=== PATIENT | male | born 1970 | race Caucasian/White ===

== ENCOUNTER 2016-09-14 22:02 | Observation (INO) | payer OTHER ==
[~2016-09-14] VITALS: Ht 188 cm; Wt 127.0 kg
[~2016-09-14 22:02] MED LIST: BACLOFEN10 M1; BACLOFEN10 M1 PO; CARVEDILOL PO; COLACE PO; FLEXERIL10 MG PO; LASIX PO; LIORESAL10 MG PO; LISINOPRIL PO; NORCO 10/325 MG1 TAB PO; NORCO 325 MG-101 TAB PO; NORCO 325 MG-7.1 TAB PO; NORCO 5/325 MG1 TAB; VICODIN; WARFARIN PO
--- NOTE | 2016-09-14 22:02 | NUR ---
PT [facility]A [facility]. TAKEN TO BED 3
[2016-09-14 22:10] VITALS: BP 185/127
--- NOTE | 2016-09-14 22:30 | NUR ---
45Y M BIB AMBULANCE C/O CP, 10/10 SCALE, NO DISTRESS NOTED. ST IN THE MONITOR. ELEVATED BP 185/127. PT ADMITS HE IS METH USER AND DIDNT USE METH FOR 3-4 DAYS NOW. PREVIOUSLY ADMITTED FOR SAME COMPLAINTS.
--- NOTE | 2016-09-14 23:07 | NUR ---
X-Ray at bedside.
--- NOTE | 2016-09-14 23:24 | NUR ---
Dr. Cardona evaluating patient at bedside.
--- NOTE | 2016-09-14 23:55 | NUR ---
RT AT PT BEDSIDE
--- NOTE | 2016-09-15 00:03 | NUR ---
PATIENT REFUSED BIPAP. WOULD NOT KEEP MASK ON. INFORMED PATIENT BENEFITS AND EDUCATED ON BIPAP. PT SAYS HE CAN NOT TOLERATED ANY MASK ON HIS FACE, PLACED BACK ON 2LNC.
[2016-09-15] MEDS ORDERED: LORazepam 2 MG/ML VIAL IM ONE (00:25)
[2016-09-15] MEDS ORDERED: LORazepam 2 MG/ML VIAL IVP ONE ×3 (00:25→01:15)
[2016-09-15] MEDS ORDERED: HYDROcodone/APAP 7.5/325 MG 1 TAB PO PRN ×2 (00:50→01:30)
[2016-09-15] MEDS ORDERED: NITROGLYCERIN 0.4 MG TAB SL PRN ×2 (00:50→01:30)
[2016-09-15] MEDS ORDERED: ONDANSETRON 4 MG/2 ML VIAL IVP PRN ×2 (00:50→01:30)
[2016-09-15] MEDS ORDERED: ACETAMINOPHEN 325 MG TAB PO PRN ×2 (00:50→01:30)
[2016-09-15] MEDS ORDERED: MORPHINE SULFATE 2 MG/ML SYR IVP PRN (00:50)
[2016-09-15] MEDS ORDERED: FUROSEMIDE 20 MG/2 ML VIAL IVP ONE ×3 (01:00→01:15)
--- NOTE | 2016-09-15 01:14 | NUR ---
Patient will be admitted to care of . Admited to TELEMETRY. Will go to room 115. Belongings list completed. Report to SHAUNA RODRIGUEZ.
--- NOTE | 2016-09-15 01:39 | NUR ---
RECEIVED PT. FROM ER PER RAMO. VERBALIZING WELL. PT. ALERT AND ORIENTED X 4. ROM X 4. DX. OF CHF EXACERBATION. ON 02 AT 3 LPM/NC WITH 02 SAT OF 99 %. BP 145/78 PULSE OF 50. SKIN NOTED WITH OLD SCARS FROM NEEDLE TRACKS NOTED. PT. GIVEN 1 MG OF ATIVAN IVP IN ER RT COMBATIVE. HX. SUBSTANCE ABUSE/METH, ASTHMA,CARDIOMYOPATHY AND SEIZURES. PT. AFEBRILE. CARE PLANS DISCUSSED WITH HIM FOR THE NIGHT AND MADE SURE PT. BED ALARM ON AND CALL LIGHT WITH IN REACH.
--- NOTE | 2016-09-15 01:49 | NUR ---
PT. ACCIDENTALLY PULLED OUT IVF LINE INSERTED IN ER. WILL INSERT NEW LINE. DISCONTINUED IVF LINE WITH TIP INTACT.
[2016-09-15 02:05] VITALS: BP 145/78
--- NOTE | 2016-09-15 02:50 | NUR ---
PT. MEDICATED WITH LASIX 60 MG X 1 ORDERED. EXPLAINED TO PT. REASON OF NEW IVF LINE INSERTED TO LEFT HAND#24. ABLE TO URINATE IN URINAL 200 ML. GAVE 2 URINALS TO RT PT. GIVEN LASIX .
[2016-09-15 04:11] VITALS: BP 136/78
--- NOTE | 2016-09-15 05:20 | NUR ---
PAGED MD SHORT WITH DENTAL TECHNICIAN INSTRUCTOR MD. SEGAL .
--- NOTE | 2016-09-15 05:22 | NUR ---
SLEEPING WELL AT THIS TIME. VERBALIZES WELL. NO SOB. ON 02 AT 3LPM/NC. TELEMETRY MONITORING.
--- NOTE | 2016-09-15 05:30 | NUR ---
MD SEGAL CALLED BACK AND INFORMED HER OF LACTIC ACID ORDERED RESULT OF 2.6- WITH NEW ORDER TO REPEAT AFTER FOUR HOURS.
--- NOTE | 2016-09-15 06:15 | NUR ---
URINE SAMPLE FOR UDS SENT TO LABORATORY. PT. SLEEPING. WAKES UP EASILY WHEN TOUCHED. ABLE TO VERBALIZE NEEDS WELL. IVF SITE TO LEFT HAND #[address] AND PATENT. HEPLOCKED. DX. CHF EXACERBATION.
--- NOTE | 2016-09-15 07:10 | NUR ---
RECEIVED REPORT FROM MICHAEL VILLATORO. PT IS AAOX4. PT ON 3L NC, O2 SAT AT 97%. IV TO LEFT HAND #22, PATENT AND INTACT. NO N/V OR PAIN INDICATED. MULTIPLE SCARS/SCABS NOTED ON BILATERAL UPPER EXTREMITIES. ALL SAFETY PRECAUTIONS IN PLACE, SIDE RAILSX2, BED IN LOW POSITION, AND CALL LIGHT WITHIN REACH. WILL CONTINUE TO MONITOR.
[2016-09-15 08:00] VITALS: BP 152/89
--- NOTE | 2016-09-15 08:58 | NUR ---
PATIENT HAS BEEN SCREENED AND CATEGORIZED MODERATE NUTRITION RISK. PATIENT WILL BE SEEN WITHIN 3-5 DAYS OF ADMISSION. 09/17/16-09/19/[address]
[2016-09-15] MEDS ORDERED: DOCUSATE SODIUM 100 MG GELCAP PO SCH (09:00)
[2016-09-15] MEDS ORDERED: FUROSEMIDE 20 MG/2 ML VIAL IVP SCH ×2 (09:00)
[2016-09-15] MEDS ORDERED: ASPIRIN 81 MG TAB.CHEW PO SCH (09:00)
[2016-09-15] MEDS ORDERED: LISINOPRIL 10 MG TAB PO SCH ×3 (09:00→15:52)
[2016-09-15] MEDS ORDERED: ATORVASTATIN 20 MG TAB PO SCH (09:00)
[2016-09-15] MEDS ORDERED: CARVEDILOL 3.125 MG TAB PO SCH ×2 (09:00)
[2016-09-15] MEDS ORDERED: FAMOTIDINE 20 MG TAB PO SCH ×2 (09:00)
--- NOTE | 2016-09-15 09:00 | NUR ---
PT RESTING WITH NO DISTRESS NOTED.
[2016-09-15] MEDS: ASPIRIN 81 MG TAB.CHEW PO SCH (09:55)
[2016-09-15] MEDS: DOCUSATE SODIUM 100 MG GELCAP PO SCH (09:55)
[2016-09-15] MEDS: ATORVASTATIN 20 MG TAB PO SCH (09:56)
--- NOTE | 2016-09-15 10:00 | NUR ---
VSS. PT TOLERATED MEDS WELL. WILL CONTINUE TO MONITOR.
[2016-09-15] MEDS ORDERED: SPIRONOLACTONE 25 MG TAB PO SCH (10:30)
[2016-09-15] MEDS: MORPHINE SULFATE 2 MG/ML SYR IVP PRN ×2 (10:47→18:02)
--- NOTE | 2016-09-15 10:54 | NUR ---
PT TOLERATED MEDS WELL. BP 151/113, HR 110. PT C/O 9/10 PAIN. ADMINISTERED MORPHINE ORDERED. WILL CONTINUE TO MONITOR.
[2016-09-15 12:00] VITALS: BP 157/113
--- NOTE | 2016-09-15 12:00 | NUR ---
VSS. WILL CONTINUE TO MONITOR.
--- NOTE | 2016-09-15 13:29 | NUR ---
CM NOTE INITIAL REVIEW FAXED TO [facility] / FAX# [phone], C: [phone]
--- NOTE | 2016-09-15 14:00 | NUR ---
PT SLEEPING WITH NO DISTRESS NOTED.
--- NOTE | 2016-09-15 15:08 | NUR ---
RECEIVED CRITICAL LAB FOR TROPONIN 0.082, DR JOHNSON MADE AWARE. NO ORDERS RECEIVED AT THIS TIME. PT MAY BE POSSIBLE DISCHARGE.
[2016-09-15 16:00] VITALS: BP 115/68
--- NOTE | 2016-09-15 17:00 | NUR ---
PT RESTING WITH NO DISTRESS NOTED.
--- NOTE | 2016-09-15 19:33 | NUR ---
ENDORSED CARE TO MICHAEL DE LA O. PT IN STABLE CONDITION.
--- NOTE | 2016-09-15 19:35 | NUR ---
RECEIVED PT IN STABLE CONDITION FROM LINDA Light RN. NO SOB, NO SIGNS OF DISTRESS. PT REFUSING 2L O2 NC. PT IS AOX4, AMBULATORY. VS STABLE. PT DENIES PAIN AT THIS TIME. IV TO LT HAND 24 G PATENT ASYMPTOMATIC, INTACT, SALINE LOCKED. PT REFUSING SCDS. SCABS NOTED ALL OVER BODY. PLAN OF CARE DISCUSSED WITH PT. SAFETY MEASURES IN PLACE. CALL LIGHT WITHIN REACH. WILL CONTINUE TO MONITOR.
[2016-09-15 20:00] VITALS: BP 124/78
[2016-09-15] MEDS ORDERED: SODIUM CHLORIDE FLUSH 10 ML SYR IVF SCH (21:00)
[2016-09-15] MEDS: SODIUM CHLORIDE FLUSH 10 ML SYR IVF SCH (21:24)
--- NOTE | 2016-09-15 21:24 | NUR ---
FLUSHED IV SITE PER MD ORDER, PT TOLERATED WELL. PT ON 2L O2 NC. NO SOB, NO SIGNS OF DISTRESS. IV SITE ASYMPTOMATIC, INTACT, PATENT, SALINE LOCKED. PT DENIES PAIN AT THIS TIME. PLAN OF CARE DISCUSSED WITH PT. SAFETY MEASURES IN PLACE. CALL LIGHT WITHIN REACH. WILL CONTINUE TO MONITOR.
--- NOTE | 2016-09-15 23:00 | NUR ---
PT REFUSED CONFIGURATION MANAGEMENT ADMINISTRATOR, EDUCATED PT ON THE REASONS WHY HE NEEDS TO HAVE THE HEART MONITOR ON, PT STILL REFUSED.
[2016-09-16] VITALS: BP 104/70
[2016-09-16] MEDS: MORPHINE SULFATE 2 MG/ML SYR IVP PRN ×2 (00:10→11:09)
--- NOTE | 2016-09-16 00:10 | NUR ---
VS STABLE. PT ON 2L O2 NC. NO SOB, NO SIGNS OF DISTRESS. IV SITE ASYMPTOMATIC, INTACT, SALINE LOCKED. PT C/O PAIN, WILL MEDICATE PER MD ORDER. PLAN OF CARE DISCUSSED WITH PT. SAFETY MEASURES IN PLACE. CALL LIGHT WITHIN REACH. WILL CONTINUE TO MONITOR.
--- NOTE | 2016-09-16 02:05 | NUR ---
PT ASLEEP IN BED. PT ON 2L O2 NC. NO SOB, NO SIGNS OF DISTRESS. IV SITE ASYMPTOMATIC, INTACT, SALINE LOCKED. SAFETY MEASURES IN PLACE. CALL LIGHT WITHIN REACH. WILL CONTINUE TO MONITOR.
[2016-09-16 04:00] VITALS: BP 99/47
--- NOTE | 2016-09-16 04:15 | NUR ---
VS STABLE ON ROOM AIR. NO SOB, NO SIGNS OF DISTRESS. PT REFUSING OXYGEN AND EVENT PLANNER. EDUCATED PT ON THE MEDICAL NEED FOR OXYGEN AND HEART MONITORING, PT BECAME AGITATED AND REFUSED. IV SITE ASYMPTOMATIC, INTACT, SALINE LOCKED. PT DENIES PAIN AT THIS TIME. PLAN OF CARE DISCUSSED WITH PT. SAFETY MEASURES IN PLACE. CALL LIGHT WITHIN REACH. WILL CONTINUE TO MONITOR.
[2016-09-16] MEDS: SODIUM CHLORIDE FLUSH 10 ML SYR IVF SCH ×2 (05:52→12:16)
--- NOTE | 2016-09-16 07:10 | NUR ---
ENDORSED PT IN STABLE CONDITION TO LINDA Light RN. ALL NEEDS HAVE BEEN MET AT THIS TIME.
--- NOTE | 2016-09-16 07:11 | NUR ---
RECEIVED REPORT FROM MICHAEL DE LA O. PT IS AAOX4. PT ON ROOM AIR WITH NO S/S OF DISTRESS NOTED, O2 SAT AT 96%%. IV TO LEFT HAND #24, PATENT AND INTACT. BLE/MAGALIE EXTREMITY SCARS/SCABS NOTED. NO N/V OR PAIN INDICATED. ALL SAFETY PRECAUTIONS IN PLACE, SIDE RAILSX2, BED IN LOW POSITION, AND CALL LIGHT WITHIN REACH. WILL CONTINUE TO MONITOR.
[2016-09-16 07:55] VITALS: BP 103/61
[2016-09-16] MEDS ORDERED: COUMADIN2.5 MG PO (08:09)
[2016-09-16] MEDS ORDERED: PEPCID20 M1 PO (08:09)
[2016-09-16] MEDS ORDERED: ASPIRIN ADULT L81 M1 PO (08:09)
[2016-09-16] MEDS ORDERED: ALDACTONE25 M1 PO (08:09)
[2016-09-16] MEDS ORDERED: APAP/HYDROCODON1 T30 PO (08:09)
[2016-09-16] MEDS ORDERED: LISINOPRIL10 M1 PO (08:09)
[2016-09-16] MEDS ORDERED: COLACE100 M1 PO (08:09)
[2016-09-16] MEDS ORDERED: CARVEDILOL12.5 MG PO (08:09)
[2016-09-16] MEDS ORDERED: LASIX10 MG/M2 IVP (08:09)
[2016-09-16] MEDS ORDERED: SPIRONOLACTONE 25 MG TAB PO SCH (09:00)
[2016-09-16] MEDS ORDERED: CARVEDILOL 12.5 MG TAB PO SCH (09:00)
[2016-09-16] MEDS ORDERED: LISINOPRIL 10 MG TAB PO SCH (09:00)
[2016-09-16] MEDS ORDERED: FAMOTIDINE 20 MG TAB PO SCH (09:00)
[2016-09-16] MEDS ORDERED: CARVEDILOL 3.125 MG TAB PO SCH (09:00)
[2016-09-16] MEDS ORDERED: FUROSEMIDE 20 MG/2 ML VIAL IVP SCH (09:00)
[2016-09-16] MEDS: ATORVASTATIN 20 MG TAB PO SCH (09:11)
[2016-09-16] MEDS: DOCUSATE SODIUM 100 MG GELCAP PO SCH (09:13)
[2016-09-16] MEDS: ASPIRIN 81 MG TAB.CHEW PO SCH (09:14)
--- NOTE | 2016-09-16 09:19 | NUR ---
BP 112/58, HR 94. PT TOLERATED MEDS WELL. PT REFUSED LASIX, PROVIDED WITH EDUCATION REGARDING LASIX REFUSAL. PT VERBALIZED UNDERSTANDING. WILL CONTINUE TO MONITOR.
--- NOTE | 2016-09-16 11:13 | NUR ---
VSS. PT C/0 04/23 PAIN. ADMINISTERED MORPHINE ORDERED. PT TOLERATED MEDS WELL.
--- NOTE | 2016-09-16 11:15 | NUR ---
P.T. NOTES Pt WAS SEEN SLEEPY IN BED, WOKE UP W/ P.T., DECLINED TO PARTICIPATE W/ P.T., EXPLAINED BENEFITS OF THERAPY, Pt STILL REFUSED, P.T. STAFF OFFERED TO RETURN LATER, Pt STATES HE WILL "NOT GET UP TODAY, HE WILL ONLY GET UP WHEN HE IS DISCHARGED TO WALK TO THE W/C", STATES HE IS LEAVING TODAY; APPRECIATIVE, WANTED LIGHTS OFF, CURTAIN CLOSED, CALL TRAMMELL, PHONE, TABLE IN REACH; APPRECIATIVE; 4 SIDERAILS UP, BED ALARM ON; ON ROOM AIR; FOLLOW UP TOMORROW OF NOT D/C'd; NURSE AWARE; REVIEWED HEP. PVE
[2016-09-16 12:00] VITALS: BP 136/60
--- NOTE | 2016-09-16 12:37 | NUR ---
VSS. PT RESTING WITH NO DISTRESS NOTED
--- NOTE | 2016-09-16 13:00 | NUR ---
PT SHOWERED. PT AMBULATED TO SHOWER WITH STEADY GAT. PT PROVIDED WITH DISCHARGE TEACHING. PROVIDED PT WITH HOMELESS DETENTION RESOURCES. PT VERBALIZED UNDERSTANDING.
--- NOTE | 2016-09-16 14:05 | NUR ---
PT HAS BEEN DISCHARGED. ALL PAPERWORK SIGNED. ALL QUESTIONS ANSWERED. ALL BELONGINGS AND PRESCRIPTIONS IN PT POSSESSION. IV DC'ED WITH CANNULA INTACT. WRISTBANDS AND TELE MONITOR REMOVED. NOTIFIED CORK COMPOUNDER. PT WHEELED OUT OF UNIT, PT AMBULATED WITH STEADY GAIT. PT PROVIDED WITH THREE BUS PASSES. PT IN STABLE CONDITION.
[2016-12-29] MEDS ORDERED: CARVEDILOL6.25 MG PO (15:03)
[2016-12-29] MEDS ORDERED: NATURE'S BLEND F1 M1 PO (15:03)
[2016-12-29] MEDS ORDERED: NATURE'S BLEND100 M2 PO (15:03)
[2016-12-29] MEDS ORDERED: ASPIRIN ADULT L81 M1 PO (15:03)
[2016-12-29] MEDS ORDERED: ZESTRIL20 MG PO (15:03)
[2016-12-29] MEDS ORDERED: ATORVASTATIN CA20 MG PO (15:03)
[2016-12-29] MEDS ORDERED: ALDACTONE25 M1 PO (15:03)
[2017-03-02] MEDS ORDERED: ATORVASTATIN CA20 MG PO (10:34)
[2017-03-02] MEDS ORDERED: ASPIRIN ADULT L81 M1 PO (10:34)
[2017-03-02] MEDS ORDERED: NATURE'S BLEND100 M2 PO (10:34)
[2017-03-02] MEDS ORDERED: BLOOD GLUCOSE1 EACH FS (10:34)
[2017-03-02] MEDS ORDERED: ALDACTONE25 M1 PO (10:34)
[2017-03-02] MEDS ORDERED: LASIX20 MG PO (10:34)
[2017-03-02] MEDS ORDERED: NATURE'S BLEND F1 M1 PO (10:34)
[2017-03-02] MEDS ORDERED: LISINOPRIL20 M1 PO (10:34)
[2017-03-02] MEDS ORDERED: GLUCOPHAGE XR500 MG PO (10:34)
[2017-03-02] MEDS ORDERED: CARVEDILOL6.25 MG PO (10:34)
== END 2016-09-16 14:05 | disposition home or self-care (01) ==
LOC: MED 22:02 → UNDOADMIN 09-15 00:34 → MTU 09-15 00:34
PROVIDERS: ADMIT Family Medicine; ATTEND Family Medicine
DX: I50.9 Heart failure, unspecified (principal); I11.0 Hypertensive heart disease with heart failure
CPT/HCPCS: 36415; 71010; 80048; 80053; 80061; 80076; 80305; 81003; 82150; 83036; 83605; 83690; 83735; 83880; 84100; 84439; 84443; 84484; 85025; 85610; 85730; 87040; 87081; 93005; 96374; 96375; 96376; 97162; 99285; G0378; J1940; J2060; J2270

== ENCOUNTER 2016-10-04 01:12 | Inpatient (IN) | payer OTHER ==
[~2016-10-04] VITALS: Ht 190.5 cm; Wt 127.0 kg
[2016-10-04] VITALS (7 sets, daily range): BP systolic 108–149; BP diastolic 67–109
[~2016-10-04 01:12] MED LIST changes: +ACET-9529 PO; +ASPI81CT27 PO; -BACLOFEN10 M1; -BACLOFEN10 M1 PO; +CARV12.52 PO; -CARVEDILOL PO; -COLACE PO; +DOCU-67 PO; +FAMO-90 PO; -FLEXERIL10 MG PO; +LAS20I IVP; -LASIX PO; -LIORESAL10 MG PO; +LISI10TA11 PO; -LISINOPRIL PO; -NORCO 10/325 MG1 TAB PO; -NORCO 325 MG-101 TAB PO; -NORCO 325 MG-7.1 TAB PO; -NORCO 5/325 MG1 TAB; +SPIR25TA PO; -VICODIN; +WARF2.5T77 PO; -WARFARIN PO
--- NOTE | 2016-10-04 01:38 | NUR ---
MICHAEL CALIX. TAKEN TO BED 1
--- NOTE | 2016-10-04 01:46 | NUR ---
BIB [facility], PT FOUND AT 7-11, COMPLAIN OF CHEST PAIN. PT ADMITS TO METH USE X2 AGO AND MARIJUANA USE . DENIES N/V/D; SKIN IS PINK/WARM/DRY; AAOX4 WITH EVEN AND STEADY GAIT; LUNGS CLEAR BL; HR EVEN AND REGULAR; PT DENIES ANY FEVER, SOB, OR COUGH AT THIS TIME; PATIENT STATES PAIN OF 10/10 AT THIS TIME; VSS; PATIENT POSITIONED FOR COMFORT; HOB ELEVATED; BEDRAILS UP X2; BED DOWN. ER MD MADE AWARE OF PT STATUS. PT APPEARS VERY AGITATED WITH CARES AND UNABLE TO SIT STILL.
--- NOTE | 2016-10-04 01:46 | NUR ---
X-Ray at bedside.
[2016-10-04 02:00] LABS: BASOPHILS # (AUTO) 0.1 K/uL (0.00-0.22); BASOPHILS % (AUTO) 1.5 % (0.0-2.0); EOSINOPHILS # (AUTO) 0.3 K/uL (0-0.4); EOSINOPHILS % (AUTO) 3.8 % (0.0-4.0); HEMOGLOBIN 12.6 g/dL (12.0-18.0); LYMPHOCYTES # (AUTO) 1.6 K/uL (2.0-11.5); LYMPHOCYTES % (AUTO) 17.4 % (20.5-51.1); MEAN CORPUSCULAR HEMOGLOBIN 25 pg (27-31); MEAN CORPUSCULAR HGB CONC 31 g/dL (33-37); MEAN CORPUSCULAR VOLUME 79 fL (80-94); MONOCYTES # (AUTO) 0.8 K/uL (0.8-1.0); MONOCYTES % (AUTO) 9.1 % (1.7-9.3); NEUTROPHILS # (AUTO) 6.2 K/uL (1.8-7.7); NEUTROPHILS % (AUTO) 68.2 % (42.2-75.2); PLATELET COUNT (AUTO) 190 K/uL (140-450); RED CELL DISTRIBUTION WIDTH 16.5 % (11.6-13.7)
--- NOTE | 2016-10-04 02:00 | NUR ---
LABS, CXR AND URINE DONE.
[2016-10-04 02:01] LABS: APPEARANCE,URINE SL CLOUDY (CLEAR); BILIRUBIN,URINE NEGATIVE (NEGATIVE); BLOOD, URINE TRACE-L (NEGATIVE); COLOR,URINE YELLOW (YELLOW); LEUKOCYTE ESTERASE ,URINE NEGATIVE (NEGATIVE); NITRITE, URINE NEGATIVE (NEGATIVE); PH,URINE 5.5 (5.0-9.0); PROTEIN,URINE 2+ (NEGATIVE); UGLUCOSE NEGATIVE (NEGATIVE)
[2016-10-04 02:08] LABS: AMPHETAMINE, URINE POS. ng/ml (NEG <=1000); BARBITURATE, URINE NEG. ng/ml (NEG <=200); BENZODIAZEPINE, URINE NEG. ng/mL (NEG <=200); CANNABINOID, URINE POS. ng/mL (NEG <=50); COCAINE, URINE NEG. ng/mL (NEG <=300); OPIATE, URINE NEG. ng/mL (NEG <=2000); PHENCYCLIDINE SCREEN,URINE NEG. ng/mL (NEG <=25)
[2016-10-04 02:14] LABS: BACTERIA,URINE FEW /HPF (None Seen); SQUAMOUS EPITHELIAL CELL,UR None Seen /LPF (0-3 (FEW))
[2016-10-04 02:14] LABS: ALBUMIN 3.4 g/dL (3.4-5.0); ANION GAP 14.9 (8-16); CALCIUM 8.6 mg/dL (8.5-10.1); CARBON DIOXIDE 23.4 mmol/L (21-32); CREATININE 1.3 mg/dL (0.6-1.3); POTASSIUM 4.3 mmol/L (3.5-5.1); TOTAL BILIRUBIN 0.5 mg/dL (0.0-1.0); TOTAL PROTEIN, SERUM 6.8 g/dL (6.4-8.2)
[2016-10-04 02:15] LABS: HYALINE CASTS, URINE 0-3 /LPF (None Seen)
[2016-10-04 02:18] LABS: INR 1.2 (0.8-1.2); PARTIAL THROMBOPLASTIN TIME 25.9 secs (22-35.6)
[2016-10-04] MEDS ORDERED: ASPIRIN 81 MG TAB.CHEW PO ONE (02:30)
[2016-10-04] MEDS ORDERED: MORPHINE SULFATE 4 MG/ML SYR IVP ONE (02:35)
[2016-10-04] MEDS ORDERED: FUROSEMIDE 40 MG/4 ML VIAL IVP ONE (02:35)
[2016-10-04] MEDS ORDERED: ONDANSETRON 4 MG/2 ML VIAL IVP PRN (03:15)
[2016-10-04] MEDS ORDERED: ACETAMINOPHEN 325 MG TAB PO PRN (03:15)
[2016-10-04] MEDS ORDERED: MORPHINE SULFATE 2 MG/ML SYR IVP PRN (03:15)
[2016-10-04] MEDS ORDERED: DOCUSATE SODIUM 100 MG GELCAP PO PRN (03:15)
[2016-10-04] MEDS ORDERED: HYDROcodone/APAP 5/325 MG 1 TAB TAB PO PRN (03:15)
--- NOTE | 2016-10-04 03:17 | NUR ---
PIV STARTED, MEDS GIVEN. PT REFUSED INDWELLING CATH, STATES HE WILL USE URINALS.
--- NOTE | 2016-10-04 03:23 | NUR ---
Patient will be admitted to care of [facility]. Admited to TELE. Will go to room 113. Belongings list completed. Report to MICHAEL CINTRON.
--- NOTE | 2016-10-04 03:45 | NUR ---
PATIENT TRANSFERRED FROM ER VIA GURNEY. NO RESPIRATORY DISTRESS, SOB, OR DISCOMFORT. PATIENT IS A 45-YEAR-OLD, MALE, DIAGNOSIS: CHF. INITIAL ASSESSMENT AND BODY CHECK DONE. PATIENT IS AOX4, MULTIPLE SCABS AND REDNESS THROUGHOUT BODY NOTED. PATIENT STATES FROM SCRATCHING BODY. PATIENT HAS IV ACCESS TO LEFT AC 20G, PATENT. DISCUSSED PLAN OF CARE, MEDICATION REGIMENT, AND PAIN MANAGEMENT WITH PATIENT. PATIENT VERBALIZED UNDERSTANDING. PLACED PATIENT ON SAFETY/FALL/PRESSURE ULCER PRECAUTIONS. CALL LIGHT LEFT WITHIN REACH, WILL CONTINUE OT MONITOR.
[2016-10-04 04:06] LABS: MAGNESIUM 1.7 mg/dL (1.8-2.4); PHOSPHORUS 3.6 mg/dL (2.5-4.9)
[2016-10-04 04:39] LABS: FREE T4 (FREE THYROXINE) 0.96 ng/dL (0.76-1.46); THYROID STIMULATING HORMONE 1.73 uIU/mL (0.34-3.76)
--- NOTE | 2016-10-04 06:09 | NUR ---
PATIENT IN BED, SLEEPING. NO RESPIRATORY DISTRESS, SOB, OR DISCOMFORT. CALL LIGHT LEFT WITHIN REACH, WILL CONTINUE TO MONITOR.
--- NOTE | 2016-10-04 07:00 | NUR ---
REPORT GIVEN TO DAY NURSEURI. PATIENT RESTING IN BED, STABLE. NO RESPIRATORY DISTRESS, SOB, OR DISCOMFORT. ALL NEEDS ATTENDED TO DURING SHIFT, CALL LIGHT LEFT WITHIN REACH.
--- NOTE | 2016-10-04 07:01 | NUR ---
RECEIVED REPORT FROM NIGHT NURSE DEREK RODRIGUEZ, PATIENT APPEARED TO BE ASLEEP, EASILY AWAKE TO NAME CALLED. AAOX4 NO SIGN OF DISTRESS NOTED. NO SOB OR SIGN OF DISTRESS NOTED AT THIS TIME. INITIAL ASSESSMENT DONE. PATIENT DENIED ANY PAIN OR DISCOMFORT. VSS WITH NO FEVER. PATIENT HAS IV 20G SL TO LEFT AC INTACT AND FLUSHED WELL. PATIENT MULTIPLES SCABS AND OLD SCARS TO BUE AND BLE. PLAN OF CARE, PAIN MANAGEMENT AND MEDICATION REGIMENTS DISCUSSED, PATIENT VERBALIZED UNDERSTANDING. CALL LIGHT WITHIN REACH. WILL CONTINUE TO MONITOR.
[2016-10-04] MEDS: PANTOPRAZOLE 40 MG TABEC PO SCH (08:13)
--- NOTE | 2016-10-04 08:17 | NUR ---
DUE MEDICATION AND MORPHINE 1MG GIVE FOR CHEST PRESSURE PAIN 03/23. PATIENT TOLERATED WELL. NO SIGN OF DISTRESS NOTED. PATIENT VERBALIZED " I FEEL MUCH BETTER" AFTER ADMINISTERED MORPHINE IVP. HEAD OF BED ELEVATED. CALL LIGHT WITHIN REACH. WILL CONTINUE TO MONITOR.
--- NOTE | 2016-10-04 08:29 | NUR ---
PATIENT HAS BEEN SCREENED AND CATEGORIZED MODERATE NUTRITION RISK. PATIENT WILL BE SEEN WITHIN 3-5 DAYS OF ADMISSION. 10/06/16-10/08/[address]
--- NOTE | 2016-10-04 09:12 | NUR ---
CM NOTE INITIAL REVIEW SENT TO [facility] FAX# [phone] PH# [phone]
[2016-10-04] MEDS ORDERED: MAG SULF 2000 MG/WATER PREMIX 50 ML IV SCH (10:01)
--- NOTE | 2016-10-04 12:01 | NUR ---
PATIENT ASLEEP IN EASILY AROUSAL TO NAME CALLED. NO [place] IN CONDITION NOTED. ALL SAFETY MEASURES IN PLACE. CALL LIGHT WITHIN REACH. WILL CONTINUE TO MONITOR.
--- NOTE | 2016-10-04 13:53 | NUR ---
PATIENT REQUESTED MORPHINE IVP FOR HIS CHEST PAIN 02/20. INSTRUCTED PATIENT MORPHINE WILL BE GIVEN WHEN DUE IT WAS ORDERED Q6H. DR GALICIA NOTIFIED AND MADE AWARE.
--- NOTE | 2016-10-04 15:24 | NUR ---
DR GALICIA MADE AWARE PATIENT BLOOD SUGAR 213. NO NEW ORDER RECEIVED. PATIENT NO SIGN OF DISTRESS NOTED. WILL CONTINUE TO MONITOR.
[2016-10-04] MEDS: MORPHINE SULFATE 2 MG/ML SYR IVP PRN ×2 (16:32→21:03)
--- NOTE | 2016-10-04 16:38 | NUR ---
MORPHINE IVP 1MG GIVEN IVP FOR PRESSURE CHEST PAIN 04/23. PATIENT TOLERATED WELL. NO SIGN OF DISTRESS NOTED. PATIENT REMAINED CALM. AWAKE AND RESTING WELL IN BED. NO CHANGE IN CONDITION NOTED. ALL NEEDS ARE MET. CALL LIGHT WITHIN REACH. WILL CONTINUE TO MONITOR.
[2016-10-04] MEDS ORDERED: MAG SULF 2000 MG/WATER PREMIX 50 ML IV ONE (16:45)
--- NOTE | 2016-10-04 19:10 | NUR ---
ENDORSED PATIENT CURRENT PLAN OF CARE TO NIGHT NURSE DEREK RODRIGUEZ, PATIENT RESTING WELL IN BED WITH NO SIGN OF DISTRESS NOTED.
--- NOTE | 2016-10-04 19:15 | NUR ---
RECEIVED REPORT FROM DAY NURSEURI. PATIENT RESTING IN BED, WATCHING TELEVISION. NO RESPIRATORY DISTRESS, SOB, OR DISCOMFORT. INITIAL ASSESSMENT AND BODY CHECK DONE. PATIENT IS AOX4, MULTIPLE SCABS NOTED THROUGHOUT BODY, IV ACCESS TO LEFT AC 20G, PATENT. DISCUSSED PLAN OF CARE, MEDICATION REGIMENT, AND PAIN MANAGEMENT WITH PATIENT. PATIENT VERBALIZED UNDERSTANDING. PLACED PATIENT ON SAFETY/FALL PRECAUTIONS. CALL LIGHT LEFT WITHIN REACH, WILL CONTINUE TO MONITOR.
--- NOTE | 2016-10-04 20:18 | NUR ---
PAGED DR. GARCIA AT THIS TIME, ON-CALL FOR DR. SHORT.
--- NOTE | 2016-10-04 20:24 | NUR ---
SPOKE WITH DR. GARCIA AT THIS TIME, UPDATED MD OF CRITICAL TROPONIN 0.118; MD VERBALIZED UNDERSTANDING. NO CHANGE IN ORDERS. PATIENT RESTING IN BED, WATCHING TELEVISION. NO RESPIRATORY DISTRESS, SOB, OR DISCOMFORT. CALL LIGHT LEFT WITHIN REACH, WILL CONTINUE TO MONITOR.
--- NOTE | 2016-10-04 22:12 | NUR ---
PATIENT IN BED, SLEEPING. NO RESPIRATORY DISTRESS, SOB, OR DISCOMFORT. CALL LIGHT LEFT WITHIN REACH, WILL CONTINUE TO MONITOR.
--- NOTE | 2016-10-05 00:45 | NUR ---
PATIENT ASLEEP. NO RESPIRATORY DISTRESS, SOB, OR DISCOMFORT. CALL LIGHT LEFT WITHIN REACH, WILL CONTINUE TO MONITOR.
--- NOTE | 2016-10-05 03:11 | NUR ---
PATIENT SLEEPING. NO RESPIRATORY DISTRESS, SOB, OR DISCOMFORT. CALL LIGHT LEFT WITHIN REACH, WILL CONTINUE TO MONITOR.
[2016-10-05 04:00] VITALS: BP 142/71
--- NOTE | 2016-10-05 06:03 | NUR ---
PATIENT IN BED, ASLEEP. NO RESPIRATORY DISTRESS, SOB, OR DISCOMFORT. CALL LIGHT LEFT WITHIN REACH, WILL CONTINUE TO MONITOR.
[2016-10-05 06:48] LABS: ANION GAP 14.1 (8-16); CALCIUM 8.9 mg/dL (8.5-10.1); CREATININE 1.4 mg/dL (0.6-1.3); POTASSIUM 4.1 mmol/L (3.5-5.1)
--- NOTE | 2016-10-05 07:05 | NUR ---
RECEIVED REPORT FROM NIGHT NURSE DEREK RODRIGUEZ, PATIENT APPEARED TO BE ASLEEP, EASILY AWAKE TO NAME CALLED. AAOX4 NO SIGN OF DISTRESS NOTED. NO SOB OR SIGN OF DISTRESS NOTED AT THIS TIME. INITIAL ASSESSMENT DONE. PATIENT STATED CHEST PRESSURE PAIN IS STILL THERE 03/23. TOLD PATIENT WILL MEDICATE WITH PAIN MEDICATION. VSS WITH NO FEVER. PATIENT HAS IV 22G SL TO LEFT FOREARM INTACT AND FLUSHED WELL. PATIENT HAS MULTIPLES SCABS AND OLD SCARS TO BUE AND BLE. PLAN OF CARE, PAIN MANAGEMENT AND MEDICATION REGIMENTS DISCUSSED, PATIENT VERBALIZED UNDERSTANDING. CALL LIGHT WITHIN REACH. WILL CONTINUE TO MONITOR.
[2016-10-05 07:45] LABS: WHITE BLOOD COUNT (AUTO) 10.1 K/uL (4.8-10.8)
[2016-10-05 07:47] LABS: HEMATOCRIT 44.3 % (36-52); RED BLOOD CELL COUNT(AUTO) 5.65 MIL/uL (4.20-6.10)
[2016-10-05 07:48] LABS: MEAN CORPUSCULAR HEMOGLOBIN 25 pg (27-31); MEAN CORPUSCULAR HGB CONC 32 g/dL (33-37); MEAN CORPUSCULAR VOLUME 79 fL (80-94); PLATELET COUNT (AUTO) 219 K/uL (140-450); RED CELL DISTRIBUTION WIDTH 16.8 % (11.6-13.7)
[2016-10-05 08:00] VITALS: BP 156/91
[2016-10-05] MEDS: MORPHINE SULFATE 2 MG/ML SYR IVP PRN (08:15)
[2016-10-05] MEDS: PANTOPRAZOLE 40 MG TABEC PO SCH (08:15)
--- NOTE | 2016-10-05 08:19 | NUR ---
MORNING DUE MEDICATION AND MORPHINE IVP FOR CHEST PRESSURE PAIN 03/23 WITH TEACHING GIVEN. PATIENT TOLERATED WELL AND VERBALIZED UNDERSTANDING. NO SIGN OF DISTRESS NOTED AT THIS TIME. ALL NEEDS ARE MET. CALL LIGHT WITHIN REACH. WILL CONTINUE TO MONITOR.
[2016-10-05] MEDS ORDERED: REGADENOSON 0.4 MG/5 ML SYR IV SCH (09:00)
--- NOTE | 2016-10-05 09:22 | NUR ---
CM NOTE CONCURRENT REVIEW FAXED TO [facility] / FAX# [phone], C: [phone]
[2016-10-05 11:24] LABS: NEUTROPHILS % (AUTO) 74.6 % (42.2-75.2)
--- NOTE | 2016-10-05 11:24 | NUR ---
SS NOTE: I SPOKE WITH PT BEDSIDE. I PROVIDED HIM WITH HOMELESS RESOURCES AND SUBSTANCE ABUSE RESOURCES. I ADVISED PT TO FOLLOW UP ON THE SUBSTANCE ABUSE RESOURCES. PT STATED THAT HE PLANS TO RETURN TO [place] UPON DISCHARGE.
[2016-10-05 11:25] LABS: BASOPHILS # (AUTO) 0.1 K/uL (0.00-0.22); BASOPHILS % (AUTO) 0.9 % (0.0-2.0); EOSINOPHILS # (AUTO) 0.3 K/uL (0-0.4); EOSINOPHILS % (AUTO) 3.3 % (0.0-4.0); LYMPHOCYTES # (AUTO) 1.6 K/uL (2.0-11.5); LYMPHOCYTES % (AUTO) 15.6 % (20.5-51.1); MONOCYTES # (AUTO) 0.6 K/uL (0.8-1.0); MONOCYTES % (AUTO) 5.6 % (1.7-9.3); NEUTROPHILS # (AUTO) 7.5 K/uL (1.8-7.7)
--- NOTE | 2016-10-05 12:11 | NUR ---
PATIENT REQUESTED TO OUT HIS IV'S PER MD, PATIENT WILL BE DISCHARGE HOME TODAY. PATIENT ALSO REQUESTED TO HAVE TELE MONITOR REMOVED. RISKS AND BENEFITS PROVIDED. PATIENT STILL INSISTED TO HAVE TELE MONITOR AND IV'S REMOVED. IV 22G TO LEFT FOREARM REMOVED. PATIENT TOLERATED WELL. WILL CONTINUE TO MONITOR.
--- NOTE | 2016-10-05 12:45 | NUR ---
CHECKED IN ON PATIENT. PATIENT APPEARED TO BE UPSET AND WANTED TO LEAVE HOSPITAL NOW. TOLD PATIENT THAT DR JOHNSON IS WORKING ON DISCHARGE PAPERS AND PLANING. PATIENT STATED" I CAN'T WAIT, I WANT TO GO NOW, I DONT CARE." DR JOHNSON NOTIFIED AND CAME TO EXPLAIN TO PATIENT THAT HE WILL WORKING ON HIS CASE. PATIENT STILL INSISTED TO LEAVE HOSPITAL AGAINST MEDICAL ADVICES. AMA FORM SIGNED BY PATIENT AND WITNESS BY DR JOHNSON. PATIENT LEFT THE HOSPITAL IN NO SIGN OF DISTRESS NOTED. ALL BELONGINGS WITH PATIENT. ALL ID BANDS REMOVED. PATIENT AMBULATORY.
== END 2016-10-05 12:45 | disposition left against medical advice (07) | DRG 190 ==
LOC: MED 01:12 → MTU 03:16
PROVIDERS: ADMIT Family Medicine; ATTEND Family Medicine
DX: I21.4 Non-ST elevation (NSTEMI) myocardial infarction (principal); N17.0 Acute kidney failure with tubular necrosis; I50.43 Acute on chronic combined systolic (congestive) and diastolic (congestive) heart failure; I27.2 Other secondary pulmonary hypertension; E83.42 Hypomagnesemia; I42.9 Cardiomyopathy, unspecified; M94.0 Chondrocostal junction syndrome [Tietze]; I11.0 Hypertensive heart disease with heart failure; I48.91 Unspecified atrial fibrillation; E78.5 Hyperlipidemia, unspecified; I25.10 Atherosclerotic heart disease of native coronary artery without angina pectoris; F15.10 Other stimulant abuse, uncomplicated; Z91.19 Patient's noncompliance with other medical treatment and regimen; Z88.8 Allergy status to other drugs, medicaments and biological substances; Z79.01 Long term (current) use of anticoagulants; Z79.82 Long term (current) use of aspirin; Z79.899 Other long term (current) drug therapy
CPT/HCPCS: 36415; 71010; 74000; 80048; 80053; 80305; 81001; 82150; 82553; 82948; 83036; 83605; 83690; 83735; 83880; 84100; 84439; 84443; 84484; 85025; 85379; 85610; 85730; 87081; 87086; 93005; 96374; 96375; 99285; J1644; J1940; J2270; J2785; J3475; Q0092

== ENCOUNTER 2016-12-16 08:49 | Emergency (ER) | payer OTHER ==
[~2016-12-16] VITALS: Ht 188 cm; Wt 127.0 kg
--- NOTE | 2016-12-16 08:54 | NUR ---
PT TO BED 6 FROM EMS MINDY
[2016-12-16 09:02] VITALS: BP 129/95
--- NOTE | 2016-12-16 09:12 | NUR ---
X-ray at bedside.
--- NOTE | 2016-12-16 09:26 | NUR ---
46/M biba for evaluation of left ankle pain s/p slip and fall last night. Pt arrived to ED with splint by EMS. Pt c/o 10/10 severe aching pain to left ankle. Pt is restless and anxious. Hx of meth abuse. reports last meth use was 4 days ago. Pt on potline monitor, a. fib noted with HR of 90. Pt is AOX4, VSS.
--- NOTE | 2016-12-16 09:32 | NUR ---
Report given to Eran RODRIGUEZ. Transfer of care.
--- NOTE | 2016-12-16 10:11 | NUR ---
DR LEAL ASSESSING THE PT AT BEDSIDE
[2016-12-16] MEDS ORDERED: MORPHINE SULFATE 4 MG/ML SYR IM ONE (10:15)
--- NOTE | 2016-12-16 10:47 | NUR ---
PT TAKEN OFF THE UNIT VIA MINDY FOR XRAY BY TECH
--- NOTE | 2016-12-16 11:03 | NUR ---
PT BACK FROM CT PLACED BACK ON MONITOR, ASKING FOR MORE MEDS, MD AWARE, HOLD ON MED PER MD, WILL CONTINUE TO MONITOR
[2016-12-16 12:37] VITALS: BP 133/61
--- NOTE | 2016-12-16 12:37 | NUR ---
Patient discharged with v/s stable. Written and verbal after care instructions given and explained. Patient alert, oriented and verbalized understanding of instructions. Wheel Chair Assisted with to car. All questions addressed prior to discharge. ID band removed. Patient advised to follow up with PMD. Rx of NORCO, MOTRIN given. Patient educated on indication of medication including possible reaction and side effects. Opportunity to ask questions provided and answered.
== END 2016-12-16 12:37 | disposition home or self-care (01) ==
LOC: MED 08:49
DX: S93.402A Sprain of unspecified ligament of left ankle, initial encounter (principal); J45.909 Unspecified asthma, uncomplicated; I11.0 Hypertensive heart disease with heart failure; I50.9 Heart failure, unspecified; Z88.6 Allergy status to analgesic agent; Z98.890 Other specified postprocedural states; X50.1XXA Overexertion from prolonged static or awkward postures, initial encounter; S20.211A Contusion of right front wall of thorax, initial encounter; Y93.89 Activity, other specified; Y92.89 Other specified places as the place of occurrence of the external cause; Y99.8 Other external cause status
CPT/HCPCS: 71101; 73610; 96372; 99284; J2270

== ENCOUNTER 2016-12-27 18:41 | Inpatient (IN) | payer OTHER ==
[~2016-12-27] VITALS: Ht 188 cm; Wt 117.5 kg
[~2016-12-27 18:41] MED LIST changes: -ACET-9529 PO; -ASPI81CT27 PO; -CARV12.52 PO; -DOCU-67 PO; -FAMO-90 PO; -LAS20I IVP; -SPIR25TA PO; -WARF2.5T77 PO
--- NOTE | 2016-12-27 18:56 | NUR ---
BIBA TO ER BED 3
[2016-12-27] MEDS ORDERED: MORPHINE SULFATE 4 MG/ML SYR IVP ONE (19:05)
[2016-12-27] MEDS ORDERED: NITROGLYCERIN 2% 1 GM PKT TP ONE (19:05)
[2016-12-27 19:16] VITALS: BP 158/97
--- NOTE | 2016-12-27 19:20 | NUR ---
PT PRESENTS TO ER W/C/O CHEST PAIN THAT RADIATES DOWN LEFT ARM X1 HOUR. HX CHF, HTN, CVA. PT STATES HE USES METH AND MARIJUANA AND USED THIS EVENING. O2 SAT 98% RA. PT ON MONITOR, SINUS TACCHY ADDIE ALBRIGHT MADE AWARE.
[2016-12-27 19:56] LABS: BASOPHILS # (AUTO) 0.1 K/uL (0.00-0.22); BASOPHILS % (AUTO) 1.4 % (0.0-2.0); EOSINOPHILS # (AUTO) 0.2 K/uL (0-0.4); EOSINOPHILS % (AUTO) 1.7 % (0.0-4.0); HEMATOCRIT 43.8 % (36-52); HEMOGLOBIN 13.8 g/dL (12.0-18.0); LYMPHOCYTES # (AUTO) 1.7 K/uL (2.0-11.5); LYMPHOCYTES % (AUTO) 18.2 % (20.5-51.1); MEAN CORPUSCULAR HEMOGLOBIN 26 pg (27-31); MEAN CORPUSCULAR HGB CONC 31 g/dL (33-37); MEAN CORPUSCULAR VOLUME 82 fL (80-94); MONOCYTES # (AUTO) 0.9 K/uL (0.8-1.0); MONOCYTES % (AUTO) 9.3 % (1.7-9.3); NEUTROPHILS # (AUTO) 6.4 K/uL (1.8-7.7); NEUTROPHILS % (AUTO) 69.4 % (42.2-75.2); PLATELET COUNT (AUTO) 292 K/uL (140-450); RED BLOOD CELL COUNT(AUTO) 5.37 MIL/uL (4.20-6.10); RED CELL DISTRIBUTION WIDTH 18.4 % (11.6-13.7); WHITE BLOOD COUNT (AUTO) 9.3 K/uL (4.8-10.8)
[2016-12-27 20:16] LABS: ANION GAP 17.2 (8-16); CALCIUM 9.2 mg/dL (8.5-10.1); CREATININE 1.5 mg/dL (0.6-1.3); POTASSIUM 4.2 mmol/L (3.5-5.1)
[2016-12-27 20:20] LABS: ALBUMIN 3.4 g/dL (3.4-5.0); TOTAL BILIRUBIN 0.9 mg/dL (0.0-1.0); TOTAL PROTEIN, SERUM 7.4 g/dL (6.4-8.2)
[2016-12-27 20:28] LABS: CREATINE KINASE MB 7.2 ng/mL (0-3.6)
[2016-12-27 20:30] LABS: TROPONIN I 0.512 ng/mL (0.00-0.06)
--- NOTE | 2016-12-27 20:50 | NUR ---
PT SLEEPING, ON MONITOR, O2 2LT VIA NC. NO S/S OF DISTRESS NOTED AT THE MOMENT, WILL COT TO MONITOR.
[2016-12-27] MEDS ORDERED: MORPHINE SULFATE 10 MG/ML SYR IVP ONE (21:45)
[2016-12-27 22:54] LABS: AMPHETAMINE, URINE POS. ng/ml (NEG <=1000); BARBITURATE, URINE NEG. ng/ml (NEG <=200); BENZODIAZEPINE, URINE NEG. ng/mL (NEG <=200); CANNABINOID, URINE POS. ng/mL (NEG <=50); COCAINE, URINE NEG. ng/mL (NEG <=300); OPIATE, URINE NEG. ng/mL (NEG <=2000); PHENCYCLIDINE SCREEN,URINE NEG. ng/mL (NEG <=25)
--- NOTE | 2016-12-27 23:12 | NUR ---
pt sleeping awating for a room. no s/s of pain or distress noted at the moment.
--- NOTE | 2016-12-27 23:25 | NUR ---
Patient will be admitted to care of DR Barraza. Admited to telemetry. Will go to [id number].. Belongings list completed. Report to MICHAEL ANTONIO.
--- NOTE | 2016-12-27 23:30 | NUR ---
PT TRASFERRED TO TELEMETRY VIA [employer]. ACCOMPANIED BY RN AND EMT. NO S/S OF DISTRESS NOTED ON TRASFER.
[2016-12-27 23:32] VITALS: BP 121/95
[2016-12-27] MEDS ORDERED: NACL 0.9% 1,000 ML IV SCH (23:32)
--- NOTE | 2016-12-27 23:32 | NUR ---
Admitted from ER, with chief complaint of CHEST PAIN. 46 Y/O MALE, PT AOX3, ANXIOUS AND RESTLESS. ABLE TO VERBALIZE NEEDS. PT C/O CHEST PAIN, 9/10, CONTINUOUS, RADIATES TO LEFT ARM FOR 2 DAYS. PT ALREADY MEDICATED WITH MS PER ER. PT TACHYPNIC 32 RR, SPO2 97% AT 2L NC. PT REFUSES TO PUT ON GOWN. UNCOOPERATIVE HISTORIAN AT TIMES, PT RESPONSES TO QUESTIONS ARE HURRIED AND STATING "NO" REPEATEDLY. WILL CONTINUE TO REINFORCE AND REASSESS. SUGAR LABORATORY ASSISTANT IN PLACE. MULTIPLE SMALL DRY SCABS NOTED THROUGHOUT BODY, ECCHYMOSIS NOTED ON LOWER ABDOMEN. DISCUSSED AND REVIEWED PLAN OF CARE WITH PT. PT STATED "OKAY." WILL CONTINUE TO REINFORCE. IV ACCESS ASYMPTOMATIC, PATENT AND INTACT. IVF INFUSING WELL. oriented to call light, bed, phone,television, bathroom, smoking policy,visiting hours, procedures, ID bracelet on. Belongings list checked. SAFETY MEASURES ENSURED. CALL LIGHT WITHIN REACH. WILL CONTINUE TO MONITOR.
[2016-12-27] MEDS ORDERED: ONDANSETRON 4 MG/2 ML VIAL IVP PRN ×2 (23:35)
[2016-12-27] MEDS ORDERED: HYDROcodone/APAP 5/325 MG 1 TAB TAB PO PRN (23:35)
[2016-12-27] MEDS ORDERED: ACETAMINOPHEN 325 MG TAB PO PRN (23:35)
[2016-12-27] MEDS ORDERED: ZOLPIDEM 5 MG TAB PO PRN (23:35)
[2016-12-27] MEDS: ATORVASTATIN 20 MG TAB PO SCH (23:50)
[2016-12-27] MEDS ORDERED: METOPROLOL 25 MG TAB PO SCH (23:50)
--- NOTE | 2016-12-28 | NUR ---
PT SEEN SITTING ON THE FLOOR OF THE RESTROOM. PT DENIES FALLING. PT STATED HE VOMITED. EMESIS NOTED AT THE TOILET. PT ABLE TO AMBULATE INDEPENDENTLY WITH STANDBY ASSISTANCE. SAFETY MEASURES ENSURED. CALL LIGHT WITHIN REACH. WILL CONTINUE TO MONITOR.
[2016-12-28 00:24] LABS: APPEARANCE,URINE CLEAR (CLEAR); BILIRUBIN,URINE NEGATIVE (NEGATIVE); BLOOD, URINE NEGATIVE (NEGATIVE); COLOR,URINE YELLOW (YELLOW); LEUKOCYTE ESTERASE ,URINE NEGATIVE (NEGATIVE); NITRITE, URINE NEGATIVE (NEGATIVE); PH,URINE 5.5 (5.0-9.0); PROTEIN,URINE 2+ (NEGATIVE); UGLUCOSE NEGATIVE (NEGATIVE); UROBILINOGEN,URINE 0.2 EU/dL (0.2 - 1)
[2016-12-28 00:27] LABS: FREE T4 (FREE THYROXINE) 0.97 ng/dL (0.76-1.46); THYROID STIMULATING HORMONE 1.72 uIU/mL (0.34-3.76)
[2016-12-28 00:33] LABS: BACTERIA,URINE RARE /HPF (None Seen); MUCUS,URINE 1+ /LPF (None Seen); RBC,URINE 0-3 /HPF (0-5); SQUAMOUS EPITHELIAL CELL,UR 0-3 /LPF (0-3 (FEW)); WBC,URINE 0-3 /HPF (0-5)
[2016-12-28] MEDS ORDERED: METOPROLOL 25 MG TAB ONE (01:32)
[2016-12-28] MEDS: ASPIRIN 81 MG TAB.CHEW PO SCH ×2 (01:59→08:52)
[2016-12-28] MEDS ORDERED: ASPIRIN 81 MG TAB.CHEW ONE (02:01)
[2016-12-28] MEDS: LORazepam 2 MG/ML VIAL IVP PRN (02:14)
--- NOTE | 2016-12-28 02:15 | NUR ---
UNABLE TO PULL DUE MEDICATIONS FROM PYXIS. MEDICATIONS PULLED BY SOLE LEVELER MACHINE AT THIS TIME, DUE MEDICATIONS METOPROLOL AND ASPIRIN ADMINISTERED WITH EDUCATION. LIPITOR HELD DUE TO MED NOT AVAILABLE. PT TOLERATED MEDS WELL. IV ATIVAN ADMINISTERED DUE TO PT'S ANXIETY AND RESTLESSNESS. PT VERBALIZES UNDERSTANDING AND TOLERATED MEDS WELL.
[2016-12-28 03:36] LABS: BASOPHILS # (AUTO) 0.1 K/uL (0.00-0.22); BASOPHILS % (AUTO) 1.2 % (0.0-2.0); EOSINOPHILS # (AUTO) 0.2 K/uL (0-0.4); EOSINOPHILS % (AUTO) 2.2 % (0.0-4.0); HEMATOCRIT 40.1 % (36-52); HEMOGLOBIN 12.9 g/dL (12.0-18.0); LYMPHOCYTES # (AUTO) 1.3 K/uL (2.0-11.5); LYMPHOCYTES % (AUTO) 15.4 % (20.5-51.1); MEAN CORPUSCULAR HEMOGLOBIN 26 pg (27-31); MEAN CORPUSCULAR HGB CONC 32 g/dL (33-37); MEAN CORPUSCULAR VOLUME 81 fL (80-94); MONOCYTES # (AUTO) 0.4 K/uL (0.8-1.0); MONOCYTES % (AUTO) 4.9 % (1.7-9.3); NEUTROPHILS # (AUTO) 6.3 K/uL (1.8-7.7); NEUTROPHILS % (AUTO) 76.3 % (42.2-75.2); PLATELET COUNT (AUTO) 264 K/uL (140-450); RED BLOOD CELL COUNT(AUTO) 4.96 MIL/uL (4.20-6.10); RED CELL DISTRIBUTION WIDTH 18.4 % (11.6-13.7); WHITE BLOOD COUNT (AUTO) 8.3 K/uL (4.8-10.8)
[2016-12-28 03:46] LABS: ANION GAP 14.4 (8-16); CALCIUM 8.8 mg/dL (8.5-10.1); CREATININE 1.3 mg/dL (0.6-1.3); POTASSIUM 4.4 mmol/L (3.5-5.1)
[2016-12-28 03:49] LABS: MAGNESIUM 1.9 mg/dL (1.8-2.4)
[2016-12-28 04:00] VITALS: BP 124/82
--- NOTE | 2016-12-28 04:10 | NUR ---
ASSISTED PT TO CT SCAN WITH POULTRY HANGER AND 2 CNAS. PT STATED VERBALIZES UNDERSTANDING. CONDITION STABLE. PT TOLERATED TRANSPORT AND PROCEDURE WELL.
[2016-12-28] MEDS ORDERED: ALBUTEROL SULFATE/IPRATROPIU 3 ML SOL IH PRN (07:30)
--- NOTE | 2016-12-28 07:33 | NUR ---
ENDORSED TO PLAN OF CARE TO DAYSHIFT. CONDITION STABLE.
--- NOTE | 2016-12-28 07:33 | NUR ---
RECEIVED REPORT FROM NIGHT NURSE, PT IS AAOX3, ON O2 2L VIA NC, IV TO RIGHT HAND 20G INFUSING WELL, SKIN INTACT WITH DRY SCABS ALL OVER BODY. BRUISE TO LEFT LOWER ABD, PT STATES NO CHEST PAIN AT THIS TIME, NO S/S OF DISTRESS NOTED.INITIAL ASSESSMENT COMPLETED, REVIEWED PLAN OF CARE WITH PT, PT VERBALIZED UNDERSTANDING, ALL SAFETY PRECAUTIONS MET, ALL NEEDS MET. CALL LIGHT WITHIN REACH. WILL CONTINUE TO MONITOR.
[2016-12-28 08:00] VITALS: BP 128/59
--- NOTE | 2016-12-28 08:35 | NUR ---
PATIENT HAS BEEN SCREENED AND CATEGORIZED MODERATE NUTRITION RISK. PATIENT WILL BE SEEN WITHIN 3-5 DAYS OF ADMISSION. 12/29/16-12/31/[address]
--- NOTE | 2016-12-28 08:44 | NUR ---
FAXED INITIAL REVIEW TO [facility] [phone] SHAHANA RAY [phone] [id number]
[2016-12-28] MEDS: FUROSEMIDE 40 MG/4 ML VIAL IVP SCH (08:52)
[2016-12-28] MEDS: CARVEDILOL 6.25 MG TAB PO SCH ×2 (08:52→17:00)
[2016-12-28] MEDS: ATORVASTATIN 20 MG TAB PO SCH (08:52)
[2016-12-28] MEDS: DOCUSATE SODIUM 100 MG GELCAP PO SCH (08:52)
[2016-12-28] MEDS: MORPHINE SULFATE 2 MG/ML SYR IVP PRN ×3 (08:53→20:37)
[2016-12-28] MEDS ORDERED: LISINOPRIL 10 MG TAB PO SCH (09:00)
--- NOTE | 2016-12-28 09:00 | NUR ---
DUE MEDICATIONS GIVEN, PT TOLERATED WELL. PT C/O OF PAIN 10/10 MEDICATION GIVEN. ALL NEEDS MET. CALL LIGHT WITHIN REACH. WILL CONTINUE TO MONITOR.
[2016-12-28] MEDS ORDERED: DEXTROSE 50% 50 ML SYR IVP PRN (10:50)
[2016-12-28] MEDS ORDERED: INSULIN LISPRO SLIDING SCALE 100 UNITS/ML VIAL SUBQ PRN (10:55)
--- NOTE | 2016-12-28 11:18 | NUR ---
SS NOTE: I ATTEMPTED TO SPEAK WITH PT BEDSIDE BUT PT WAS ASLEEP AND COULD NOT BE AWAKENED BY VOICE OR TOUCH.
[2016-12-28] MEDS ORDERED: SPIRONOLACTONE 25 MG TAB PO SCH (11:30)
[2016-12-28] MEDS: BLOOD GLUCOSE MONITORING 1 DEV DEV FS SCH ×3 (11:56→20:53)
[2016-12-28 12:00] VITALS: BP 108/48
--- NOTE | 2016-12-28 12:43 | NUR ---
INSULIN FOR BLOOD SUGAR OF 159 NOT GIVEN PT IS CURRENTLY NPO.
[2016-12-28] MEDS ORDERED: FOLIC ACID 1 MG TAB PO SCH ×2 (13:00→13:30)
[2016-12-28] MEDS ORDERED: THIAMINE 100 MG TAB PO SCH ×2 (13:00→13:30)
[2016-12-28] MEDS: ALBUTEROL SULFATE/IPRATROPIU 3 ML SOL IH SCH ×2 (13:24→19:23)
[2016-12-28] MEDS: LORazepam 1 MG TAB PO SCH ×2 (13:30→20:37)
--- NOTE | 2016-12-28 13:33 | NUR ---
DUE MEDICATIONS GIVEN, PT CURRENTLY GETTING BREATHING TREATMENT. ALL NEEDS MET. CALL LIGHT WITHIN REACH. WILL CONTINUE TO MONITOR.
--- NOTE | 2016-12-28 15:25 | NUR ---
NEW IV INSERTED LEFT AC 20G SALINE LOCK FOR PROCEDURE.
[2016-12-28 16:00] VITALS: BP 120/70
--- NOTE | 2016-12-28 17:00 | NUR ---
COREG NOT GIVEN, BP WNL. PT CURRENTLY SLEEPING . CALL LIGHT WITHIN REACH. WILL CONTINUE TO MONITOR
--- NOTE | 2016-12-28 18:26 | NUR ---
PER BADGER DISTILLER OPERATOR, CT ANGIO WITH CONTRAST WAS NOT DONE, DUE TO PT BEING RESTLESS. AWARE. Addendum: 12/28/16 at 1847 by Shannon Burks RN PER , PT IS TO GET CT ANGIO WITH CONTRAST AT A LATER TIME ONCE PT IS CALM. INFORMED PT THAT TEST WILL BE DONE AT A LATER TIME. PT IS AGITATED AND ANGRY BUT VERBALIZED UNDERSTANDING.
--- NOTE | 2016-12-28 19:10 | NUR ---
ENDORSED PLAN OF CARE TO NIGHT NURSE,PT IN STABLE CONDITION.
--- NOTE | 2016-12-28 19:30 | NUR ---
RECEIVED REPORT FROM DAYSHIFT NURSE. PT RESTING IN BED, AOX3, ANXIOUS AND RESTLESS. ABLE TO VERBALIZE NEEDS. PT C/O CHEST PAIN. ASKED PT WHERE, PT STATED "SAME PAIN." ASKED PT IF IT IS THE SAME CHEST PAIN THAT IS CONTINUOUS THAT RADIATES TO LEFT ARM FROM YESTERDAY, PT STATED "YES." SEE PAIN ASSESSMENT, WILL MEDICATE ORDERED. PT TACHYPNIC 28 RR, SPO2 95%, PT REFUSES O2 2L NC, WILL CONTINUE TO MONITOR. PT TACHYPNIC 322 RR, SPO2 97% AT 2L NC. PRESSURE TANK OPERATOR IN PLACE. MULTIPLE SMALL DRY SCABS NOTED THROUGHOUT BODY, ECCHYMOSIS NOTED ON LOWER ABDOMEN. BOTH IV ACCESS ASYMPTOMATIC, PATENT AND INTACT. SALINE LOCKED. DISCUSSED AND REVIEWED PLAN OF CARE WITH PT. PT STATED "OKAY." WILL CONTINUE TO REINFORCE. SAFETY MEASURES ENSURED. CALL LIGHT WITHIN REACH. WILL CONTINUE TO MONITOR.
--- NOTE | 2016-12-28 19:50 | NUR ---
PATIENT REQUESTED NOT TO BE WAKEN UP FOR HIS 0100 HHN TREATMENT
[2016-12-28 20:00] VITALS: BP 115/64
--- NOTE | 2016-12-28 20:40 | NUR ---
MEDICATIONS ADMINISTERED WITH EDUCATION. PT VERBALIZES UNDERSTANDING. PT C/O PAIN, SEE PAIN ASSESSMENT. MEDICATED ORDERED. PT TOLERATED MEDS WELL.
--- NOTE | 2016-12-28 22:31 | NUR ---
DR MERRITT MADE AWARE OF LAB TECHS UNABLE TO DRAW TROPONIN AFTER 3 TRIES, APPROVES TO HAVE MACHINE ROPE MAKER TRY TO DRAW FROM PT'S FEET.
[2016-12-29] VITALS: BP 138/59
--- NOTE | 2016-12-29 | NUR ---
CONDITION STABLE. NO S/S OF ACUTE DISTRESS. PT SLEEPING. SAFETY MEASURES ENSURED. CALL LIGHT WITHIN REACH. WILL CONTINUE TO MONITOR.
--- NOTE | 2016-12-29 00:37 | NUR ---
FOLLOWED UP WITH SURGICAL GARMENT ASSEMBLER RAE TO DRAW TROPONIN, INFORMED BY SURGICAL GARMENT ASSEMBLER THAT SHE WILL NOT BE ABLE TO DRAW BLOOD FROM FEET, STATED THAT SHE WILL PUT A NOTE TO HAVE SURGICAL GARMENT ASSEMBLER TO DRAW IN THE MORNING.
[2016-12-29] MEDS: ALBUTEROL SULFATE/IPRATROPIU 3 ML SOL IH SCH ×3 (01:00→13:00)
--- NOTE | 2016-12-29 01:01 | NUR ---
PATIENT DID NOT WANT TO BE WAKEN FOR HHN, REFUSED
[2016-12-29 04:00] VITALS: BP 132/78
--- NOTE | 2016-12-29 04:00 | NUR ---
ASKED PT IF HE CAN BE STILL FOR CT CHEST ANGIO, PT STATED "OKAY." CONDITION STABLE. ALL NEEDS MET. SAFETY MEASURES ENSURED. CALL LIGHT WITHIN REACH. WILL CONTINUE TO MONITOR.
[2016-12-29] MEDS: LORazepam 2 MG/ML VIAL IVP PRN (04:29)
[2016-12-29] MEDS: MORPHINE SULFATE 2 MG/ML SYR IVP PRN (04:29)
[2016-12-29] MEDS: LORazepam 1 MG TAB PO SCH ×2 (04:30→13:56)
--- NOTE | 2016-12-29 04:30 | NUR ---
ADMINISTERED ATIVAN IV FOR RESTLESSNESS. HELD SCHEDULED ATIVAN PO. PT C/O PAIN, SEE PAIN ASSESSMENT. ADMINISTERED MORPHINE ORDERED. PT VERBALIZES UNDERSTANDING. PT TOLERATED MEDS WELL. MICHAEL GALLO ATTEMPTED TO INSERT 20G IV AT IN PREPARATION FOR CT CHEST ANGIO. UNABLE TO SUCCESSFULLY INSERT IV. [facility]. Addendum: 12/29/16 at 0610 by Clement Bronson RN TO ADD: LEFT IV AC INFILTRATED, IV SITE REMOVED, CANNULA INTACT. WILL CONTINUE TO MONITOR.
--- NOTE | 2016-12-29 06:08 | NUR ---
MADE DR MERRITT AWARE OF NOT BEING ABLE TO DO CT CHEST ANGIO AND UNSUCCESSFUL ATTEMPTS TO PUT IN IV SITE ON AC. NO FURTHER ORDERS, INSTRUCTED TO ENDORSE TO DR WEBER WHO PUT IN THE ORDER FOR CT CHEST ANGIO WHEN THEY GET TO THE UNIT THIS MORNING.
[2016-12-29] MEDS: BLOOD GLUCOSE MONITORING 1 DEV DEV FS SCH ×2 (06:31→11:43)
[2016-12-29 07:13] LABS: BASOPHILS # (AUTO) 0.1 K/uL (0.00-0.22); EOSINOPHILS # (AUTO) 0.3 K/uL (0-0.4); HEMOGLOBIN 13.6 g/dL (12.0-18.0)
[2016-12-29] MEDS ORDERED: hePARIN / DEXT 5% PREMIX 250 ML IV SCH (07:20)
[2016-12-29] MEDS ORDERED: HEPARIN PER PHARMACY MC PRN (07:20)
--- NOTE | 2016-12-29 07:23 | NUR ---
CONDITION STABLE. ENDORSED PLAN OF CARE TO DAYSHIFT NURSE.
[2016-12-29 07:30] LABS: BASOPHILS % (AUTO) 1.3 % (0.0-2.0); EOSINOPHILS % (AUTO) 3.6 % (0.0-4.0); HEMATOCRIT 41.6 % (36-52); LYMPHOCYTES # (AUTO) 1.4 K/uL (2.0-11.5); LYMPHOCYTES % (AUTO) 15.1 % (20.5-51.1); MEAN CORPUSCULAR HEMOGLOBIN 26 pg (27-31); MEAN CORPUSCULAR HGB CONC 33 g/dL (33-37); MEAN CORPUSCULAR VOLUME 81 fL (80-94); MONOCYTES # (AUTO) 0.7 K/uL (0.8-1.0); MONOCYTES % (AUTO) 7.1 % (1.7-9.3); NEUTROPHILS # (AUTO) 6.9 K/uL (1.8-7.7); NEUTROPHILS % (AUTO) 72.9 % (42.2-75.2); PLATELET COUNT (AUTO) 226 K/uL (140-450); RED BLOOD CELL COUNT(AUTO) 5.16 MIL/uL (4.20-6.10); RED CELL DISTRIBUTION WIDTH 18.2 % (11.6-13.7); WHITE BLOOD COUNT (AUTO) 9.4 K/uL (4.8-10.8)
--- NOTE | 2016-12-29 07:30 | NUR ---
RECEIVED PT FROM COPY CENTER SPECIALIST RN. PT SLEEPING BUT EASILY AWAKING WITH INITIAL ASSESSMENT. ON ROOM AIR, NO S/S OF RESPIRATORY DISTRESS NOTED. LUNG SOUNDS CLEAR, BOWEL SOUNDS ACTIVE. MULTIPLE SCABS NOTED THROUGH OUT BODY. ONE IV TO RIGHT HAND, INTACT AND PATENT. PT ABLE TO MOVE ALL HIS EXTREMITIES. CALL LIGHT IN REACH. VITALS TAKEN, IN NORMAL RANGE. WILL CONTINUE TO MONITOR.
[2016-12-29 08:00] VITALS: BP 123/95
[2016-12-29] MEDS ORDERED: THIAMINE 200 MG/2 ML VIAL IM SCH (09:00)
[2016-12-29] MEDS ORDERED: FOLIC ACID 1 MG TAB PO SCH (09:00)
[2016-12-29] MEDS ORDERED: THIAMINE 100 MG TAB PO SCH ×2 (09:00)
[2016-12-29] MEDS ORDERED: SPIRONOLACTONE 25 MG TAB PO SCH (09:00)
[2016-12-29] MEDS ORDERED: LISINOPRIL 10 MG TAB PO SCH (09:00)
[2016-12-29 09:17] LABS: T4 (THYROXINE) 4.5 ug/dL (4.5-12.0)
[2016-12-29] MEDS: ASPIRIN 81 MG TAB.CHEW PO SCH (09:39)
[2016-12-29] MEDS: DOCUSATE SODIUM 100 MG GELCAP PO SCH (09:40)
[2016-12-29] MEDS: ATORVASTATIN 20 MG TAB PO SCH (09:41)
[2016-12-29] MEDS: CARVEDILOL 6.25 MG TAB PO SCH (09:42)
[2016-12-29] MEDS: FUROSEMIDE 40 MG/4 ML VIAL IVP SCH (09:43)
[2016-12-29 09:46] LABS: MAGNESIUM 1.8 mg/dL (1.8-2.4); PHOSPHORUS 4.4 mg/dL (2.5-4.9)
[2016-12-29 09:47] LABS: ANION GAP 14.4 (8-16); CARBON DIOXIDE 22.6 mmol/L (21-32); CREATININE 1.6 mg/dL (0.6-1.3)
[2016-12-29 10:55] LABS: INR 1.2 (0.8-1.2); PARTIAL THROMBOPLASTIN TIME 25.4 secs (22-35.6); PROTHROMBIN TIME 11.7 secs (10.8-13.4)
[2016-12-29 12:00] VITALS: BP 130/78
[2016-12-29 12:21] LABS: CALCIUM 8.9 mg/dL (8.5-10.1)
--- NOTE | 2016-12-29 12:49 | NUR ---
PT LEFT FOR CT VIA YVONNERANGELA PER TECH.
--- NOTE | 2016-12-29 13:09 | NUR ---
PT BACK TO UNIT VIA MINDY.
[2016-12-29] MEDS ORDERED: THIA-8 PO (15:03)
[2016-12-29] MEDS ORDERED: SPIR25TA PO (15:03)
[2016-12-29] MEDS ORDERED: ATOR20TA40 PO (15:03)
[2016-12-29] MEDS ORDERED: ASPI81CT27 PO (15:03)
[2016-12-29] MEDS ORDERED: FOLI1TAB90 PO (15:03)
[2016-12-29] MEDS ORDERED: LISI-420 PO (15:03)
[2016-12-29] MEDS ORDERED: CARV6.252 PO (15:03)
[2016-12-29 15:38] LABS: HEMOGLOBIN A1C 6.7 % (4.8-5.6)
--- NOTE | 2016-12-29 15:50 | NUR ---
RECEIVED CALL FROM REGLA BRAUN [phone] WHO IS FROM [facility] REGARDING WHERE PT WILL BE DISCHARGED TO. PER PT HE WANTS TO RETURN TO THE [place] AREA WHERE HE NORMALLY HANGS OUT.
[2016-12-29 16:00] VITALS: BP 135/80
--- NOTE | 2016-12-29 16:00 | NUR ---
PT AWAKE, ALERT, AND ORIENTED. NO S/S OF RESPIRATORY DISTRESS NOTED. NO PAIN OR DISCOMFORT COMPLAINED.DISCHARGE INSTRUCTION GIVEN TO PT, PT VERBALIZED UNDERSTANDING. PT SIGNED DISCHARGE INSTRUCTION. D/C ED IV, ALL PERSONAL BELONGINGS WITH PT.
--- NOTE | 2016-12-29 16:30 | NUR ---
SS NOTE: I SPOKE WITH PT BEDSIDE AND PROVIDED HIM WITH HOMELESS AND SUBSTANCE ABUSE RESOURCES. PT STATED THAT HE WANTS TO RETURN TO THE [place] AREA WHERE HE NORMALLY HANGS OUT.
--- NOTE | 2016-12-29 18:20 | NUR ---
PT WALKED OUT OF UNIT WITH STEADY GAIT. AAOX4, NO SOB. ALL PERSONAL BELONGINGS WITH PT. FREE BUS PASS GIVEN TO PT.
== END 2016-12-29 18:30 | disposition home or self-care (01) | DRG 203 ==
LOC: MED 18:41 → MTU 23:27
PROVIDERS: ADMIT Family Medicine; ATTEND Family Medicine
DX: M94.0 Chondrocostal junction syndrome [Tietze] (principal); N17.0 Acute kidney failure with tubular necrosis; G92 Toxic encephalopathy; I50.43 Acute on chronic combined systolic (congestive) and diastolic (congestive) heart failure; I42.9 Cardiomyopathy, unspecified; I48.91 Unspecified atrial fibrillation; G43.909 Migraine, unspecified, not intractable, without status migrainosus; E11.9 Type 2 diabetes mellitus without complications; I11.0 Hypertensive heart disease with heart failure; I50.20 Unspecified systolic (congestive) heart failure; F12.929 Cannabis use, unspecified with intoxication, unspecified; F15.129 Other stimulant abuse with intoxication, unspecified; E78.5 Hyperlipidemia, unspecified; I25.110 Atherosclerotic heart disease of native coronary artery with unstable angina pectoris; J45.909 Unspecified asthma, uncomplicated; Z88.6 Allergy status to analgesic agent; Z88.8 Allergy status to other drugs, medicaments and biological substances; Z79.899 Other long term (current) drug therapy; Z91.14 Patient's other noncompliance with medication regimen; Z28.21 Immunization not carried out because of patient refusal
CPT/HCPCS: 36415; 70450; 71010; 71275; 80048; 80053; 80305; 81001; 82550; 82553; 82948; 83036; 83735; 83880; 84100; 84436; 84439; 84443; 84479; 84484; 85025; 85379; 85610; 85730; 87040; 87081; 93005; 93880; 93925; 93970; 94640; 96374; 96375; 99291; J1815; J1940; J2060; J2270; J7030; J7620; Q0092; Q9967

== ENCOUNTER 2017-03-01 00:35 | Inpatient (IN) | payer OTHER ==
[~2017-03-01] VITALS: Ht 188 cm; Wt 126.1 kg
[~2017-03-01 00:35] MED LIST changes: +ASPI81CT27 PO; +ATOR20TA40 PO; +CARV6.252 PO; +FOLI1TAB90 PO; +LISI-420 PO; +SPIR25TA PO; +THIA-8 PO
[2017-03-01 00:46] VITALS: BP 138/97
--- NOTE | 2017-03-01 00:54 | NUR ---
TO ER BED 5
--- NOTE | 2017-03-01 01:14 | NUR ---
46 Y/O M W/C/O CHEST PAIN AND SOB X 2 DAYS ON AND OFF WHICH STATES RADIATES TO BOTH EXTREMITIES. EKG DONE ON TRIAGE. PT ON REPRINT SORTER, SINUS RHYTHM, ER MD MADE AWARE OF VSS.
[2017-03-01] MEDS ORDERED: HYDROmorphone 1 MG/ML AMP IM ONE (01:20)
--- NOTE | 2017-03-01 02:11 | NUR ---
PT RESTING IN BED, ASLEEP, SYNUS RHYTHM, NO S/S OF RESP DISTRESS NOTED AT THE MOMENT. MD MADE AWARE OF BP READINGS.
[2017-03-01] MEDS ORDERED: ASPIRIN 325 MG TAB PO ONE (02:25)
[2017-03-01] MEDS ORDERED: NITROGLYCERIN 0.4 MG TAB SL ONE (02:25)
--- NOTE | 2017-03-01 02:26 | NUR ---
PT REFUSED NITROSTAT 0.4MG ORDERED BY ER MD DR. ACOSTA AT THIS TIME; ER MD DR. ACOSTA NOTIFIED; PT APPEARS TO BE RESTING COMFORTABLY IN BED AT THIS TIME; RR EVEN/UNLABORED; WILL CONTINUE TO MONITOR.
[2017-03-01 02:40] LABS: BASOPHILS # (AUTO) 0.2 K/uL (0.00-0.22); BASOPHILS % (AUTO) 2.3 % (0.0-2.0); EOSINOPHILS # (AUTO) 0.2 K/uL (0-0.4); EOSINOPHILS % (AUTO) 2.6 % (0.0-4.0); HEMATOCRIT 38.8 % (36-52); HEMOGLOBIN 12.4 g/dL (12.0-18.0); MEAN CORPUSCULAR HEMOGLOBIN 27 pg (27-31); MEAN CORPUSCULAR HGB CONC 32 g/dL (33-37); MEAN CORPUSCULAR VOLUME 84 fL (80-94); MONOCYTES # (AUTO) 0.6 K/uL (0.8-1.0); MONOCYTES % (AUTO) 6.9 % (1.7-9.3); NEUTROPHILS # (AUTO) 7.4 K/uL (1.8-7.7); NEUTROPHILS % (AUTO) 77.2 % (42.2-75.2); PLATELET COUNT (AUTO) 216 K/uL (140-450); RED BLOOD CELL COUNT(AUTO) 4.63 MIL/uL (4.20-6.10); WHITE BLOOD COUNT (AUTO) 9.4 K/uL (4.8-10.8)
[2017-03-01 02:56] LABS: ALBUMIN 3.4 g/dL (3.4-5.0); ANION GAP 13.5 (8-16); CALCIUM 8.3 mg/dL (8.5-10.1); CARBON DIOXIDE 23.1 mmol/L (21-32); CREATININE 1.4 mg/dL (0.7-1.3); POTASSIUM 3.6 mmol/L (3.5-5.1); TOTAL BILIRUBIN 1.2 mg/dL (0.0-1.0); TOTAL PROTEIN, SERUM 6.8 g/dL (6.4-8.2)
[2017-03-01 03:04] LABS: CREATINE KINASE MB 8.3 ng/mL (0-3.6)
[2017-03-01] MEDS ORDERED: FUROSEMIDE 40 MG/4 ML VIAL IVP ONE (03:10)
[2017-03-01] MEDS ORDERED: diphenhydrAMINE 50 MG/ML VIAL IVP ONE (03:25)
--- NOTE | 2017-03-01 03:25 | NUR ---
PT. EATING SANWICHES AT THIS TIME. NO S/SX OF DISTRESS.
[2017-03-01] MEDS ORDERED: hePARIN / DEXT 5% PREMIX 250 ML IV SCH ×2 (03:45→04:45)
[2017-03-01] MEDS ORDERED: HEPARIN PER PHARMACY MC PRN (03:45)
[2017-03-01] MEDS ORDERED: ONDANSETRON 4 MG/2 ML VIAL IM/IVP PRN (03:50)
[2017-03-01] MEDS ORDERED: ACETAMINOPHEN 325 MG TAB PO PRN (03:50)
[2017-03-01] MEDS ORDERED: DOCUSATE SODIUM 100 MG GELCAP PO PRN (03:50)
[2017-03-01] MEDS ORDERED: HYDROcodone/APAP 7.5/325 MG 1 TAB PO PRN (03:50)
--- NOTE | 2017-03-01 04:00 | NUR ---
PT ASLEEP, ON EDITORIAL SPECIALIST, VSS. IN O2 2 LT VIA NASAL CANULA.
[2017-03-01 04:07] LABS: INR 1.4 (0.8-1.2); PARTIAL THROMBOPLASTIN TIME 26.3 secs (22-35.6); PROTHROMBIN TIME 13.9 secs (10.8-13.4)
[2017-03-01 04:19] LABS: CHOL/HDL RATIO 4.6 (1-4.5); FREE T4 (FREE THYROXINE) 1.07 ng/dL (0.76-1.46); MAGNESIUM 1.7 mg/dL (1.8-2.4); PHOSPHORUS 3.1 mg/dL (2.5-4.9); THYROID STIMULATING HORMONE 4.2 uIU/mL (0.34-3.74)
--- NOTE | 2017-03-01 04:42 | NUR ---
PT RESTING, ON HELMET COVERER. VSS. RESIDENT MD EVALUATING PT AT BEDSIDE.
--- NOTE | 2017-03-01 05:44 | NUR ---
Patient will be admitted to care of DR WATTS. Admited to TELEMETRY. Will go to room 106A. Belongings list completed. Report to MICHAEL ALEGRE.
[2017-03-01 06:00] LABS: APPEARANCE,URINE CLEAR (CLEAR); BILIRUBIN,URINE NEGATIVE (NEGATIVE); BLOOD, URINE NEGATIVE (NEGATIVE); COLOR,URINE YELLOW (YELLOW); LEUKOCYTE ESTERASE ,URINE NEGATIVE (NEGATIVE); NITRITE, URINE NEGATIVE (NEGATIVE); PH,URINE 5.5 (5.0-9.0); PROTEIN,URINE TRACE (NEGATIVE); UGLUCOSE NEGATIVE (NEGATIVE); UROBILINOGEN,URINE 0.2 EU/dL (0.2 - 1)
--- NOTE | 2017-03-01 06:18 | NUR ---
PT TRASFERRED TO TELEMETRY FLOOR VIA GURNEY. ACCOMPANIED BY RN AND EMT, WEBSPHERE PROCESS SERVER DEVELOPER IN BED. VSS, NO S/S OF DISTRESS NOTED DURING TRASFER.
[2017-03-01 06:29] LABS: BACTERIA,URINE None Seen /HPF (None Seen); RBC,URINE 0-5 (RARE) /HPF (0-5); SQUAMOUS EPITHELIAL CELL,UR None Seen /LPF (0-3 (FEW)); WBC,URINE 0-5 (RARE) /HPF (0-5)
[2017-03-01] MEDS: NACL 0.9% 1,000 ML IV SCH ×2 (06:56→20:28)
[2017-03-01 07:00] VITALS: BP 135/74
--- NOTE | 2017-03-01 07:05 | NUR ---
REPORT RECEIVED FROM NURSE AT START OF SHIFT. PT SLEEPING IN BED, A&OX4, NO S/S OF DISTRESS, NO C/O PAIN, IV SITE PATENT AND INTACT, NO EDEMA NOTED, PT ORIENTED TO ROOM, CALL LIGHT WITHIN REACH, PT VERBALIZED UNDERSTANDING OF INSTRUCTIONS WILL CONTINUE TO MONITOR.
--- NOTE | 2017-03-01 08:40 | NUR ---
CM NOTE INITIAL REVIEW SENT TO [facility] [phone] PH [phone] [place] [facility] [phone]
[2017-03-01] MEDS: THIAMINE 100 MG TAB PO SCH (08:53)
[2017-03-01] MEDS: ASPIRIN 81 MG TAB.CHEW PO SCH (08:53)
[2017-03-01] MEDS: SPIRONOLACTONE 25 MG TAB PO SCH (08:53)
[2017-03-01] MEDS: FOLIC ACID 1 MG TAB PO SCH (08:54)
[2017-03-01] MEDS: CARVEDILOL 6.25 MG TAB PO SCH ×2 (08:54→16:40)
[2017-03-01] MEDS: FUROSEMIDE 20 MG/2 ML VIAL IVP SCH ×2 (08:55→16:41)
[2017-03-01] MEDS: ATORVASTATIN 20 MG TAB PO SCH (08:55)
[2017-03-01] MEDS: MORPHINE SULFATE 2 MG/ML SYR IVP PRN ×3 (08:58→20:37)
[2017-03-01] MEDS: LISINOPRIL 20 MG TAB PO SCH (09:00)
--- NOTE | 2017-03-01 09:05 | NUR ---
PATIENT HAS BEEN SCREENED AND CATEGORIZED MODERATE NUTRITION RISK. PATIENT WILL BE SEEN WITHIN 3-5 DAYS OF ADMISSION. 03/03/17-03/05/[address]
--- NOTE | 2017-03-01 09:16 | NUR ---
PATIENT GIVEN MEDICATIONS WITH EDUCATION, PT VERBALIZED UNDERSTANDING, WILL CONTINUE TO MONITOR
[2017-03-01] MEDS: MAGNESIUM OXIDE 400 MG TAB PO SCH ×2 (09:24→20:37)
[2017-03-01 09:28] LABS: AMPHETAMINE, URINE POS. ng/ml (NEG <=1000); BARBITURATE, URINE NEG. ng/ml (NEG <=200); BENZODIAZEPINE, URINE NEG. ng/mL (NEG <=200); CANNABINOID, URINE POS. ng/mL (NEG <=50); COCAINE, URINE NEG. ng/mL (NEG <=300); OPIATE, URINE NEG. ng/mL (NEG <=2000); PHENCYCLIDINE SCREEN,URINE NEG. ng/mL (NEG <=25)
--- NOTE | 2017-03-01 11:30 | NUR ---
PER DR. SOHAM DAVE TO HOLD HEPARIN DRIP FOR TROPONIN TRENDING DOWN.
[2017-03-01 12:00] VITALS: BP 135/74
--- NOTE | 2017-03-01 12:52 | NUR ---
DESK CLERK AT BEDSIDE AND PT SLEEPING.
--- NOTE | 2017-03-01 13:30 | NUR ---
SS NOTE: I ATTEMPTED TO SPEAK WITH PT BEDSIDE BUT PT WAS ASLEEP AND COULD NOT BE AWAKENED BY VOICE OR TOUCH.
--- NOTE | 2017-03-01 15:40 | NUR ---
PT SLEEPING IN BED. NO S/S OF ACUTE DISTRESS. WILL CONTINUE TO MONITOR.
[2017-03-01 16:00] VITALS: BP 111/74
[2017-03-01] MEDS ORDERED: INSULIN LISPRO SLIDING SCALE 100 UNITS/ML VIAL SUBQ PRN (16:45)
[2017-03-01] MEDS ORDERED: BLOOD GLUCOSE MONITORING 1 DEV DEV FS SCH (18:00)
--- NOTE | 2017-03-01 19:10 | NUR ---
RECEIVED REPORT FROM DAY SHIFT NURSE. INITIAL ASSESSMENT COMPLETED. PT AAOX4. PT SLEEPING AT THIS TIME. PT AMBULATES. PT HAS IV ON RIGHT FOREARM G 22, INFUSING FLUIDS WELL. ORIENTED PT TO ROOM AND SURROUNDINGS AND USE OF CALL LIGHT. EXPLAINED PLAN OF CARE TO PT AND HE VERBALIZED UNDERSTANDING. CALL LIGHT WITHIN REACH.
--- NOTE | 2017-03-01 19:20 | NUR ---
ENDORSED PLAN OF CARE TO NIGHT RN. PT REMAINS STABLE.
[2017-03-01 20:00] VITALS: BP 119/77
--- NOTE | 2017-03-01 20:35 | NUR ---
PT COMPLAINING OF PAIN 02/20. VS STABLE, WILL MEDICATE ORDERED.
[2017-03-01] MEDS: BLOOD GLUCOSE MONITORING 1 DEV DEV FS SCH (20:42)
--- NOTE | 2017-03-01 20:42 | NUR ---
PT TOLERATED 2100 MEDS WELL. PT MEDICATED FOR PAIN. WILL CONTINUE TO MONITOR PT.
--- NOTE | 2017-03-01 21:44 | NUR ---
PT WEARING SCDS. CALL LIGHT WITHIN REACH.
--- NOTE | 2017-03-01 22:15 | NUR ---
PT STATING THAT HE IS HUNGRY. PT REQUESTING A TUNA SANDWICH. WILL PROVIDE WITH NEEDS.
[2017-03-02] VITALS: BP 128/78
--- NOTE | 2017-03-02 00:25 | NUR ---
PT GOT UPSET BECAUSE I ENTERED THE ROOM TO CHECK HIS VITAL SIGNS. HE STATED "DON'T YOU SEE I'M SLEEPING". EXPLAINED TO HIM THAT WE NEED TO KEEP ON CHECKING ON HIM TO MAKE SURE HE IS STABLE. CALL LIGHT WITHIN REACH.
--- NOTE | 2017-03-02 01:51 | NUR ---
PT SLEEPING AT THIS TIME; NO SIGNS OF DISTRESS OR DISCOMFORT NOTED. WILL CONTINUE TO MONITOR PT.
--- NOTE | 2017-03-02 03:05 | NUR ---
PT REQUESTING SNACKS. RACKERS AND JUICE GIVEN. CALL LIGHT WITHIN REACH.
[2017-03-02 04:00] VITALS: BP 140/95
--- NOTE | 2017-03-02 04:03 | NUR ---
PT COMPLAINING OF CHEST PAIN 04/23. VS STABLE, WILL MEDICATE ORDERED.
[2017-03-02] MEDS: MORPHINE SULFATE 2 MG/ML SYR IVP PRN ×2 (04:04→08:27)
[2017-03-02] MEDS: NACL 0.9% 1,000 ML IV SCH (04:11)
--- NOTE | 2017-03-02 06:07 | NUR ---
PT REQUESTING CRACKERS AND JUICE; HE STATES THAT HE IS HOMELESS AND NEEDS A LOT OF FOOD. CALL LIGHT WITHIN REACH.
[2017-03-02 06:30] LABS: ANION GAP 13.4 (8-16); CARBON DIOXIDE 24.8 mmol/L (21-32); CREATININE 1.5 mg/dL (0.7-1.3); POTASSIUM 3.2 mmol/L (3.5-5.1)
[2017-03-02] MEDS: BLOOD GLUCOSE MONITORING 1 DEV DEV FS SCH ×2 (06:33→11:05)
--- NOTE | 2017-03-02 07:15 | NUR ---
ENDORSED PLAN OF CARE TO DAY SHIFT NURSE. PT IN STABLE CONDITION.
--- NOTE | 2017-03-02 07:16 | NUR ---
03/02/17 0716 RECEIVED REPORT FROM THE WIRE COINER NURSE AT BEDSIDE FOR CONTINUITY OF CARE. PT IS SLEEPING. NO SIGNS OF DISTRESS. IV ON THE R FA 22G SL NS AT 60ML INFUSING. WILL BE BACK TO ASSESS PT. BLAKE
--- NOTE | 2017-03-02 07:45 | NUR ---
WOKE UP PT FOR V/S. PT IS AWAKE AND ORIENTED. I INTRODUCED MYSELF HIS NURSE FOR THE DAY. UPDATED THE BOARD. WENT OVER OUR PLAN OF CARE FOR TODAY: KEEP HIM SAFE, NO PAIN. DENIES ANY CHEST PAIN AT THIS TIME. LABS WERE FINE, EXCEPT HIS K LEVEL AT 3.2 AND MAG AT 1.5 . WILL NOTIFIED MD. PT REQUESTED SOME CRACKERS. PER PT, HE LIVES ON CRACKERS. HE IS HUNGRY. ADVISED HIM BREAKFAST WILL BE HERE SOON. WILL REQUEST KITCHEN TO BRING SOME MORE CRACKERS. WILL CONTINUE TO MONITOR PT. BLAKE
[2017-03-02 08:00] VITALS: BP 127/97
--- NOTE | 2017-03-02 08:12 | NUR ---
PATIENT HAS BEEN SCREENED AND CATEGORIZED MODERATE NUTRITION RISK. PATIENT WILL BE SEEN WITHIN 3-5 DAYS OF ADMISSION. 03/03/17-03/05/[address]
[2017-03-02 08:20] LABS: T4 (THYROXINE) 5.1 ug/dL (4.5-12.0)
[2017-03-02] MEDS: ATORVASTATIN 20 MG TAB PO SCH (08:27)
[2017-03-02] MEDS: FUROSEMIDE 20 MG/2 ML VIAL IVP SCH (08:28)
[2017-03-02] MEDS: MAGNESIUM OXIDE 400 MG TAB PO SCH (08:28)
[2017-03-02] MEDS: CARVEDILOL 6.25 MG TAB PO SCH (08:28)
[2017-03-02] MEDS: THIAMINE 100 MG TAB PO SCH (08:28)
[2017-03-02] MEDS: SPIRONOLACTONE 25 MG TAB PO SCH (08:28)
[2017-03-02] MEDS: LISINOPRIL 20 MG TAB PO SCH (08:28)
[2017-03-02] MEDS: FOLIC ACID 1 MG TAB PO SCH (08:29)
[2017-03-02] MEDS: ASPIRIN 81 MG TAB.CHEW PO SCH (08:29)
--- NOTE | 2017-03-02 08:34 | NUR ---
CM NOTE CONCURRENT REVIEW SENT TO [facility] [phone] PH [phone] [place] EXT [phone]
--- NOTE | 2017-03-02 08:34 | NUR ---
PT WAS SLEEPING, L SIDE LINE. WOKE UP PT. ADMINISTERED ALL MORNING MEDS. PT TOLERATED WELL. PT C/O OF PAIN IN THE CHEST RADIATING TO BUE. PAIN A 04/23. ADMINISTERED MORPHINE 2MG. PT TOLERATED WELL. EATING CRACKERS. PT ASKED FOR THE DOOR TO BE CLOSED. CLOSED DOOR. WILL CONTINUE TO MONITOR PT.
[2017-03-02 08:38] LABS: HEMOGLOBIN A1C 6.7 % (4.8-5.6)
--- NOTE | 2017-03-02 10:15 | NUR ---
PT IS RESTING. NO SIGNS OF DISTRESS. "PAIN IS A LITTLE BIT BETTER". WANTED MORE WATER. BROUGHT HIM A NEW PITCHER. EMPTIED 550ML OF CLEAR, PALE YELLOW URINE FROM THE URINAL . PT ATE MORE CRACKERS. TRIED CALLING FRIEND FOR A RIDE.
[2017-03-02] MEDS ORDERED: LISI-420 PO (10:34)
[2017-03-02] MEDS ORDERED: ASPI81CT27 PO (10:34)
[2017-03-02] MEDS ORDERED: FOLI1TAB90 PO (10:34)
[2017-03-02] MEDS ORDERED: FURO-572 PO (10:34)
[2017-03-02] MEDS ORDERED: METF500T2 PO (10:34)
[2017-03-02] MEDS ORDERED: THIA-8 PO (10:34)
[2017-03-02] MEDS ORDERED: SPIR25TA PO (10:34)
[2017-03-02] MEDS ORDERED: CARV6.252 PO (10:34)
[2017-03-02] MEDS ORDERED: BLOO1STR10 FS (10:34)
[2017-03-02] MEDS ORDERED: ATOR20TA40 PO (10:34)
[2017-03-02] MEDS ORDERED: MAGNESIUM OXIDE 400 MG TAB PO SCH (11:00)
[2017-03-02] MEDS ORDERED: POTASSIUM CHLORIDE 10 MEQ TABER PO SCH (11:00)
--- NOTE | 2017-03-02 11:03 | NUR ---
SS NOTE: I SPOKE WITH PT BEDSIDE. I OFFERED TO PROVIDE PT WITH HOMELESS RESOURCES AND SUBSTANCE ABUSE RESOURCES BUT PT REFUSED. PT STATED THAT HE WANTS TO GO BACK TO SLEEP AND HAS A RIDE HOME. HE ALSO STATED THAT HE PLANS TO GO BACK TO THE AREA OF [place] WHERE HE NORMALLY HANGS OUT.
--- NOTE | 2017-03-02 11:30 | NUR ---
REFUSED BLOOD SUGAR CHECK. PT STATES, " I AM FINE. I JUST WANT TO SLEEP. LEAVE ME ALONE." GOES BACK TO SLEEP.
--- NOTE | 2017-03-02 11:40 | NUR ---
[facility] CALLED WANTING TO SPEAK TO PT. WENT TO CHECK ON PT. PT DID NOT WANT TO SPEAK TO THEM AT THIS TIME. "JUST WANT TO SLEEP. WHY CAN'T YOU LEAVE ME ALONE? "
--- NOTE | 2017-03-02 12:45 | NUR ---
PT FINISHED WITH LUNCH. WOULD LIKE TO LEAVE. WENT OVER THE DISCHARGE INSTRUCTIONS WITH PT. EXPLAINED F/U APPT WITH DR. WEBER AT [facility] ON MARCH 08 AT 2PM. EXPLAINED RE RX'S SENT OVER TO [facility]. PT VERBALIZED UNDERSTANDING. REMOVED BOTH IVS, CANNULA INTACT. NO BLEEDING NOTED. REMOVED ALL ID BANDS. PT WILL GET DRESSED AND GATHER HIS STUFF. PT IN STABLE CONDITION. ASKED ABOUT MORE CRACKERS TO GO. NONE IN THE KITCHEN. WILL LET ME KNOW WHEN HE IS READY TO LEAVE. WILL GET WHEEL CHAIR READY.
--- NOTE | 2017-03-02 12:52 | NUR ---
READY TO GO. PUSHED HIM OUT TO THE FRONT OF THE HOSPITAL IN A WHEELCHAIR. PT IS IN STABLE CONDITION.
== END 2017-03-02 12:52 | disposition home or self-care (01) | DRG 812 ==
LOC: MED 00:35 → MTU 03:52
PROVIDERS: ADMIT Student in an Organized Health Care Education/Training Program; ATTEND Student in an Organized Health Care Education/Training Program
DX: T43.621A Poisoning by amphetamines, accidental (unintentional), initial encounter (principal); N17.0 Acute kidney failure with tubular necrosis; I50.43 Acute on chronic combined systolic (congestive) and diastolic (congestive) heart failure; G92 Toxic encephalopathy; I42.0 Dilated cardiomyopathy; E11.22 Type 2 diabetes mellitus with diabetic chronic kidney disease; I48.91 Unspecified atrial fibrillation; G43.909 Migraine, unspecified, not intractable, without status migrainosus; F15.10 Other stimulant abuse, uncomplicated; E66.9 Obesity, unspecified; F12.10 Cannabis abuse, uncomplicated; I25.10 Atherosclerotic heart disease of native coronary artery without angina pectoris; J45.909 Unspecified asthma, uncomplicated; F19.10 Other psychoactive substance abuse, uncomplicated; Z53.29 Procedure and treatment not carried out because of patient's decision for other reasons; E03.9 Hypothyroidism, unspecified; I13.0 Hypertensive heart and chronic kidney disease with heart failure and stage 1 through stage 4 chronic kidney disease, or unspecified chronic kidney disease; N18.9 Chronic kidney disease, unspecified; R07.89 Other chest pain; Z68.35 Body mass index [BMI] 35.0-35.9, adult; Z88.6 Allergy status to analgesic agent; Z88.8 Allergy status to other drugs, medicaments and biological substances; Z79.82 Long term (current) use of aspirin; Z79.899 Other long term (current) drug therapy; Z86.73 Personal history of transient ischemic attack (TIA), and cerebral infarction without residual deficits; Z95.0 Presence of cardiac pacemaker; Z91.14 Patient's other noncompliance with medication regimen; Y92.89 Other specified places as the place of occurrence of the external cause
CPT/HCPCS: 36415; 71010; 80048; 80053; 80305; 81001; 82150; 82550; 82553; 82948; 83036; 83690; 83735; 83880; 84100; 84436; 84439; 84443; 84479; 84484; 85025; 85610; 85730; 87081; 93005; 93970; 96372; 96374; 96375; 99285; J1170; J1200; J1940; J2270; J7030; Q0092

== ENCOUNTER 2017-03-18 21:20 | Inpatient (IN) | payer OTHER ==
[~2017-03-18] VITALS: Ht 188 cm; Wt 117.2 kg
[~2017-03-18 21:20] MED LIST changes: +BLOO1STR10 FS; +FURO-572 PO; -LISI10TA11 PO; +METF500T2 PO
[2017-03-18 21:22] VITALS: BP 155/90
[2017-03-18] MEDS ORDERED: LORazepam 1 MG TAB PO ONE (22:45)
[2017-03-18 23:19] LABS: ANION GAP 14.2 (8-16); CALCIUM 8.3 mg/dL (8.5-10.1); CARBON DIOXIDE 23.3 mmol/L (21-32); CREATININE 1.7 mg/dL (0.7-1.3); POTASSIUM 3.5 mmol/L (3.5-5.1)
[2017-03-18 23:25] LABS: ALBUMIN 3.2 g/dL (3.4-5.0); TOTAL BILIRUBIN 1.5 mg/dL (0.0-1.0); TOTAL PROTEIN, SERUM 6.7 g/dL (6.4-8.2)
[2017-03-18 23:26] LABS: INR 1.9 (0.8-1.2); PARTIAL THROMBOPLASTIN TIME 28.8 secs (22-35.6); PROTHROMBIN TIME 19.2 secs (10.8-13.4)
[2017-03-18 23:31] LABS: BASOPHILS # (AUTO) 0.2 K/uL (0.00-0.22); BASOPHILS % (AUTO) 1.5 % (0.0-2.0); EOSINOPHILS # (AUTO) 0.2 K/uL (0-0.4); HEMATOCRIT 36.1 % (36-52); HEMOGLOBIN 11.7 g/dL (12.0-18.0); LYMPHOCYTES # (AUTO) 1.1 K/uL (2.0-11.5); LYMPHOCYTES % (AUTO) 10.2 % (20.5-51.1); MEAN CORPUSCULAR HEMOGLOBIN 26 pg (27-31); MEAN CORPUSCULAR HGB CONC 32 g/dL (33-37); MEAN CORPUSCULAR VOLUME 81 fL (80-94); MONOCYTES # (AUTO) 0.8 K/uL (0.8-1.0); MONOCYTES % (AUTO) 7.4 % (1.7-9.3); NEUTROPHILS # (AUTO) 8.1 K/uL (1.8-7.7); NEUTROPHILS % (AUTO) 78.9 % (42.2-75.2); PLATELET COUNT (AUTO) 286 K/uL (140-450); RED BLOOD CELL COUNT(AUTO) 4.45 MIL/uL (4.20-6.10); RED CELL DISTRIBUTION WIDTH 16.4 % (11.6-13.7); WHITE BLOOD COUNT (AUTO) 10.4 K/uL (4.8-10.8)
[2017-03-19] MEDS ORDERED: HYDROcodone/APAP 7.5/325 MG 1 TAB PO PRN ×2 (00:15→09:05)
[2017-03-19] MEDS ORDERED: DOCUSATE SODIUM 100 MG GELCAP PO PRN (00:15)
[2017-03-19] MEDS ORDERED: ONDANSETRON 4 MG/2 ML VIAL IM/IVP PRN (00:15)
[2017-03-19] MEDS ORDERED: ACETAMINOPHEN 325 MG TAB PO PRN (00:15)
[2017-03-19 01:05] VITALS: BP 132/46
[2017-03-19] MEDS ORDERED: diphenhydrAMINE 50 MG/ML VIAL IVP PRN (01:40)
[2017-03-19] MEDS ORDERED: DEXTROSE 50% 50 ML SYR IVP PRN (01:40)
[2017-03-19] MEDS: NACL 0.9% 1,000 ML IV SCH (03:32)
[2017-03-19 05:20] VITALS: BP 147/89
[2017-03-19] MEDS: BLOOD GLUCOSE MONITORING 1 DEV DEV FS SCH ×4 (06:47→21:08)
[2017-03-19] MEDS: INSULIN LISPRO SLIDING SCALE 100 UNITS/ML VIAL SUBQ PRN ×2 (06:49→11:59)
[2017-03-19] MEDS ORDERED: FUROSEMIDE 40 MG/4 ML VIAL IVP SCH (07:00)
[2017-03-19 08:00] VITALS: BP 120/51
[2017-03-19 08:49] LABS: HEMOGLOBIN 13.1 g/dL (12.0-18.0)
[2017-03-19] MEDS: THIAMINE 100 MG TAB PO SCH (08:51)
[2017-03-19] MEDS: ATORVASTATIN 20 MG TAB PO SCH (08:51)
[2017-03-19] MEDS: ASPIRIN 81 MG TAB.CHEW PO SCH (08:51)
[2017-03-19] MEDS: SPIRONOLACTONE 25 MG TAB PO SCH (08:51)
[2017-03-19] MEDS: FOLIC ACID 1 MG TAB PO SCH (08:51)
[2017-03-19] MEDS: LISINOPRIL 20 MG TAB PO SCH (08:51)
[2017-03-19] MEDS: CARVEDILOL 6.25 MG TAB PO SCH ×2 (08:51→17:33)
[2017-03-19] MEDS: PANTOPRAZOLE 40 MG TABEC PO SCH (08:51)
[2017-03-19] MEDS ORDERED: metFORMIN 500 MG TAB PO SCH (09:00)
[2017-03-19] MEDS ORDERED: FUROSEMIDE 20 MG TAB PO SCH (09:00)
[2017-03-19 09:30] LABS: HEMATOCRIT 41.7 % (36-52); MEAN CORPUSCULAR HEMOGLOBIN 26 pg (27-31); MEAN CORPUSCULAR HGB CONC 32 g/dL (33-37); MEAN CORPUSCULAR VOLUME 82 fL (80-94); PLATELET COUNT (AUTO) 305 K/uL (140-450); RED BLOOD CELL COUNT(AUTO) 5.11 MIL/uL (4.20-6.10); RED CELL DISTRIBUTION WIDTH 16.7 % (11.6-13.7); WHITE BLOOD COUNT (AUTO) 13.1 K/uL (4.8-10.8)
[2017-03-19] MEDS ORDERED: diphenhydrAMINE 50 MG CAP PO SCH ×2 (09:30→19:10)
[2017-03-19 09:48] LABS: BAND % (MANUAL) 0 % (0-8); BASOPHILS % (MANUAL) 0 % (0-2); EOSINOPHILS % (MANUAL) 4 % (0-4); LYMPHOCYTES % (MANUAL) 12 % (20-46); MONOCYTES % (MANUAL) 7 % (5-12); NEUTROPHILS % (MANUAL) 77 (43-65); PLATELET ESTIMATE ADEQUATE
[2017-03-19 09:52] LABS: ANION GAP 11.6 (8-16); CALCIUM 8.4 mg/dL (8.5-10.1); CARBON DIOXIDE 26.7 mmol/L (21-32); CREATININE 1.7 mg/dL (0.7-1.3); POTASSIUM 3.3 mmol/L (3.5-5.1)
[2017-03-19 09:57] LABS: ALCOHOL, BLOOD < 3 mg/dL (<3); AMYLASE 46 U/L (25-115); LIPASE 265 U/L (73-393); MAGNESIUM 2.1 mg/dL (1.8-2.4); PHOSPHORUS 2.9 mg/dL (2.5-4.9)
[2017-03-19] MEDS ORDERED: MAG SULF 2000 MG/WATER PREMIX 100 ML IV SCH (11:30)
[2017-03-19 12:00] VITALS: BP 119/73
[2017-03-19] MEDS ORDERED: POTASSIUM CHLORIDE 10 MEQ TABER PO SCH (12:00)
[2017-03-19 16:00] VITALS: BP 137/77
[2017-03-19] MEDS: MORPHINE SULFATE 2 MG/ML SYR IVP PRN ×2 (16:15→21:34)
[2017-03-20] VITALS: BP 137/88
[2017-03-20] MEDS: NACL 0.9% 1,000 ML IV SCH (00:13)
[2017-03-20] MEDS: MORPHINE SULFATE 2 MG/ML SYR IVP PRN ×3 (01:37→09:04)
[2017-03-20 06:29] LABS: BASOPHILS # (AUTO) 0.1 K/uL (0.00-0.22); BASOPHILS % (AUTO) 1.3 % (0.0-2.0); EOSINOPHILS # (AUTO) 0.5 K/uL (0-0.4); EOSINOPHILS % (AUTO) 4.3 % (0.0-4.0); HEMATOCRIT 38.3 % (36-52); HEMOGLOBIN 12.2 g/dL (12.0-18.0); LYMPHOCYTES # (AUTO) 1.4 K/uL (2.0-11.5); LYMPHOCYTES % (AUTO) 12.9 % (20.5-51.1); MEAN CORPUSCULAR HEMOGLOBIN 26 pg (27-31); MEAN CORPUSCULAR HGB CONC 32 g/dL (33-37); MEAN CORPUSCULAR VOLUME 82 fL (80-94); MONOCYTES # (AUTO) 0.7 K/uL (0.8-1.0); MONOCYTES % (AUTO) 6.7 % (1.7-9.3); NEUTROPHILS # (AUTO) 7.9 K/uL (1.8-7.7); NEUTROPHILS % (AUTO) 74.8 % (42.2-75.2); PLATELET COUNT (AUTO) 289 K/uL (140-450); RED CELL DISTRIBUTION WIDTH 16.9 % (11.6-13.7); WHITE BLOOD COUNT (AUTO) 10.6 K/uL (4.8-10.8)
[2017-03-20] MEDS: BLOOD GLUCOSE MONITORING 1 DEV DEV FS SCH ×2 (06:30→11:22)
[2017-03-20 06:43] LABS: CALCIUM 8.2 mg/dL (8.5-10.1); CREATININE 1.4 mg/dL (0.7-1.3)
[2017-03-20 07:02] LABS: MAGNESIUM 1.9 mg/dL (1.8-2.4); PHOSPHORUS 3.4 mg/dL (2.5-4.9)
[2017-03-20 08:00] VITALS: BP 151/61
[2017-03-20] MEDS: PANTOPRAZOLE 40 MG TABEC PO SCH (09:02)
[2017-03-20] MEDS: ASPIRIN 81 MG TAB.CHEW PO SCH (09:03)
[2017-03-20] MEDS: CARVEDILOL 6.25 MG TAB PO SCH (09:03)
[2017-03-20] MEDS: THIAMINE 100 MG TAB PO SCH (09:03)
[2017-03-20] MEDS: LISINOPRIL 20 MG TAB PO SCH (09:03)
[2017-03-20] MEDS: ATORVASTATIN 20 MG TAB PO SCH (09:03)
[2017-03-20] MEDS: SPIRONOLACTONE 25 MG TAB PO SCH (09:04)
[2017-03-20] MEDS: FOLIC ACID 1 MG TAB PO SCH (09:04)
[2017-03-20] MEDS ORDERED: HYDROcodone/APAP 10/325 MG 1 TAB TAB PO PRN (09:05)
[2017-03-20] MEDS ORDERED: HYDR-4452 PO (10:07)
[2017-03-20] MEDS ORDERED: OMEP20TC24 PO (10:08)
[2017-03-20 14:34] VITALS: BP 126/91
== END 2017-03-20 14:50 | disposition home or self-care (01) | DRG 243 ==
LOC: MED 21:20 → MTU 03-19 00:36 → OBSVTOIN 03-19 15:23
PROVIDERS: ADMIT Student in an Organized Health Care Education/Training Program; ATTEND Student in an Organized Health Care Education/Training Program
DX: K21.9 Gastro-esophageal reflux disease without esophagitis (principal); N17.0 Acute kidney failure with tubular necrosis; I50.43 Acute on chronic combined systolic (congestive) and diastolic (congestive) heart failure; E44.0 Moderate protein-calorie malnutrition; D68.59 Other primary thrombophilia; I42.9 Cardiomyopathy, unspecified; E11.51 Type 2 diabetes mellitus with diabetic peripheral angiopathy without gangrene; E11.22 Type 2 diabetes mellitus with diabetic chronic kidney disease; I48.91 Unspecified atrial fibrillation; I13.0 Hypertensive heart and chronic kidney disease with heart failure and stage 1 through stage 4 chronic kidney disease, or unspecified chronic kidney disease; E11.65 Type 2 diabetes mellitus with hyperglycemia; I08.1 Rheumatic disorders of both mitral and tricuspid valves; F12.10 Cannabis abuse, uncomplicated; E80.6 Other disorders of bilirubin metabolism; D64.9 Anemia, unspecified; R74.0 Nonspecific elevation of levels of transaminase and lactic acid dehydrogenase [LDH]; D72.829 Elevated white blood cell count, unspecified; E87.6 Hypokalemia; E66.9 Obesity, unspecified; J45.909 Unspecified asthma, uncomplicated; I50.9 Heart failure, unspecified; N18.9 Chronic kidney disease, unspecified; G43.909 Migraine, unspecified, not intractable, without status migrainosus; E83.51 Hypocalcemia; Z59.0 Homelessness; Z88.6 Allergy status to analgesic agent; Z68.33 Body mass index [BMI] 33.0-33.9, adult; Z95.0 Presence of cardiac pacemaker; Z91.14 Patient's other noncompliance with medication regimen; Z71.51 Drug abuse counseling and surveillance of drug abuser; Z71.3 Dietary counseling and surveillance; Z79.82 Long term (current) use of aspirin; Z79.899 Other long term (current) drug therapy; Z86.73 Personal history of transient ischemic attack (TIA), and cerebral infarction without residual deficits
CPT/HCPCS: 99285; G0378; 36415; 71010; 76705; 80048; 80053; 82150; 82948; 83690; 83735; 83880; 84100; 84484; 85025; 85610; 85730; 87081; 93005; G0482; J1815; J2270; J7030; Q0092; Q0163

== ENCOUNTER 2017-05-12 00:35 | Observation (INO) | payer OTHER ==
[~2017-05-12] VITALS: Ht 180.3 cm; Wt 90.7 kg
[2017-05-12 00:35] VITALS: BP 141/86
[~2017-05-12 00:35] MED LIST changes: +ACET-787 PO; -ASPI81CT27 PO; +ASPI81CT95 PO; +OMEP20TC12 PO
[2017-05-12] MEDS ORDERED: diphenhydrAMINE 50 MG CAP PO ONE (01:10)
[2017-05-12 01:30] LABS: BASOPHILS # (AUTO) 0.2 K/uL (0.00-0.22); BASOPHILS % (AUTO) 2.2 % (0.0-2.0); EOSINOPHILS # (AUTO) 0.2 K/uL (0-0.4); EOSINOPHILS % (AUTO) 1.9 % (0.0-4.0); HEMATOCRIT 36.2 % (36-52); HEMOGLOBIN 11.2 g/dL (12.0-18.0); LYMPHOCYTES # (AUTO) 1.5 K/uL (2.0-11.5); LYMPHOCYTES % (AUTO) 15.3 % (20.5-51.1); MEAN CORPUSCULAR HEMOGLOBIN 24 pg (27-31); MEAN CORPUSCULAR HGB CONC 31 g/dL (33-37); MEAN CORPUSCULAR VOLUME 78 fL (80-94); MONOCYTES # (AUTO) 0.6 K/uL (0.8-1.0); MONOCYTES % (AUTO) 6.3 % (1.7-9.3); NEUTROPHILS # (AUTO) 7.5 K/uL (1.8-7.7); NEUTROPHILS % (AUTO) 74.3 % (42.2-75.2); PLATELET COUNT (AUTO) 237 K/uL (140-450); RED BLOOD CELL COUNT(AUTO) 4.62 MIL/uL (4.20-6.10); RED CELL DISTRIBUTION WIDTH 17.5 % (11.6-13.7)
[2017-05-12 01:41] LABS: ANION GAP 15.3 (8-16); CARBON DIOXIDE 19.6 mmol/L (21-32); CREATININE 1.5 mg/dL (0.7-1.3); POTASSIUM 3.9 mmol/L (3.5-5.1)
[2017-05-12 01:42] LABS: APPEARANCE,URINE CLEAR (CLEAR); BILIRUBIN,URINE 1+ (NEGATIVE); BLOOD, URINE NEGATIVE (NEGATIVE); COLOR,URINE YELLOW (YELLOW); LEUKOCYTE ESTERASE ,URINE NEGATIVE (NEGATIVE); NITRITE, URINE NEGATIVE (NEGATIVE); PH,URINE 5.5 (5.0-9.0); UGLUCOSE NEGATIVE (NEGATIVE)
[2017-05-12 01:47] LABS: ALBUMIN 3.7 g/dL (3.4-5.0)
[2017-05-12 01:48] LABS: BARBITURATE, URINE NEG. ng/ml (NEG <=200); BENZODIAZEPINE, URINE NEG. ng/mL (NEG <=200); CANNABINOID, URINE POS. ng/mL (NEG <=50); COCAINE, URINE NEG. ng/mL (NEG <=300); OPIATE, URINE NEG. ng/mL (NEG <=2000); PHENCYCLIDINE SCREEN,URINE NEG. ng/mL (NEG <=25)
[2017-05-12 01:53] LABS: RBC,URINE 0-5 (RARE) /HPF (0-5); WBC,URINE 0-5 (RARE) /HPF (0-5)
[2017-05-12] MEDS ORDERED: ACETAMINOPHEN 325 MG TAB PO PRN (02:10)
[2017-05-12] MEDS ORDERED: HYDROcodone/APAP 7.5/325 MG 1 TAB PO PRN (02:10)
[2017-05-12] MEDS ORDERED: ONDANSETRON 4 MG/2 ML VIAL IM/IVP PRN (02:10)
[2017-05-12] MEDS ORDERED: MORPHINE SULFATE 2 MG/ML SYR IVP PRN (02:10)
[2017-05-12] MEDS ORDERED: DOCUSATE SODIUM 100 MG GELCAP PO PRN (02:10)
[2017-05-12] MEDS ORDERED: NACL 0.9% 1,000 ML IV SCH (02:10)
[2017-05-12 02:38] LABS: PROTHROMBIN TIME 14.2 secs (10.8-13.4)
[2017-05-12 02:49] LABS: FREE T4 (FREE THYROXINE) 1.13 ng/dL (0.76-1.46); PHOSPHORUS 3.9 mg/dL (2.5-4.9); THYROID STIMULATING HORMONE 2.09 uIU/mL (0.34-3.74)
[2017-05-12] MEDS ORDERED: diphenhydrAMINE 50 MG/ML VIAL IVP SCH ×2 (03:05→11:30)
[2017-05-12 03:46] VITALS: BP 140/86
[2017-05-12] MEDS ORDERED: DEXTROSE 50% 50 ML SYR IVP PRN (04:05)
[2017-05-12] MEDS ORDERED: INSULIN LISPRO SLIDING SCALE 100 UNITS/ML VIAL SUBQ PRN (04:05)
[2017-05-12] MEDS ORDERED: HYDROcodone/APAP 10/325 MG 1 TAB TAB PO PRN (04:15)
[2017-05-12] MEDS ORDERED: NON-FORMULARY ITEM (Omeprazole (Omeprazole) 1 TAB) PO PRN (04:15)
[2017-05-12] MEDS ORDERED: BLOOD GLUCOSE MONITORING 1 DEV DEV FS SCH (06:00)
[2017-05-12] MEDS ORDERED: PANTOPRAZOLE 40 MG TABEC PO SCH (07:30)
[2017-05-12] MEDS: BLOOD GLUCOSE MONITORING 1 DEV DEV FS SCH ×3 (07:30→16:39)
[2017-05-12] MEDS ORDERED: metFORMIN 500 MG TAB PO SCH (08:00)
[2017-05-12 08:30] VITALS: BP 159/91
[2017-05-12] MEDS ORDERED: LISINOPRIL 20 MG TAB PO SCH (09:00)
[2017-05-12] MEDS ORDERED: FOLIC ACID 1 MG TAB PO SCH (09:00)
[2017-05-12] MEDS ORDERED: ASPIRIN 81 MG TAB.CHEW PO SCH (09:00)
[2017-05-12] MEDS ORDERED: SPIRONOLACTONE 25 MG TAB PO SCH (09:00)
[2017-05-12] MEDS ORDERED: FUROSEMIDE 20 MG TAB PO SCH (09:00)
[2017-05-12] MEDS ORDERED: NON-FORMULARY ITEM (Metformin HCl* (Glucophage Xr*) 1 TAB) PO SCH (09:00)
[2017-05-12] MEDS ORDERED: THIAMINE 100 MG TAB PO SCH (09:00)
[2017-05-12] MEDS: CARVEDILOL 6.25 MG TAB PO SCH ×2 (10:11→16:49)
[2017-05-12] MEDS: ATORVASTATIN 20 MG TAB PO SCH ×2 (10:13→10:20)
[2017-05-12] MEDS ORDERED: ALBUTEROL SULFATE/IPRATROPIU 3 ML SOL IH SCH (11:30)
[2017-05-12 12:00] VITALS: BP 132/84
[2017-05-12] MEDS ORDERED: diphenhydrAMINE 50 MG CAP PO SCH (13:30)
[2017-05-12 16:10] VITALS: BP 128/90
[2017-05-12] MEDS ORDERED: ATOR20TA40 PO (17:33)
[2017-05-12] MEDS ORDERED: METF500T2 PO (17:33)
[2017-05-12] MEDS ORDERED: LISI-420 PO (17:33)
[2017-05-12] MEDS ORDERED: ASPI81CT95 PO (17:33)
[2017-05-12] MEDS ORDERED: NITR0.4T2 SL (17:33)
[2017-05-13 08:18] LABS: T4 (THYROXINE) 7.1 ug/dL (4.5-12.0)
== END 2017-05-12 19:15 | disposition home or self-care (01) ==
LOC: MED 00:35 → MTU 02:10
PROVIDERS: ADMIT Family Medicine Sports Medicine; ATTEND Family Medicine Sports Medicine
DX: I11.9 Hypertensive heart disease without heart failure (principal); R07.2 Precordial pain; I48.91 Unspecified atrial fibrillation; I63.9 Cerebral infarction, unspecified; E11.9 Type 2 diabetes mellitus without complications; K21.9 Gastro-esophageal reflux disease without esophagitis; F15.10 Other stimulant abuse, uncomplicated; D50.9 Iron deficiency anemia, unspecified; E78.1 Pure hyperglyceridemia; F12.10 Cannabis abuse, uncomplicated; F10.10 Alcohol abuse, uncomplicated; Z95.0 Presence of cardiac pacemaker
CPT/HCPCS: 36415; 71010; 80053; 80305; 81001; 82948; 83735; 83880; 84100; 84436; 84439; 84443; 84479; 84484; 85025; 85610; 85730; 87081; 93005; 94640; 96361; 96374; 99285; G0378; J1200; J1815; J7030; J7620; Q0092; Q0163

== ENCOUNTER 2017-05-20 02:46 | Emergency (ER) | payer OTHER ==
[~2017-05-20] VITALS: Ht 172.7 cm; Wt 86.2 kg
[~2017-05-20 02:46] MED LIST changes: +NITR0.4T2 SL
[2017-05-20 02:51] VITALS: BP 138/90
--- NOTE | 2017-05-20 02:52 | NUR ---
BIBA TO ER BED 8
--- NOTE | 2017-05-20 02:57 | NUR ---
46/M BIBLiz C/O 05/23 SHARP LEFT ANKLE PAIN X15 HRS, NONTRAUMATIC, DENIES ANY FALLS/TRAUMA. LT ANKLE WITHOUT REDNESS OR SWELLING NOTED AT THIS TIME. PT TRANSIENT. HX CARDIOMYOPATHY, DM. BLOOD SUGAR ON SITE 114. ED MADE AWARE OF PT STATUS Addendum: 05/20/17 at 0308 by JOSÉ LEFT ANKLE TENDER TO SLIGHT TOUCH.
[2017-05-20] MEDS ORDERED: MORPHINE SULFATE 2 MG/ML SYR IM ONE (03:00)
[2017-05-20] MEDS ORDERED: diphenhydrAMINE 50 MG/ML VIAL IM ONE (03:00)
--- NOTE | 2017-05-20 03:00 | NUR ---
PT. REFUSES TO GIVE URINE SPECIMEN. DR. SHIRLEY MADE AWARE.
[2017-05-20 03:24] LABS: HEMATOCRIT 38.8 % (36-52); MEAN CORPUSCULAR HEMOGLOBIN 25 pg (27-31); MEAN CORPUSCULAR HGB CONC 31 g/dL (33-37); MEAN CORPUSCULAR VOLUME 80 fL (80-94); PLATELET COUNT (AUTO) 161 K/uL (140-450); RED BLOOD CELL COUNT(AUTO) 4.87 MIL/uL (4.20-6.10); RED CELL DISTRIBUTION WIDTH 18.3 % (11.6-13.7); WHITE BLOOD COUNT (AUTO) 12.1 K/uL (4.8-10.8)
[2017-05-20 03:35] LABS: ANION GAP 12.8 (8-16); CARBON DIOXIDE 26.2 mmol/L (21-32); CREATININE 1.5 mg/dL (0.7-1.3)
[2017-05-20 03:38] LABS: EOSINOPHILS % (MANUAL) 5 % (0-4); LYMPHOCYTES % (MANUAL) 18 % (20-46); MONOCYTES % (MANUAL) 1 % (5-12)
[2017-05-20 03:39] LABS: BASOPHILS % (MANUAL) 1 % (0-2)
[2017-05-20 03:40] LABS: URIC ACID 8.4 mg/dL (2.6-7.2)
[2017-05-20 03:41] LABS: ALBUMIN 3.7 g/dL (3.4-5.0); TOTAL BILIRUBIN 0.9 mg/dL (0.0-1.0)
--- NOTE | 2017-05-20 05:00 | NUR ---
0300 UNABLE TO COLLECT URINE, PT UNABLE TO VOID AT THIS TIME. ED MD MADE AWARE, NO NEW ORDERS RECEIVED
--- NOTE | 2017-05-20 05:50 | NUR ---
PATIENT REFUSED GREG WRAP AND CRUTCHES, ER MD DR. SHIRLEY MADE AWARE
--- NOTE | 2017-05-20 05:50 | NUR ---
Patient discharged with v/s stable. PT REFUSED WRITTEN AND VERBAL INSTRUCTIONS, PT AGITATED AND CLEO PEGUERO RN AND SECURITY ASSISTED PT OUT TO LOBBY VIA WHEELCHAIR. CRUTCHES GIVEN TO PT, BUT REFUSED TO HAVE LEFT ANKLE WRAPPED. ED MADE AWARE. Addendum: 05/20/17 at 0602 by JOSÉ PT REFUSED TO TAKE AND SIGN WRITTEN DC PAPERS
== END 2017-05-20 05:54 | disposition home or self-care (01) ==
LOC: MED 02:46
DX: M10.072 Idiopathic gout, left ankle and foot (principal); I11.0 Hypertensive heart disease with heart failure; I50.9 Heart failure, unspecified; Z86.73 Personal history of transient ischemic attack (TIA), and cerebral infarction without residual deficits; Z88.1 Allergy status to other antibiotic agents
CPT/HCPCS: 36415; 73610; 80053; 84550; 85025; 96372; 99285; G0482; J1200; J2270; Q0092

== ENCOUNTER 2017-06-30 09:48 | Inpatient (IN) | payer OTHER ==
[~2017-06-30] VITALS: Ht 188 cm; Wt 116.6 kg
[~2017-06-30 09:48] MED LIST changes: -ACET-787 PO; +ACET-9529 PO; +ATI.5 PO; -BLOO1STR10 FS; +BLOO1STR56 FS; +DOCU-299 PO; -METF500T2 PO; +TAMS0.4C96 PO
--- NOTE | 2017-06-30 09:48 | NUR ---
Patient BIBA to bed 1 at this time.
[2017-06-30 09:55] VITALS: BP 148/108
--- NOTE | 2017-06-30 10:10 | NUR ---
PT TAKEN OFF THE UNIT CT SCAN VIA GURNEY BY VINEYARD TENDER ISAMAR
[2017-06-30] MEDS ORDERED: GLUCAGON 1 MG VIAL ONE (10:14)
--- NOTE | 2017-06-30 10:15 | NUR ---
PT BIB EMS WITH C/O SOB, WEAKNESS x4days. hx: chf,at. fib.,cardiomyopathy. no meds. x 2wks. as per patient. lt. head bruising.s/p fall as per patient. no loc,no vomiting . DENIES N/V/D; SKIN IS PINK/WARM/DRY; AAOX4 WITH EVEN AND STEADY GAIT; LUNGS CLEAR BL; HR EVEN AND REGULAR; PT DENIES ANY FEVER OR COUGH AT THIS TIME; PATIENT STATES PAIN OF 10/10 AT THIS TIME; VSS; PATIENT POSITIONED FOR COMFORT; HOB ELEVATED; BEDRAILS UP X2; BED DOWN. ER MD MADE AWARE OF PT STATUS.
[2017-06-30] MEDS ORDERED: ASPIRIN 81 MG TAB.CHEW PO ONE (10:40)
[2017-06-30] MEDS ORDERED: ONDANSETRON 4 MG/2 ML VIAL IVP ONE (10:40)
[2017-06-30] MEDS ORDERED: GLUCAGON 1 MG VIAL IM ONE (10:40)
[2017-06-30] MEDS ORDERED: DEXTROSE 50% 50 ML SYR IVP ONE ×2 (10:40→10:55)
[2017-06-30] MEDS ORDERED: ONDANSETRON 4 MG/2 ML VIAL ONE (10:45)
[2017-06-30 11:24] LABS: BASOPHILS # (AUTO) 0.1 K/uL (0.00-0.22); BASOPHILS % (AUTO) 0.5 % (0.0-2.0); EOSINOPHILS % (AUTO) 0.2 % (0.0-4.0); HEMOGLOBIN 13.8 g/dL (12.0-18.0); LYMPHOCYTES # (AUTO) 0.5 K/uL (2.0-11.5); LYMPHOCYTES % (AUTO) 2.8 % (20.5-51.1); MEAN CORPUSCULAR HEMOGLOBIN 24 pg (27-31); MEAN CORPUSCULAR HGB CONC 31 g/dL (33-37); MEAN CORPUSCULAR VOLUME 76 fL (80-94); MONOCYTES % (AUTO) 5.5 % (1.7-9.3); PLATELET COUNT (AUTO) 274 K/uL (140-450); RED BLOOD CELL COUNT(AUTO) 5.78 MIL/uL (4.20-6.10); RED CELL DISTRIBUTION WIDTH 19.9 % (11.6-13.7)
[2017-06-30 11:28] LABS: ANION GAP 22.8 (8-16); CARBON DIOXIDE 18.8 mmol/L (21-32); CREATININE 1.9 mg/dL (0.7-1.3); POTASSIUM 4.6 mmol/L (3.5-5.1)
--- NOTE | 2017-06-30 11:29 | NUR ---
PT BACK FROM CT, QUITE NO C/O PAIN AT THIS TIME, PLACED BACK ON MONITOR, WILL CONTINUE TO MONITOR
[2017-06-30 11:32] LABS: WHITE BLOOD COUNT (AUTO) 17.6 K/uL (4.8-10.8)
[2017-06-30 11:34] LABS: ALBUMIN 4.4 g/dL (3.4-5.0); TOTAL BILIRUBIN 3.8 mg/dL (0.0-1.0)
--- NOTE | 2017-06-30 12:03 | NUR ---
PT SLEEPING COMFORTABLE AT THIS TIME, NO C/O DISTRESS NOTED, VSS, WILL CONTINUE TO MONITOR
[2017-06-30 12:05] LABS: LIPASE 131 U/L (73-393)
[2017-06-30] MEDS ORDERED: HYDROcodone/APAP 7.5/325 MG 1 TAB PO PRN (12:40)
[2017-06-30] MEDS ORDERED: ACETAMINOPHEN 325 MG TAB PO PRN (12:40)
[2017-06-30] MEDS ORDERED: ONDANSETRON 4 MG/2 ML VIAL IVP PRN (12:40)
[2017-06-30] MEDS ORDERED: CLINDAMYCIN 600 MG in DEXTROSE 5% 50 ML IV ONE (12:50)
[2017-06-30] MEDS ORDERED: CLINICAL MONITORING MC PRN (13:05)
--- NOTE | 2017-06-30 13:20 | NUR ---
Patient will be admitted to care of DR TRONCOSO. Admited to TELE. Will go to room 106B. Belongings list completed. Report to MICHAEL MONTAGUE.
[2017-06-30 13:34] LABS: APPEARANCE,URINE CLEAR (CLEAR); BILIRUBIN,URINE NEGATIVE (NEGATIVE); BLOOD, URINE 2+ (NEGATIVE); COLOR,URINE YELLOW (YELLOW); LEUKOCYTE ESTERASE ,URINE NEGATIVE (NEGATIVE); NITRITE, URINE NEGATIVE (NEGATIVE); PH,URINE 5.5 (5.0-9.0); UGLUCOSE NEGATIVE (NEGATIVE)
[2017-06-30 13:41] LABS: BARBITURATE, URINE NEG. ng/ml (NEG <=200); BENZODIAZEPINE, URINE NEG. ng/mL (NEG <=200); CANNABINOID, URINE POS. ng/mL (NEG <=50); COCAINE, URINE NEG. ng/mL (NEG <=300); OPIATE, URINE NEG. ng/mL (NEG <=2000); PHENCYCLIDINE SCREEN,URINE NEG. ng/mL (NEG <=25)
[2017-06-30 13:45] VITALS: BP 143/88
[2017-06-30] MEDS ORDERED: FUROSEMIDE 40 MG/4 ML VIAL IVP SCH (13:45)
--- NOTE | 2017-06-30 13:45 | NUR ---
PATIENT ARRIVED ON UNIT VIA GURNEY/BED. IN STABLE CONDITION. ABLE TO AMBULATE TO BED WITH STEADY GAIT. RESPIRATIONS EVEN, UNLABORED, ON ROOM AIR. CHEST PAIN WITHIN TOLERABLE AT THIS TIME. AAOX3, CALM, COOPERATIVE, SKIN COLOR APPROPRIATE TO ETHNICITY, WARM TO TOUCH. HAS LEFT HEAD ABRASIONS FROM FALLING ON CONCRETE HEAD FIRST. PHOTOS TAKEN AT ER. MRSA OF NARES AND V/S TAKEN PER PROTOCOL. IVF STARTED PER ORDERS. IV SITE INTACT, PATENT. LUNGS CTA ON ALL LOBES. PATIENT HAS THRASHING MOVEMENT INTERMITTENTLY. ORIENTED PATIENT TO ROOM. SAFETY MEASURES IN PLACE, CALL LIGHT WITHIN REACH. WILL CONTINUE TO MONITOR.
[2017-06-30 13:46] LABS: RBC,URINE NONE SEEN /HPF (0-5); WBC,URINE 0-5 (RARE) /HPF (0-5)
--- NOTE | 2017-06-30 13:46 | NUR ---
TELE MONITOR PLACED ON PATIENT WHICH IS SR WITH BIPHASIC T ON ARRIVAL. WILL CONTINUE TO MONITOR.
[2017-06-30 13:48] LABS: CHOL/HDL RATIO 3.2 (1-4.5); FREE T4 (FREE THYROXINE) 1.32 ng/dL (0.76-1.46); PHOSPHORUS 4.5 mg/dL (2.5-4.9); THYROID STIMULATING HORMONE 2.9 uIU/mL (0.34-3.74)
--- NOTE | 2017-06-30 13:52 | NUR ---
RECEIVED A CRITICAL VALUE FROM LAB, LACTIC ACID: 3.3. WILL REPORT RESULT TO DR. CISNEROS VERBALLY.
--- NOTE | 2017-06-30 14:00 | NUR ---
REPORTED CRITICAL LACTIC ACID VALUE TO DR. CISNEROS VERBALLY. MD TO SEE PATIENT. WILL CONTINUE TO MONITOR.
[2017-06-30] MEDS: BLOOD GLUCOSE MONITORING 1 DEV DEV FS SCH ×3 (15:00→20:57)
--- NOTE | 2017-06-30 15:00 | NUR ---
PATIENT SITTING IN BED. COMPLAINTS OF BEING HUNGRY AND REQUESTING FOR FOOD. CRACKERS AND JUICE GIVEN. WILL CONTINUE TO MONITOR.
[2017-06-30] MEDS ORDERED: LORazepam 0.5 MG TAB PO PRN (15:45)
[2017-06-30] MEDS ORDERED: NITROGLYCERIN 0.4 MG TAB SL PRN (15:45)
[2017-06-30 16:00] VITALS: BP 143/101
[2017-06-30] MEDS: NACL 0.9% 1,000 ML IV SCH (16:02)
[2017-06-30] MEDS: CLINDAMYCIN 600 MG in DEXTROSE 5% 50 ML IV SCH ×2 (16:28→21:07)
[2017-06-30] MEDS ORDERED: LORazepam 2 MG/ML VIAL IVP PRN ×2 (16:30→18:45)
--- NOTE | 2017-06-30 16:30 | NUR ---
PATIENT LYING IN BED WATCHING TV. IVF STARTED AT 1602 AND TO BE DISCONTINUED WHEN TOTAL IVF REACHES 3200 ML PER MD ORDERS. CLINDAMYCIN STARTED ON 1628. BLOOD GLUCOSE CHECKED. SAFETY MEASURES IN PLACE, CALL LIGHT WITHIN REACH, SEIZURE PRECAUTIONS IN PLACE PER MD ORDERS. WILL CONTINUE TO MONITOR.
--- NOTE | 2017-06-30 16:58 | NUR ---
CLINDAMYCIN ENDED IVPB COMPLETED. PATIENT IS SLEEPING. NO DISTRESS NOTED. AROUSABLE TO VOICE. SAFETY MEASURES IN PLACE. WILL CONTINUE TO MONITOR.
[2017-06-30] MEDS: CARVEDILOL 6.25 MG TAB PO SCH (17:11)
[2017-06-30] MEDS: LEVOFLOXACIN 750 MG/D5W PREMIX 150 ML IV SCH (17:55)
--- NOTE | 2017-06-30 17:55 | NUR ---
LEVAQUIN STARTED AT 17:55. PATIENT SLEEPING. NO DISTRESS NOTED. AROUSABLE BY VOICE. SAFETY MEASURES IN PLACE. WILL CONTINUE TO MONITOR.
[2017-06-30] MEDS ORDERED: DEXTROSE 50% 50 ML SYR IVP PRN ×2 (18:15→18:40)
[2017-06-30] MEDS ORDERED: INSULIN LISPRO SLIDING SCALE 100 UNITS/ML VIAL SUBQ PRN (18:40)
--- NOTE | 2017-06-30 19:25 | NUR ---
LEVAQUIN INFUSION COMPLETED. NO ADVERSE REACTIONS NOTED. PATIENT IS SLEEPING. AROUSABLE TO VOICE. NO DISTRESS NOTED. CONDITION UNCHANGED. WILL CONTINUE TO MONITOR.
--- NOTE | 2017-06-30 19:26 | NUR ---
GAVE REPORT TO INTERNAL CORROSION SPECIALIST NURSE FOR CONTINUITY OF CARE. PATIENT IN STABLE CONDITION.
--- NOTE | 2017-06-30 19:27 | NUR ---
RECEIVED HANDOFF REPORT FROM AM RN. PATIENT A&OX4. PATIENT RESTING IN BED. PATIENT DENIES PAIN. IV SITE PATENT AND INTACT. NO SIGNS OR SYMPTOMS OF ACUTE DISTRESS NOTED. CALL LIGHT WITHIN REACH. WILL CONTINUE TO MONITOR.
[2017-06-30 20:00] VITALS: BP 128/54
[2017-06-30] MEDS ORDERED: DIAZEPAM PFS 10 MG/2 ML SYR IVP PRN (20:55)
[2017-06-30] MEDS: LORazepam 1 MG TAB PO SCH (21:00)
[2017-06-30] MEDS: DOCUSATE SODIUM 100 MG GELCAP PO SCH (21:06)
--- NOTE | 2017-06-30 21:18 | NUR ---
PATIENT REFUSED IV CELOCIN AND IV FLUIDS. MD AWARE. MD IN TO SEE PATIENT. PM MEDS GIVEN WITH EDUCATION. PATIENT VERBALZIED UNDERSTANDING. NO SIGNS OR SYMPTOMS OF ACUTE DISTRESS NOTED. CALL LIGHT WITHIN REACH. WILL CONTINUE TO MONITOR.
[2017-06-30] MEDS: HYDROmorphone 1 MG/ML AMP IVP PRN (22:39)
[2017-07-01] VITALS: BP 99/70
--- NOTE | 2017-07-01 01:38 | NUR ---
PATIENT RESTING IN BED. PATIENT DENIES PAIN. NO SIGNS OR SYMPTOMS OF ACUTE DISTRESS NOTED. CALL LIGHT WITHIN REACH. WILL CONTINUE TO MONITOR.
[2017-07-01 04:00] VITALS: BP 110/67
--- NOTE | 2017-07-01 04:09 | NUR ---
PATIENT RESTING IN BED. PATIENT STATES PAIN. WILL MEDICATE ORDERED. NO SIGNS OR SYMPTOMS. CALL LIGHT WITHIN REACH. WILL CONTINUE TO MONITOR.
[2017-07-01] MEDS: HYDROmorphone 1 MG/ML AMP IVP PRN ×3 (04:33→18:07)
[2017-07-01] MEDS: LORazepam 1 MG TAB PO SCH ×3 (04:34→20:23)
[2017-07-01] MEDS: INSULIN LISPRO SLIDING SCALE 100 UNITS/ML VIAL SUBQ PRN (04:52)
[2017-07-01] MEDS: BLOOD GLUCOSE MONITORING 1 DEV DEV FS SCH ×6 (04:54→20:16)
[2017-07-01] MEDS: CLINDAMYCIN 600 MG in DEXTROSE 5% 50 ML IV SCH ×3 (05:00→20:17)
--- NOTE | 2017-07-01 07:10 | NUR ---
ENDORSED PLAN OF CARE TO AM RN. PATIENT IN STABLE CONDITION. NO SIGNS OR SYMPTOMS OF ACUTE DISTRESS NOTED. CALL LIGHT WITHIN REACH.
--- NOTE | 2017-07-01 07:11 | NUR ---
RECEIVED REPORT FROM COPY OPERATOR NURSE. PATIENT IN STABLE CONDITION. PATIENT SLEEPING IN BED. AROUSABLE BY VOICE. NO DISTRESS NOTED. PAIN WITHIN TOLERABLE AT THIS TIME. DENIES DYSPNEA AT THIS TIME. RESPIRATIONS EVEN, UNLABORED, ON ROOM AIR. AAOX3, CALM, COOPERATIVE, SKIN COLOR APPROPRIATE TO ETHNICITY, WARM TO TOUCH. HAS LEFT HEAD ABRASION JAYMIE, NO S/S OF INFECTION NOTED. MULTIPLE CLOSED SCABS NOTED THROUGHOUT B/L UE AND LE. LUNGS CTA ON ALL LOBES. PLAN OF CARE REVIEWED WITH PATIENT. PATIENT VERBALIZED UNDERSTANDING. SAFETY MEASURES IN PLACE, FALL PRECAUTIONS IN PLACE, SEIZURE PRECAUTIONS ON PLACE, BED RAILS PADDED, BED ALARM ON, CALL LIGHT WITHIN REACH. WILL CONTINUE TO MONITOR.
[2017-07-01 08:00] VITALS: BP 138/81
[2017-07-01] MEDS: INSULIN DETEMIR 100 UNITS/ML 10 ML VIAL SUBQ SCH (09:00)
[2017-07-01] MEDS ORDERED: FOLIC ACID 1 MG TAB PO SCH (09:00)
[2017-07-01] MEDS ORDERED: INSULIN DETEMIR 100 UNITS/ML 10 ML VIAL SUBQ SCH (09:00)
[2017-07-01] MEDS ORDERED: THIAMINE 100 MG TAB PO SCH (09:00)
--- NOTE | 2017-07-01 09:20 | NUR ---
PATIENT IS SITTING IN BED. AAOX3. NO DISTRESS NOTED. RESPIRATIONS EVEN, UNLABORED, ON ROOM AIR. BLOOD GLUCOSE CHECKED, IT WAS 52, ASYMPTOMATIC. ADMINISTERED D50% 50 ML SYRINGE VIA IVP PER MD PRN ORDERS FOR GLUCOSE BELOW 60. PATIENT TOLERATED PROCEDURE WELL. WILL CHECK GLUCOSE IN 30 MINUTES. SCHEDULED MEDICATIONS DUE. COMPLAINTS OF CHEST PAIN, WILL MEDICATE WITH DILAUDID PER ORDERS. PATIENT REFUSES IVF. PATIENT REFUSES AM LAB DRAW. SAFETY MEASURES IN PLACE, CALL LIGHT WITHIN REACH. WILL CONTINUE TO MONITOR.
--- NOTE | 2017-07-01 09:34 | NUR ---
PATIENT HAS BEEN SCREENED AND CATEGORIZED MODERATE NUTRITION RISK. PATIENT WILL BE SEEN WITHIN 3-5 DAYS OF ADMISSION. 07/03/17-07/05/[address]
[2017-07-01] MEDS: THIAMINE 100 MG TAB PO SCH (09:36)
[2017-07-01] MEDS: MULTIVITAMIN 1 TAB PO SCH (09:36)
[2017-07-01] MEDS: ATORVASTATIN 20 MG TAB PO SCH (09:37)
[2017-07-01] MEDS: LISINOPRIL 20 MG TAB PO SCH (09:37)
[2017-07-01] MEDS: SPIRONOLACTONE 25 MG TAB PO SCH (09:37)
[2017-07-01] MEDS: PANTOPRAZOLE 40 MG TABEC PO SCH (09:38)
[2017-07-01] MEDS: TAMSULOSIN 0.4 MG CAP PO SCH (09:38)
[2017-07-01] MEDS: levETIRAcetam 500 MG TAB PO SCH (09:38)
[2017-07-01] MEDS: CARVEDILOL 6.25 MG TAB PO SCH ×2 (09:38→16:40)
[2017-07-01] MEDS: FUROSEMIDE 40 MG/4 ML VIAL IVP SCH (09:39)
[2017-07-01] MEDS: FOLIC ACID 1 MG TAB PO SCH (09:39)
[2017-07-01] MEDS: ASPIRIN 81 MG TAB.CHEW PO SCH (09:48)
[2017-07-01] MEDS: DOCUSATE SODIUM 100 MG GELCAP PO SCH ×2 (09:48→20:23)
--- NOTE | 2017-07-01 09:50 | NUR ---
RECHECKED PATIENT'S BLOOD GLUCOSE. IT INCREASED FROM 52 TO 142 MG/DL. NO S/S OF HYPOGLYCEMIA NOTED. PATIENT IS LYING IN BED WATCHING TV. CONDITION UNCHANGED. WILL CONTINUE TO MONITOR.
[2017-07-01 12:00] VITALS: BP 143/71
--- NOTE | 2017-07-01 12:00 | NUR ---
PATIENT IS SLEEPING IN BED. AROUSABLE BY VOICE. BLOOD GLUCOSE AND V/S CHECKED. NO INSULIN COVERAGE NEEDED. CONDITION UNCHANGED. SAFETY MEASURES IN PLACE. WILL CONTINUE TO MONITOR.
--- NOTE | 2017-07-01 12:30 | NUR ---
RADIOLOGY AT BEDSIDE FOR ABDOMEN US FOR GALLBLADDER. COULD NOT COMPLETE BECAUSE PATIENT ATE LUNCH ALREADY. PATIENT REFUSES TO BE NPO FOR 6 HOURS FOR THE ABD US. PATIENT REFUSES US OF ABD. NOTIFIED DR. ROUSSEAU. WILL CONTINUE TO MONITOR.
[2017-07-01] MEDS: NACL 0.9% 1,000 ML IV SCH (12:39)
--- NOTE | 2017-07-01 14:00 | NUR ---
PATIENT LYING IN BED SLEEPING. NO DISTRESS NOTED. RESPIRATIONS EVEN, UNLABORED, ON ROOM AIR. AROUSABLE BY VOICE. MEDICATIONS DUE GIVEN. CONDITION UNCHANGED. BLOOD SUGAR WITHIN NORMAL LIMITS. SAFETY MEASURES IN PLACE, CALL LIGHT WITHIN REACH. WILL CONTINUE TO MONITOR.
[2017-07-01] MEDS: LEVOFLOXACIN 750 MG/D5W PREMIX 150 ML IV SCH (15:25)
[2017-07-01 16:00] VITALS: BP 91/64
--- NOTE | 2017-07-01 18:10 | NUR ---
PATIENT SITTING IN BED WITH DINNER TRAY IN FRONT. NO DISTRESS NOTED. CONDITION UNCHANGED. IVF TKO AT 10 ML/HR DISCONNECTED FOR NOW PATIENT IS AGITATED WITH IV ALARM AND REFUSES TO BE HOOKED BACK UP ON IVF. COMPLAINTS OF 8/10 PAIN ON CHEST. WILL MEDICATE WITH DILAUDID PER ORDERS. SAFETY MEASURES IN PLACE, CALL LIGHT WITHIN REACH. WILL CONTINUE TO MONITOR.
[2017-07-01 18:43] LABS: HEMATOCRIT 39.6 % (36-52); HEMOGLOBIN 12.2 g/dL (12.0-18.0); MEAN CORPUSCULAR HEMOGLOBIN 24 pg (27-31); MEAN CORPUSCULAR HGB CONC 31 g/dL (33-37); MEAN CORPUSCULAR VOLUME 78 fL (80-94); PLATELET COUNT (AUTO) 164 K/uL (140-450); RED BLOOD CELL COUNT(AUTO) 5.07 MIL/uL (4.20-6.10); RED CELL DISTRIBUTION WIDTH 21.3 % (11.6-13.7); WHITE BLOOD COUNT (AUTO) 7.2 K/uL (4.8-10.8)
[2017-07-01 18:53] LABS: ANION GAP 12.3 (8-16); CARBON DIOXIDE 24.8 mmol/L (21-32); CREATININE 1.6 mg/dL (0.7-1.3); MAGNESIUM 1.6 mg/dL (1.8-2.4); PHOSPHORUS 3.7 mg/dL (2.5-4.9); POTASSIUM 4.1 mmol/L (3.5-5.1)
[2017-07-01 18:59] LABS: BASOPHILS % (MANUAL) 0 % (0-2); EOSINOPHILS % (MANUAL) 0 % (0-4); LYMPHOCYTES % (MANUAL) 11 % (20-46); MONOCYTES % (MANUAL) 2 % (5-12)
--- NOTE | 2017-07-01 19:15 | NUR ---
REPORT GIVEN TO MOTION PICTURE CAMERAMAN NURSE FOR CONTINUITY OF CARE. PATIENT IN STABLE CONDITION.
--- NOTE | 2017-07-01 19:20 | NUR ---
RECEIVED REPORT FROM DAY RN. PATIENT WAS SLEEPING, BUT EASY TO AROUSE. A/O X2, DROWSY. IV LT AC, PATENT AND INTACT, FLUSHED 10ML NS. IV RT AC, CATHETER WAS OUT, NO BLEEDING NOTED, IV CATHETER TIP INTACT. CALL LIGHT WITHIN REACH, SAFETY MEASURE ENSURED, WILL CONTINUE TO MONITOR.
[2017-07-01 20:00] VITALS: BP 105/68
--- NOTE | 2017-07-01 20:26 | NUR ---
DUE MEDICATION GIVEN, PATIENT TOLERATED WELL. NO S/S OF DISTRESS NOTED, RESPIRATION EVEN AND UNLABORED, CALL LIGHT WITHIN REACH, SAFETY MEASURE ENSURED, WILL CONTINUE TO MONITOR.
--- NOTE | 2017-07-01 20:45 | NUR ---
IV PUMP BEEPING, PATIENT BECAME AGITATED, YELLED," I DON'T WANT THIS MEDICATION, TAKE THE IV OUT." EDUCATED ON THE IMPORTANCE OF ANTIBIOTIC, PATIENT STILL WANT ME TO STOP THE IV, AND DISCONNECTED THE IV. INFORMED PATIENT I NEEDED TO TALK TO THE DOCTOR. PATIENT AGREED.
--- NOTE | 2017-07-01 20:50 | NUR ---
PATIENT IS SLEEPING, CLEOCIN IVP STILL RUNNING, NO S/S OF DISTRESS NOTED, CHARGE NURSE IS AWARE THE CLEOCIN STILL RUNNING. CALL LIGHT WITHIN REACH, SAFETY MEASURE ENSURED, WILL CONTINUE TO MONITOR.
[2017-07-02] VITALS: BP 105/62
--- NOTE | 2017-07-02 00:33 | NUR ---
NO CHANGE IN CONDITION. PATIENT IS SLEEPING, NO S/S OF DISTRESS NOTED, RESPIRATION EVEN AND UNLABORED, CALL LIGHT WITHIN REACH, SAFETY MEASURE ENSURED ,WILL CONTINUE TO MONITOR.
--- NOTE | 2017-07-02 01:22 | NUR ---
NOTED LT AC IV CATHETER WAS OUT, NO ACTIVE BLEEDING NOTED, IV CATHETER TIP INTACT. NEW IV 22G LT FOREARM STARTED, PATIENT TOLERATED WELL. CALL LIGHT WITHIN REACH, SAFETY MEASURE ENSURED ,WILL CONTINUE TO MONITOR.
--- NOTE | 2017-07-02 03:36 | NUR ---
GAVE PATIENT JUICE AND CRACKERS HE REQUESTED, NO CHANGE IN CONDITION, RESPIRATION EVEN AND UNLABORED, CALL LIGHT WITHIN REACH, SAFETY MEASURE ENSURED ,WILL CONTINUE TO MONITOR.
[2017-07-02 04:00] VITALS: BP 103/64
[2017-07-02] MEDS: CLINDAMYCIN 600 MG in DEXTROSE 5% 50 ML IV SCH ×3 (04:31→21:21)
[2017-07-02] MEDS: BLOOD GLUCOSE MONITORING 1 DEV DEV FS SCH ×6 (04:35→20:00)
[2017-07-02] MEDS: LORazepam 1 MG TAB PO SCH ×3 (04:38→21:22)
--- NOTE | 2017-07-02 05:43 | NUR ---
PATIENT IS SLEEPING, NO S/S OF DISTRESS NOTED, RESPIRATION EVEN AND UNLABORED, CALL LIGHT WITHIN REACH, SAFETY MEASURE ENSURED, WILL CONTINUE TO MONITOR.
--- NOTE | 2017-07-02 05:46 | NUR ---
PATIENT REFUSED MORNING LAB BLOOD DRAW. EDUCATED PATIENT ON THE IMPORTANCE OF LAB MONITORING DUE TO HIS CONDITION, PATIENT STILL REFUSED.
--- NOTE | 2017-07-02 07:18 | NUR ---
ASSUMED CONTINUITY OF CARE. NO SIGNS AND SYMPTOMS OF ACUTE DISTRESS NOTED. INITIAL ASSESSMENT DONE. NON-COMPLIANT. VERBALLY ABUSIVE AT TIMES. SEIZURE AND FALL PRECAUTION APPLIED. CALL LIGHT WITHIN REACH.
--- NOTE | 2017-07-02 07:27 | NUR ---
ENDORSED PLAN OF CARE TO DAY RN. PATIENT RESTING IN BED, NO S/S OF DISTRESS NOTED, PATIENT IS IN STABLE CONDITION.
[2017-07-02 08:00] VITALS: BP 99/67
[2017-07-02] MEDS: CARVEDILOL 6.25 MG TAB PO SCH ×2 (08:00→17:03)
--- NOTE | 2017-07-02 08:00 | NUR ---
Patient's Plan of Care was discussed and reviewed with ACCOUNTS SUPERVISOR: VALENCIA
[2017-07-02] MEDS: SPIRONOLACTONE 25 MG TAB PO SCH (09:00)
[2017-07-02] MEDS: FUROSEMIDE 40 MG/4 ML VIAL IVP SCH (09:00)
[2017-07-02] MEDS: LISINOPRIL 20 MG TAB PO SCH (09:00)
[2017-07-02] MEDS: PANTOPRAZOLE 40 MG TABEC PO SCH (09:12)
[2017-07-02] MEDS: ATORVASTATIN 20 MG TAB PO SCH (09:12)
[2017-07-02] MEDS: ASPIRIN 81 MG TAB.CHEW PO SCH (09:12)
[2017-07-02] MEDS: MULTIVITAMIN 1 TAB PO SCH (09:12)
[2017-07-02] MEDS: levETIRAcetam 500 MG TAB PO SCH (09:13)
[2017-07-02] MEDS: DOCUSATE SODIUM 100 MG GELCAP PO SCH ×2 (09:13→21:22)
[2017-07-02] MEDS: TAMSULOSIN 0.4 MG CAP PO SCH (09:13)
[2017-07-02] MEDS: FOLIC ACID 1 MG TAB PO SCH (09:13)
[2017-07-02] MEDS: THIAMINE 100 MG TAB PO SCH (09:13)
[2017-07-02] MEDS: INSULIN DETEMIR 100 UNITS/ML 10 ML VIAL SUBQ SCH (09:29)
--- NOTE | 2017-07-02 11:53 | NUR ---
BRASS [employer]DER HELPER CHRIS CAME FOR PT. LAB BLOOD DRAW. PT. NON-COMPLIANT AND REFUSED LAB BLOOD DRAW. INFORMED CHARGE NURSE LINDA THOMPSON. ALSO INFORMED DR. KEYES THAT PT. REFUSED LAB BLOOD DRAW.
[2017-07-02 12:00] VITALS: BP 98/62
[2017-07-02] MEDS: NACL 0.9% 1,000 ML IV SCH (12:39)
[2017-07-02] MEDS: INSULIN LISPRO SLIDING SCALE 100 UNITS/ML VIAL SUBQ PRN (12:44)
[2017-07-02] MEDS: LEVOFLOXACIN 750 MG/D5W PREMIX 150 ML IV SCH (15:50)
[2017-07-02 16:00] VITALS: BP 120/81
--- NOTE | 2017-07-02 17:10 | NUR ---
REFUSED PM CARE, AND TO CHANGED BED LINENS PER HERSON LUCERO. EXPLAINED PT. THAT BED LINENS WERE DIRTY ALREADY AND NEED TO BE CHANGE. STILL REFUSED.
--- NOTE | 2017-07-02 19:16 | NUR ---
BEDSIDE REPORT GIVEN TO PATTIE THOMPSON. IN STABLE CONDITION.
--- NOTE | 2017-07-02 19:17 | NUR ---
RECEIVED REPORT FROM AM NURSE. PATIENT IS AAOX4, ON ROOM AIR. NO SIGNS OF ACUTE DISTRESS NOTED. RESPIRATIONS EVEN AND UNLABORED. SKIN COLOR IS APPROPRIATE TO ETHNICITY, WITH SCABS TO BUE/BLE. SKIN TEMP WARM TO TOUCH. IV ACCESS IS INTACT, PATENT, AND ASYMPTOMATIC, SL. SEIZURE PRECAUTIONS IN PLACE. PLAN OF CARE DISCUSSED, PT VERBALIZED UNDERSTANDING. BED IN LOW POSITION, BILATERAL HALF SIDE RAILS UP, CALL LIGHT WITHIN REACH, WILL CONTINUE TO MONITOR.
[2017-07-02 20:00] VITALS: BP 114/73
[2017-07-02] MEDS: HYDROmorphone 1 MG/ML AMP IVP PRN (21:39)
[2017-07-03] VITALS: BP 127/72
[2017-07-03] MEDS: BLOOD GLUCOSE MONITORING 1 DEV DEV FS SCH ×4 (00:47→12:15)
[2017-07-03] MEDS: INSULIN LISPRO SLIDING SCALE 100 UNITS/ML VIAL SUBQ PRN (00:49)
--- NOTE | 2017-07-03 02:17 | NUR ---
PT IS SLEEPING, EASY TO AROUSE. NO SIGNS OF ACUTE DISTRESS NOTED. RESPIRATIONS EVEN AND UNLABORED. BED IN LOW POSITION , BILATERAL HALF SIDE RAILS UP, CALL LIGHT WITHIN REACH, WILL CONTINUE TO MONITOR.
[2017-07-03 04:00] VITALS: BP 135/85
[2017-07-03] MEDS: HYDROmorphone 1 MG/ML AMP IVP PRN ×2 (04:03→08:40)
[2017-07-03] MEDS: CLINDAMYCIN 600 MG in DEXTROSE 5% 50 ML IV SCH ×2 (05:51→12:16)
[2017-07-03] MEDS: LORazepam 1 MG TAB PO SCH ×2 (05:51→13:00)
[2017-07-03 06:56] LABS: BASOPHILS # (AUTO) 0.1 K/uL (0.00-0.22); BASOPHILS % (AUTO) 1.5 % (0.0-2.0); EOSINOPHILS # (AUTO) 0.3 K/uL (0-0.4); EOSINOPHILS % (AUTO) 4.1 % (0.0-4.0); HEMATOCRIT 37.7 % (36-52); LYMPHOCYTES # (AUTO) 0.6 K/uL (2.0-11.5); LYMPHOCYTES % (AUTO) 8.9 % (20.5-51.1); MEAN CORPUSCULAR HEMOGLOBIN 25 pg (27-31); MEAN CORPUSCULAR HGB CONC 32 g/dL (33-37); MEAN CORPUSCULAR VOLUME 77 fL (80-94); MONOCYTES # (AUTO) 0.4 K/uL (0.8-1.0); MONOCYTES % (AUTO) 5.6 % (1.7-9.3); NEUTROPHILS # (AUTO) 5.7 K/uL (1.8-7.7); NEUTROPHILS % (AUTO) 79.9 % (42.2-75.2); PLATELET COUNT (AUTO) 172 K/uL (140-450); RED BLOOD CELL COUNT(AUTO) 4.88 MIL/uL (4.20-6.10); RED CELL DISTRIBUTION WIDTH 20.9 % (11.6-13.7); WHITE BLOOD COUNT (AUTO) 7.1 K/uL (4.8-10.8)
--- NOTE | 2017-07-03 07:10 | NUR ---
RECEIVED PATIENT REPORT. PATIENT ASLEEP BUT AROUSABLE. NO S/S OF DISTRESS NOTED. PATIENT ON ROOM AIR. IV LINE NOTED TO THE RIGHT FA WITH IVF INFUSING WELL. PATIENT ON TELE MONITORING. BED LOWERED WITH CALL LIGHT WITHIN REACH. WILL CONTINUE TO MONITOR
--- NOTE | 2017-07-03 07:20 | NUR ---
ENDORSED PT TO AM NURSE FOR CONTINUITY OF CARE. PT IS IN STABLE CONDITION.
[2017-07-03 07:31] LABS: MAGNESIUM 1.5 mg/dL (1.8-2.4); PHOSPHORUS 3.3 mg/dL (2.5-4.9)
[2017-07-03 07:39] LABS: ANION GAP 11.2 (8-16); CARBON DIOXIDE 25.7 mmol/L (21-32); CREATININE 1.3 mg/dL (0.7-1.3); POTASSIUM 3.9 mmol/L (3.5-5.1)
[2017-07-03 08:00] VITALS: BP 128/87
[2017-07-03] MEDS: MULTIVITAMIN 1 TAB PO SCH (08:32)
[2017-07-03] MEDS: ASPIRIN 81 MG TAB.CHEW PO SCH (08:32)
[2017-07-03] MEDS: FOLIC ACID 1 MG TAB PO SCH (08:32)
[2017-07-03] MEDS: levETIRAcetam 500 MG TAB PO SCH (08:32)
[2017-07-03] MEDS: LISINOPRIL 20 MG TAB PO SCH (08:33)
[2017-07-03] MEDS: ATORVASTATIN 20 MG TAB PO SCH (08:33)
[2017-07-03] MEDS: THIAMINE 100 MG TAB PO SCH (08:33)
[2017-07-03] MEDS: CARVEDILOL 6.25 MG TAB PO SCH (08:33)
[2017-07-03] MEDS: DOCUSATE SODIUM 100 MG GELCAP PO SCH (08:33)
[2017-07-03] MEDS: PANTOPRAZOLE 40 MG TABEC PO SCH (08:33)
[2017-07-03] MEDS: SPIRONOLACTONE 25 MG TAB PO SCH (08:33)
[2017-07-03] MEDS: TAMSULOSIN 0.4 MG CAP PO SCH (08:33)
[2017-07-03] MEDS: FUROSEMIDE 40 MG/4 ML VIAL IVP SCH (08:34)
[2017-07-03] MEDS: INSULIN DETEMIR 100 UNITS/ML 10 ML VIAL SUBQ SCH (08:45)
--- NOTE | 2017-07-03 11:40 | NUR ---
PATIENT REFUSED TO TAKE ORDERED MAG OX. RISKS OF NOT TAKING THE MEDICATION EXPLAINED TO THE PATIENT. PATIENT VERBALIZED UNDERSTANDING
[2017-07-03] MEDS ORDERED: MAGNESIUM OXIDE 400 MG TAB PO SCH (11:54)
[2017-07-03 12:00] VITALS: BP 132/88
[2017-07-03] MEDS: NACL 0.9% 1,000 ML IV SCH (12:39)
--- NOTE | 2017-07-03 13:58 | NUR ---
PATIENT DISCHARGED TO HOME. IV LINE DISCONTINUED. TELE LEADS TAKEN OFF. PATIENT PROVIDED WITH BUS PASS AND RESOURCES FOR INTERMEDIATE. PATIENT LEFT WITH ALL HIS BELONGINGS AND DISCHARGE PAPERS. PATIENT LEFT IN STABLE CONDITION
--- NOTE | 2017-07-03 14:53 | NUR ---
CM NOTE INITIAL REVIEW FAXED TO [facility] / FAX# [phone], ATTN: [place] [phone] [id number]
== END 2017-07-03 14:00 | disposition home or self-care (01) | DRG 775 ==
LOC: MED 09:48 → MTU 12:48 → OBSVTOIN 12:48
PROVIDERS: ADMIT Family Medicine; ATTEND Family Medicine
DX: F10.239 Alcohol dependence with withdrawal, unspecified (principal); N17.0 Acute kidney failure with tubular necrosis; G93.41 Metabolic encephalopathy; I50.43 Acute on chronic combined systolic (congestive) and diastolic (congestive) heart failure; D68.59 Other primary thrombophilia; Q61.3 Polycystic kidney, unspecified; E11.65 Type 2 diabetes mellitus with hyperglycemia; I48.91 Unspecified atrial fibrillation; M94.0 Chondrocostal junction syndrome [Tietze]; E78.5 Hyperlipidemia, unspecified; K21.9 Gastro-esophageal reflux disease without esophagitis; F19.10 Other psychoactive substance abuse, uncomplicated; D72.829 Elevated white blood cell count, unspecified; R74.0 Nonspecific elevation of levels of transaminase and lactic acid dehydrogenase [LDH]; E66.9 Obesity, unspecified; Z68.33 Body mass index [BMI] 33.0-33.9, adult; Z88.6 Allergy status to analgesic agent; Z88.8 Allergy status to other drugs, medicaments and biological substances; I25.10 Atherosclerotic heart disease of native coronary artery without angina pectoris; Z79.899 Other long term (current) drug therapy; Z79.82 Long term (current) use of aspirin; Z86.73 Personal history of transient ischemic attack (TIA), and cerebral infarction without residual deficits; Z95.0 Presence of cardiac pacemaker; Z79.01 Long term (current) use of anticoagulants; Z71.3 Dietary counseling and surveillance
CPT/HCPCS: 36415; 36600; 70450; 71010; 72125; 74160; 76705; 80048; 80053; 80305; 81001; 82140; 82150; 82550; 82553; 82803; 82948; 83605; 83690; 83735; 83880; 84100; 84439; 84443; 84484; 85025; 85610; 85730; 87040; 87081; 87086; 93005; 96372; 96374; 96375; 99291; G0378; G0482; J1170; J1610; J1815; J1940; J1956; J2405; J3360; J3490; J7030; J7060; Q0092; Q9967

== ENCOUNTER 2017-07-03 15:59 | Emergency (ER) | payer OTHER ==
[~2017-07-03] VITALS: Ht 188 cm; Wt 77.1 kg
[2017-07-03 17:53] VITALS: BP 131/89
--- NOTE | 2017-07-03 17:55 | NUR ---
Patient to bed 02.
--- NOTE | 2017-07-03 18:00 | NUR ---
PATIENT PRESENTS TO ED WITH C/O HEAD ACHE, CP 9/10 WITH NAUSEA; DENIES V/D ;HX OF PACER, A-FIB, CARDIOMEGALY, HF, DM; SKIN IS PINK/WARM/DRY; W/ OPEN WOUNDS ON BUE;AAOX4 WITH EVEN AND STEADY GAIT; LUNGS CLEAR BL; HR EVEN AND REGULAR;PATIENT STATES PAIN OF 9/10 AT THIS TIME;PATIENT POSITIONED FOR COMFORT; HOB ELEVATED; BEDRAILS UP X2; BED DOWN. ALL MONITORS IN PLACED;ER MD MADE AWARE OF PT STATUS.
[2017-07-03] MEDS ORDERED: ASPIRIN 81 MG TAB.CHEW PO ONE (18:10)
--- NOTE | 2017-07-03 19:18 | NUR ---
Pt report given to MICHAEL SANTACRUZ. Transfer of care at this time.
--- NOTE | 2017-07-03 19:20 | NUR ---
PATIENT RESTING AT THIS TIME. NO SIGNS OF DISTRESS.
[2017-07-03 19:21] LABS: HEMATOCRIT 38.7 % (36-52); HEMOGLOBIN 12.2 g/dL (12.0-18.0); MEAN CORPUSCULAR HEMOGLOBIN 24 pg (27-31); MEAN CORPUSCULAR HGB CONC 32 g/dL (33-37); MEAN CORPUSCULAR VOLUME 77 fL (80-94); PLATELET COUNT (AUTO) 205 K/uL (140-450); RED BLOOD CELL COUNT(AUTO) 5.02 MIL/uL (4.20-6.10); RED CELL DISTRIBUTION WIDTH 20.7 % (11.6-13.7); WHITE BLOOD COUNT (AUTO) 7.8 K/uL (4.8-10.8)
[2017-07-03] MEDS ORDERED: MORPHINE SULFATE 4 MG/ML SYR IM ONE (19:25)
[2017-07-03 19:31] LABS: EOSINOPHILS % (MANUAL) 2 % (0-4); LYMPHOCYTES % (MANUAL) 12 % (20-46); MONOCYTES % (MANUAL) 2 % (5-12)
[2017-07-03 19:40] LABS: ANION GAP 11.8 (8-16); CREATININE 1.5 mg/dL (0.7-1.3); POTASSIUM 3.8 mmol/L (3.5-5.1); PROTHROMBIN TIME 12.9 secs (10.8-13.4); TOTAL BILIRUBIN 1.6 mg/dL (0.0-1.0)
--- NOTE | 2017-07-03 20:15 | NUR ---
PATIENT GIVEN HOMELESS PACKET AND BUS PASS. PT STATES, "I WANT A CAB VOUCHER." PT EDUCATED THAT NO AVAIL CAB VOUCHERS. HOUSE SUP AND WREATH MACHINE OPERATOR NOTIFIED.
--- NOTE | 2017-07-03 20:16 | NUR ---
PATIENT AMBULATES WITH STEADY GAIT.
[2017-07-03 20:25] VITALS: BP 131/85
--- NOTE | 2017-07-03 20:25 | NUR ---
Patient discharged with v/s stable. Written and verbal after care instructions given and explained. Patient alert, oriented and verbalized understanding of instructions. Ambulatory with steady gait. All questions addressed prior to discharge. ID band removed. Patient advised to follow up with PMD. Rx of ASPIRIN, ATORVASTATIN, CARVEDILOL, FUROSEMIDE, LISINOPRIL AND SPIRONOLACTONE given. Patient educated on indication of medication including possible reaction and side effects. Opportunity to ask questions provided and answered.
== END 2017-07-03 20:25 | disposition home or self-care (01) ==
LOC: MED 15:59
DX: R07.89 Other chest pain (principal); R53.1 Weakness; R06.02 Shortness of breath; I48.91 Unspecified atrial fibrillation; I50.9 Heart failure, unspecified; E11.9 Type 2 diabetes mellitus without complications; I10 Essential (primary) hypertension; Z95.0 Presence of cardiac pacemaker; Z86.73 Personal history of transient ischemic attack (TIA), and cerebral infarction without residual deficits; Z79.899 Other long term (current) drug therapy; Z88.8 Allergy status to other drugs, medicaments and biological substances
CPT/HCPCS: 36415; 71010; 80053; 82948; 84484; 85025; 85610; 85730; 93005; 96372; 99285; J2270; Q0163

== ENCOUNTER 2017-07-08 18:08 | Inpatient (IN) | payer OTHER ==
[~2017-07-08] VITALS: Ht 188 cm; Wt 117.9 kg
--- NOTE | 2017-07-08 18:08 | NUR ---
Patient BIBA ACLS, triaged by RN. Waiting for an available bed.
[2017-07-08 18:19] VITALS: BP 135/98
--- NOTE | 2017-07-08 18:35 | NUR ---
Patient transferred to bed 2. RN evaluating patient at bedside.
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
--- NOTE | 2017-07-08 18:53 | NUR ---
DR JAVIER EVALUATING AAO PT AT BEDSIDE
--- NOTE | 2017-07-08 18:53 | NUR ---
Yolanda linton in ED - 07/08/17 at [address] JAVIER EVALUATING AAO PT AT BEDSIDE
[2017-07-08] MEDS ORDERED: ASPIRIN 81 MG TAB.CHEW PO ONE (19:05)
[2017-07-08] MEDS ORDERED: NITROGLYCERIN 2% 1 GM PKT TP ONE (19:05)
[2017-07-08] MEDS ORDERED: FUROSEMIDE 40 MG/4 ML VIAL IVP ONE (19:05)
--- NOTE | 2017-07-08 19:26 | NUR ---
REPORT GIVEN TO MICHAEL BONILLA FOR CONTINUATION OF CARE
[2017-07-08 19:37] LABS: BASOPHILS # (AUTO) 0.3 K/uL (0.00-0.22); EOSINOPHILS # (AUTO) 0.3 K/uL (0-0.4); HEMATOCRIT 36.5 % (36-52); HEMOGLOBIN 11.4 g/dL (12.0-18.0); LYMPHOCYTES # (AUTO) 0.9 K/uL (2.0-11.5); MEAN CORPUSCULAR HEMOGLOBIN 24 pg (27-31); MEAN CORPUSCULAR HGB CONC 31 g/dL (33-37); MEAN CORPUSCULAR VOLUME 76 fL (80-94); MONOCYTES # (AUTO) 0.9 K/uL (0.8-1.0); NEUTROPHILS # (AUTO) 9.2 K/uL (1.8-7.7); PLATELET COUNT (AUTO) 208 K/uL (140-450); RED BLOOD CELL COUNT(AUTO) 4.79 MIL/uL (4.20-6.10); RED CELL DISTRIBUTION WIDTH 20.3 % (11.6-13.7); WHITE BLOOD COUNT (AUTO) 11.6 K/uL (4.8-10.8)
[2017-07-08 19:48] LABS: ANION GAP 10.8 (8-16); CARBON DIOXIDE 24.2 mmol/L (21-32); CREATININE 1.2 mg/dL (0.7-1.3)
[2017-07-08 19:54] LABS: ALBUMIN 3.3 g/dL (3.4-5.0); TOTAL BILIRUBIN 1.7 mg/dL (0.0-1.0)
[2017-07-08 20:23] LABS: APPEARANCE,URINE CLEAR (CLEAR); BILIRUBIN,URINE NEGATIVE (NEGATIVE); BLOOD, URINE NEGATIVE (NEGATIVE); COLOR,URINE YELLOW (YELLOW); LEUKOCYTE ESTERASE ,URINE NEGATIVE (NEGATIVE); NITRITE, URINE NEGATIVE (NEGATIVE); PH,URINE 5.5 (5.0-9.0); UGLUCOSE NEGATIVE (NEGATIVE)
[2017-07-08 20:29] LABS: RBC,URINE 0-5 (RARE) /HPF (0-5); WBC,URINE 0-5 (RARE) /HPF (0-5)
--- NOTE | 2017-07-08 20:30 | NUR ---
UO 1400CC, CLEAR AND YELLOW URINE
[2017-07-08 20:35] LABS: BARBITURATE, URINE NEGATIVE ng/ml (NEG <=200); BENZODIAZEPINE, URINE NEGATIVE ng/mL (NEG <=200); COCAINE, URINE NEGATIVE ng/mL (NEG <=300)
[2017-07-08 20:36] LABS: CANNABINOID, URINE POSITIVE ng/mL (NEG <=50); OPIATE, URINE NEGATIVE ng/mL (NEG <=2000); PHENCYCLIDINE SCREEN,URINE NEGATIVE ng/mL (NEG <=25)
--- NOTE | 2017-07-08 21:00 | NUR ---
PT REMAINS TACHY, ERMD AWARE OF PT STATUS. CONTINUOUS ON 2LPMNC, SATS 98%, PT RESTING COMFORTABLY ON BED, ALL NEEDS MET AT THIS TIME
[2017-07-08] MEDS: NACL 0.9% 1,000 ML IV SCH (21:06)
[2017-07-08] MEDS ORDERED: NITROGLYCERIN 0.4 MG TAB SL PRN (21:10)
[2017-07-08] MEDS ORDERED: ONDANSETRON 4 MG/2 ML VIAL IVP PRN (21:10)
[2017-07-08] MEDS ORDERED: ACETAMINOPHEN 325 MG TAB PO PRN (21:10)
[2017-07-08 21:31] LABS: PROTHROMBIN TIME 12.1 secs (10.8-13.4)
[2017-07-08 21:40] LABS: FREE T4 (FREE THYROXINE) 0.97 ng/dL (0.76-1.46); MAGNESIUM 1.6 mg/dL (1.8-2.4); PHOSPHORUS 3.1 mg/dL (2.5-4.9); THYROID STIMULATING HORMONE 1.46 uIU/mL (0.34-3.74)
--- NOTE | 2017-07-08 22:15 | NUR ---
Patient will be admitted to care of DR TRONCOSO. Admited to TELE. Will go to room 120B. Belongings list completed. Report to SOHA RODRIGUEZ. TRANSPORTED VIA [facility] WITH CARE NAVIGATOR, PT STABLE UPON TRANSFER. VICTORINA PEREIRA AND CAYETANO.
[2017-07-08 22:22] VITALS: BP 138/56
--- NOTE | 2017-07-08 22:22 | NUR ---
PATIENT ADMITTED TO THE UNIT FROM THE ER. PATIENT IS AWAKE, ALERT, AND ORIENTED. NO SIGNS AND SYMPTOMS OF DISTRESS NOTED. AMBULATORY. PATIENT HAS SCABS IN VARIOUS STAGES OF HEALING ON BUE. PATIENT COMPLAINS OF 7/10 HEADACHE. WILL MEDICATE. BED IN LOWEST POSITION, SIDE RAILS UP AND CALL LIGHT WITHIN REACH. WILL CONTINUE TO MONITOR.
--- NOTE | 2017-07-08 22:30 | NUR ---
PATIENT REFUSED ASSESSMENT OF BLE
[2017-07-08] MEDS: HYDROcodone/APAP 7.5/325 MG 1 TAB PO PRN (22:37)
--- NOTE | 2017-07-08 22:45 | NUR ---
PATIENT REFUSES SCDS. EDUCATED HIM ON THE IMPORTANCE OF SCDS, BUT PATIENT STILL REFUSED
--- NOTE | 2017-07-08 23:00 | NUR ---
PATIENT REFUSED IV FLUIDS. EDUCATED PATIENT ON IMPORTANCE OF IVF. SAID THAT HE DOESN'T LIKE WHEN IT BEEPS AND KEEPS HIM UP AT NIGHT AND THAT HE DRINKS ENOUGH WATER. NOTIFIED DR. SILVERIO AND SAID IT WAS OK TO HOLD, SINCE PATIENT'S DIAGNOSIS IS CHF EXACERBATION.
[2017-07-09] VITALS: BP 140/62
[2017-07-09] MEDS ORDERED: DOCUSATE SODIUM 100 MG GELCAP PO PRN (02:15)
[2017-07-09] MEDS ORDERED: LORazepam 2 MG/ML VIAL IVP PRN (02:15)
[2017-07-09] MEDS ORDERED: NITROGLYCERIN 0.4 MG TAB SL PRN (02:15)
[2017-07-09] MEDS ORDERED: LACTULOSE 20 GM/30 ML UDC PO SCH (02:20)
[2017-07-09] MEDS ORDERED: INSULIN LISPRO SLIDING SCALE 100 UNITS/ML VIAL SUBQ PRN (02:25)
[2017-07-09] MEDS ORDERED: DEXTROSE 50% 50 ML SYR IVP PRN (02:25)
[2017-07-09 03:59] LABS: BASOPHILS # (AUTO) 0.2 K/uL (0.00-0.22); BASOPHILS % (AUTO) 2.1 % (0.0-2.0); EOSINOPHILS # (AUTO) 0.3 K/uL (0-0.4); EOSINOPHILS % (AUTO) 2.8 % (0.0-4.0); HEMOGLOBIN 10.9 g/dL (12.0-18.0); LYMPHOCYTES # (AUTO) 1.2 K/uL (2.0-11.5); LYMPHOCYTES % (AUTO) 12.8 % (20.5-51.1); MEAN CORPUSCULAR HEMOGLOBIN 24 pg (27-31); MEAN CORPUSCULAR HGB CONC 31 g/dL (33-37); MEAN CORPUSCULAR VOLUME 76 fL (80-94); MONOCYTES # (AUTO) 0.7 K/uL (0.8-1.0); MONOCYTES % (AUTO) 7.8 % (1.7-9.3); NEUTROPHILS % (AUTO) 74.5 % (42.2-75.2); PLATELET COUNT (AUTO) 196 K/uL (140-450); RED BLOOD CELL COUNT(AUTO) 4.58 MIL/uL (4.20-6.10); RED CELL DISTRIBUTION WIDTH 20.3 % (11.6-13.7); WHITE BLOOD COUNT (AUTO) 9.4 K/uL (4.8-10.8)
[2017-07-09 04:00] VITALS: BP 116/78
[2017-07-09] MEDS: LORazepam 1 MG TAB PO SCH ×3 (04:09→20:26)
--- NOTE | 2017-07-09 04:12 | NUR ---
PATIENT REFUSED LACTULOSE. EDUCATED PATIENT ON MEDICATION. PATIENT STILL REFUSED. SAID HE'LL TAKE IT IN THE MORNING
[2017-07-09 04:41] LABS: ANION GAP 11.3 (8-16); CARBON DIOXIDE 23.4 mmol/L (21-32); POTASSIUM 3.7 mmol/L (3.5-5.1)
[2017-07-09 04:42] LABS: CREATININE 1.3 mg/dL (0.7-1.3); MAGNESIUM 1.6 mg/dL (1.8-2.4); PHOSPHORUS 3.7 mg/dL (2.5-4.9)
[2017-07-09] MEDS ORDERED: BLOOD GLUCOSE MONITORING 1 DEV DEV FS SCH (06:00)
[2017-07-09] MEDS: BLOOD GLUCOSE MONITORING 1 DEV DEV FS SCH ×4 (06:35→20:31)
--- NOTE | 2017-07-09 06:57 | NUR ---
PATIENT HAS BEEN SCREENED AND CATEGORIZED MODERATE NUTRITION RISK. PATIENT WILL BE SEEN WITHIN 3-5 DAYS OF ADMISSION. 07/10/17-07/12/17 ROLY CANDELARIO MS, RDN Addendum: 07/10/17 at [address] DATE CORRECTION: 07/11/17 - 07/13/[address]
--- NOTE | 2017-07-09 07:30 | NUR ---
PATIENT REPORT GIVEN TO MORNING NURSE AT BEDSIDE. PATIENT IS IN STABLE CONDITION.
--- NOTE | 2017-07-09 07:35 | NUR ---
RECEIVED PT REPORT FROM NIGHT NURSE. PT IS AAOX4 AND SHOWS NO S/S OF ACUTE DISTRESS ON RA. PT DENIES PAIN, SKIN INTACT WITH SCABS ON THE BUE, ON TELE MONITOR. IV WAS FOUND ON THE BED WITH CANNULA INTACT. DISCUSSED POC WITH PT AND HE VERBALIZED UNDERSTANDING HOWEVER NEEDS REINFORCEMENT OF CARE. THE BED IS IN LOW POSITION WITH CALL LIGHT WITHIN REACH, FALL PRECAUTIONS IN PLACE. WILL CONTINUE TO MONITOR.
[2017-07-09 08:00] VITALS: BP 128/93
[2017-07-09] MEDS: FOLIC ACID 1 MG TAB PO SCH (08:47)
[2017-07-09] MEDS: HYDROcodone/APAP 7.5/325 MG 1 TAB PO PRN ×3 (08:48→20:26)
[2017-07-09] MEDS: CARVEDILOL 6.25 MG TAB PO SCH ×2 (08:48→17:46)
[2017-07-09] MEDS: PANTOPRAZOLE 40 MG TABEC PO SCH (08:48)
[2017-07-09] MEDS: TAMSULOSIN 0.4 MG CAP PO SCH (08:48)
[2017-07-09] MEDS: MULTIVITAMIN 1 TAB PO SCH (08:49)
[2017-07-09] MEDS: SPIRONOLACTONE 25 MG TAB PO SCH (08:49)
[2017-07-09] MEDS: LISINOPRIL 20 MG TAB PO SCH (08:49)
[2017-07-09] MEDS: THIAMINE 100 MG TAB PO SCH (08:49)
[2017-07-09] MEDS: ASPIRIN 81 MG TAB.CHEW PO SCH (08:50)
[2017-07-09] MEDS: LACTULOSE 20 GM/30 ML UDC PO SCH ×2 (08:52→20:31)
[2017-07-09] MEDS: FUROSEMIDE 20 MG/2 ML VIAL IVP SCH (08:52)
--- NOTE | 2017-07-09 08:55 | NUR ---
PT CONTINUES TO REFUSE IVF'S.
--- NOTE | 2017-07-09 08:55 | NUR ---
ADMINISTERED SCHEDULED MEDICATIONS. PT IV WAS FOUND PULLED OUT. LASIX IV WAS NOT GIVEN WILL GET NEW IV ACCESS AND ADMINISTERED MEDICATION. PT REFUSED LACTULOSE PT WAS EXPLAINED RISKS AND BENEFITS TO NOT TAKING MEDICATIONS. PT STATED, "I DON'T WANT THIS MEDICATION TO BE FORCED ON ME, IT'LL COME OUT WHEN IT COMES OUT." PT'S NEEDS MET AT THIS TIME. WILL CONTINUE TO MONITOR.
[2017-07-09] MEDS ORDERED: THIAMINE 100 MG TAB PO SCH (09:00)
[2017-07-09] MEDS ORDERED: ATORVASTATIN 20 MG TAB PO SCH (09:00)
[2017-07-09] MEDS ORDERED: FOLIC ACID 1 MG TAB PO SCH (09:00)
[2017-07-09] MEDS ORDERED: METOPROLOL 25 MG TAB PO SCH (09:00)
[2017-07-09] MEDS ORDERED: LISINOPRIL 5 MG TAB PO SCH (09:00)
[2017-07-09] MEDS ORDERED: FUROSEMIDE 20 MG TAB PO SCH (09:00)
[2017-07-09] MEDS ORDERED: DOCUSATE SODIUM 100 MG GELCAP PO SCH (09:00)
[2017-07-09] MEDS ORDERED: ASPIRIN 81 MG TAB.CHEW PO SCH (09:00)
--- NOTE | 2017-07-09 09:30 | NUR ---
ADMINISTERED LASIX 20 MG IVP. NEW IV ACCESS ON THE R UPPER ARM 22G. PT REFUSES IVF'S. WILL CONTINUE TO MONITOR.
[2017-07-09 12:00] VITALS: BP 114/75
--- NOTE | 2017-07-09 12:30 | NUR ---
ADMINISTERED SCHEDULED MEDICATIONS. PT SWALLOWED WITH NO DIFFICULTY. PT EATING LUNCH AND TOLERATING WELL. PT C/O PAIN AND IS AWARE IT IS NOT AVAILABLE UNTIL 1300.
--- NOTE | 2017-07-09 13:31 | NUR ---
ADMINISTERED NORCO 7.5/325 MG PO FOR 6/10 GENERALIZED PAIN. WILL REASSESS IN ONE HR
--- NOTE | 2017-07-09 15:00 | NUR ---
PT IS SLEEPING AND EASILY AROUSABLE. PT SHOWS NO S/S OF ACUTE DISTRESS ON ROOM AIR. THE BED IS IN LOW POSITION WITH CALL LIGHT WITHIN REACH.
[2017-07-09 16:00] VITALS: BP 113/53
--- NOTE | 2017-07-09 17:16 | NUR ---
PT IS SLEEPING AND SHOWS NO S/S OF ACUTE DISTRESS ON ROOM AIR. BED IN LOW POSITION WITH CALL LIGHT WITHIN REACH.
[2017-07-09] MEDS: NACL 0.9% 1,000 ML IV SCH (17:45)
--- NOTE | 2017-07-09 18:20 | NUR ---
PT IS EATING CCHO DIET AND TOLERATING WELL. PT'S NEEDS ARE MET AT THIS TIME. WILL CONTINUE TO MONITOR.
--- NOTE | 2017-07-09 19:15 | NUR ---
PT REPORT WAS GIVEN TO NIGHT NURSE AT BEDSIDE. PT ENDORSED IN STABLE CONDITION.
--- NOTE | 2017-07-09 19:16 | NUR ---
RECEIVED HANDOFF REPORT FROM AM RN. PATIENT A&OX4. PATIENT RESTING IN BED. PATIENT STATES PAIN WILL MEDICATE ORDERED. PATIENT IV SITE PATENT AND INTACT BUT DENIES FLUIDS. NO SIGNS OR SYMPTOMS OF ACUTE DISTRESS NOTED. CALL LIGHT WITHIN REACH. SAFETY MEASURES ENSURED. WILL CONTINUE TO MONITOR.
[2017-07-09 20:00] VITALS: BP 102/56
[2017-07-09] MEDS: ATORVASTATIN 20 MG TAB PO SCH (20:26)
--- NOTE | 2017-07-09 20:31 | NUR ---
PM MEDS GIVEN WITH EDUCATION. PATIENT REFUSED LACTULOSE. PATIENT VERBALIZED UNDERSTANDING. NO SIGNS OR SYMPTOMS OF ACUTE DISTRESS NOTED. CALL LIGHT WITHIN REACH. WILL CONTINUE TO MONITOR.
[2017-07-10] VITALS: BP 118/75
--- NOTE | 2017-07-10 00:02 | NUR ---
PATIENT RESTING IN BED. PATIENT STATES PAIN. WILL MEDICATE ORDERED. NO SIGNS OR SYMPTOMS OF ACUTE DISTRESS NOTED. CALL LIGHT WITHIN REACH. SAFETY MEASURES ENSURED. WILL CONTINUE TO MONITOR.
[2017-07-10] MEDS: HYDROcodone/APAP 7.5/325 MG 1 TAB PO PRN ×3 (00:25→21:09)
[2017-07-10 04:00] VITALS: BP 121/77
[2017-07-10] MEDS: LORazepam 1 MG TAB PO SCH ×3 (05:22→21:10)
[2017-07-10] MEDS: BLOOD GLUCOSE MONITORING 1 DEV DEV FS SCH ×4 (06:33→20:24)
--- NOTE | 2017-07-10 07:40 | NUR ---
ENDORSED PLAN OF CARE TO AM RN. PATIENT IN STABLE CONDITION. NO SIGNS OR SYMPTOMS OF ACUTE DISTRESS NOTED. SAFETY MEASURES ENSURED.
[2017-07-10] MEDS: CARVEDILOL 6.25 MG TAB PO SCH ×2 (08:00→17:00)
[2017-07-10] MEDS: FUROSEMIDE 20 MG/2 ML VIAL IVP SCH (09:00)
[2017-07-10] MEDS: LISINOPRIL 20 MG TAB PO SCH (09:00)
[2017-07-10] MEDS: ASPIRIN 81 MG TAB.CHEW PO SCH (09:49)
[2017-07-10] MEDS: SPIRONOLACTONE 25 MG TAB PO SCH (09:49)
[2017-07-10] MEDS: LACTULOSE 20 GM/30 ML UDC PO SCH ×2 (09:50→21:00)
[2017-07-10] MEDS: TAMSULOSIN 0.4 MG CAP PO SCH (09:50)
[2017-07-10] MEDS: MAGNESIUM OXIDE 400 MG TAB PO SCH ×2 (09:51→21:10)
[2017-07-10] MEDS: FOLIC ACID 1 MG TAB PO SCH (09:51)
[2017-07-10] MEDS: PANTOPRAZOLE 40 MG TABEC PO SCH (09:52)
[2017-07-10] MEDS: MULTIVITAMIN 1 TAB PO SCH (09:52)
[2017-07-10] MEDS: THIAMINE 100 MG TAB PO SCH (09:53)
[2017-07-10 11:37] VITALS: BP 92/60
--- NOTE | 2017-07-10 11:43 | NUR ---
CM NOTE INITIAL REVIEW FAXED TO [facility] [phone] OMERO STARK PH# [phone] EXT [phone]
[2017-07-10 17:32] VITALS: BP 135/76
--- NOTE | 2017-07-10 19:10 | NUR ---
RECD REPORT FROM MICHAEL ANAND OF REGISTRY AT BEDSIDE, PATIENT RESTING COMFORTABLY IN BED, A/OX4. RESPIRATION EVEN AND UNLABORED. SALINE LOCK AT THE RIGHT UPPER ARM, G22, PATENT AND INTACT. NOTED SCABS ON BILATERAL UPPER EXTREMITIES. PLAN OF CARE FOR THE SHIFT DISCUSSED. VERBALIZED UNDERSTANDING. DENIES PAIN 0/10.
[2017-07-10 20:00] VITALS: BP 117/73
--- NOTE | 2017-07-10 20:25 | NUR ---
DUE PO MEDS GIVEN, REFUSED LACTULOSE, EXPLAINED ITS IMPORTANCE, STILL REFUSED.
--- NOTE | 2017-07-10 21:00 | NUR ---
SNACK GIVEN FOR THE NIGHT, ATE 100%.
[2017-07-10] MEDS: ATORVASTATIN 20 MG TAB PO SCH (21:10)
--- NOTE | 2017-07-10 22:00 | NUR ---
Patient's Plan of Care was discussed and reviewed with AUTO PARKER: ANETTE CESAR
[2017-07-11] VITALS: BP 122/78
--- NOTE | 2017-07-11 | NUR ---
SLEEPING COMFORTABLY IN BED.
[2017-07-11 00:48] VITALS: BP 124/75
[2017-07-11 04:00] VITALS: BP 103/76
[2017-07-11] MEDS: LORazepam 1 MG TAB PO SCH (05:33)
[2017-07-11] MEDS: HYDROcodone/APAP 7.5/325 MG 1 TAB PO PRN (05:33)
[2017-07-11 06:17] LABS: BASOPHILS # (AUTO) 0.2 K/uL (0.00-0.22); BASOPHILS % (AUTO) 3.2 % (0.0-2.0); EOSINOPHILS # (AUTO) 0.3 K/uL (0-0.4); EOSINOPHILS % (AUTO) 4.5 % (0.0-4.0); HEMATOCRIT 37.7 % (36-52); HEMOGLOBIN 11.9 g/dL (12.0-18.0); LYMPHOCYTES # (AUTO) 1.7 K/uL (2.0-11.5); LYMPHOCYTES % (AUTO) 24.4 % (20.5-51.1); MEAN CORPUSCULAR HEMOGLOBIN 24 pg (27-31); MEAN CORPUSCULAR HGB CONC 32 g/dL (33-37); MEAN CORPUSCULAR VOLUME 76 fL (80-94); MONOCYTES # (AUTO) 0.5 K/uL (0.8-1.0); MONOCYTES % (AUTO) 7.7 % (1.7-9.3); NEUTROPHILS # (AUTO) 4.2 K/uL (1.8-7.7); NEUTROPHILS % (AUTO) 60.2 % (42.2-75.2); PLATELET COUNT (AUTO) 221 K/uL (140-450); RED BLOOD CELL COUNT(AUTO) 4.95 MIL/uL (4.20-6.10); RED CELL DISTRIBUTION WIDTH 20.4 % (11.6-13.7); WHITE BLOOD COUNT (AUTO) 6.9 K/uL (4.8-10.8)
--- NOTE | 2017-07-11 06:38 | NUR ---
ABLE TO SLEPT WELL. CONDITION REMAIN STABLE. WILL ENDORSE TO AM NURSE FOR CONTINUITY OF CARE.
[2017-07-11] MEDS: BLOOD GLUCOSE MONITORING 1 DEV DEV FS SCH ×2 (06:39→12:22)
[2017-07-11 06:45] LABS: ANION GAP 8.2 (8-16); CARBON DIOXIDE 28.1 mmol/L (21-32); CREATININE 1.3 mg/dL (0.7-1.3); POTASSIUM 4.3 mmol/L (3.5-5.1)
[2017-07-11 06:53] LABS: MAGNESIUM 1.8 mg/dL (1.8-2.4); PHOSPHORUS 3.5 mg/dL (2.5-4.9)
--- NOTE | 2017-07-11 07:39 | NUR ---
RECEIVED REPORT FROM HOME VISITOR NURSE. PATIENT IS SLEEPING. AROUSABLE BY VOICE. NO DISTRESS NOTED. IN STABLE CONDITION. RESPIRATIONS EVEN, UNLABORED, ON ROOM AIR. IV SITE INTACT, PATENT, ON SALINE LOCK. AAOX4, CALM, COOPERATIVE, SKIN APPROPRIATE TO ETHNICITY, WARM TO TOUCH. HAS MULTIPLE SCABS ON B/L UE AND LE, HOWEVER, SKIN IS INTACT. DENIES ANY PAIN AT THIS TIME. ABDOMEN SOFT, NON-TENDER, NON-DISTENDED. LUNGS CTA ON ALL LOBES. NO PERIPHERAL EDEMA NOTED. REVIEWED PLAN OF CARE WITH PATIENT. PATIENT VERBALIZED UNDERSTANDING. SAFETY MEASURES IN PLACE, CALL LIGHT WITHIN REACH, FALL PREVENTIONS IN PLACE. WILL CONTINUE TO MONITOR.
[2017-07-11 08:00] VITALS: BP 125/90
[2017-07-11] MEDS: FOLIC ACID 1 MG TAB PO SCH (08:20)
[2017-07-11] MEDS: MULTIVITAMIN 1 TAB PO SCH (08:20)
[2017-07-11] MEDS: LACTULOSE 20 GM/30 ML UDC PO SCH (08:20)
[2017-07-11] MEDS: SPIRONOLACTONE 25 MG TAB PO SCH (08:20)
[2017-07-11] MEDS: MAGNESIUM OXIDE 400 MG TAB PO SCH (08:20)
[2017-07-11] MEDS: ASPIRIN 81 MG TAB.CHEW PO SCH (08:21)
[2017-07-11] MEDS: THIAMINE 100 MG TAB PO SCH (08:21)
[2017-07-11] MEDS: PANTOPRAZOLE 40 MG TABEC PO SCH (08:21)
[2017-07-11] MEDS: FUROSEMIDE 20 MG/2 ML VIAL IVP SCH (08:21)
[2017-07-11] MEDS: CARVEDILOL 6.25 MG TAB PO SCH (08:21)
[2017-07-11] MEDS: TAMSULOSIN 0.4 MG CAP PO SCH (08:21)
[2017-07-11] MEDS: LISINOPRIL 20 MG TAB PO SCH (08:22)
--- NOTE | 2017-07-11 08:30 | NUR ---
PATIENT SITTING IN BED WITH BREAKFAST TRAY IN FRONT. NO DISTRESS NOTED. PAIN WITHIN TOLERABLE AT THIS TIME. RESPIRATIONS EVEN, UNLABORED, ON ROOM AIR. CONDITION UNCHANGED. SCHEDULED MEDICATIONS DUE GIVEN. SAFETY MEASURES IN PLACE, CALL LIGHT WITHIN REACH. WILL CONTINUE TO MONITOR.
--- NOTE | 2017-07-11 09:20 | NUR ---
PATIENT SLEEPING. AROUSABLE BY VOICE. NO DISTRESS NOTED. CONDITION UNCHANGED. MEDICATIONS DUE GIVEN. DENIES ANY PAIN AT THIS TIME. SAFETY MEASURES IN PLACE, CALL LIGHT WITHIN REACH. WILL CONTINUE TO MONITOR.
--- NOTE | 2017-07-11 10:48 | NUR ---
CM NOTE CONCURRENT REVIEW FAXED TO [facility] [phone] OMERO STARK PH# [phone] EXT [phone]
[2017-07-11 12:00] VITALS: BP 97/66
--- NOTE | 2017-07-11 12:00 | NUR ---
PATIENT SITTING IN BED. NO DISTRESS NOTED. DENIES ANY PAIN. RESPIRATIONS EVEN, UNLABORED ON ROOM AIR. CONDITION UNCHANGED. PROVIDED DISCHARGE INSTRUCTIONS TO PATIENT, FOLLOW-UP WITH PCP, NEW/CHANGED MEDICATIONS, AND CHEST PAIN MANAGEMENT AND PREVENTION. RESOURCE PACKET PROVIDED TO PATIENT. ANSWERED ALL QUESTIONS FROM PATIENT. PATIENT VERBALIZED COMPLETE UNDERSTANDING. PROVIDED DISCHARGE TEACHINGS IN PATIENT'S PREFERRED LANGUAGE OF GERMAN. IV SITE REMOVED WITH MINIMAL BLOOD AND LUMEN COMPLETELY INTACT. ID BANDS REMOVED. PATIENT TO BE DISCHARGED TO [facility] AFTER LUNCH VIA PUBLIC TRANSPORT.
--- NOTE | 2017-07-11 12:45 | NUR ---
PATIENT REQUESTED RESOURCE PACKET INFORMATION. GAVE A COPY OF RESOURCE PACKET ON HOMELESS SHELTERS AVAILABLE TO PATIENT AND PROVIDED EDUCATION. PATIENT VERBALIZED UNDERSTANDING. BUS PASS PROVIDED TO PATIENT. PATIENT TO BE DISCHARGED TO [facility] VIA PUBLIC TRANSPORTATION IN STABLE CONDITION. Addendum: 07/11/17 at 1340 by Johnny Cardoza RN PATIENT SIGNED HOMELESS WAIVER FORM AFTER EDUCATION ON RESOURCE PACKET.
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
== END 2017-07-11 13:20 | disposition home or self-care (01) | DRG 279 ==
LOC: MED 18:08 → MTU 21:12
PROVIDERS: ADMIT Family Medicine; ATTEND Family Medicine
DX: K72.90 Hepatic failure, unspecified without coma (principal); N17.0 Acute kidney failure with tubular necrosis; G92 Toxic encephalopathy; I50.43 Acute on chronic combined systolic (congestive) and diastolic (congestive) heart failure; D68.59 Other primary thrombophilia; Q61.3 Polycystic kidney, unspecified; E11.51 Type 2 diabetes mellitus with diabetic peripheral angiopathy without gangrene; E11.65 Type 2 diabetes mellitus with hyperglycemia; I48.91 Unspecified atrial fibrillation; G43.909 Migraine, unspecified, not intractable, without status migrainosus; F19.10 Other psychoactive substance abuse, uncomplicated; E87.1 Hypo-osmolality and hyponatremia; K70.30 Alcoholic cirrhosis of liver without ascites; M94.0 Chondrocostal junction syndrome [Tietze]; K21.9 Gastro-esophageal reflux disease without esophagitis; R74.0 Nonspecific elevation of levels of transaminase and lactic acid dehydrogenase [LDH]; E66.9 Obesity, unspecified; Z68.33 Body mass index [BMI] 33.0-33.9, adult; Z88.6 Allergy status to analgesic agent; Z79.01 Long term (current) use of anticoagulants; Z91.19 Patient's noncompliance with other medical treatment and regimen; Z95.0 Presence of cardiac pacemaker; Z88.8 Allergy status to other drugs, medicaments and biological substances; Z79.899 Other long term (current) drug therapy; Z86.73 Personal history of transient ischemic attack (TIA), and cerebral infarction without residual deficits
CPT/HCPCS: 36415; 71010; 80048; 80053; 80305; 81001; 82140; 82150; 82948; 83036; 83605; 83690; 83735; 83880; 84100; 84439; 84443; 84484; 85025; 85610; 85730; 87081; 93005; 93925; 93970; 96374; 99285; G0482; J1815; J1940; Q0092

== ENCOUNTER 2017-08-17 03:03 | Emergency (ER) | payer OTHER ==
[~2017-08-17] VITALS: Ht 182.9 cm; Wt 90.7 kg
[2017-08-17 03:09] VITALS: BP 144/96
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
== END 2017-08-17 03:30 ==
LOC: MED 03:03
DX: Z02.89 Encounter for other administrative examinations (principal); Z86.73 Personal history of transient ischemic attack (TIA), and cerebral infarction without residual deficits; E11.9 Type 2 diabetes mellitus without complications; I10 Essential (primary) hypertension; Z95.0 Presence of cardiac pacemaker; Z88.6 Allergy status to analgesic agent
CPT/HCPCS: 99283

== ENCOUNTER 2017-08-18 12:28 | Inpatient (IN) | payer OTHER ==
[~2017-08-18] VITALS: Ht 188 cm; Wt 104.3 kg
[2017-08-18 12:30] VITALS: BP 133/95
--- NOTE | 2017-08-18 12:30 | NUR ---
Patient BIBA to bed 2 at this time.
[2017-08-18] MEDS ORDERED: LORazepam 2 MG/ML VIAL IVP ONE ×2 (12:55→16:05)
[2017-08-18] MEDS ORDERED: diphenhydrAMINE 50 MG/ML VIAL IVP ONE (12:55)
--- NOTE | 2017-08-18 13:00 | NUR ---
46/[place] CALL[place] BY ASSUMED BYSTANDER. PER EMS PT c/o sob, chest pain x 1000hrs TODAY. PT MAKING INCOMPREHENSIBLE WORDS/NOISES. UNABLE TO STAY STILL. WILL MAKE COMPLETE SENTENCES AND/OR OPEN EYES WHEN FULLY AROUSED BY PAINFUL STIMULI. RESTLESS LEG FLAILING NOTED. PT HX OF CHF, A-fib, DM, MRSA, HTN, DRUG USE AND POSSIBLE SHINGLES. PT APPEARS TO BE TRANSIENT, POOR HISTORIAN AT THIS TIME.
--- NOTE | 2017-08-18 13:20 | NUR ---
LAB AT BEDSIDE.
--- NOTE | 2017-08-18 13:30 | NUR ---
URINAL GIVEN FOR URINE SAMPLE. PT ENCOURAGED TO VOID.
[2017-08-18 13:43] LABS: BASOPHILS # (AUTO) 0.2 K/uL (0.00-0.22); BASOPHILS % (AUTO) 2.6 % (0.0-2.0); EOSINOPHILS # (AUTO) 0.2 K/uL (0-0.4); EOSINOPHILS % (AUTO) 2.3 % (0.0-4.0); LYMPHOCYTES % (AUTO) 12.8 % (20.5-51.1); MEAN CORPUSCULAR HEMOGLOBIN 25 pg (27-31); MEAN CORPUSCULAR HGB CONC 32 g/dL (33-37); MEAN CORPUSCULAR VOLUME 78 fL (80-94); MONOCYTES # (AUTO) 0.6 K/uL (0.8-1.0); MONOCYTES % (AUTO) 8.2 % (1.7-9.3); NEUTROPHILS # (AUTO) 5.6 K/uL (1.8-7.7); NEUTROPHILS % (AUTO) 74.1 % (42.2-75.2); PLATELET COUNT (AUTO) 198 K/uL (140-450); RED BLOOD CELL COUNT(AUTO) 4.85 MIL/uL (4.20-6.10); RED CELL DISTRIBUTION WIDTH 22.2 % (11.6-13.7); WHITE BLOOD COUNT (AUTO) 7.6 K/uL (4.8-10.8)
[2017-08-18 14:07] LABS: PROTHROMBIN TIME 11.8 secs (10.8-13.4)
[2017-08-18 14:08] LABS: ANION GAP 15.4 (8-16); CARBON DIOXIDE 21.4 mmol/L (21-32); CREATININE 1.4 mg/dL (0.7-1.3); POTASSIUM 3.8 mmol/L (3.5-5.1)
[2017-08-18 14:13] LABS: ALBUMIN 3.4 g/dL (3.4-5.0); TOTAL BILIRUBIN 0.8 mg/dL (0.0-1.0)
--- NOTE | 2017-08-18 14:14 | NUR ---
ekg done and reviewed by amadeo
[2017-08-18 14:42] LABS: PROTHROMBIN TIME 11.6 secs (10.8-13.4)
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
--- NOTE | 2017-08-18 15:45 | NUR ---
DR. ZIEGLER AT BEDSIDE. FLU SWAB DONE.
[2017-08-18 16:03] LABS: SALICYLATE < 2.8 mg/dL (2.8-20.0)
[2017-08-18 16:05] LABS: ACETAMINOPHEN < 0.5 ug/ml (10-30)
[2017-08-18] MEDS ORDERED: ONDANSETRON 4 MG/2 ML VIAL IVP ONE (16:15)
--- NOTE | 2017-08-18 16:34 | NUR ---
MEDS GIVEN PER OCT. PT TAKEN TO CT VIA GURNEY BY [employer].
--- NOTE | 2017-08-18 16:47 | NUR ---
PT BACK FROM CT.
[2017-08-18] MEDS ORDERED: HALOPERIDOL IM 5 MG/ML VIAL IM SCH (17:07)
[2017-08-18] MEDS ORDERED: LORazepam 0.5 MG TAB PO PRN ×2 (19:10→19:55)
[2017-08-18] MEDS ORDERED: ONDANSETRON 4 MG/2 ML VIAL IM/IVP PRN (19:10)
[2017-08-18] MEDS ORDERED: ZOLPIDEM 5 MG TAB PO PRN (19:10)
[2017-08-18] MEDS ORDERED: DOCUSATE SODIUM 100 MG GELCAP PO PRN ×2 (19:10→19:55)
[2017-08-18] MEDS ORDERED: HYDROcodone/APAP 7.5/325 MG 1 TAB PO PRN ×2 (19:10→19:55)
[2017-08-18] MEDS ORDERED: ACETAMINOPHEN 325 MG TAB PO PRN (19:10)
--- NOTE | 2017-08-18 19:20 | NUR ---
Pt found lying supine in bed. VSS. No distress noted at this time.
[2017-08-18] MEDS ORDERED: PANTOPRAZOLE 40 MG TABEC PO SCH (19:55)
[2017-08-18] MEDS ORDERED: WARFARIN 5 MG TAB PO SCH (19:55)
[2017-08-18] MEDS ORDERED: NITROGLYCERIN 0.4 MG TAB SL PRN (19:55)
--- NOTE | 2017-08-18 20:19 | NUR ---
Patient appears to be resting comfortably in bed. Lying on right lateral side. VSS. Respirations even and unlabored.
[2017-08-18 20:50] LABS: FREE T4 (FREE THYROXINE) 0.93 ng/dL (0.76-1.46); MAGNESIUM 1.9 mg/dL (1.8-2.4); PHOSPHORUS 2.6 mg/dL (2.5-4.9); THYROID STIMULATING HORMONE 1.02 uIU/mL (0.34-3.74)
[2017-08-18 21:45] VITALS: BP 142/89
--- NOTE | 2017-08-18 21:45 | NUR ---
RECEIVED PT FROM ER VIA [facility]Y PT IS HOMELESS , AAOX4 AMBULATORY ON 09 15 LTS VIA NC , NOT PAIN ON ADMISSION PAIN MEDIC WAS GIVEN IN ER . ON FLIGHT RADIO OPERATOR SR, PT HAS MULTIPLES SCRATCHES AND SCABS FOR ALL HIS BODY PT IS ;ORIENTED TO THE FLOOR CALL LIGHT WITHIN REACH AND MRSA NARES SCREEN DONE
[2017-08-18] MEDS: NACL 0.9% 1,000 ML IV SCH (23:11)
[2017-08-18] MEDS: MORPHINE SULFATE 2 MG/ML SYR IVP PRN (23:14)
[2017-08-19] VITALS: BP 127/77
--- NOTE | 2017-08-19 | NUR ---
TESSA RIVERA GIVEN LPT SLEEP QUIET NOT DISTRESS NOTED ON TELEMETRY SR/BBB LPACED
[2017-08-19] MEDS: BLOOD GLUCOSE MONITORING 1 DEV DEV FS SCH ×4 (01:45→18:10)
--- NOTE | 2017-08-19 01:45 | NUR ---
BLOOD SUGAR TEST 150 PT SLEEPING WELL NOT DISTRESS NOTED
[2017-08-19 04:00] VITALS: BP 100/65
--- NOTE | 2017-08-19 04:00 | NUR ---
PT SLEEPING DENIES ANY PAIN ON TELE ST/BBB 93 IV ON LEFT WRIST INFUSING WELL
--- NOTE | 2017-08-19 06:32 | NUR ---
PT SLEEPING NOT SIGNS OF PAINNOTED, BLOOD SUGAR TEST 81 PT ON TELE SR
--- NOTE | 2017-08-19 07:10 | NUR ---
RECEIVED REPORT FROM NIGHTSHIFT NURSE AT BEDSIDE. PATIENT IS ASLEEP BUT AROUSABLE. PT IS AAOX3 AND SHOWS NO SIGNS OF PAIN AT THIS TIME. NO SIGNS OF RESPIRATORY DISTRESS NOTED AT THIS TIME. INSTRUCTED PATIENT TO CALL IF HE NEEDS ANY ASSISTANCE. WILL CONTINUE TO MONITOR PATIENT.
[2017-08-19 08:10] VITALS: BP 109/73
[2017-08-19 08:11] LABS: T4 (THYROXINE) 5.1 ug/dL (4.5-12.0)
[2017-08-19] MEDS: ATORVASTATIN 20 MG TAB PO SCH (08:57)
[2017-08-19] MEDS: CARVEDILOL 6.25 MG TAB PO SCH ×2 (08:58→16:24)
[2017-08-19] MEDS: ASPIRIN 81 MG TAB.CHEW PO SCH (08:58)
[2017-08-19] MEDS: TAMSULOSIN 0.4 MG CAP PO SCH (08:58)
[2017-08-19] MEDS: LISINOPRIL 20 MG TAB PO SCH (08:58)
[2017-08-19] MEDS: FOLIC ACID 1 MG TAB PO SCH (08:59)
[2017-08-19] MEDS: MORPHINE SULFATE 2 MG/ML SYR IVP PRN ×2 (08:59→17:59)
[2017-08-19] MEDS: FUROSEMIDE 20 MG TAB PO SCH (08:59)
[2017-08-19] MEDS: THIAMINE 100 MG TAB PO SCH (08:59)
--- NOTE | 2017-08-19 09:39 | NUR ---
PATIENT HAS BEEN SCREENED AND CATEGORIZED MODERATE NUTRITION RISK. PATIENT WILL BE SEEN WITHIN 3-5 DAYS OF ADMISSION. 08/21/17-08/23/[address]
[2017-08-19 12:00] VITALS: BP 115/79
[2017-08-19] MEDS: SPIRONOLACTONE 25 MG TAB PO SCH (12:14)
[2017-08-19 16:00] VITALS: BP 125/89
[2017-08-19] MEDS ORDERED: WARFARIN 5 MG TAB PO SCH (17:00)
[2017-08-19] MEDS: NACL 0.9% 1,000 ML IV SCH (19:06)
--- NOTE | 2017-08-19 19:35 | NUR ---
PATIENT REPORT GIVEN AT BEDSIDE. PATIENT ENDORSED IN STABLE CONDITION
--- NOTE | 2017-08-19 19:36 | NUR ---
RECEIVED PT FROM ABDULAZIZ RODRIGUEZ PT IS AAOX4 AMBULATORY IV ON LEFT WRIST INFUSING WELL TKO ON TELEMETRY SR /BBB PT RESTING ON BED DENIES ANY PAIN OR DISCOMFORT INITIAL ASSESSMENT DONE
[2017-08-19 20:00] VITALS: BP 107/63
--- NOTE | 2017-08-19 22:00 | NUR ---
PT VOIDING WELL DENIES ANY PAIN ON 2 LTS VIA NC
[2017-08-20] VITALS: BP 91/58
[2017-08-20] MEDS: MORPHINE SULFATE 2 MG/ML SYR IVP PRN (00:01)
[2017-08-20] MEDS: BLOOD GLUCOSE MONITORING 1 DEV DEV FS SCH ×3 (00:02→12:00)
--- NOTE | 2017-08-20 00:33 | NUR ---
AFTER PAIN MEDIC GIVEN PT SLEEP QUIET WELL NOT DISTRESS NOTED BLOOD SUGAR TEST 127
[2017-08-20 04:00] VITALS: BP 112/77
--- NOTE | 2017-08-20 04:00 | NUR ---
PT REMAIN STABLE HE DID NOT COMPLAINT OF ANY CHEST PAIN, REPOSITIONED Q 2H ON TELEMETRY SR
[2017-08-20 05:41] LABS: ANION GAP 14.4 (8-16); CREATININE 1.5 mg/dL (0.7-1.3); POTASSIUM 4.4 mmol/L (3.5-5.1)
[2017-08-20 05:42] LABS: MAGNESIUM 1.9 mg/dL (1.8-2.4)
--- NOTE | 2017-08-20 06:09 | NUR ---
BLOOD SUGAR TEST 98, PT ON TELE SR/BBB SLEEPING Q AT THIS TIME DENIES ANY CHEST PAIN AT THIS TIME.
--- NOTE | 2017-08-20 07:05 | NUR ---
REPORT RECEIVED AT BEDSIDE BY NIGHTSHIFT NURSE. PATIENT IS ASLEEP BUT AROUSABLE AT THIS TIME. PATIENT RESPIRATIONS ARE UNLABORED AND SYMMETRICAL. PATIENT SHOWS NO GRIMACING AT THIS TIME. NO COMPLAINTS OF CHEST PAIN. PATIENT IS ALERT AND ORIENTED X3 AT THIS TIME. WILL CONTINUE TO MONITOR PATIENT.
[2017-08-20 07:53] VITALS: BP 122/88
--- NOTE | 2017-08-20 08:30 | NUR ---
ADMINISTERED 2MG/1ML MORPHINE IV PUSH TO PATIENT BEFORE ORDER WAS DISCONTINUED. UNABLE TO SAVE ADMINISTRATION ON EMAR. NOTIFIED DR. STEINBERG AND PHARMACY.
[2017-08-20] MEDS: TAMSULOSIN 0.4 MG CAP PO SCH (08:35)
[2017-08-20] MEDS: FUROSEMIDE 20 MG TAB PO SCH (08:35)
[2017-08-20] MEDS: SPIRONOLACTONE 25 MG TAB PO SCH (08:36)
[2017-08-20] MEDS: ASPIRIN 81 MG TAB.CHEW PO SCH (08:36)
[2017-08-20] MEDS: ATORVASTATIN 20 MG TAB PO SCH (08:36)
[2017-08-20] MEDS: THIAMINE 100 MG TAB PO SCH (08:36)
[2017-08-20] MEDS: FOLIC ACID 1 MG TAB PO SCH (08:36)
[2017-08-20] MEDS: LISINOPRIL 20 MG TAB PO SCH (08:36)
[2017-08-20] MEDS: CARVEDILOL 6.25 MG TAB PO SCH (08:37)
[2017-08-20] MEDS ORDERED: MORPHINE SULFATE 2 MG/ML SYR IVP ONE (10:10)
[2017-08-20] MEDS ORDERED: MORPHINE SULFATE 2 MG/ML SYR IVP PRN ×2 (10:10→10:55)
[2017-08-20 12:00] VITALS: BP 118/87
--- NOTE | 2017-08-20 12:40 | NUR ---
PATIENT DISCHARGED. DISCHARGE INSTRUCTIONS GIVEN. PATIENT VERBALIZED UNDERSTANDING. HOMELESS RESOURCE PACKET PROVIDED. PATIENT SIGNED ALL OF HIS DISCHARGE PAPERS BUT REFUSED TO TAKE HIS DISCHARGE PACKET. PATIENT LEFT WITH HIS BELONGINGS. IV LINE DISCONTINUED. TELE LEADS TAKEN OFF. PATIENT LEFT IN STABLE CONDITION
--- NOTE | 2017-08-21 15:23 | NUR ---
CM NOTE RETRO REVIEW FAXED TO [facility]IE / FAX# [phone], ATTN: [place] #[phone]
== END 2017-08-20 12:36 | disposition home or self-care (01) | DRG 194 ==
LOC: MED 12:28 → MTU 19:09
PROVIDERS: ADMIT Family Medicine; ATTEND Family Medicine
DX: I11.0 Hypertensive heart disease with heart failure (principal); N17.0 Acute kidney failure with tubular necrosis; Q61.3 Polycystic kidney, unspecified; D68.59 Other primary thrombophilia; K21.9 Gastro-esophageal reflux disease without esophagitis; M94.0 Chondrocostal junction syndrome [Tietze]; I50.43 Acute on chronic combined systolic (congestive) and diastolic (congestive) heart failure; E78.5 Hyperlipidemia, unspecified; I48.91 Unspecified atrial fibrillation; I42.9 Cardiomyopathy, unspecified; I25.10 Atherosclerotic heart disease of native coronary artery without angina pectoris; E11.9 Type 2 diabetes mellitus without complications; Z88.8 Allergy status to other drugs, medicaments and biological substances; Z86.73 Personal history of transient ischemic attack (TIA), and cerebral infarction without residual deficits; Z95.0 Presence of cardiac pacemaker; Z22.322 Carrier or suspected carrier of Methicillin resistant Staphylococcus aureus; Z59.0 Homelessness; Z91.19 Patient's noncompliance with other medical treatment and regimen
CPT/HCPCS: 36415; 70450; 71045; 80048; 80053; 82150; 82948; 83036; 83690; 83735; 83880; 84100; 84436; 84439; 84443; 84479; 84484; 85025; 85610; 85730; 87081; 87804; 93005; 96374; 96375; 96376; 99285; G0480; G0482; J1200; J2060; J2270; J2405; J7030

== ENCOUNTER 2017-09-03 11:17 | Inpatient (IN) | payer OTHER ==
[~2017-09-03] VITALS: Ht 188 cm; Wt 99.8 kg
[2017-09-03 11:30] VITALS: BP 158/59
--- NOTE | 2017-09-03 11:38 | NUR ---
PATIENT TO ER BED 3
[2017-09-03] MEDS ORDERED: NITROGLYCERIN 0.4 MG TAB SL ONE (11:40)
[2017-09-03] MEDS ORDERED: ASPIRIN 325 MG TAB PO ONE (11:40)
--- NOTE | 2017-09-03 11:40 | NUR ---
DR. CEVALLOS BEDSIDE EVALUATING PATIENT
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
[2017-09-03] MEDS ORDERED: MORPHINE SULFATE 4 MG/ML SYR IVP ONE (11:50)
[2017-09-03] MEDS ORDERED: NACL 0.9% 1,000 ML IV ONE (11:50)
--- NOTE | 2017-09-03 12:15 | NUR ---
informed wire charger and er md belle with multiple attempts for ivs.
[2017-09-03] MEDS ORDERED: diphenhydrAMINE 50 MG CAP PO ONE (12:30)
[2017-09-03 12:39] LABS: HEMATOCRIT 42.6 % (36-52); HEMOGLOBIN 13.5 g/dL (12.0-18.0); MEAN CORPUSCULAR HEMOGLOBIN 25 pg (27-31); MEAN CORPUSCULAR HGB CONC 32 g/dL (33-37); MEAN CORPUSCULAR VOLUME 80 fL (80-94); PLATELET COUNT (AUTO) 171 K/uL (140-450); RED BLOOD CELL COUNT(AUTO) 5.35 MIL/uL (4.20-6.10); RED CELL DISTRIBUTION WIDTH 21.6 % (11.6-13.7); WHITE BLOOD COUNT (AUTO) 8.7 K/uL (4.8-10.8)
[2017-09-03 12:44] LABS: CARBON DIOXIDE 22.9 mmol/L (21-32)
[2017-09-03 12:55] LABS: BASOPHILS % (MANUAL) 0 % (0-2); EOSINOPHILS % (MANUAL) 0 % (0-4); LYMPHOCYTES % (MANUAL) 20 % (20-46); MONOCYTES % (MANUAL) 8 % (5-12)
[2017-09-03 12:59] LABS: ANION GAP 15.6 (8-16); POTASSIUM 4.5 mmol/L (3.5-5.1)
[2017-09-03 13:00] LABS: ALBUMIN 4.3 g/dL (3.4-5.0); CREATININE 1.4 mg/dL (0.7-1.3)
--- NOTE | 2017-09-03 13:00 | NUR ---
unable to do med rec; pt sts "i don't know what medications i'm taking"
[2017-09-03] MEDS ORDERED: MORPHINE SULFATE 4 MG/ML SYR IM ONE (13:10)
[2017-09-03] MEDS ORDERED: NACL 0.9% 1,000 ML IV SCH (13:21)
[2017-09-03] MEDS ORDERED: DOCUSATE SODIUM 100 MG GELCAP PO PRN (13:25)
[2017-09-03] MEDS ORDERED: NITROGLYCERIN 0.4 MG TAB SL PRN (13:25)
[2017-09-03] MEDS ORDERED: ONDANSETRON 4 MG/2 ML VIAL IVP PRN (13:25)
[2017-09-03] MEDS ORDERED: ACETAMINOPHEN 325 MG TAB PO PRN (13:25)
[2017-09-03] MEDS ORDERED: HYDROcodone/APAP 7.5/325 MG 1 TAB PO PRN (13:25)
--- NOTE | 2017-09-03 13:40 | NUR ---
ER BNA AND RESIDENT CRISTAL MERCHANT AGREED TO START IV ONCE PATIENT ADMITTED TO FLOOR
--- NOTE | 2017-09-03 14:00 | NUR ---
AWAITING FOR ADMISSION PACKET, END MATCHERMICHAEL HAMM
[2017-09-03] MEDS ORDERED: DEXTROSE 50% 50 ML SYR IVP PRN (14:10)
[2017-09-03] MEDS ORDERED: INSULIN LISPRO SLIDING SCALE 100 UNITS/ML VIAL SUBQ PRN (14:10)
[2017-09-03] MEDS ORDERED: NON-FORMULARY ITEM (Omeprazole (Omeprazole) 1 TAB) PO PRN (14:10)
--- NOTE | 2017-09-03 14:30 | NUR ---
Patient will be admitted to [facility]. Admited to Tele. Will go to room 105. Belongings list completed. bedside report to simba miner.
--- NOTE | 2017-09-03 14:35 | NUR ---
PT TO ROOM 105A FROM ER IN [facility], PT AMBULATES FROM HALLWAY TO BATHROOM AND THEN TO BED WITH STEADY GAIT, PT PLACED ON CONTENT PUBLISHER, AWAKE ALERT, OX4, RESP EVEN UNLABORED, SKIN WARM DRY DIRTY COLOR WNL, SPEAKS CLEARLY, STATES HE HAS BEEN FEELING SOB WITH LIGHT EXERTION, APPEARS AGITATED WITH ASSESSMENT, MULTIPLE SMALL SCABS AND ABRASIONS ON BILAT FOREARMS, PT REFUSES TO TAKE OFF HIS JEANS, UNABLE TO ASSESS HIS LEGS OR SACRAL AREA, LOWER LEGS SKIN INTACT, PT ORIENTED TO ROOM AND FLOOR, PLAN OF CARE DISCUSSED, CALL TRAMMELL WITHIN REACH, SIDE RAILS UP, BED LOCKED IN LOW POSITION, WILL CONTINUE TO MONITOR.
[2017-09-03 14:50] VITALS: BP 158/100
[2017-09-03] MEDS ORDERED: FUROSEMIDE 20 MG/2 ML VIAL IVP SCH (15:15)
[2017-09-03 15:31] LABS: PROTHROMBIN TIME 11.4 secs (10.8-13.4)
[2017-09-03 15:33] LABS: FREE T4 (FREE THYROXINE) 1.01 ng/dL (0.76-1.46); MAGNESIUM 1.8 mg/dL (1.8-2.4); PHOSPHORUS 3.5 mg/dL (2.5-4.9); THYROID STIMULATING HORMONE 2.19 uIU/mL (0.34-3.74)
[2017-09-03] MEDS ORDERED: CYCLOBENZAPRINE 10 MG TAB PO SCH (15:57)
[2017-09-03 16:00] VITALS: BP 148/86
--- NOTE | 2017-09-03 16:30 | NUR ---
PT "HARD STICK", MULTIPLE ATTEMPTS TO START IV UNSUCCESSFUL, OK TO START ON FOOT PER DR MERCHANT, 22G IV STARTED LEFT FOOD, PT TERI WELL, NS TO INFUSE AT 10ML/HR, LASIX GIVEN PER ORDER, CALL TRAMMELL WITHIN REACH, SIDE RAILS UP, WILL CONTINUE TO MONITOR.
[2017-09-03] MEDS: BLOOD GLUCOSE MONITORING 1 DEV DEV FS SCH ×2 (16:49→20:28)
[2017-09-03] MEDS: CARVEDILOL 6.25 MG TAB PO SCH (17:38)
--- NOTE | 2017-09-03 18:00 | NUR ---
VOIDED IN URINAL 550ML, URINE SAMPLE SENT TO LAB.
--- NOTE | 2017-09-03 19:19 | NUR ---
REPORT GIVEN TO HAM PUMPER NURSE PRABHJOT, PT IN STABLE CONDITION.
--- NOTE | 2017-09-03 19:20 | NUR ---
RECEIVED PT IN STABLE CONDITION FROM AM NURSE. AWAKE,ALERT AND ORIENTED X4. ON TELE MONITOR. WITH NO C/O OF ANY DISCOMFORT NOR PAIN AT THIS TIME. HAS IVF INFUSING WELL ON THE LT FOOT G#22. CLEAR AND PATENT. PLAN OF CARE DISCUSSED AND NEED REINFORCEMENT. BED ON LOW POSITION, FREQUENT ROUNDS NEEDED. CALL LIGHT AND URINAL WITHIN EASY REACH. WILL CONTINUE TO MONITOR.
[2017-09-03 19:42] LABS: APPEARANCE,URINE CLEAR (CLEAR); BILIRUBIN,URINE NEGATIVE (NEGATIVE); BLOOD, URINE NEGATIVE (NEGATIVE); COLOR,URINE YELLOW (YELLOW); LEUKOCYTE ESTERASE ,URINE NEGATIVE (NEGATIVE); NITRITE, URINE NEGATIVE (NEGATIVE); PH,URINE 5.5 (5.0-9.0); UGLUCOSE NEGATIVE (NEGATIVE)
[2017-09-03 19:49] LABS: BARBITURATE, URINE NEG. ng/ml (NEG <=200); BENZODIAZEPINE, URINE NEG. ng/mL (NEG <=200); CANNABINOID, URINE POS. ng/mL (NEG <=50); COCAINE, URINE NEG. ng/mL (NEG <=300); OPIATE, URINE NEG. ng/mL (NEG <=2000); PHENCYCLIDINE SCREEN,URINE NEG. ng/mL (NEG <=25)
[2017-09-03 20:00] VITALS: BP 130/73
--- NOTE | 2017-09-03 20:25 | NUR ---
BLOOD SUGAR WAS CHECKED RESULT 142. NO INSULIN NEEDED. PROVIDE WITH SOME SNACK. WILL CONTINUE TO MONITOR.
[2017-09-03] MEDS ORDERED: ATORVASTATIN 20 MG TAB PO SCH (21:00)
--- NOTE | 2017-09-03 21:30 | NUR ---
TRANSFERRED TO ROOM 116. PT HAS HX: MRSA NARES. NEED CONTACT ISOLATION. PT MADE AWARE. VERBALIZED UNDERSTANDING.
[2017-09-03 23:30] VITALS: BP 122/80
--- NOTE | 2017-09-03 23:30 | NUR ---
VITAL SIGNS TAKEN. STABLE . NO C/O ANY DISCOMFORT NOR PAIN NOTED. WILL CONTINUE TO MONITOR.
--- NOTE | 2017-09-04 00:45 | NUR ---
MADE ROUNDS. PT IS ASLEEP. NO S/S OF ANY DISCOMFORT NOTED. WILL CONTINUE TO MONITOR.
--- NOTE | 2017-09-04 02:45 | NUR ---
MADE ROUNDS. PT IS ASLEEP. NO S/SF [place] DISCOMFORT NOTED.
--- NOTE | 2017-09-04 03:00 | NUR ---
PT REFUSED TO HAVE THE SCD MACHINE FOR THE LEG.
[2017-09-04 04:00] VITALS: BP 152/93
[2017-09-04] MEDS ORDERED: CYCLOBENZAPRINE 10 MG TAB PO PRN (04:20)
--- NOTE | 2017-09-04 04:41 | NUR ---
C/O MUSCLE SPASM. MEDICATE ORDERED.
--- NOTE | 2017-09-04 04:45 | NUR ---
K PAD NOT AVAILABLE AT HIS TIME. WILL FOLLOW UP FOR LATER IN AM PER MICHAEL OROURKE BRONZE CHASER.
[2017-09-04] MEDS: BLOOD GLUCOSE MONITORING 1 DEV DEV FS SCH (06:24)
--- NOTE | 2017-09-04 06:25 | NUR ---
BLOOD SUGAR THIS AM 112. NO INSULIN NEEDED.
[2017-09-04] MEDS ORDERED: PANTOPRAZOLE 40 MG TABEC PO SCH (06:30)
[2017-09-04 06:31] LABS: BASOPHILS # (AUTO) 0.1 K/uL (0.00-0.22); EOSINOPHILS # (AUTO) 0.2 K/uL (0-0.4); EOSINOPHILS % (AUTO) 2.2 % (0.0-4.0); HEMATOCRIT 35.5 % (36-52); HEMOGLOBIN 11.5 g/dL (12.0-18.0); LYMPHOCYTES # (AUTO) 1.3 K/uL (2.0-11.5); LYMPHOCYTES % (AUTO) 17.5 % (20.5-51.1); MEAN CORPUSCULAR HEMOGLOBIN 25 pg (27-31); MEAN CORPUSCULAR HGB CONC 32 g/dL (33-37); MEAN CORPUSCULAR VOLUME 79 fL (80-94); MONOCYTES # (AUTO) 0.5 K/uL (0.8-1.0); MONOCYTES % (AUTO) 6.9 % (1.7-9.3); NEUTROPHILS # (AUTO) 5.3 K/uL (1.8-7.7); NEUTROPHILS % (AUTO) 71.4 % (42.2-75.2); PLATELET COUNT (AUTO) 156 K/uL (140-450); RED BLOOD CELL COUNT(AUTO) 4.52 MIL/uL (4.20-6.10); RED CELL DISTRIBUTION WIDTH 20.9 % (11.6-13.7); WHITE BLOOD COUNT (AUTO) 7.4 K/uL (4.8-10.8)
--- NOTE | 2017-09-04 07:10 | NUR ---
ENDORSED PT IN STABLE CONDITION TO AM NURSE.
--- NOTE | 2017-09-04 07:15 | NUR ---
RECEIVED REPORT FROM WEATHER STRIP MECHANIC NURSE, PT IS RESTING IN BED/ AAOX4, AMBULATORY, PT HAS IV ON HIS LEFT FOOT, PATENT, INTACT, FLUSHING WELL, PT HAS BILATERAL UPPER EXT. ABRASIONS, NO S/S OF RESPIRATORY DISTRESS OR DISCOMFORT NOTED, DISCUSSED PLAN OF CARE WITH PT, PT VERBALIZED UNDERSTANDING, SAFETY/FALL PRECAUTIONS ARE IN PLACE, CALL LIGHT IS WITHIN REACH, WILL CONTINUE TO MONITOR.
[2017-09-04 07:18] LABS: CARBON DIOXIDE 25.1 mmol/L (21-32); POTASSIUM 4.1 mmol/L (3.5-5.1)
[2017-09-04 07:19] LABS: MAGNESIUM 1.7 mg/dL (1.8-2.4); PHOSPHORUS 3.5 mg/dL (2.5-4.9)
[2017-09-04 07:40] LABS: CREATININE 1.5 mg/dL (0.7-1.3)
[2017-09-04 08:00] VITALS: BP 132/80
[2017-09-04] MEDS: CARVEDILOL 6.25 MG TAB PO SCH (08:00)
[2017-09-04 08:28] LABS: CHOL/HDL RATIO 3.4 (1-4.5)
--- NOTE | 2017-09-04 08:45 | NUR ---
CM NOTE INITIAL REVIEW FAXED TO [facility] [phone] # [phone] [facility] EXT [phone]
[2017-09-04] MEDS ORDERED: MAG SULF 2000 MG/WATER PREMIX 50 ML IV SCH (09:00)
[2017-09-04] MEDS ORDERED: ASPIRIN 81 MG TAB.CHEW PO SCH (09:00)
[2017-09-04] MEDS ORDERED: SPIRONOLACTONE 25 MG TAB PO SCH (09:00)
[2017-09-04] MEDS ORDERED: CYCLOBENZAPRINE 10 MG TAB PO SCH (09:00)
[2017-09-04] MEDS ORDERED: FUROSEMIDE 20 MG/2 ML VIAL IVP SCH (09:00)
[2017-09-04] MEDS ORDERED: LISINOPRIL 5 MG TAB PO SCH (09:00)
--- NOTE | 2017-09-04 09:02 | NUR ---
DUE MEDICATIONS GIVEN, PT TOLERATED WELL, CALL LIGHT IS WITHIN REACH.
--- NOTE | 2017-09-04 09:16 | NUR ---
PATIENT HAS BEEN SCREENED AND CATEGORIZED MODERATE NUTRITION RISK. PATIENT WILL BE SEEN WITHIN 3-5 DAYS OF ADMISSION. 09/05/17-09/07/[address]
[2017-09-04] MEDS ORDERED: ACET-2869 PO (10:06)
[2017-09-04] MEDS ORDERED: RIVA20TA PO (11:08)
--- NOTE | 2017-09-04 12:02 | NUR ---
DISCHARGE INSTRUCTIONS GIVEN, IV REMOVED, CATHETER TIP INTACT, ID WRIST BAND REMOVED, HOMELESS RESOURCE PACKET GIVEN, PATIENT WAS PROVIDED WITH BUS. PT STABLE UPON DISCHARGE.
== END 2017-09-04 12:02 | disposition home or self-care (01) | DRG 194 ==
LOC: MED 11:17 → MTU 14:00
PROVIDERS: ADMIT Family Medicine Sports Medicine; ATTEND Family Medicine Sports Medicine
DX: I13.0 Hypertensive heart and chronic kidney disease with heart failure and stage 1 through stage 4 chronic kidney disease, or unspecified chronic kidney disease (principal); N17.0 Acute kidney failure with tubular necrosis; D68.59 Other primary thrombophilia; Q60.0 Renal agenesis, unilateral; I42.0 Dilated cardiomyopathy; N18.3 Chronic kidney disease, stage 3 (moderate); E11.22 Type 2 diabetes mellitus with diabetic chronic kidney disease; E11.51 Type 2 diabetes mellitus with diabetic peripheral angiopathy without gangrene; M94.0 Chondrocostal junction syndrome [Tietze]; I50.43 Acute on chronic combined systolic (congestive) and diastolic (congestive) heart failure; K21.9 Gastro-esophageal reflux disease without esophagitis; F19.10 Other psychoactive substance abuse, uncomplicated; F17.210 Nicotine dependence, cigarettes, uncomplicated; I25.10 Atherosclerotic heart disease of native coronary artery without angina pectoris; F15.10 Other stimulant abuse, uncomplicated; I48.2 Chronic atrial fibrillation; E83.42 Hypomagnesemia; Z59.0 Homelessness; Z88.6 Allergy status to analgesic agent; Z79.82 Long term (current) use of aspirin; Z79.899 Other long term (current) drug therapy; Z95.0 Presence of cardiac pacemaker; Z91.19 Patient's noncompliance with other medical treatment and regimen; Z79.4 Long term (current) use of insulin
CPT/HCPCS: 36415; 71045; 76705; 80048; 80053; 80305; 81003; 82140; 82150; 82948; 83690; 83735; 83880; 84100; 84439; 84443; 84484; 85025; 85610; 85730; 87081; 93005; 93970; 96372; 99285; J1815; J1940; J2270; J3475; Q0092; Q0163

== ENCOUNTER 2017-09-14 14:53 | Emergency (ER) | payer OTHER ==
[~2017-09-14] VITALS: Ht 188 cm; Wt 106.6 kg
[~2017-09-14 14:53] MED LIST changes: +ACET-2869 PO; -ACET-9529 PO; -ATI.5 PO; -BLOO1STR56 FS; -FOLI1TAB90 PO; -NITR0.4T2 SL; +RIVA20TA PO; -TAMS0.4C96 PO; -THIA-8 PO
[2017-09-14 15:01] VITALS: BP 124/84
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
== END 2017-09-14 17:13 | disposition left against medical advice (07) ==
LOC: MED 14:53
DX: R07.9 Chest pain, unspecified (principal); Z53.21 Procedure and treatment not carried out due to patient leaving prior to being seen by health care provider
CPT/HCPCS: 93005; 99281

== ENCOUNTER 2017-12-30 02:35 | Inpatient (IN) | payer SELFPAY ==
[~2017-12-30] VITALS: Ht 5.1 cm; Wt 115.7 kg
[2017-12-30 02:35] VITALS: BP 133/85
[2017-12-30] MEDS ORDERED: diphenhydrAMINE 50 MG/ML VIAL IVP ONE ×2 (02:45→04:20)
[2017-12-30] MEDS ORDERED: ONDANSETRON 4 MG/2 ML VIAL IVP ONE (02:45)
[2017-12-30] MEDS ORDERED: MORPHINE SULFATE 4 MG/ML SYR IVP ONE ×2 (02:45→04:20)
[2017-12-30 03:26] LABS: BASOPHILS % (AUTO) 0.3 % (0.0-2.0); EOSINOPHILS # (AUTO) 0.2 K/uL (0-0.4); EOSINOPHILS % (AUTO) 2.5 % (0.0-4.0); HEMATOCRIT 36.2 % (36-52); HEMOGLOBIN 11.9 g/dL (12.0-18.0); LYMPHOCYTES # (AUTO) 1.7 K/uL (2.0-11.5); LYMPHOCYTES % (AUTO) 18.9 % (20.5-51.1); MEAN CORPUSCULAR HEMOGLOBIN 28 pg (27-31); MEAN CORPUSCULAR HGB CONC 33 g/dL (33-37); MEAN CORPUSCULAR VOLUME 84.2 fL (80-94); MONOCYTES # (AUTO) 0.7 K/uL (0.8-1.0); MONOCYTES % (AUTO) 7.4 % (1.7-9.3); NEUTROPHILS # (AUTO) 6.3 K/uL (1.8-7.7); NEUTROPHILS % (AUTO) 70.9 % (42.2-75.2); PLATELET COUNT (AUTO) 141 K/uL (140-450); RED CELL DISTRIBUTION WIDTH 19.7 % (11.6-13.7); WHITE BLOOD COUNT (AUTO) 8.8 K/uL (4.8-10.8)
[2017-12-30 03:42] LABS: ANION GAP 11.9 (8-16); CARBON DIOXIDE 24.3 mmol/L (21-32); CREATININE 1.3 mg/dL (0.7-1.3); POTASSIUM 4.2 mmol/L (3.5-5.1)
[2017-12-30 03:49] LABS: ALBUMIN 3.5 g/dL (3.4-5.0); TOTAL BILIRUBIN 0.4 mg/dL (0.0-1.0)
[2017-12-30] MEDS ORDERED: FUROSEMIDE 40 MG/4 ML VIAL IVP ONE (04:10)
[2017-12-30 04:12] LABS: CKMB RELATIVE INDEX 2.3 (0.0-2.5); CREATINE KINASE MB 9.7 ng/mL (0-3.6)
[2017-12-30] MEDS ORDERED: NITROGLYCERIN 2% 1 GM PKT TP ONE (04:20)
[2017-12-30] MEDS ORDERED: ACETAMINOPHEN 325 MG TAB PO PRN (04:25)
[2017-12-30] MEDS ORDERED: HYDROcodone/APAP 7.5/325 MG 1 TAB PO PRN (04:25)
[2017-12-30] MEDS ORDERED: ONDANSETRON 4 MG/2 ML VIAL IM/IVP PRN (04:25)
[2017-12-30] MEDS ORDERED: DEXTROSE 50% 50 ML SYR IVP PRN (04:50)
[2017-12-30] MEDS ORDERED: NON-FORMULARY ITEM (Omeprazole (Omeprazole) 1 TAB) PO PRN (04:50)
[2017-12-30] MEDS ORDERED: INSULIN LISPRO SLIDING SCALE 100 UNITS/ML VIAL SUBQ PRN (04:50)
[2017-12-30 05:04] LABS: APPEARANCE,URINE CLEAR (CLEAR); BILIRUBIN,URINE NEGATIVE (NEGATIVE); BLOOD, URINE NEGATIVE (NEGATIVE); COLOR,URINE YELLOW (YELLOW); LEUKOCYTE ESTERASE ,URINE NEGATIVE (NEGATIVE); NITRITE, URINE NEGATIVE (NEGATIVE); PH,URINE 5.5 (5.0-9.0); UGLUCOSE NEGATIVE (NEGATIVE)
[2017-12-30 05:05] VITALS: BP 140/97
[2017-12-30 05:22] LABS: BARBITURATE, URINE NEG. ng/ml (NEG <=200); BENZODIAZEPINE, URINE NEG. ng/mL (NEG <=200); CANNABINOID, URINE POS. ng/mL (NEG <=50); COCAINE, URINE NEG. ng/mL (NEG <=300); OPIATE, URINE NEG. ng/mL (NEG <=2000); PHENCYCLIDINE SCREEN,URINE NEG. ng/mL (NEG <=25)
[2017-12-30] MEDS ORDERED: DOCUSATE SODIUM 100 MG GELCAP PO PRN (06:00)
[2017-12-30] MEDS: BLOOD GLUCOSE MONITORING 1 DEV DEV FS SCH ×4 (06:43→20:03)
[2017-12-30 07:40] LABS: CHOL/HDL RATIO 3.4 (1-4.5); FREE T4 (FREE THYROXINE) 0.88 ng/dL (0.76-1.46); MAGNESIUM 1.9 mg/dL (1.8-2.4); PHOSPHORUS 2.7 mg/dL (2.5-4.9); THYROID STIMULATING HORMONE 2.22 uIU/mL (0.34-3.74)
[2017-12-30 08:00] VITALS: BP 133/87
[2017-12-30] MEDS: CARVEDILOL 6.25 MG TAB PO SCH ×2 (08:20→16:11)
[2017-12-30] MEDS: MORPHINE SULFATE 4 MG/ML SYR IVP PRN ×3 (08:23→20:48)
[2017-12-30] MEDS ORDERED: ATORVASTATIN 20 MG TAB PO SCH (09:00)
[2017-12-30] MEDS ORDERED: SPIRONOLACTONE 25 MG TAB PO SCH (09:00)
[2017-12-30] MEDS ORDERED: RIVAROXABAN 10 MG TAB PO SCH (09:00)
[2017-12-30] MEDS ORDERED: FUROSEMIDE 20 MG/2 ML VIAL IVP SCH (09:00)
[2017-12-30] MEDS ORDERED: LISINOPRIL 20 MG TAB PO SCH (09:00)
[2017-12-30] MEDS ORDERED: ASPIRIN 81 MG TAB.CHEW PO SCH (09:00)
[2017-12-30] MEDS ORDERED: diphenhydrAMINE 50 MG/ML VIAL IVP SCH (11:50)
[2017-12-30 12:00] VITALS: BP 126/83
[2017-12-30] MEDS ORDERED: PANTOPRAZOLE 40 MG TABEC PO SCH (14:45)
[2017-12-30 16:00] VITALS: BP 128/77
[2017-12-30 19:54] VITALS: BP 112/70
[2017-12-31 00:21] VITALS: BP 120/80
[2017-12-31] MEDS: MORPHINE SULFATE 4 MG/ML SYR IVP PRN (02:56)
[2017-12-31 04:18] VITALS: BP 122/73
[2017-12-31 07:27] LABS: BASOPHILS # (AUTO) 0.1 K/uL (0.00-0.22); BASOPHILS % (AUTO) 0.9 % (0.0-2.0); EOSINOPHILS # (AUTO) 0.3 K/uL (0-0.4); EOSINOPHILS % (AUTO) 3.5 % (0.0-4.0); HEMATOCRIT 40.4 % (36-52); HEMOGLOBIN 13.1 g/dL (12.0-18.0); LYMPHOCYTES # (AUTO) 1.2 K/uL (2.0-11.5); LYMPHOCYTES % (AUTO) 14.6 % (20.5-51.1); MEAN CORPUSCULAR HEMOGLOBIN 27 pg (27-31); MEAN CORPUSCULAR HGB CONC 32 g/dL (33-37); MEAN CORPUSCULAR VOLUME 84.4 fL (80-94); MONOCYTES # (AUTO) 0.8 K/uL (0.8-1.0); MONOCYTES % (AUTO) 9.7 % (1.7-9.3); NEUTROPHILS # (AUTO) 6.1 K/uL (1.8-7.7); NEUTROPHILS % (AUTO) 71.3 % (42.2-75.2); PLATELET COUNT (AUTO) 167 K/uL (140-450); RED BLOOD CELL COUNT(AUTO) 4.78 MIL/uL (4.20-6.10); RED CELL DISTRIBUTION WIDTH 19.5 % (11.6-13.7); WHITE BLOOD COUNT (AUTO) 8.5 K/uL (4.8-10.8)
[2017-12-31 07:46] LABS: ALBUMIN 3.4 g/dL (3.4-5.0); ANION GAP 12.1 (8-16); CARBON DIOXIDE 25.7 mmol/L (21-32); CREATININE 1.4 mg/dL (0.7-1.3); MAGNESIUM 1.9 mg/dL (1.8-2.4); PHOSPHORUS 2.9 mg/dL (2.5-4.9); POTASSIUM 3.8 mmol/L (3.5-5.1); TOTAL BILIRUBIN 0.8 mg/dL (0.0-1.0)
[2017-12-31 12:12] LABS: T4 (THYROXINE) 6.8 ug/dL (4.5-12.0)
== END 2017-12-31 06:55 | disposition left against medical advice (07) | DRG 291 ==
LOC: MED 02:35 → MTU 04:22
PROVIDERS: ADMIT Family Medicine; ATTEND Family Medicine
DX: I11.0 Hypertensive heart disease with heart failure (principal); N17.0 Acute kidney failure with tubular necrosis; Z88.8 Allergy status to other drugs, medicaments and biological substances; I50.43 Acute on chronic combined systolic (congestive) and diastolic (congestive) heart failure; I42.0 Dilated cardiomyopathy; E11.51 Type 2 diabetes mellitus with diabetic peripheral angiopathy without gangrene; E11.65 Type 2 diabetes mellitus with hyperglycemia; E11.9 Type 2 diabetes mellitus without complications; Z86.73 Personal history of transient ischemic attack (TIA), and cerebral infarction without residual deficits; I48.0 Paroxysmal atrial fibrillation; Z86.14 Personal history of Methicillin resistant Staphylococcus aureus infection; F19.10 Other psychoactive substance abuse, uncomplicated; F15.10 Other stimulant abuse, uncomplicated; K21.9 Gastro-esophageal reflux disease without esophagitis; Z91.19 Patient's noncompliance with other medical treatment and regimen; Z59.0 Homelessness; Z95.810 Presence of automatic (implantable) cardiac defibrillator; F12.10 Cannabis abuse, uncomplicated; E78.5 Hyperlipidemia, unspecified; E87.8 Other disorders of electrolyte and fluid balance, not elsewhere classified; Z53.21 Procedure and treatment not carried out due to patient leaving prior to being seen by health care provider; Z79.82 Long term (current) use of aspirin
CPT/HCPCS: 36415; 71045; 80053; 80305; 81003; 82150; 82550; 82553; 82948; 83036; 83605; 83690; 83735; 83880; 84100; 84436; 84439; 84443; 84479; 84484; 85025; 85610; 85730; 87040; 87081; 93005; 93925; 93970; 96374; 96375; 96376; 99285; J1200; J1815; J1940; J2270; J2405; Q0092; Q0163

== ENCOUNTER 2018-02-06 07:47 | Emergency (ER) | payer SELFPAY ==
[~2018-02-06] VITALS: Ht 188 cm; Wt 118.4 kg
--- NOTE | 2018-02-06 07:47 | NUR ---
PATIENT AMBULTED TO BED 9.
[2018-02-06 07:50] VITALS: BP 135/106
--- NOTE | 2018-02-06 08:06 | NUR ---
PATIENT PRESENTSTO ED WITH COMPLAINTS OF CHEST PAIN/PRESSURE. PATIENT DENIES RADIATING PAIN. STATES IT "FEELS LIKE SOMEONE IS SITTING ON HIS CHEST." HX CHF, AFIB, CARDIOMYOPATHY. RX LASIX. DENIES N/V/D; SKIN IS PINK/WARM/DRY; AAOX4 WITH EVEN AND STEADY GAIT; LUNGS CLEAR BL; HR EVEN AND REGULAR; PATIENT STATES PAIN OF 9/10 AT THIS TIME; VSS; PATIENT POSITIONED FOR COMFORT; HOB ELEVATED; BEDRAILS UP X1; BED DOWN. ER MD MADE AWARE OF PT STATUS.
--- NOTE | 2018-02-06 08:31 | NUR ---
Patient discharged with ELEVATED BP AND PAIN AT 04/23, ED MD AWARE. Written and verbal after care instructions given and explained. Patient verbalized understanding. Police with in custody. All questions addressed prior to discharge. Advised to follow up with PMD.
[2018-02-06 08:43] VITALS: BP 135/106
== END 2018-02-06 08:31 ==
LOC: MED 07:47
DX: Z02.89 Encounter for other administrative examinations (principal); I11.0 Hypertensive heart disease with heart failure; I50.9 Heart failure, unspecified; I48.91 Unspecified atrial fibrillation; I42.9 Cardiomyopathy, unspecified; Z95.0 Presence of cardiac pacemaker; Z79.899 Other long term (current) drug therapy; Z88.8 Allergy status to other drugs, medicaments and biological substances
CPT/HCPCS: 93005; 99283

== ENCOUNTER 2018-03-03 04:26 | Inpatient (IN) | payer SELFPAY ==
[~2018-03-03] VITALS: Ht 188 cm; Wt 122.5 kg
[2018-03-03 04:27] VITALS: BP 146/97
[2018-03-03] MEDS ORDERED: MORPHINE SULFATE 2 MG/ML SYR IVP ONE (04:30)
[2018-03-03] MEDS ORDERED: NITROGLYCERIN 2% 1 GM PKT TP ONE (04:30)
[2018-03-03] MEDS ORDERED: METOPROLOL 25 MG TAB PO ONE (04:40)
[2018-03-03 04:49] LABS: BASOPHILS % (AUTO) 0.3 % (0.0-2.0); EOSINOPHILS # (AUTO) 0.2 K/uL (0-0.4); EOSINOPHILS % (AUTO) 1.8 % (0.0-4.0); HEMATOCRIT 40.1 % (36-52); HEMOGLOBIN 12.8 g/dL (12.0-18.0); LYMPHOCYTES # (AUTO) 1.5 K/uL (2.0-11.5); LYMPHOCYTES % (AUTO) 13.9 % (20.5-51.1); MEAN CORPUSCULAR HEMOGLOBIN 28 pg (27-31); MEAN CORPUSCULAR HGB CONC 32 g/dL (33-37); MEAN CORPUSCULAR VOLUME 88.1 fL (80-94); MONOCYTES # (AUTO) 0.7 K/uL (0.8-1.0); MONOCYTES % (AUTO) 6.8 % (1.7-9.3); NEUTROPHILS # (AUTO) 8.5 K/uL (1.8-7.7); PLATELET COUNT (AUTO) 152 K/uL (140-450); RED BLOOD CELL COUNT(AUTO) 4.55 MIL/uL (4.20-6.10); RED CELL DISTRIBUTION WIDTH 14.5 % (11.6-13.7)
[2018-03-03 05:00] LABS: NEUTROPHILS % (AUTO) 77.2 % (42.2-75.2)
[2018-03-03 05:06] LABS: ANION GAP 10.3 (8-16); CARBON DIOXIDE 24.6 mmol/L (21-32); CREATININE 1.5 mg/dL (0.7-1.3); POTASSIUM 3.9 mmol/L (3.5-5.1)
[2018-03-03 05:11] LABS: ALBUMIN 3.8 g/dL (3.4-5.0); TOTAL BILIRUBIN 0.6 mg/dL (0.0-1.0)
[2018-03-03] MEDS ORDERED: HYDROcodone/APAP 5/325 MG 1 TAB TAB PO PRN (05:40)
[2018-03-03] MEDS ORDERED: ACETAMINOPHEN 325 MG TAB PO PRN (05:40)
[2018-03-03] MEDS ORDERED: ONDANSETRON 4 MG/2 ML VIAL IM/IVP PRN (05:40)
[2018-03-03] MEDS ORDERED: DOCUSATE SODIUM 100 MG GELCAP PO PRN ×2 (05:40→06:50)
[2018-03-03 06:05] VITALS: BP 150/110
[2018-03-03] MEDS ORDERED: MORPHINE SULFATE 2 MG/ML SYR IVP PRN (07:00)
[2018-03-03 08:00] VITALS: BP 141/99
[2018-03-03] MEDS: CARVEDILOL 6.25 MG TAB PO SCH ×2 (08:53→16:24)
[2018-03-03] MEDS: LISINOPRIL 20 MG TAB PO SCH (08:53)
[2018-03-03] MEDS: SPIRONOLACTONE 25 MG TAB PO SCH (08:53)
[2018-03-03] MEDS: FAMOTIDINE 20 MG TAB PO SCH (08:54)
[2018-03-03] MEDS: ATORVASTATIN 20 MG TAB PO SCH (08:54)
[2018-03-03] MEDS: FUROSEMIDE 20 MG TAB PO SCH (08:54)
[2018-03-03] MEDS: ASPIRIN 81 MG TAB.CHEW PO SCH (08:55)
[2018-03-03] MEDS: NACL 0.9% 1,000 ML IV SCH (09:00)
[2018-03-03] MEDS ORDERED: HYDROcodone/APAP 5/325 MG 1 TAB TAB PO SCH (09:00)
[2018-03-03] MEDS: RIVAROXABAN 10 MG TAB PO SCH (09:03)
[2018-03-03 11:15] LABS: CHOL/HDL RATIO 3.5 (1-4.5); FREE T4 (FREE THYROXINE) 0.97 ng/dL (0.76-1.46); MAGNESIUM 1.6 mg/dL (1.8-2.4); PHOSPHORUS 2.6 mg/dL (2.5-4.9); THYROID STIMULATING HORMONE 1.92 uIU/mL (0.34-3.74)
[2018-03-03] MEDS ORDERED: HYDROcodone/APAP 10/325 MG 1 TAB TAB PO PRN (12:55)
[2018-03-03] MEDS ORDERED: FUROSEMIDE 40 MG/4 ML VIAL IVP SCH (13:07)
[2018-03-03] MEDS ORDERED: MAGNESIUM OXIDE 400 MG TAB PO SCH (13:22)
[2018-03-03] MEDS: MORPHINE SULFATE 2 MG/ML SYR IVP PRN ×2 (13:36→21:52)
[2018-03-03 14:03] VITALS: BP 120/82
[2018-03-03 16:05] LABS: APPEARANCE,URINE CLEAR (CLEAR); BILIRUBIN,URINE NEGATIVE (NEGATIVE); BLOOD, URINE NEGATIVE (NEGATIVE); COLOR,URINE YELLOW (YELLOW); LEUKOCYTE ESTERASE ,URINE NEGATIVE (NEGATIVE); NITRITE, URINE NEGATIVE (NEGATIVE); PH,URINE 5.5 (5.0-9.0); UGLUCOSE NEGATIVE (NEGATIVE)
[2018-03-03 16:21] LABS: BARBITURATE, URINE NEG. ng/ml (NEG <=200); BENZODIAZEPINE, URINE NEG. ng/mL (NEG <=200); CANNABINOID, URINE POS. ng/mL (NEG <=50); COCAINE, URINE NEG. ng/mL (NEG <=300); OPIATE, URINE NEG. ng/mL (NEG <=2000); PHENCYCLIDINE SCREEN,URINE NEG. ng/mL (NEG <=25)
[2018-03-03 20:00] VITALS: BP 127/82
[2018-03-04] VITALS: BP 126/85
[2018-03-04 04:15] VITALS: BP 139/85
[2018-03-04] MEDS: NACL 0.9% 1,000 ML IV SCH (05:40)
[2018-03-04] MEDS: MORPHINE SULFATE 2 MG/ML SYR IVP PRN (06:01)
[2018-03-04 07:02] LABS: ANION GAP 12.6 (8-16); CARBON DIOXIDE 26.1 mmol/L (21-32); CREATININE 1.6 mg/dL (0.7-1.3); POTASSIUM 3.7 mmol/L (3.5-5.1)
[2018-03-04 07:05] LABS: MAGNESIUM 1.9 mg/dL (1.8-2.4); PHOSPHORUS 3.4 mg/dL (2.5-4.9)
[2018-03-04 07:35] LABS: WHITE BLOOD COUNT (AUTO) 8.5 K/uL (4.8-10.8)
[2018-03-04 07:36] LABS: BASOPHILS # (AUTO) 0.1 K/uL (0.00-0.22); BASOPHILS % (AUTO) 1.1 % (0.0-2.0); EOSINOPHILS # (AUTO) 0.3 K/uL (0-0.4); EOSINOPHILS % (AUTO) 3.2 % (0.0-4.0); HEMATOCRIT 42.1 % (36-52); HEMOGLOBIN 14.1 g/dL (12.0-18.0); LYMPHOCYTES # (AUTO) 1.6 K/uL (2.0-11.5); LYMPHOCYTES % (AUTO) 18.7 % (20.5-51.1); MEAN CORPUSCULAR HEMOGLOBIN 30 pg (27-31); MEAN CORPUSCULAR HGB CONC 34 g/dL (33-37); MEAN CORPUSCULAR VOLUME 88.2 fL (80-94); MONOCYTES # (AUTO) 0.5 K/uL (0.8-1.0); MONOCYTES % (AUTO) 6.1 % (1.7-9.3); NEUTROPHILS % (AUTO) 70.9 % (42.2-75.2); PLATELET COUNT (AUTO) 139 K/uL (140-450); RED BLOOD CELL COUNT(AUTO) 4.78 MIL/uL (4.20-6.10); RED CELL DISTRIBUTION WIDTH 13.4 % (11.6-13.7)
[2018-03-04 07:47] VITALS: BP 132/89
[2018-03-04] MEDS: FUROSEMIDE 20 MG TAB PO SCH (08:42)
[2018-03-04] MEDS: SPIRONOLACTONE 25 MG TAB PO SCH (08:42)
[2018-03-04] MEDS: CARVEDILOL 6.25 MG TAB PO SCH (08:42)
[2018-03-04] MEDS: LISINOPRIL 20 MG TAB PO SCH (08:43)
[2018-03-04] MEDS: FAMOTIDINE 20 MG TAB PO SCH (08:43)
[2018-03-04] MEDS: ASPIRIN 81 MG TAB.CHEW PO SCH (08:43)
[2018-03-04] MEDS: ATORVASTATIN 20 MG TAB PO SCH (08:43)
[2018-03-04] MEDS: RIVAROXABAN 10 MG TAB PO SCH (08:45)
[2018-03-04 12:00] VITALS: BP 127/92
[2018-03-04] MEDS ORDERED: NACL 0.9% 250 ML IV SCH (12:00)
[2018-03-04] MEDS ORDERED: NORC10 PO (12:11)
== END 2018-03-04 13:55 | disposition home or self-care (01) | DRG 205 ==
LOC: MED 04:26 → MTU 05:40
PROVIDERS: ADMIT Family Medicine; ATTEND Family Medicine
DX: M94.0 Chondrocostal junction syndrome [Tietze] (principal); N17.0 Acute kidney failure with tubular necrosis; I50.43 Acute on chronic combined systolic (congestive) and diastolic (congestive) heart failure; I42.0 Dilated cardiomyopathy; K21.9 Gastro-esophageal reflux disease without esophagitis; E11.9 Type 2 diabetes mellitus without complications; I11.0 Hypertensive heart disease with heart failure; E11.51 Type 2 diabetes mellitus with diabetic peripheral angiopathy without gangrene; F19.10 Other psychoactive substance abuse, uncomplicated; I16.0 Hypertensive urgency; F12.10 Cannabis abuse, uncomplicated; E83.42 Hypomagnesemia; I48.0 Paroxysmal atrial fibrillation; Z91.19 Patient's noncompliance with other medical treatment and regimen; Z86.73 Personal history of transient ischemic attack (TIA), and cerebral infarction without residual deficits; Z95.810 Presence of automatic (implantable) cardiac defibrillator; Z86.14 Personal history of Methicillin resistant Staphylococcus aureus infection; Z80.9 Family history of malignant neoplasm, unspecified; Z59.0 Homelessness
CPT/HCPCS: 36415; 36600; 70450; 71045; 78582; 80048; 80053; 80305; 81003; 82150; 82803; 83036; 83605; 83690; 83735; 83880; 84100; 84134; 84439; 84443; 84484; 85025; 85379; 85610; 85730; 87081; 93005; 96374; 99285; J1940; J2270; J7030

== ENCOUNTER 2018-05-28 07:49 | Inpatient (IN) | payer MEDICAID ==
[~2018-05-28] VITALS: Ht 188 cm; Wt 120.4 kg
[~2018-05-28 07:49] MED LIST changes: -ACET-2869 PO; -DOCU-299 PO; -OMEP20TC12 PO
--- NOTE | 2018-05-28 07:49 | NUR ---
PT AMBULATED TO ER BED 02
[2018-05-28 08:00] VITALS: BP 149/110
--- NOTE | 2018-05-28 08:05 | NUR ---
EMT AT BEDSIDE FOR EKG
--- NOTE | 2018-05-28 08:07 | NUR ---
47 YO M BIB SELF W/C/O CP SND SOB, PT ABLE TO AMBULATE WITH STADY GAIT. PT STATES SUB STERNAL CP RADIATING TO L ARM WITH PRESSURE OF 10/10 PAIN, POLYURIA. PT STATES WAKING COVERED IN LOOSE STOOL AND WAKING AGAIN IN URINE, WITH PURITUS .+TACYPENA. -N/V/, - ABD PAIN. PT WITH EXTENSIVE CARSIAC HX. ER MD ALLEN WAHL WILL CONTINUE TO MONITOR
[2018-05-28] MEDS ORDERED: ASPIRIN 81 MG TAB.CHEW PO ONE (08:15)
[2018-05-28] MEDS ORDERED: NITROGLYCERIN 0.4 MG TAB SL PRN ×2 (08:15→10:15)
--- NOTE | 2018-05-28 08:30 | NUR ---
LAB AT BEDSIDE
[2018-05-28 08:50] LABS: BASOPHILS # (AUTO) 0.1 K/uL (0.00-0.22); EOSINOPHILS # (AUTO) 0.3 K/uL (0-0.4); HEMATOCRIT 41.1 % (36-52); HEMOGLOBIN 13.5 g/dL (12.0-18.0); LYMPHOCYTES # (AUTO) 1.1 K/uL (2.0-11.5); LYMPHOCYTES % (AUTO) 18.1 % (20.5-51.1); MEAN CORPUSCULAR HEMOGLOBIN 29 pg (27-31); MEAN CORPUSCULAR HGB CONC 33 g/dL (33-37); MEAN CORPUSCULAR VOLUME 87.1 fL (80-94); MONOCYTES # (AUTO) 0.4 K/uL (0.8-1.0); MONOCYTES % (AUTO) 6.5 % (1.7-9.3); NEUTROPHILS # (AUTO) 4.5 K/uL (1.8-7.7); NEUTROPHILS % (AUTO) 70.4 % (42.2-75.2); PLATELET COUNT (AUTO) 141 K/uL (140-450); RED BLOOD CELL COUNT(AUTO) 4.72 MIL/uL (4.20-6.10); RED CELL DISTRIBUTION WIDTH 14.6 % (11.6-13.7); WHITE BLOOD COUNT (AUTO) 6.4 K/uL (4.8-10.8)
[2018-05-28 09:02] LABS: ANION GAP 12.5 (8-16); CARBON DIOXIDE 21.5 mmol/L (21-32); CREATININE 1.4 mg/dL (0.7-1.3)
[2018-05-28 09:08] LABS: ALBUMIN 3.7 g/dL (3.4-5.0); TOTAL BILIRUBIN 0.5 mg/dL (0.0-1.0)
[2018-05-28 09:14] LABS: PROTHROMBIN TIME 9.7 secs (10.8-13.4)
[2018-05-28] MEDS ORDERED: diphenhydrAMINE 50 MG CAP PO ONE (09:40)
--- NOTE | 2018-05-28 10:00 | NUR ---
PT IN BED IN NO APPEARENT DISTRESS WITH RR EVEN AND UNLABORED
[2018-05-28] MEDS: NACL 0.9% 1,000 ML IV SCH (10:04)
[2018-05-28] MEDS ORDERED: ACETAMINOPHEN 325 MG TAB PO PRN (10:05)
[2018-05-28] MEDS ORDERED: LORazepam 2 MG/ML VIAL IM/IVP PRN (10:05)
[2018-05-28] MEDS ORDERED: DOCUSATE SODIUM 100 MG GELCAP PO PRN (10:05)
[2018-05-28] MEDS ORDERED: ZOLPIDEM 5 MG TAB PO PRN (10:05)
[2018-05-28] MEDS ORDERED: ONDANSETRON 4 MG/2 ML VIAL IM/IVP PRN (10:05)
[2018-05-28] MEDS ORDERED: LORazepam 2 MG/ML VIAL IVP PRN (10:20)
--- NOTE | 2018-05-28 10:45 | NUR ---
Patient will be admitted to care of DR LATHAM. Admited to TELE. Will go to room 112 B . Belongings list completed. Report to ZULEIKA RODRIGUEZ .
[2018-05-28] MEDS ORDERED: CARVEDILOL 6.25 MG TAB PO SCH (10:47)
[2018-05-28] MEDS ORDERED: FOLIC ACID 1 MG TAB PO SCH (10:49)
[2018-05-28] MEDS ORDERED: THIAMINE 100 MG TAB PO SCH (11:00)
[2018-05-28] MEDS ORDERED: FUROSEMIDE 20 MG TAB PO SCH (11:00)
[2018-05-28 11:25] LABS: AMYLASE 51 U/L (25-115); LIPASE 134 U/L (73-393); MAGNESIUM 1.6 mg/dL (1.8-2.4); PHOSPHORUS 2.7 mg/dL (2.5-4.9); THYROID STIMULATING HORMONE 1.59 uIU/mL (0.34-3.74)
[2018-05-28] MEDS ORDERED: RIVAROXABAN 10 MG TAB PO SCH (11:30)
[2018-05-28 12:00] VITALS: BP 150/100
[2018-05-28] MEDS ORDERED: chlordiazePOXIDE 25 MG CAP PO SCH (13:00)
[2018-05-28] MEDS ORDERED: MAG SULF 2000 MG/WATER PREMIX 50 ML IV ONE (13:00)
--- NOTE | 2018-05-28 13:08 | NUR ---
RECEIVED RE[PORT FROM ER NURSE AT BEDSIDE. PT ADMITTED WITH DX OF CHEST PAIN. PT COMPLAINS OF CHEST PAIN AT HIS MID-CHEST REGION , RADIATING TOWARDS HIS LEFT ARM. PT COMPLAINS OF CHEST PAIN 9/10. HAS RT FA IV 22 G. INTACT AND PATENT. STATES TO HAVE PAST THREE SX FOR PACEMAKER INSERTION, HAS PACEMAKER SINCE 2-3 YRS . PT AOX4, AMBULATORY , SKIN IS INTACT, O2 SAT ON RA 98%. VS NORMAL , BP 150/100, HR 65, RR 20. NO SIGN OF DISTRESS NOTED. PT LYING ON HIS BED. PT ADMITS TO HAVE HX OF METH USE FOR LONG PERIOD OT TIME, SMOKES WEEDS DAILY BASIS. PLACED CALL LIGHT WITHIN PT REACH. INFORMED HIM TO USE CALL LIGHT FOR ANY HELP. VERBALIZED UNDERSTANDING. OFFERED JUICE AND SALTINE CRACKERS TO PT. PT ON TELE MONITOR, IS STABLE AT THIS TIME. WILL CONTINUE TO MONITOR PT.
[2018-05-28] MEDS: MAGNESIUM SULFATE 1GM in DEXTROSE 5% 100 ML PREMIX IV SCH ×2 (14:03→15:34)
[2018-05-28] MEDS ORDERED: DEXTROSE 50% 50 ML SYR IVP PRN (14:15)
[2018-05-28] MEDS ORDERED: INSULIN LISPRO SLIDING SCALE 100 UNITS/ML VIAL SUBQ PRN (14:15)
[2018-05-28] MEDS ORDERED: FAMOTIDINE 20 MG TAB PO SCH (14:30)
--- NOTE | 2018-05-28 15:00 | NUR ---
CHECKED ON PT. LYING ON HIS BED. IVPB MAGNESIUM SULFATE INFUSING WELL. NO DISTRESS NOTED IN PT. ASKING FOR SOME CRACKERS AND JUICE. PLACED CALL LIGHT WITHIN PT REACH. INFORMED TO USE CALL LIGHT FOR ANY HELP. VERBALIZED UNDERSTANDING. OFFERED URINAL TO PT AT BEDSIDE. WILL CONTINUE TO MONITOR PT.
[2018-05-28 16:00] VITALS: BP 140/93
--- NOTE | 2018-05-28 17:00 | NUR ---
CHECKED ON PT. PT DIET MODIFIED TO CCHO 60 GM BY . INFORMED AND EDUCATED PT ON CCHO 60 GM DIET. PT BS 97. PT ASKING FOR SANDWICH.OFFERED CHICKEN SANDWICH AND SOME CRACKERS WITH ORANGE JUICE. PT HAS BEEN STABLE. HAS NORMAL VS . URINE SAMPLE HAS BEEN COLLECTED AND SENT TO LAB FOR UA. MRSA SWAB COLLECTED AND SENT TO LAB.CALL LIGHT WITHIN PT REACH. WILL CONTINUE TO MONITOR PT.
[2018-05-28] MEDS: BLOOD GLUCOSE MONITORING 1 DEV DEV FS SCH ×2 (17:20→21:34)
[2018-05-28] MEDS: CARVEDILOL 6.25 MG TAB PO SCH (17:21)
[2018-05-28] MEDS: SPIRONOLACTONE 25 MG TAB PO SCH (17:21)
--- NOTE | 2018-05-28 18:32 | NUR ---
CHECKED ON PT. LYING ON HIS BED. PT MEDS ADMINISTERED ORDERED , TOLERATED WELL. IVF INFUSING WELL, NS 20 ML/HR. CALL LIGHT WITHIN PT REACH. PT IS ON STRICT I&O. INFORMED PT TO CALL EMPTYING HIS URINAL TO TAKE NOTE OF HIS OUTPUT. VERBALIZED UNDERSTANDING. NO SIGN OF [id number] NOTED . WILL CONTINUE TO MONITOR PT.
[2018-05-28 18:53] LABS: APPEARANCE,URINE CLEAR (CLEAR); BLOOD, URINE NEGATIVE (NEGATIVE); COLOR,URINE STRAW (YELLOW); UGLUCOSE NEGATIVE (NEGATIVE)
[2018-05-28 18:54] LABS: BILIRUBIN,URINE NEGATIVE (NEGATIVE); LEUKOCYTE ESTERASE ,URINE NEGATIVE (NEGATIVE); NITRITE, URINE NEGATIVE (NEGATIVE)
--- NOTE | 2018-05-28 19:30 | NUR ---
ENDORSED PT TO PM NURSE FOR CONTINUITY OF CARE. PT IN STABLE CONDITION.
--- NOTE | 2018-05-28 19:35 | NUR ---
RECEIVED PATIENT AWAKE RESTING COMFORTABLY ON BED. PATIENT AAOX4, AMBULATORY. EXPLAINED PLAN OF CARE AND VERBALIZED UNDERSTANDING. BED IN LOW LOCKED POSITION. CALL LIGHT WITHIN REACH. WILL CONTINUE TO MONITOR.
[2018-05-28 20:00] VITALS: BP 122/71
--- NOTE | 2018-05-28 21:00 | NUR ---
CHECKED PATIENT RESTING ON BED. DENIES ANY PAIN AT THIS TIME. ALL NEEDS ATTENDED. NO S/S OF DISTRESS NOTED. CALL LIGHT WITHIN REACH.
[2018-05-28 22:35] LABS: BARBITURATE, URINE NEG. ng/ml (NEG <=200); BENZODIAZEPINE, URINE NEG. ng/mL (NEG <=200); CANNABINOID, URINE POS. ng/mL (NEG <=50); COCAINE, URINE NEG. ng/mL (NEG <=300); OPIATE, URINE NEG. ng/mL (NEG <=2000); PHENCYCLIDINE SCREEN,URINE NEG. ng/mL (NEG <=25)
[2018-05-29] VITALS: BP 127/82
--- NOTE | 2018-05-29 | NUR ---
CHECKED PATIENT ASLEEP. V/S TAKEN AND RECORDED. NO S/S OF DISTRESS NOTED. CALL LIGHT WITHIN REACH. WILL CONTINUE TO MONITOR.
--- NOTE | 2018-05-29 02:00 | NUR ---
CHECKED PATIENT ASLEEP COMFORTABLY. BED IN LOW POSITION. DENIES PAIN. NO S/S OF DISTRESS NOTED. CALL LIGHT WITHIN REACH.
[2018-05-29 05:48] VITALS: BP 142/88
[2018-05-29] MEDS: BLOOD GLUCOSE MONITORING 1 DEV DEV FS SCH ×4 (06:13→21:04)
--- NOTE | 2018-05-29 07:15 | NUR ---
GAVE REPORT TO AM SHIFT RN AT BEDSIDE FOR CONTINUITY OF CARE. PATIENT IN STABLE CONDITION.
--- NOTE | 2018-05-29 07:16 | NUR ---
RECEIVED REPORT FROM NIGHT NURSE. PT SITTING IN BED EATING BREAKFAST. PT DENIES PAIN AT THIS TIME. RESPIRATIONS EVEN AND UNLABORED. SKIN INTACT. REVIEWED CARE PLAN WITH PT, PT VERBALIZED UNDERSTANDING. IV SITE PATENT, INTACT, INFUSING IVF ORDERED. SAFETY MEASURES IN PLACE. CALL LIGHT AT BEDSIDE. WILL CONTINUE TO MONITOR.
[2018-05-29 07:18] LABS: BASOPHILS # (AUTO) 0.1 K/uL (0.00-0.22); BASOPHILS % (AUTO) 1.1 % (0.0-2.0); EOSINOPHILS # (AUTO) 0.3 K/uL (0-0.4); EOSINOPHILS % (AUTO) 3.5 % (0.0-4.0); HEMATOCRIT 43.4 % (36-52); HEMOGLOBIN 14.3 g/dL (12.0-18.0); LYMPHOCYTES # (AUTO) 1.3 K/uL (2.0-11.5); LYMPHOCYTES % (AUTO) 16.6 % (20.5-51.1); MEAN CORPUSCULAR HEMOGLOBIN 29 pg (27-31); MEAN CORPUSCULAR HGB CONC 33 g/dL (33-37); MONOCYTES # (AUTO) 0.6 K/uL (0.8-1.0); MONOCYTES % (AUTO) 7.3 % (1.7-9.3); NEUTROPHILS # (AUTO) 5.7 K/uL (1.8-7.7); NEUTROPHILS % (AUTO) 71.5 % (42.2-75.2); PLATELET COUNT (AUTO) 140 K/uL (140-450); RED BLOOD CELL COUNT(AUTO) 4.99 MIL/uL (4.20-6.10); RED CELL DISTRIBUTION WIDTH 14.7 % (11.6-13.7)
[2018-05-29 07:52] LABS: ANION GAP 11.1 (8-16); CREATININE 1.3 mg/dL (0.7-1.3); POTASSIUM 4.1 mmol/L (3.5-5.1)
[2018-05-29 07:59] LABS: CHOL/HDL RATIO 4.5 (1-4.5); MAGNESIUM 2.3 mg/dL (1.8-2.4)
[2018-05-29 08:00] VITALS: BP 133/69
[2018-05-29] MEDS: ASPIRIN 81 MG TAB.CHEW PO SCH (08:32)
[2018-05-29] MEDS: MULTIVITAMIN 1 TAB PO SCH (08:33)
[2018-05-29] MEDS: LISINOPRIL 20 MG TAB PO SCH (08:33)
[2018-05-29] MEDS: FAMOTIDINE 20 MG TAB PO SCH (08:33)
[2018-05-29] MEDS: CARVEDILOL 6.25 MG TAB PO SCH ×2 (08:34→17:17)
[2018-05-29] MEDS: SPIRONOLACTONE 25 MG TAB PO SCH ×2 (08:34→17:17)
[2018-05-29] MEDS: FUROSEMIDE 20 MG TAB PO SCH (08:34)
--- NOTE | 2018-05-29 08:42 | NUR ---
PATIENT HAS BEEN SCREENED AND CATEGORIZED MODERATE NUTRITION RISK. PATIENT WILL BE SEEN WITHIN 3-5 DAYS OF ADMISSION. 05/30/18 06/01/[address]
[2018-05-29] MEDS: RIVAROXABAN 10 MG TAB PO SCH (08:43)
[2018-05-29] MEDS ORDERED: THIAMINE 100 MG TAB PO SCH (09:00)
[2018-05-29] MEDS ORDERED: ATORVASTATIN 20 MG TAB PO SCH ×2 (09:00→21:00)
[2018-05-29] MEDS ORDERED: FOLIC ACID 1 MG TAB PO SCH (09:00)
[2018-05-29] MEDS: NACL 0.9% 1,000 ML IV SCH (10:04)
[2018-05-29] MEDS ORDERED: ACETAMINOPHEN/CODEINE 300/30MG 1 TAB PO PRN (10:15)
[2018-05-29] MEDS ORDERED: IBUPROFEN 600 MG TAB PO PRN (10:15)
--- NOTE | 2018-05-29 10:51 | NUR ---
PATIENT COMPLAINS OF CHEST PAIN, PRESSURE, AND A HEADACHE. TYLENOL #3 GIVEN PER MD ORDERS. SAFETY MEASURES IN PLACE, CALL LIGHT WITHIN REACH. WILL CONTINUE TO MONITOR .
[2018-05-29 12:00] VITALS: BP 122/78
--- NOTE | 2018-05-29 13:00 | NUR ---
PATIENT SITTING IN BED PLAYING ON HIS PHONE. NO DISTRESS NOTED. DENIES ANY PAIN. CONDITION UNCHANGED. WILL CONTINUE TO MONITOR.
--- NOTE | 2018-05-29 15:30 | NUR ---
PATIENT SITTING IN BED ON HIS PHONE. CONDITION UNCHANGED. WILL CONTINUE TO MONITOR.
[2018-05-29 16:00] VITALS: BP 115/75
--- NOTE | 2018-05-29 17:18 | NUR ---
PATIENT LYING DOWN IN BED ON HIS PHONE. NO DISTRESS NOTED. DENIES ANY PAIN. SCHEDULED MEDICATIONS DUE GIVEN. WILL CONTINUE TO MONITOR.
--- NOTE | 2018-05-29 19:27 | NUR ---
GAVE REPORT TO HOROLOGIST NURSE FOR CONTINUITY OF CARE. PATIENT IN STABLE CONDITION.
--- NOTE | 2018-05-29 19:28 | NUR ---
RECEIVED PT AWAKE ON BED WATCHING A MOVIE ON HIS CELLPHONE, VITAL SIGNS STABLE, DENIES PAIN, IVF INFUSING WELL, PLAN OF CARE DISCUSSED, SAFETY MEASURES IN PLACE, CALL LIGHT WITHIN REACH.
[2018-05-29 20:00] VITALS: BP 121/73
--- NOTE | 2018-05-29 20:30 | NUR ---
BLOOD SUGAR CHECKED WITH 101 RESULT, SNACK PROVIDED, ALL NEEDS ATTENDED.
[2018-05-30] VITALS: BP 105/67
--- NOTE | 2018-05-30 | NUR ---
PT SLEEPING, EASILY AROUSABLE, VITAL SIGNS STABLE, DENIES PAIN, IVF INFUSING WELL, CONTINUE TO MONITOR CLOSELY.
[2018-05-30 04:00] VITALS: BP 101/65
--- NOTE | 2018-05-30 05:16 | NUR ---
PT WANTS TO BE DISCONNECTED TO THE IVF FOR NOW, RISK AND BENEFITS EXPLAINED, WILL RESUME LATER, PT DENIES PAIN, MONITORED CLOSELY.
--- NOTE | 2018-05-30 06:05 | NUR ---
PT AWAKE, DENIES PAIN, BLOOD SUGAR CHECKED WITH 93 RESULT, MONITORED CLOSELY.
--- NOTE | 2018-05-30 06:42 | NUR ---
OFFERED TO PUT BACK ON IVF BUT PT STATED "NO, NOT RIGHT NOW", WILL ENDORSE TO NEXT SHIFT.
[2018-05-30 06:57] LABS: HEMATOCRIT 44.6 % (36-52); HEMOGLOBIN 14.4 g/dL (12.0-18.0); MEAN CORPUSCULAR HEMOGLOBIN 29 pg (27-31); MEAN CORPUSCULAR HGB CONC 32 g/dL (33-37); PLATELET COUNT (AUTO) 179 K/uL (140-450); RED BLOOD CELL COUNT(AUTO) 5.06 MIL/uL (4.20-6.10); RED CELL DISTRIBUTION WIDTH 14.2 % (11.6-13.7); WHITE BLOOD COUNT (AUTO) 8.2 K/uL (4.8-10.8)
[2018-05-30] MEDS: BLOOD GLUCOSE MONITORING 1 DEV DEV FS SCH (06:57)
[2018-05-30 06:58] LABS: BASOPHILS # (AUTO) 0.1 K/uL (0.00-0.22); BASOPHILS % (AUTO) 0.8 % (0.0-2.0); EOSINOPHILS # (AUTO) 0.3 K/uL (0-0.4); EOSINOPHILS % (AUTO) 3.8 % (0.0-4.0); LYMPHOCYTES # (AUTO) 1.6 K/uL (2.0-11.5); LYMPHOCYTES % (AUTO) 19.2 % (20.5-51.1); MONOCYTES # (AUTO) 0.7 K/uL (0.8-1.0); MONOCYTES % (AUTO) 8.7 % (1.7-9.3); NEUTROPHILS # (AUTO) 5.5 K/uL (1.8-7.7); NEUTROPHILS % (AUTO) 67.5 % (42.2-75.2)
[2018-05-30 07:21] LABS: CREATININE 1.4 mg/dL (0.7-1.3)
--- NOTE | 2018-05-30 07:35 | NUR ---
PT AWAKE, NO DISTRESS NOTED, BEDSIDE REPORT GIVEN TO MICHAEL MONTAGUE FOR CONTINUITY OF CARE.
--- NOTE | 2018-05-30 07:36 | NUR ---
RECEIVED REPORT FROM NIGHT NURSE. PT LYING IN BED. NO DISTRESS NOTED. RESPIRATIONS EVEN AND UNLABORED. SKIN INTACT. IV SITE INTACT, PATENT. REVIEWED CARE PLAN, PT VERBALIZED UNDERSTANDING OF CARE PLAN. CALL LIGHT AT BEDSIDE. WILL CONTINUE TO MONITOR.
[2018-05-30 08:00] VITALS: BP 120/72
[2018-05-30] MEDS: CARVEDILOL 6.25 MG TAB PO SCH (09:02)
[2018-05-30] MEDS: LISINOPRIL 20 MG TAB PO SCH (09:02)
[2018-05-30] MEDS: FAMOTIDINE 20 MG TAB PO SCH (09:02)
[2018-05-30] MEDS: RIVAROXABAN 10 MG TAB PO SCH (09:02)
[2018-05-30] MEDS: ASPIRIN 81 MG TAB.CHEW PO SCH (09:02)
[2018-05-30] MEDS: MULTIVITAMIN 1 TAB PO SCH (09:03)
[2018-05-30] MEDS: SPIRONOLACTONE 25 MG TAB PO SCH (09:03)
[2018-05-30] MEDS: FUROSEMIDE 20 MG TAB PO SCH (09:04)
--- NOTE | 2018-05-30 09:40 | NUR ---
PATIENT SITTING IN BED COMFORTABLY. NO DISTRESS NOTED. DENIES ANY PAIN. SCHEDULED MEDICATIONS DUE GIVEN. ESCORTED PATIENT TO TAKE A SHOWER. ABLE TO AMBULATE INDEPENDENTLY. WILL CONTINUE TO MONITOR.
--- NOTE | 2018-05-30 10:30 | NUR ---
PATIENT BACK TO BED FROM SHOWER. NO DISTRESS NOTED. DISCHARGE INSTRUCTIONS PROVIDED TO PATIENT IN PREFERRED LANGUAGE OF ROMANIAN, FOLLOW-UP VISITS WITH PCP AND TUBE TEST TECHNICIAN, MEDICATION REGIMEN AND SIDE EFFECTS, AND DIET REGIMEN. ANSWERED ALL OF PATIENT'S QUESTIONS REGARDING DISCHARGE. PATIENT VERBALIZED COMPLETE UNDERSTANDING. IV SITE REMOVED WITH MINIMAL BLOOD AND LUMEN COMPLETELY INTACT. ID BANDS REMOVED.. AWAITING FOR PATIENT TO GET DRESSED AND THEN READY TO GO HOME VIA PUBLIC TRANSPORT. WILL CONTINUE TO MONITOR.
--- NOTE | 2018-05-30 10:55 | NUR ---
ALL BELONGINGS WITH PATIENT. PATIENT ALL DRESSED UP AND READY TO GO HOME. ESCORTED PATIENT DOWN TO LOBBY VIA STEADY AMBULATION. PATIENT DISCHARGED AT THIS TIME IN STABLE CONDITION.
[2018-05-30] MEDS ORDERED: ATORVASTATIN 20 MG TAB PO SCH (21:00)
== END 2018-05-30 10:55 | disposition home or self-care (01) | DRG 203 ==
LOC: MED 07:49 → MTU 10:11
PROVIDERS: ADMIT General Practice; ATTEND General Practice
DX: M94.0 Chondrocostal junction syndrome [Tietze] (principal); N17.0 Acute kidney failure with tubular necrosis; I50.43 Acute on chronic combined systolic (congestive) and diastolic (congestive) heart failure; I42.0 Dilated cardiomyopathy; E11.65 Type 2 diabetes mellitus with hyperglycemia; E83.42 Hypomagnesemia; I48.91 Unspecified atrial fibrillation; Q60.0 Renal agenesis, unilateral; K21.9 Gastro-esophageal reflux disease without esophagitis; J44.9 Chronic obstructive pulmonary disease, unspecified; F17.210 Nicotine dependence, cigarettes, uncomplicated; I11.0 Hypertensive heart disease with heart failure; F12.90 Cannabis use, unspecified, uncomplicated; E66.9 Obesity, unspecified; Z86.73 Personal history of transient ischemic attack (TIA), and cerebral infarction without residual deficits; Z88.6 Allergy status to analgesic agent; Z79.82 Long term (current) use of aspirin; Z79.899 Other long term (current) drug therapy; Z95.810 Presence of automatic (implantable) cardiac defibrillator; Z59.0 Homelessness; Z22.322 Carrier or suspected carrier of Methicillin resistant Staphylococcus aureus; Z80.9 Family history of malignant neoplasm, unspecified; Z68.35 Body mass index [BMI] 35.0-35.9, adult
CPT/HCPCS: 36415; 71045; 80048; 80053; 80305; 81003; 82140; 82150; 82948; 83690; 83735; 83880; 84100; 84134; 84436; 84443; 84479; 84484; 85025; 85610; 85730; 87081; 93005; 99291; G0482; J1815; J7030; Q0092; Q0163

== ENCOUNTER 2018-08-04 09:31 | Inpatient (IN) | payer MEDICAID ==
[~2018-08-04] VITALS: Ht 188 cm; Wt 127.0 kg
--- NOTE | 2018-08-04 09:45 | NUR ---
PT TO BED 7 VIA WHEELCHAIR
[2018-08-04 09:49] VITALS: BP 123/78
--- NOTE | 2018-08-04 09:49 | NUR ---
Patient being evaluated by physician at bedside.
--- NOTE | 2018-08-04 09:50 | NUR ---
pt ambulates to bed 7 with c/o midsternal chest pain unprovoked, radiating to lue x today unrelieved with cough, congestion and pruritus. 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
[2018-08-04] MEDS ORDERED: diphenhydrAMINE 50 MG/ML VIAL IVP ONE (10:05)
[2018-08-04] MEDS ORDERED: hydrOXYzine HCL 25 MG TAB PO ONE (10:05)
[2018-08-04 10:37] LABS: EOSINOPHILS # (AUTO) 0.2 K/uL (0-0.4); EOSINOPHILS % (AUTO) 3.4 % (0.0-4.0); HEMATOCRIT 39.4 % (36-52); HEMOGLOBIN 12.7 g/dL (12.0-18.0); LYMPHOCYTES % (AUTO) 20.8 % (20.5-51.1); MEAN CORPUSCULAR HEMOGLOBIN 28 pg (27-31); MEAN CORPUSCULAR HGB CONC 32 g/dL (33-37); MEAN CORPUSCULAR VOLUME 87.4 fL (80-94); MONOCYTES # (AUTO) 0.5 K/uL (0.8-1.0); MONOCYTES % (AUTO) 10.3 % (1.7-9.3); NEUTROPHILS # (AUTO) 3.2 K/uL (1.8-7.7); NEUTROPHILS % (AUTO) 64.5 % (42.2-75.2); PLATELET COUNT (AUTO) 144 K/uL (140-450); RED BLOOD CELL COUNT(AUTO) 4.51 MIL/uL (4.20-6.10); RED CELL DISTRIBUTION WIDTH 14.3 % (11.6-13.7); WHITE BLOOD COUNT (AUTO) 4.9 K/uL (4.8-10.8)
--- NOTE | 2018-08-04 10:41 | NUR ---
XRAY AT BEDSIDE
[2018-08-04 10:47] LABS: ACETONE, SERUM NEGATIVE (NEGATIVE)
[2018-08-04 10:51] LABS: CARBON DIOXIDE 24.4 mmol/L (21-32); CREATININE 1.4 mg/dL (0.7-1.3); POTASSIUM 4.4 mmol/L (3.5-5.1)
[2018-08-04 10:52] LABS: BARBITURATE, URINE NEG ng/ml (NEG <=200); BENZODIAZEPINE, URINE NEG ng/mL (NEG <=200); CANNABINOID, URINE POS ng/mL (NEG <=50); COCAINE, URINE NEG ng/mL (NEG <=300); OPIATE, URINE NEG ng/mL (NEG <=2000); PHENCYCLIDINE SCREEN,URINE NEG ng/mL (NEG <=25)
[2018-08-04 10:53] LABS: ALBUMIN 3.6 g/dL (3.4-5.0); TOTAL BILIRUBIN 0.3 mg/dL (0.0-1.0)
[2018-08-04] MEDS ORDERED: INSULIN LISPRO SLIDING SCALE 100 UNITS/ML VIAL SUBQ PRN (11:00)
[2018-08-04] MEDS ORDERED: ACETAMINOPHEN 325 MG TAB PO PRN (11:00)
[2018-08-04] MEDS ORDERED: DEXTROSE 50% 50 ML SYR IVP PRN (11:00)
[2018-08-04] MEDS ORDERED: DOCUSATE SODIUM 100 MG GELCAP PO PRN (11:00)
[2018-08-04] MEDS ORDERED: ZOLPIDEM 5 MG TAB PO PRN (11:00)
[2018-08-04] MEDS ORDERED: LORazepam 2 MG/ML VIAL IM/IVP PRN (11:00)
[2018-08-04] MEDS: NACL 0.9% 1,000 ML IV SCH (11:00)
[2018-08-04] MEDS ORDERED: ONDANSETRON 4 MG/2 ML VIAL IM/IVP PRN (11:00)
[2018-08-04] MEDS ORDERED: HYDROcodone/APAP 5/325 MG 1 TAB TAB PO PRN (11:00)
[2018-08-04 11:02] LABS: MAGNESIUM 1.9 mg/dL (1.8-2.4)
[2018-08-04 11:06] LABS: PROTHROMBIN TIME 9.9 secs (10.8-13.4)
[2018-08-04 11:14] LABS: APPEARANCE,URINE CLEAR (CLEAR); BILIRUBIN,URINE NEGATIVE (NEGATIVE); BLOOD, URINE NEGATIVE (NEGATIVE); COLOR,URINE YELLOW (YELLOW); LEUKOCYTE ESTERASE ,URINE NEGATIVE (NEGATIVE); NITRITE, URINE NEGATIVE (NEGATIVE); PH,URINE 5.5 (5.0-9.0); UGLUCOSE NEGATIVE (NEGATIVE)
--- NOTE | 2018-08-04 11:41 | NUR ---
PT TAKEN TO TELE FLOOR BY MICHAEL SHIPMAN AND KELIN ZHAO
[2018-08-04 11:50] VITALS: BP 139/75
--- NOTE | 2018-08-04 11:50 | NUR ---
RECEIVED PT FROM ER NURSE, VIA MINDY, PT IS AWAKE AND ALERT AND AMBULATED TO THE BED, MADE COMFORTABLE, V/S TAKEN AND IS WITHIN NORMAL LIMIT, PT HAS AN IV LINE ON THE LEFT AC G. 24 ON SALINE LOCK, PT VERBALIZED A PAIN RATE OF 9/10, NO SIGN OF DISTRESS NOTED AND WILL CONTINUE TO MONITOR PT.
--- NOTE | 2018-08-04 11:52 | NUR ---
Patient will be admitted to care of Dr Leonard. Admited to tele room 104b. Belongings list completed. Report to MICHAEL Ramirez.
--- NOTE | 2018-08-04 11:55 | NUR ---
MRSA SWAB DONE TO PT AND SAMPLE SENT TO LAB.
--- NOTE | 2018-08-04 12:00 | NUR ---
PT WAS STARTED ON IVF OF NS AT 60ML/HR.
[2018-08-04 12:06] LABS: FREE T4 (FREE THYROXINE) 0.87 ng/dL (0.76-1.46); PHOSPHORUS 3.1 mg/dL (2.5-4.9); THYROID STIMULATING HORMONE 1.36 uIU/mL (0.34-3.74)
[2018-08-04] MEDS: BLOOD GLUCOSE MONITORING 1 DEV DEV FS SCH ×3 (12:09→20:56)
--- NOTE | 2018-08-04 12:24 | NUR ---
PT VERBALIZED A PAIN RATE OF 8/10 AND NORCO WAS GIVEN AND PT TOLERATED IT, V/S TAKEN PRIOR TO MEDICATION ADMINISTRATION AND IS WITHIN NORMAL LIMIT. WILL RE-ASSESS PAIN IN AN HOUR.
[2018-08-04] MEDS ORDERED: NITROGLYCERIN 0.4 MG TAB SL PRN (12:40)
[2018-08-04] MEDS ORDERED: CLOP75TA26 PO (13:49)
--- NOTE | 2018-08-04 13:57 | NUR ---
PT IS AWAKE AND ORAL MEDICATION WAS GIVEN, PT TOLERATED IT. NO SIGN OF DISTRESS NOTED AND WILL CONTINUE TO MONITOR PT.
[2018-08-04] MEDS ORDERED: CLOPIDOGREL 75 MG TAB PO SCH (14:00)
[2018-08-04] MEDS ORDERED: MECLIZINE 25 MG TAB PO PRN (14:25)
[2018-08-04 15:37] VITALS: BP 139/75
[2018-08-04 16:00] VITALS: BP 120/80
--- NOTE | 2018-08-04 17:40 | NUR ---
DR. HERRING WAS INFORMED OF PT' HAVING MD ADDY ACKNOWLEDGED AND SAID THAT HE WILL PLACE AN ORDER FOR O2.
[2018-08-04] MEDS: CARVEDILOL 6.25 MG TAB PO SCH (17:53)
--- NOTE | 2018-08-04 17:54 | NUR ---
PT IS AWAKE AND O2 AT 2L WAS GIVEN VIA NC, BLOOD PRESSURE WAS CHECKED AND RESULT IS 120/80, PULSE IS 71 AND O2 SATURATION IS 98%, COREG WAS GIVEN TO PT AND PT TOLERATED IT. WILL MONITOR PT.
--- NOTE | 2018-08-04 19:40 | NUR ---
ENDORSED PT TO PRODUCT DEVELOPMENT SPECIALIST NURSE, SAPNA, FOR CONTINUITY OF CARE, PT IS STABLE AT THIS TIME.
--- NOTE | 2018-08-04 19:40 | NUR ---
RECEIVED REPORT FROM DAY SHIFT NURSE CHELY, AT PT BEDSIDE. PT IN IN STABLE CONDITION. PT IS AA0X4. PT IS ON RA WITH RESPIRATIONS EVEN AND UNLABORED. IV ACCESS IN L AC 24G WITH IVF RUNNING PER MD ORDERS. IV IS PATENT AND INTACT. SKIN IS INTACT. PT HAS NO C/O PAIN AT THIS TIME. BED IS LOCKED, LOW POSITION WITH SIDE RAILS UP X2. BOARD UPDATED. CALL LIGHT IS WITHIN REACH. WILL CONTINUE TO MONITOR.
[2018-08-04 20:00] VITALS: BP 127/77
[2018-08-04] MEDS: FAMOTIDINE 20 MG TAB PO SCH (20:57)
--- NOTE | 2018-08-04 20:57 | NUR ---
ADMINISTERED SCHEDULED MEDICATION. BS CHECKED, 95, NO COVERAGE NEEDED PER MD ORDERS. PT IS REFUSING IVF AT THIS TIME PT STATES " IT IS BOTHERING HIM AND HE WANTS TO SLEEP." NO S/SX OF DISTRESS. WILL CONTINUE TO MONITOR.
[2018-08-04] MEDS ORDERED: METOPROLOL 25 MG TAB PO SCH (21:00)
--- NOTE | 2018-08-04 23:00 | NUR ---
PT ASLEEP IN BED. NO SIGNS OR SYMPTOMS OF DISTRESS. WILL CONTINUE TO MONITOR.
[2018-08-05] VITALS: BP 115/67
--- NOTE | 2018-08-05 01:21 | NUR ---
NO CHANGE IN CONDITION. WILL CONTINUE TO MONITOR PT.
--- NOTE | 2018-08-05 03:30 | NUR ---
PT ASLEEP IN BED. NO SIGNS OR SYMPTOMS OF DISTRESS. WILL CONTINUE TO MONITOR.
[2018-08-05 04:00] VITALS: BP 126/68
[2018-08-05] MEDS: BLOOD GLUCOSE MONITORING 1 DEV DEV FS SCH ×4 (06:03→20:26)
--- NOTE | 2018-08-05 06:04 | NUR ---
BS CHECKED, 119. NO COVERAGE NEEDED PER MD ORDERS.
--- NOTE | 2018-08-05 06:46 | NUR ---
SUPPOSE TO DRAW BLOOD AT 03 AM FOR 3RD TROPONIN.DIDN'T DO THAT.NURSE SAPNA CALLED THEM AT 0500 AM BUT STILL UNTILL NOW NO RESULT FOR TROPONIN.
[2018-08-05 06:52] LABS: BASOPHILS # (AUTO) 0.1 K/uL (0.00-0.22); BASOPHILS % (AUTO) 0.8 % (0.0-2.0); EOSINOPHILS # (AUTO) 0.2 K/uL (0-0.4); EOSINOPHILS % (AUTO) 3.7 % (0.0-4.0); HEMATOCRIT 38.4 % (36-52); HEMOGLOBIN 12.3 g/dL (12.0-18.0); LYMPHOCYTES # (AUTO) 1.2 K/uL (2.0-11.5); LYMPHOCYTES % (AUTO) 17.9 % (20.5-51.1); MEAN CORPUSCULAR HEMOGLOBIN 28 pg (27-31); MEAN CORPUSCULAR HGB CONC 32 g/dL (33-37); MONOCYTES # (AUTO) 0.5 K/uL (0.8-1.0); MONOCYTES % (AUTO) 7.7 % (1.7-9.3); NEUTROPHILS # (AUTO) 4.7 K/uL (1.8-7.7); NEUTROPHILS % (AUTO) 69.9 % (42.2-75.2); PLATELET COUNT (AUTO) 136 K/uL (140-450); RED BLOOD CELL COUNT(AUTO) 4.36 MIL/uL (4.20-6.10); RED CELL DISTRIBUTION WIDTH 14.3 % (11.6-13.7); WHITE BLOOD COUNT (AUTO) 6.7 K/uL (4.8-10.8)
--- NOTE | 2018-08-05 07:07 | NUR ---
ENDORSED PT TO DAY SHIFT NURSE FOR CONTINUITY OF CARE. PT IN STABLE CONDITION.
--- NOTE | 2018-08-05 07:10 | NUR ---
RECEIVED PT FROM HOME ADMINISTRATOR NURSE, SAPNA, PT IS AWAKE AND LYING ON THE BED, WITH SIDE RAILS UP AND CALL LIGHT WITHIN REACH, PT HAS A PERIPHERAL LINE ON THE LEFT AC G. 24, WITH NS AT 60 ML/HR, INFUSING, PT DENIES PAIN AND NO SIGN OF DISTRESS NOTED. WILL CONTINUE TO MONITOR PT.
[2018-08-05] MEDS ORDERED: ALBUTEROL SULFATE/IPRATROPIU 3 ML SOL IH PRN (07:35)
[2018-08-05 08:00] VITALS: BP 133/87
[2018-08-05 08:08] LABS: CHOL/HDL RATIO 3.8 (1-4.5)
[2018-08-05 08:13] LABS: ANION GAP 13.1 (8-16); CARBON DIOXIDE 21.9 mmol/L (21-32); CREATININE 1.1 mg/dL (0.7-1.3)
[2018-08-05 08:15] LABS: MAGNESIUM 1.9 mg/dL (1.8-2.4); PHOSPHORUS 2.7 mg/dL (2.5-4.9)
[2018-08-05] MEDS: ASPIRIN 81 MG TAB.CHEW PO SCH (08:44)
[2018-08-05] MEDS: CARVEDILOL 6.25 MG TAB PO SCH ×2 (08:44→17:41)
[2018-08-05] MEDS: SPIRONOLACTONE 25 MG TAB PO SCH (08:45)
[2018-08-05] MEDS: FAMOTIDINE 20 MG TAB PO SCH ×2 (08:45→20:25)
[2018-08-05] MEDS: LISINOPRIL 10 MG TAB PO SCH (08:45)
[2018-08-05] MEDS: FUROSEMIDE 40 MG TAB PO SCH (08:46)
[2018-08-05] MEDS: ATORVASTATIN 80 MG TAB PO SCH (08:46)
[2018-08-05] MEDS: CLOPIDOGREL 75 MG TAB PO SCH (08:46)
--- NOTE | 2018-08-05 08:54 | NUR ---
CALLED DR. WESLEY AND INFORMED ABOUT THE PT'S PLAVIX MEDICATION AND PLATELET OF PT IS 126, SAID ITS OK TO GIVE THE PLAVIX TO PT.
--- NOTE | 2018-08-05 08:55 | NUR ---
OK IS AWAKE AND BP WAS TAKEN, AND RESULT IS 133/71, PULSE IS 68, ORAL MEDICATIONS GIVEN TO PT AND TOLERATED IT. NO SIGN OF DISTRESS NOTED AND WILL CONTINUE TO MONITOR PT.
[2018-08-05] MEDS ORDERED: NON-FORMULARY ITEM (Spironolactone (Aldactone) 25 MG) PO SCH (09:00)
[2018-08-05] MEDS ORDERED: ATORVASTATIN 20 MG TAB PO SCH (09:00)
[2018-08-05] MEDS ORDERED: NON-FORMULARY ITEM (Atorvastatin Calcium 40 MG) PO SCH (09:00)
[2018-08-05] MEDS ORDERED: LISINOPRIL 5 MG TAB PO SCH (09:00)
[2018-08-05] MEDS ORDERED: NON-FORMULARY ITEM (Aspirin 81 MG) PO SCH (09:00)
[2018-08-05] MEDS ORDERED: LISINOPRIL 10 MG PO SCH (09:00)
[2018-08-05] MEDS: NACL 0.9% 1,000 ML IV SCH (11:00)
[2018-08-05] MEDS: MORPHINE SULFATE 4 MG/ML SYR IVP PRN ×2 (11:58→18:50)
--- NOTE | 2018-08-05 11:58 | NUR ---
PT VERBALIZED A PAIN RATE OF 9/10 AND WAS MEDICATED WITH MORPHINE, WILL MONITOR PT.
[2018-08-05 12:00] VITALS: BP 129/87
--- NOTE | 2018-08-05 12:06 | NUR ---
PT IS AWAKE AND LYING ON THE BED V/S TAKEN AND IS WITHIN NORMAL LIMIT, BLOOD GLUCOSE CHECK DONE AND RESULT IS 80, NO INSULIN COVERAGE NEEDED. PAIN MEDIATION WAS GIVEN VIA IV PUSH FOR A PAIN RATE OF 9/10. WILL CONTINUE TO MONITOR PT.
[2018-08-05] MEDS: ALBUTEROL SULFATE/IPRATROPIU 3 ML SOL IH SCH ×2 (13:11→19:42)
--- NOTE | 2018-08-05 13:50 | NUR ---
PT IS AWAKE AND LYING ON THE BED, NO SIGN OF DISTRESS NOTED. WILL MONITOR
[2018-08-05 16:00] VITALS: BP 130/76
--- NOTE | 2018-08-05 17:34 | NUR ---
PT IS AWAKE AND LYING ON THE BED, WATCHING TV, BLOOD GLUCOSE CHECK DONE AND RESULT IS 90, NO INSULIN COVERAGE NEEDED, INSIGHTS MANAGER WAS REMOVED AND PT WAS TRANSFERRED TO [facility] NOW. NO SIGN OF DISTRESS NOTED AND WILL CONTINUE TO MONITOR PT.
--- NOTE | 2018-08-05 17:45 | NUR ---
PT IS HAVING HIS DINNER NOW, V/S TAKEN AND IS WITHIN NORMAL LIMIT, ORAL MEDICATION GIVEN AND PT TOLERATED IT. WILL CONTINUE TO MONITOR PT.
--- NOTE | 2018-08-05 19:40 | NUR ---
ENDORSED PT TO NOISE TESTER NURSERENETTA FOR CONTINUITY OF CARE.
[2018-08-05 20:00] VITALS: BP 113/65
--- NOTE | 2018-08-05 20:00 | NUR ---
PT TOOK MEDS WELL. PT REQUESTED FOOD. GAVE PT SANDWICH, CRACKERS, JELLO AND OJ. WILL CONTINUE TO MONITOR.
--- NOTE | 2018-08-05 20:29 | NUR ---
RECEIVED REPORT FROM [facility] NURSE AT BEDSIDE FOR CONTINUITY OF CARE. PT AAOX4. PT IV NOTED LAC 24G NS AT 20ML/HR. NO SOB NO S/S OF DISTRESS ON RA. PT AMBULATORY. BED LOWERED CALL LIGHT WITHIN REACH WILL CONTINUE TO MONITOR. Addendum: 08/06/18 at 0108 by Elina Norwood RN REPORT RECEIVED AT 194
[2018-08-06] VITALS: BP 115/67
--- NOTE | 2018-08-06 01:02 | NUR ---
PT REQUESTING MORPHINE FOR CP. LET PT KNOW THAT MORPHINE IS NO LONGER AVAILABLE. ADVISE PT THAT I CAN GIVE NORCO PT REFUSED. ALSO LET PT KNOW IF HE WANTED NITRO FOR CP, HE REFUSED. WILL CONTINUE TO MONITOR.
[2018-08-06] MEDS: BLOOD GLUCOSE MONITORING 1 DEV DEV FS SCH (05:10)
--- NOTE | 2018-08-06 07:10 | NUR ---
ENDORSED REPORT TO DAYSHIFT NURSE AT BEDSIDE FOR CONTINUITY OF CARE.
[2018-08-06] MEDS: ALBUTEROL SULFATE/IPRATROPIU 3 ML SOL IH SCH (07:30)
--- NOTE | 2018-08-06 07:30 | NUR ---
PATIENT WAS AWAKE, ALERT. RESPIRATION EVEN, UNLABOR ON ROOM AIR. SKIN DRY AND WARM. IV PATENT AND INTACT. PATIENT COMPLAINED OF CHEST PAIN, "SOME ONE IS SITTING ON MY CHEST" 04/23, RADIATE TO LEFT ARM, CONTINUOUSLY FOR A FEW DAYS. MD WAS AWARE. PATIENT DOES NOT APPEAR TO BE IN DISTRESS. VS IS STABLE. RT WAS AT BEDSIDE. PLAN OF CARE WAS DISCUSSED WITH PATIENT. BED AT LOW POSITION, SIDE RAILS UP. CALL LIGHT WITHIN REACH
[2018-08-06 08:00] VITALS: BP 122/80
[2018-08-06] MEDS: CARVEDILOL 6.25 MG TAB PO SCH (08:00)
[2018-08-06 08:36] LABS: MAGNESIUM 1.9 mg/dL (1.8-2.4); PHOSPHORUS 2.6 mg/dL (2.5-4.9)
--- NOTE | 2018-08-06 08:44 | NUR ---
PATIENT HAS BEEN SCREENED AND CATEGORIZED MODERATE NUTRITION RISK. PATIENT WILL BE SEEN WITHIN 3-5 DAYS OF ADMISSION. 08/06/18 08/08/[address]
[2018-08-06] MEDS: FAMOTIDINE 20 MG TAB PO SCH (08:46)
[2018-08-06] MEDS: ATORVASTATIN 80 MG TAB PO SCH (08:46)
[2018-08-06] MEDS: FUROSEMIDE 40 MG TAB PO SCH (08:47)
[2018-08-06] MEDS: SPIRONOLACTONE 25 MG TAB PO SCH (08:47)
[2018-08-06] MEDS: LISINOPRIL 10 MG TAB PO SCH (08:47)
[2018-08-06] MEDS: ASPIRIN 81 MG TAB.CHEW PO SCH (08:47)
[2018-08-06] MEDS: CLOPIDOGREL 75 MG TAB PO SCH (08:48)
--- NOTE | 2018-08-06 08:50 | NUR ---
PATIENT WAS AWAKE, ALERT, PLAYING WITH PHONE COMFORTABLY. NO DISTRESS NOTED AT THIS TIME. MEDS WERE GIVEN PER ORDER
[2018-08-06 09:03] LABS: ANION GAP 12.9 (8-16); CARBON DIOXIDE 24.2 mmol/L (21-32); CREATININE 1.4 mg/dL (0.7-1.3); POTASSIUM 4.1 mmol/L (3.5-5.1)
[2018-08-06] MEDS ORDERED: FURO40TA9 PO (09:03)
[2018-08-06] MEDS ORDERED: FAMO20TA13 PO (09:03)
[2018-08-06] MEDS ORDERED: LIP80 PO (09:03)
[2018-08-06] MEDS ORDERED: LISI10TA11 PO (09:03)
--- NOTE | 2018-08-06 10:55 | NUR ---
DISCHARGE INSTRUCTION AND PRESCRIPTIONS WERE GIVEN AND EXPLAINED TO PATIENT. PATIENT VERBALIZED UNDERSTANDING. IV WAS REMOVED, CATHETER INTACT, NO ACTIVE BLEEDING SEEN. PENITENTIARY RESOURCE AND ETOH RESOURCE WERE GIVEN TO PATIENT. PATIENT REFUSED FLU AND PNEUMONIA VACCINES. PATIENT ALSO REFUSED AM LAB PER [employer].
--- NOTE | 2018-08-06 11:09 | NUR ---
PATIENT WAS ESCORTED OUT BY STAFF, AMBULATORY WITH STEADY GAIT. ALL BELONGINGS WERE TAKEN WITH THE PATIENT. BUS PASS WAS GIVEN. THE KNIFE WAS GIVEN BACK TO THE PATIENT AT [facility]. PATIENT IS STABLE AT THIS TIME
== END 2018-08-06 11:05 | disposition home or self-care (01) | DRG 194 ==
LOC: MED 09:31 → MTU 11:00
PROVIDERS: ADMIT General Practice; ATTEND General Practice
DX: I11.0 Hypertensive heart disease with heart failure (principal); N17.0 Acute kidney failure with tubular necrosis; I50.43 Acute on chronic combined systolic (congestive) and diastolic (congestive) heart failure; I42.0 Dilated cardiomyopathy; E66.01 Morbid (severe) obesity due to excess calories; I48.91 Unspecified atrial fibrillation; M94.0 Chondrocostal junction syndrome [Tietze]; K21.9 Gastro-esophageal reflux disease without esophagitis; I25.10 Atherosclerotic heart disease of native coronary artery without angina pectoris; J44.9 Chronic obstructive pulmonary disease, unspecified; E11.9 Type 2 diabetes mellitus without complications; F12.90 Cannabis use, unspecified, uncomplicated; I44.7 Left bundle-branch block, unspecified; Z95.810 Presence of automatic (implantable) cardiac defibrillator; Z88.8 Allergy status to other drugs, medicaments and biological substances; Z79.82 Long term (current) use of aspirin; Z79.899 Other long term (current) drug therapy; Z86.73 Personal history of transient ischemic attack (TIA), and cerebral infarction without residual deficits; Z59.0 Homelessness; Z91.14 Patient's other noncompliance with medication regimen; Z22.322 Carrier or suspected carrier of Methicillin resistant Staphylococcus aureus; Z79.84 Long term (current) use of oral hypoglycemic drugs; Z68.35 Body mass index [BMI] 35.0-35.9, adult
CPT/HCPCS: 36415; 36600; 71045; 80048; 80053; 80305; 81003; 82009; 82140; 82150; 82803; 82948; 83036; 83605; 83690; 83735; 83880; 84100; 84134; 84439; 84443; 84484; 85025; 85379; 85610; 85730; 87081; 93005; 94640; G0482; J1200; J1815; J2270; J7030; J7620

== ENCOUNTER 2018-08-17 18:50 | Emergency (ER) | payer MEDICAID, OTHER ==
[~2018-08-17] VITALS: Ht 188 cm; Wt 122.5 kg
[~2018-08-17 18:50] MED LIST changes: -ATOR20TA40 PO; +CLOP75TA26 PO; +FAMO20TA13 PO; -FURO-572 PO; +FURO40TA9 PO; +LIP80 PO; -LISI-420 PO; +LISI10TA11 PO; -RIVA20TA PO
[2018-08-17 19:05] VITALS: BP 110/70
[2018-08-17 20:11] LABS: BASOPHILS % (AUTO) 0.4 % (0.0-2.0); EOSINOPHILS # (AUTO) 0.3 K/uL (0-0.4); EOSINOPHILS % (AUTO) 2.9 % (0.0-4.0); HEMATOCRIT 46.3 % (36-52); HEMOGLOBIN 15.6 g/dL (12.0-18.0); LYMPHOCYTES # (AUTO) 0.7 K/uL (2.0-11.5); LYMPHOCYTES % (AUTO) 7.9 % (20.5-51.1); MEAN CORPUSCULAR HEMOGLOBIN 29 pg (27-31); MEAN CORPUSCULAR HGB CONC 34 g/dL (33-37); MONOCYTES # (AUTO) 0.6 K/uL (0.8-1.0); MONOCYTES % (AUTO) 6.3 % (1.7-9.3); NEUTROPHILS # (AUTO) 7.7 K/uL (1.8-7.7); NEUTROPHILS % (AUTO) 82.5 % (42.2-75.2); PLATELET COUNT (AUTO) 189 K/uL (140-450); RED BLOOD CELL COUNT(AUTO) 5.39 MIL/uL (4.20-6.10); WHITE BLOOD COUNT (AUTO) 9.3 K/uL (4.8-10.8)
[2018-08-17 20:27] LABS: ANION GAP 14.8 (8-16); CREATININE 1.7 mg/dL (0.7-1.3); POTASSIUM 3.8 mmol/L (3.5-5.1)
[2018-08-17 20:33] LABS: ALBUMIN 4.3 g/dL (3.4-5.0)
[2018-08-17] MEDS ORDERED: FUROSEMIDE 40 MG/4 ML VIAL IVP ONE (21:20)
[2018-08-17 21:45] VITALS: BP 110/70
== END 2018-08-17 21:45 | disposition home or self-care (01) ==
LOC: MED 18:50
DX: I50.9 Heart failure, unspecified (principal); J44.9 Chronic obstructive pulmonary disease, unspecified; I10 Essential (primary) hypertension; Z86.73 Personal history of transient ischemic attack (TIA), and cerebral infarction without residual deficits; Z79.899 Other long term (current) drug therapy; Z79.82 Long term (current) use of aspirin
CPT/HCPCS: 36415; 71045; 80053; 83880; 85025; 93005; 96374; 99284; J1940; Q0092

== ENCOUNTER 2018-08-31 17:22 | Emergency (ER) | payer OTHER ==
[~2018-08-31] VITALS: Ht 188 cm; Wt 129.8 kg
[2018-08-31 17:47] VITALS: BP 131/72
[2018-08-31] MEDS ORDERED: CLOPIDOGREL 75 MG TAB PO ONE (17:55)
--- NOTE | 2018-08-31 18:03 | NUR ---
PATIENT PRESENTS TO ED WITH C/O WORSENING SOB AND MID CP 9/10 RADIATING TO THE LT ARM STARTED 45 MIN THREAD SEPARATOR, HX; PACEMAKER, DENIES N/V/D; SKIN IS PINK/WARM/DRY; AAOX4 WITH EVEN AND STEADY GAIT; LUNGS CLEAR BL; HR EVEN AND REGULAR; PATIENT STATES CHEST PAIN OF 8/10 AT THIS TIME; VSS; PATIENT POSITIONED FOR COMFORT; HOB ELEVATED; BEDRAILS UP X2; BED DOWN. ER MD MADE AWARE OF PT STATUS.
[2018-08-31] MEDS: NACL 0.9% 1,000 ML IV ONE ×2 (18:17→18:54)
[2018-08-31 18:44] LABS: BASOPHILS # (AUTO) 0.1 K/uL (0.00-0.22); BASOPHILS % (AUTO) 0.8 % (0.0-2.0); EOSINOPHILS # (AUTO) 0.2 K/uL (0-0.4); EOSINOPHILS % (AUTO) 2.7 % (0.0-4.0); HEMATOCRIT 38.9 % (36-52); HEMOGLOBIN 12.6 g/dL (12.0-18.0); LYMPHOCYTES # (AUTO) 1.3 K/uL (2.0-11.5); LYMPHOCYTES % (AUTO) 14.1 % (20.5-51.1); MEAN CORPUSCULAR HEMOGLOBIN 28 pg (27-31); MEAN CORPUSCULAR HGB CONC 32 g/dL (33-37); MEAN CORPUSCULAR VOLUME 86.9 fL (80-94); MONOCYTES # (AUTO) 0.6 K/uL (0.8-1.0); MONOCYTES % (AUTO) 6.8 % (1.7-9.3); NEUTROPHILS # (AUTO) 6.7 K/uL (1.8-7.7); NEUTROPHILS % (AUTO) 75.6 % (42.2-75.2); PLATELET COUNT (AUTO) 188 K/uL (140-450); RED BLOOD CELL COUNT(AUTO) 4.47 MIL/uL (4.20-6.10); RED CELL DISTRIBUTION WIDTH 14.3 % (11.6-13.7); WHITE BLOOD COUNT (AUTO) 8.9 K/uL (4.8-10.8)
[2018-08-31 18:57] LABS: ANION GAP 14.8 (8-16); CARBON DIOXIDE 25.2 mmol/L (21-32); CREATININE 1.9 mg/dL (0.7-1.3)
--- NOTE | 2018-08-31 19:06 | NUR ---
REPORT GIVEN TO ASSEMBLER MUSICAL INSTRUMENTS NURSE FOR CONTINUE OF CARE.
--- NOTE | 2018-08-31 19:07 | NUR ---
ASSUMED CARE OF PT AT THIS TIME.
[2018-08-31 19:11] LABS: ALBUMIN 3.4 g/dL (3.4-5.0); TOTAL BILIRUBIN 0.7 mg/dL (0.0-1.0)
[2018-08-31 19:21] LABS: PROTHROMBIN TIME 10.4 secs (10.8-13.4)
--- NOTE | 2018-08-31 19:42 | NUR ---
Dr. Wall evaluating patient at bedside.
[2018-08-31] MEDS ORDERED: FUROSEMIDE 20 MG/2 ML VIAL IVP ONE (19:50)
[2018-08-31] MEDS ORDERED: ONDANSETRON 4 MG/2 ML VIAL IVP ONE (19:50)
[2018-08-31] MEDS ORDERED: MORPHINE SULFATE 4 MG/ML SYR IVP ONE (19:50)
--- NOTE | 2018-08-31 20:20 | NUR ---
Patient discharged with v/s stable. Written and verbal after care instructions given and explained. Patient verbalized understanding. Ambulatory with steady gait. All questions addressed prior to discharge. Advised to follow up with PMD.
[2018-08-31 20:21] VITALS: BP 96/87
== END 2018-08-31 20:20 | disposition home or self-care (01) ==
LOC: MED 17:22
DX: R07.9 Chest pain, unspecified (principal); J44.9 Chronic obstructive pulmonary disease, unspecified; E11.9 Type 2 diabetes mellitus without complications; I10 Essential (primary) hypertension; Z88.8 Allergy status to other drugs, medicaments and biological substances; Z86.73 Personal history of transient ischemic attack (TIA), and cerebral infarction without residual deficits; Z79.82 Long term (current) use of aspirin; Z79.899 Other long term (current) drug therapy
CPT/HCPCS: 36415; 71045; 80053; 83880; 84484; 85025; 85610; 85730; 96374; 96375; 99284; J1940; J2270; J2405; J7030; Q0092; 96372

== ENCOUNTER 2018-09-12 11:07 | Emergency (ER) | payer MEDICAID, OTHER ==
[~2018-09-12] VITALS: Ht 188 cm; Wt 127.0 kg
--- NOTE | 2018-09-12 11:17 | NUR ---
PATIENT PRESENTS TO ED WITH C/O CHEST PAIN . PT STATES HIS PAIN STARTED 30 MINUTES AGO. PATIENT DESCRIBES PAIN CONSTANT, PRESSURE, RADIATING TO LEFT ARM AND HAND. DENIES N/V/D; SKIN IS PINK/WARM/DRY; AAOX4 WITH EVEN AND STEADY GAIT; LUNGS CLEAR BL; HR EVEN AND REGULAR; PT DENIES ANY FEVER, CP, SOB, OR COUGH AT THIS TIME; PATIENT STATES PAIN OF 9/10 AT THIS TIME; VSS; PATIENT POSITIONED FOR COMFORT; HOB ELEVATED; BEDRAILS UP X2; BED DOWN. ER MD MADE AWARE OF PT STATUS.
[2018-09-12] MEDS ORDERED: MORPHINE SULFATE 4 MG/ML SYR IM ONE (11:45)
[2018-09-12 12:09] VITALS: BP 119/84
--- NOTE | 2018-09-12 12:10 | NUR ---
Patient discharged with v/s stable. Written and verbal after care instructions given and explained. Patient verbalized understanding. Ambulatory with steady gait. All questions addressed prior to discharge. Advised to follow up with PMD. PATIENT GIVEN LUNCH AND WAS PROVIDED WITH THE HOMELESS PACKET WITH A LIST OF PLACES WHERE HE CAN STAY. PATIENT OFFERED A BUS PASS. PATIENT STATES HE HAS ONE.
== END 2018-09-12 12:10 | disposition home or self-care (01) ==
LOC: MED 11:07
DX: R07.89 Other chest pain (principal); R06.02 Shortness of breath; J44.9 Chronic obstructive pulmonary disease, unspecified; E11.9 Type 2 diabetes mellitus without complications; I10 Essential (primary) hypertension; Z86.73 Personal history of transient ischemic attack (TIA), and cerebral infarction without residual deficits; Z79.82 Long term (current) use of aspirin; Z79.899 Other long term (current) drug therapy; Z88.1 Allergy status to other antibiotic agents; Z88.8 Allergy status to other drugs, medicaments and biological substances
CPT/HCPCS: 93005; 96372; 99283; J2270

== ENCOUNTER 2018-10-30 20:36 | Emergency (ER) | payer MEDICAID, OTHER ==
[~2018-10-30] VITALS: Ht 188 cm; Wt 134.0 kg
[2018-10-30 20:42] VITALS: BP 153/88
--- NOTE | 2018-10-30 20:50 | NUR ---
TO LOBBY, VSSDmitri REAL MD AWARE OF PT STATUS.
--- NOTE | 2018-10-30 23:35 | NUR ---
PT CALLED FOR BED, NO RESPONSE AT THIS TIME WILL ATTEMPT AGAIN LATER
--- NOTE | 2018-10-30 23:45 | NUR ---
NO ANSWER AT 6125 AND 2060. PATIENT LEFT WITHOUT BEING SEEN BY DR. LEAL. NO FURTHER CARE PROVIDED FOR PATIENT.
== END 2018-10-30 23:35 | disposition left against medical advice (07) ==
LOC: MED 20:36
DX: R07.9 Chest pain, unspecified (principal); Z53.21 Procedure and treatment not carried out due to patient leaving prior to being seen by health care provider
CPT/HCPCS: 93005; 99281

== ENCOUNTER 2018-11-04 11:26 | Emergency (ER) | payer OTHER ==
[~2018-11-04] VITALS: Ht 188 cm; Wt 131.5 kg
--- NOTE | 2018-11-04 11:32 | NUR ---
PATIENT WHEELCHAIR ASSISTED TO BED 8
[2018-11-04 11:38] VITALS: BP 147/101
--- NOTE | 2018-11-04 11:38 | NUR ---
PT BIB FRIENDS C/O CONSTANT 04/23 MIDSTERNAL CP THAT RAIDATES TO L ARM X30 MIN. PT REPORTS BEING AT REST AT [place] WHEN SYMPTOMS CAME ON. PT REPORTS SOB, NAUSEA, AND ITCHY SKIN. PT NOT DIAPHORETIC. PT DENIES DRUG USE. NO EDEMA PRESENT, CAP REFIL DELAYED. PT SHALLOW BREATHING, RR 32/MIN, EVEN, BREATH SOUNDS CLEAR THROUGHOUT, O2 SAT AT 100% ON ROOM AIR. PT ALSO REPORTS BLE AND BUE CRAMPING PAIN. ABD IS DISTENDED AND FIRM, PT DENIES ABD PAIN. VSS. ER MD TO SEE PT. MEDHX:A-FIB, CHF, COPD, CVA RX:CARVIDOLOL, LISNOPRIL, SIMVISTATIN, COLACE, LASIX
[2018-11-04] MEDS ORDERED: MORPHINE SULFATE 4 MG/ML SYR IVP ONE (12:00)
[2018-11-04] MEDS ORDERED: NITROGLYCERIN 2% 1 GM PKT TP ONE (12:00)
[2018-11-04] MEDS ORDERED: ASPIRIN 325 MG TAB PO ONE (12:00)
[2018-11-04] MEDS ORDERED: ENOXAPARIN 120 MG/0.8 ML SYR SUBQ ONE (12:20)
[2018-11-04 12:32] LABS: BASOPHILS # (AUTO) 0.1 K/uL (0.00-0.22); BASOPHILS % (AUTO) 1.2 % (0.0-2.0); EOSINOPHILS # (AUTO) 0.3 K/uL (0-0.4); EOSINOPHILS % (AUTO) 4.6 % (0.0-4.0); HEMATOCRIT 41.1 % (36-52); HEMOGLOBIN 13.5 g/dL (12.0-18.0); LYMPHOCYTES # (AUTO) 1.2 K/uL (2.0-11.5); LYMPHOCYTES % (AUTO) 16.6 % (20.5-51.1); MEAN CORPUSCULAR HEMOGLOBIN 28 pg (27-31); MEAN CORPUSCULAR HGB CONC 33 g/dL (33-37); MONOCYTES # (AUTO) 0.5 K/uL (0.8-1.0); MONOCYTES % (AUTO) 6.7 % (1.7-9.3); NEUTROPHILS % (AUTO) 70.9 % (42.2-75.2); PLATELET COUNT (AUTO) 172 K/uL (140-450); RED BLOOD CELL COUNT(AUTO) 4.83 MIL/uL (4.20-6.10); RED CELL DISTRIBUTION WIDTH 14.6 % (11.6-13.7); WHITE BLOOD COUNT (AUTO) 7.1 K/uL (4.8-10.8)
--- NOTE | 2018-11-04 12:39 | NUR ---
UNABLE TO OBTAIN IV, DR PATTERSON NOTIFIED. PER MD DAVE TO GIVE MORPHINE IM. CHARGE NURSE WILY CALLED FOR MIDLINE TO BE INSERTED. PT REPORTING SEVERE PRUITITS. ER NOTIFIED.
[2018-11-04 12:44] LABS: ANION GAP 14.3 (8-16); CARBON DIOXIDE 25.6 mmol/L (21-32); CREATININE 1.4 mg/dL (0.7-1.3); POTASSIUM 3.9 mmol/L (3.5-5.1)
[2018-11-04 12:48] LABS: CHOL/HDL RATIO 4.3 (1-4.5)
[2018-11-04 12:50] LABS: ALBUMIN 3.7 g/dL (3.4-5.0); TOTAL BILIRUBIN 0.4 mg/dL (0.0-1.0)
[2018-11-04 12:57] LABS: CREATINE KINASE MB 5.4 ng/mL (0-3.6)
--- NOTE | 2018-11-04 13:05 | NUR ---
X-RAY AT BEDSIDE AT THIS TIME.
--- NOTE | 2018-11-04 14:07 | NUR ---
PT RESTING IN BED, PT APEARS CALM AND IS COOPERATIVE. PT DENIES SOB AT THIS TIME. PT REPORTS CP AT 02/20. VSS. PT DENIES SMOKING CIGARRETES, BUT STATES HE SMOKES WEED. PT DENIES STENT PLACEMENT.
[2018-11-04] MEDS ORDERED: MORPHINE SULFATE 4 MG/ML SYR IM ONE (14:30)
[2018-11-04 15:38] VITALS: BP 124/79
--- NOTE | 2018-11-04 15:38 | NUR ---
PT STATES HE IS "FEELING TERIBLE". I ASKED PT TO EXPLAIN AND HE STATED HE IS SOB. PT RR 18/MIN, SYMMETRICAL, NON-LABORED, 02 SAT AT 99%, BREATH SOUNDS CLEAR THROUGHOUT. PT REPORTS MIDSTERNAL CP AT 7/10 AT THIS TIME. HEART RRR, RADIAL PULSES EQUAL 2+, NO EDEMA, PRESENT, NO JUGULAR [place] DISTENTION. VSS. ER MD NOTIFIED.
--- NOTE | 2018-11-04 16:39 | NUR ---
Patient does not wish to proceed with medical care recommended by DR PATTERSON. Patient given information related to possible complications, up to and including , which could occur as a result of leaving hospital at this time. Patient verbalizes understanding of risks involved leaving against medical advice. Patient has signed AMA form.
== END 2018-11-04 16:39 | disposition left against medical advice (07) ==
LOC: MED 11:26
DX: I20.9 Angina pectoris, unspecified (principal); Z76.5 Malingerer [conscious simulation]; J44.9 Chronic obstructive pulmonary disease, unspecified; E11.9 Type 2 diabetes mellitus without complications; I10 Essential (primary) hypertension; Z95.0 Presence of cardiac pacemaker; Z86.73 Personal history of transient ischemic attack (TIA), and cerebral infarction without residual deficits; Z79.01 Long term (current) use of anticoagulants; Z79.82 Long term (current) use of aspirin; Z88.6 Allergy status to analgesic agent
CPT/HCPCS: 36415; 71045; 80053; 80061; 82550; 82553; 83880; 84484; 85025; 85379; 93005; 96372; 99284; J1650; J2270; Q0092

== ENCOUNTER 2019-02-01 15:51 | Emergency (ER) | payer OTHER ==
[~2019-02-01] VITALS: Ht 188 cm; Wt 127.0 kg
[2019-02-01 15:55] VITALS: BP 144/97
--- NOTE | 2019-02-01 16:58 | NUR ---
PATIENT LEFT WITHOUT BEING SEEN BY DR. LEAL. NO FURTHER CARE PROVIDED FOR PATIENT. 17:00-2 CALL N/A 1705-3RD CALL N/A
== END 2019-02-01 16:58 | disposition left against medical advice (07) ==
LOC: MED 15:51
DX: M25.511 Pain in right shoulder (principal); R20.0 Anesthesia of skin; Z53.21 Procedure and treatment not carried out due to patient leaving prior to being seen by health care provider

== ENCOUNTER 2019-02-23 15:38 | Emergency (ER) | payer OTHER ==
[~2019-02-23] VITALS: Ht 188 cm; Wt 127.0 kg
[2019-02-23 15:53] VITALS: BP 157/107
--- NOTE | 2019-02-23 16:10 | NUR ---
DR ACOSTA AT BEDSIDE
[2019-02-23] MEDS ORDERED: HYDROcodone/APAP 5/325 MG 1 TAB TAB PO ONE (16:20)
--- NOTE | 2019-02-23 16:20 | NUR ---
48 Y MALE C/O RIGHT SHOULDER PAIN FOR MONTHS, -ROM. +CAP REFILL <3 SECONDS. +PULSES. P[AIN 05/23. STATES TOOK MARIJUANA FOR PAIN TODAY. PATIENT DENIES TRAUMA OR INJURY. VSS AT THIS TIME. AA0X4. BED IS DOWN, LOCKED, BED RAIL X 1, ERMD TO SEE PT. HX OF CARDIAC PROBLEM, AFIB, CHF, BIPOLAR, DM, HTN, KIDNEY DISEASE.
--- NOTE | 2019-02-23 16:22 | NUR ---
XRAY AT BEDSIDE
[2019-02-23 16:58] VITALS: BP 158/101
--- NOTE | 2019-02-23 16:58 | NUR ---
Patient discharged with v/s stable. Written and verbal after care instructions given and explained. Patient alert, oriented and verbalized understanding of instructions. Ambulatory with steady gait. All questions addressed prior to discharge. ID band removed. Patient advised to follow up with PMD. Rx of NORCO 5MG-325MG given. Patient educated on indication of medication including possible reaction and side effects. Opportunity to ask questions provided and answered.
== END 2019-02-23 16:58 | disposition home or self-care (01) ==
LOC: MED 15:38
DX: S46.911A Strain of unspecified muscle, fascia and tendon at shoulder and upper arm level, right arm, initial encounter (principal); I10 Essential (primary) hypertension; E11.9 Type 2 diabetes mellitus without complications; J44.9 Chronic obstructive pulmonary disease, unspecified; F12.10 Cannabis abuse, uncomplicated; Z95.0 Presence of cardiac pacemaker; Z86.69 Personal history of other diseases of the nervous system and sense organs; Z79.899 Other long term (current) drug therapy; Z79.82 Long term (current) use of aspirin; Z86.73 Personal history of transient ischemic attack (TIA), and cerebral infarction without residual deficits; Z86.79 Personal history of other diseases of the circulatory system; X58.XXXA Exposure to other specified factors, initial encounter; Y93.89 Activity, other specified; Y92.89 Other specified places as the place of occurrence of the external cause; Y99.8 Other external cause status
CPT/HCPCS: 73030; 99283; Q0092

== ENCOUNTER 2019-02-24 23:54 | Emergency (ER) | payer OTHER ==
[~2019-02-24] VITALS: Ht 188 cm; Wt 127.0 kg
[2019-02-24 23:55] VITALS: BP 117/83
--- NOTE | 2019-02-24 23:55 | NUR ---
TO BED # 09 VIA WHEEL CHAIR
--- NOTE | 2019-02-25 00:08 | NUR ---
Dr. Oakes examining patient.
[2019-02-25] MEDS ORDERED: LIDOCAINE 2% 1000 MG/50 ML VIAL INJ ONE (00:15)
[2019-02-25] MEDS ORDERED: BUPIVACAINE/DEXT 0.75% SPINAL 2 ML AMP INJ ONE ×2 (00:15→00:34)
[2019-02-25] MEDS ORDERED: methylPREDNISolone SS 125 MG/2 ML VIAL IM ONE (00:15)
--- NOTE | 2019-02-25 00:40 | NUR ---
DR DIAMOND AT BEDSIDE FOR PROCEDURE TO ADMIN MEDICATIONS.
--- NOTE | 2019-02-25 00:51 | NUR ---
SLING APPLIED TO RT SHOULDER, PT TOLERATED WELL
--- NOTE | 2019-02-25 00:58 | NUR ---
PT BIB SELF FOR RT SHOULDER PAIN. PT STATES HE HAS CHRONIC RT SHOULDER PAIN FROM SLEEPING IN VAN LAST YEAR, PT DENIES FALL OR TRAUMA TO ARM. PT STATES HE SLEPT ON ARM AND NOW HAS SEVERE PAIN. +CMS W/ PAIN. PT SITTING AT EDGE OF BED, FACIAL GRIAMCING NOTED.
[2019-02-25] MEDS ORDERED: MORPHINE SULFATE 2 MG/ML SYR IM ONE (01:25)
--- NOTE | 2019-02-25 01:27 | NUR ---
Ultrasound at bedside.
--- NOTE | 2019-02-25 02:00 | NUR ---
PT REPORTS IMPROVEMENT IN PAIN RELIEF ON R SHOULDER. VSS. RR EVEN AND UNLABORED. PT STATED THAT HE DOES NOT HAVE A RIDE HOME, STATED THAT HE WILL WALK. REFUSED BUS PASS OR HAVING [employer] CALLED.
[2019-02-25 02:03] VITALS: BP 142/91
--- NOTE | 2019-02-25 02:03 | NUR ---
Patient discharged with v/s stable. Written and verbal after care instructions given and explained. Patient alert, oriented and verbalized understanding of instructions. Ambulatory with steady gait. All questions addressed prior to discharge. ID band removed. Patient advised to follow up with PMD. Rx of MEDROL, VIOXX given. Patient educated on indication of medication including possible reaction and side effects. Opportunity to ask questions provided and answered.
== END 2019-02-25 02:03 | disposition home or self-care (01) ==
LOC: MED 23:54
DX: S43.401A Unspecified sprain of right shoulder joint, initial encounter (principal); I11.0 Hypertensive heart disease with heart failure; I50.9 Heart failure, unspecified; E11.9 Type 2 diabetes mellitus without complications; J44.9 Chronic obstructive pulmonary disease, unspecified; Z86.73 Personal history of transient ischemic attack (TIA), and cerebral infarction without residual deficits; Z95.0 Presence of cardiac pacemaker; Z79.82 Long term (current) use of aspirin; Z79.899 Other long term (current) drug therapy; Z88.8 Allergy status to other drugs, medicaments and biological substances; X58.XXXA Exposure to other specified factors, initial encounter; Y93.89 Activity, other specified; Y92.89 Other specified places as the place of occurrence of the external cause; Y99.8 Other external cause status
CPT/HCPCS: 20552; 93971; 99284; J2001; J2930; J3490; Q0092

== ENCOUNTER 2019-03-09 14:42 | Observation (INO) | payer OTHER ==
[~2019-03-09] VITALS: Ht 188 cm; Wt 127.0 kg
[2019-03-09 14:50] VITALS: BP 159/99
--- NOTE | 2019-03-09 14:55 | NUR ---
PT TO WAIT IN ER LOBBY, VSS AT THIS TIME. [id number].
--- NOTE | 2019-03-09 14:58 | NUR ---
PT TO WAIT IN ER LOBBY. VSS. [id number].
--- NOTE | 2019-03-09 15:19 | NUR ---
PT TO ER BED 10
--- NOTE | 2019-03-09 15:36 | NUR ---
48 Y/O MALE C/O LOWER BACK PAIN FOR 3 DAYS. PAIN IS A 9/10. PATIENT STATES HE FEELS DYSPNEIC. 96% ON ROOM AIR. SPEECH IS CLEAR. 20 RESPIRATIONS. PATIENT'S ARM IS IN RIGHT SLING FROM PREVIOUS INJURY. SIDE RAILS X 2. PATIENT IN A COMFORTABLE POSITION. ED MD AWARE. PMH- CHF, BORN WITH 1 KIDNEY, AFIB, HTN Addendum: 03/09/19 at 1743 by ROLA PATIENT ALSO COMPLAINS OF CONSTANT THROBBING ALL OVER CHEST PAIN.
[2019-03-09] MEDS ORDERED: MORPHINE SULFATE 4 MG/ML SYR IVP ONE ×2 (15:45→18:10)
--- NOTE | 2019-03-09 15:51 | NUR ---
X-RAY AT BESIDE
[2019-03-09 16:17] LABS: BASOPHILS % (AUTO) 0.4 % (0.0-2.0); EOSINOPHILS # (AUTO) 0.3 K/uL (0-0.4); EOSINOPHILS % (AUTO) 2.8 % (0.0-4.0); HEMOGLOBIN 15.3 g/dL (12.0-18.0); LYMPHOCYTES # (AUTO) 1.4 K/uL (2.0-11.5); MEAN CORPUSCULAR HEMOGLOBIN 28 pg (27-31); MEAN CORPUSCULAR HGB CONC 33 g/dL (33-37); MEAN CORPUSCULAR VOLUME 84.6 fL (80-94); MONOCYTES # (AUTO) 0.9 K/uL (0.8-1.0); MONOCYTES % (AUTO) 9.2 % (1.7-9.3); NEUTROPHILS # (AUTO) 7.3 K/uL (1.8-7.7); NEUTROPHILS % (AUTO) 73.6 % (42.2-75.2); PLATELET COUNT (AUTO) 200 K/uL (140-450); RED BLOOD CELL COUNT(AUTO) 5.43 MIL/uL (4.20-6.10); RED CELL DISTRIBUTION WIDTH 15.4 % (11.6-13.7); WHITE BLOOD COUNT (AUTO) 9.9 K/uL (4.8-10.8)
[2019-03-09 16:59] LABS: ANION GAP 18.3 (8-16); CARBON DIOXIDE 23.9 mmol/L (21-32); CREATININE 1.6 mg/dL (0.7-1.3); POTASSIUM 4.2 mmol/L (3.5-5.1)
[2019-03-09 17:01] LABS: APPEARANCE,URINE CLEAR (CLEAR); BILIRUBIN,URINE NEGATIVE (NEGATIVE); BLOOD, URINE NEGATIVE (NEGATIVE); COLOR,URINE YELLOW (YELLOW); LEUKOCYTE ESTERASE ,URINE NEGATIVE (NEGATIVE); NITRITE, URINE NEGATIVE (NEGATIVE); UGLUCOSE NEGATIVE (NEGATIVE)
[2019-03-09 17:04] LABS: ALBUMIN 4.3 g/dL (3.4-5.0); TOTAL BILIRUBIN 0.4 mg/dL (0.0-1.0)
--- NOTE | 2019-03-09 18:34 | NUR ---
LAB AT BEDSIDE
--- NOTE | 2019-03-09 19:10 | NUR ---
Pt report given to AKI RODRIGUEZ. Transfer of care at this time.
--- NOTE | 2019-03-09 19:15 | NUR ---
REPORT RECEIVED FROM MOSHE RN. PT IS AWAKE LYING ON BED. C/O OF BACK PAIN 01/21. VSS. DR ANTUNEZ AWARE. WILL CONTINUE TO MONITOR.
[2019-03-09] MEDS ORDERED: NITROGLYCERIN 0.4 MG TAB SL PRN (20:35)
[2019-03-09] MEDS ORDERED: ONDANSETRON 4 MG/2 ML VIAL IVP PRN (20:35)
[2019-03-09] MEDS ORDERED: ACETAMINOPHEN 325 MG TAB PO PRN (20:35)
[2019-03-09] MEDS ORDERED: ASPIRIN 325 MG TAB PO ONE (20:45)
--- NOTE | 2019-03-09 21:00 | NUR ---
PT TRANSFERRED TO TELE UNIT ROOM #[id number] VIA [facility]. REPORT GIVEN TO KHALIDA RODRIGUEZ. PT VSS.
[2019-03-09 21:25] VITALS: BP 152/98
--- NOTE | 2019-03-09 21:25 | NUR ---
RECEIVED BEDSIDE REPORT FROM ED RN AKI, FOR PATIENT'S CONTINUITY OF CARE. PATIENT TRANSPORTED TO UNIT VIA GURNEY, AMBULATED TO BED, ALERT, AWAKE, ORIENTED X 4, ON ROOM AIR, LUNGS ARE CLEAR, HAS LEFT HAND 24G IV SALINE LOCK. VITAL SIGNS ARE FF: TEMP 98, BP 152/98, O2 SAT 98%, P 83, RR 19. PATIENT COMPLAINS OF TOLERABLE CHEST PAIN, EDUCATED PATIENT TO REPORT PAIN WHEN INCREASED. PATIENT VERBALIZED UNDERSTANDING. PATIENT IS ON HAND ALTERATIONS SEAMSTRESS, ADMIT EKG IS SINUS TACHY WITH BBB, TROPONIN LEVEL BEFORE ADMIT IS 0.096. SKIN IS INTACT. PATIENT IS AMBULATORY, BUT PREFERS URINAL. PATIENT BELONGINGS ARE KEPT AT BEDSIDE, PATIENT BELONGINGS SIGNED AND CHARTED. PATIENT VERBALIZED UNDERSTANDING RE: POLICY FOR KEEPING PERSONAL BELONGINGS. WILL MONITOR PATIENT THROUGHOUT SHIFT.
[2019-03-09] MEDS: MORPHINE SULFATE 2 MG/ML SYR IVP PRN (22:15)
--- NOTE | 2019-03-09 22:15 | NUR ---
ADMINISTERED IV PUSH PAIN MEDICATION ORDERED. PATIENT C/O BACK AND CHEST PAIN 02/20. PATIENT EDUCATED RE: NITRO SUBLINGUAL, AND HE REFUSED MEDICATION. PER PATIENT, MORPHINE 2MG WORKS ONLY TO REDUCE PAIN LEVEL TO 4, AND ONLY LASTS FOR 3 HOURS, MAXIMUM OF 4 HRS. PATIENT TOLERATED MEDICATION WELL. WILL CONTINUE OT MONITOR PATIENT.
[2019-03-10] VITALS: BP 107/69
--- NOTE | 2019-03-10 | NUR ---
VITAL SIGNS CHECKED AND CHARTED. PATIENT STATES PAIN IS TOLERABLE LEVEL OF 4/10. WILL CONTINUE TO MONITOR PATIENT.
--- NOTE | 2019-03-10 01:15 | NUR ---
LABORATORY CALLED FOR CRITICAL LAB VALUE OF TROPONIN 0.117. SPOKE WITH DR. HUERTAS RE: PATIENT HX, AND CRITICAL LAB VALUE OF TROPONIN. NO NEW ORDERS AT THIS TIME. CONTINUE WITH CURRENT MEDICATIONS, PER MD. WILL CONTINUE TO MONITOR PATIENT.
[2019-03-10] MEDS: MORPHINE SULFATE 2 MG/ML SYR IVP PRN ×6 (02:25→22:47)
--- NOTE | 2019-03-10 02:25 | NUR ---
ADMINISTERED IV PUSH PAIN MEDICATION ORDERED. PATIENT TOLERATED IT WELL. PATIENT C/O IV SITE PLACEMENT AND REQUESTS TO BE ASSESSED FOR DIFFERENT SITE. WILL CONTINUE TO MONITOR PATIENT.
[2019-03-10 04:00] VITALS: BP 117/84
--- NOTE | 2019-03-10 04:00 | NUR ---
PATIENT LYING DOWN IN BED, WATCHING ON HIS CELLPHONE. PATIENT COMPLAINED OF DISCOMFORT ON CURRENT IV LINE. STARTED NEW IV ON LEFT FOREARM 22G SALINE LOCK USING VEIN FINDER. PATIENT TOLERATED IT WELL. IV PATENT AND INTACT. DISCONTINUED THE LEFT HAND 24G, CANNULA INTACT. VS CHECKED AND CHARTED. PATIENT'S HR RANGED FROM 39-42 BEATS PER MINUTE. MANUALLY PALPATED RADIAL ARTERY FOR FULL 60 SEC - 39 BEATS PER MINUTE. PER PATIENT, HR USUALLY LOW. WILL CONTINUE TO MONITOR PATIENT.
--- NOTE | 2019-03-10 06:45 | NUR ---
MADE ROUNDS. PATIENT AWAKE, LAB PERSONNEL AT BEDSIDE. PATIENT C/O CHEST PAIN 02/20. ADMINISTERED IV PUSH PAIN MEDICATION ORDERED. PATIENT TOLERATED IT WELL. WILL ENDORSE PATIENT TO AM SHIFT RN FOR CONTINUITY OF CARE. PATIENT IS STILL ON ROOM AIR, SIDE RAILS ARE UP, BED IN LOW POSITION, CALL LIGHT WITHIN REACH. PATIENT REQUESTED AND GIVEN PUDDING AND SALTINE CRACKERS.
[2019-03-10 07:18] LABS: BASOPHILS # (AUTO) 0.1 K/uL (0.00-0.22); EOSINOPHILS # (AUTO) 0.4 K/uL (0-0.4); MEAN CORPUSCULAR VOLUME 85.2 fL (80-94); MONOCYTES # (AUTO) 0.8 K/uL (0.8-1.0); NEUTROPHILS % (AUTO) 71.9 % (42.2-75.2)
[2019-03-10 07:21] LABS: BASOPHILS % (AUTO) 1.1 % (0.0-2.0); EOSINOPHILS % (AUTO) 3.6 % (0.0-4.0); HEMOGLOBIN 14.7 g/dL (12.0-18.0); LYMPHOCYTES # (AUTO) 1.6 K/uL (2.0-11.5); LYMPHOCYTES % (AUTO) 15.9 % (20.5-51.1); MEAN CORPUSCULAR HEMOGLOBIN 29 pg (27-31); MEAN CORPUSCULAR HGB CONC 33 g/dL (33-37); MONOCYTES % (AUTO) 7.5 % (1.7-9.3); NEUTROPHILS # (AUTO) 7.3 K/uL (1.8-7.7); PLATELET COUNT (AUTO) 156 K/uL (140-450); RED BLOOD CELL COUNT(AUTO) 5.16 MIL/uL (4.20-6.10); RED CELL DISTRIBUTION WIDTH 15.3 % (11.6-13.7)
--- NOTE | 2019-03-10 07:30 | NUR ---
Received report from pm nurse Rishabh. Pt awake, verbally responsive, FLACC 0, respirations even & nonlabored in room air. Left forearm IV saline lock intact & asymptomatic. Call light within reach.
[2019-03-10 07:52] LABS: ANION GAP 13.2 (8-16); CARBON DIOXIDE 25.7 mmol/L (21-32); CREATININE 1.5 mg/dL (0.7-1.3); POTASSIUM 3.9 mmol/L (3.5-5.1)
[2019-03-10 08:00] VITALS: BP 132/68
[2019-03-10] MEDS: CARVEDILOL 6.25 MG TAB PO SCH ×2 (08:00→17:00)
[2019-03-10 08:05] LABS: WHITE BLOOD COUNT (AUTO) 10.2 K/uL (4.8-10.8)
[2019-03-10] MEDS: ATORVASTATIN 80 MG TAB PO SCH (08:22)
[2019-03-10] MEDS: ASPIRIN 81 MG TAB.CHEW PO SCH (08:22)
[2019-03-10] MEDS: LISINOPRIL 10 MG TAB PO SCH (08:23)
[2019-03-10] MEDS: SPIRONOLACTONE 25 MG TAB PO SCH (08:23)
[2019-03-10] MEDS: CLOPIDOGREL 75 MG TAB PO SCH (08:24)
[2019-03-10] MEDS: FAMOTIDINE 20 MG TAB PO SCH ×2 (08:24→20:36)
[2019-03-10] MEDS: FUROSEMIDE 40 MG TAB PO SCH (08:24)
[2019-03-10] MEDS: ENOXAPARIN 40 MG/0.4 ML SYR SUBQ SCH (08:26)
--- NOTE | 2019-03-10 10:40 | NUR ---
Pt c/o right shoulder pain radiating to back & chest. Per pt, pain is worse with movement of right shoulder. Offered right arm sling but pt refused & states he doesn't need it. Offered warm compress for comfort. Pt refused & states it doesn't work. Morphine given as ordered. Call light within reach.
[2019-03-10 12:00] VITALS: BP 122/92
--- NOTE | 2019-03-10 12:17 | NUR ---
PATIENT HAS BEEN SCREENED AND CATEGORIZED MODERATE NUTRITION RISK. PATIENT WILL BE SEEN WITHIN 3-5 DAYS OF ADMISSION. 03/12/19 - 03/14/19 RUPAL WHITEHEAD MBA, RD
--- NOTE | 2019-03-10 12:30 | NUR ---
Pt sitting up in bed eating lunch, no signs of distress, FLACC 0. Call light within reach.
[2019-03-10 16:00] VITALS: BP 115/63
--- NOTE | 2019-03-10 19:10 | NUR ---
Bedside report given to pm nurse Rishabh. Pt resting in bed, respirations even & nonlabored in room air, FLACC 0.
--- NOTE | 2019-03-10 19:11 | NUR ---
RECEIVED BEDSIDE REPORT FROM AM SHIFT RN CLAUDIA, FOR PATIENT'S CONTINUITY OF CARE. PATIENT IS LYING DOWN IN BED WATCHING ON HIS CELLPHONE. PATIENT WAS GIVEN PAIN MEDICATION BEFORE SHIFT STARTED, DENIES PAIN AT THIS TIME. PATIENT IS ON ROOM AIR, HAS LEFT FOREARM 22G IV SALINE LOCK. WILL MONITOR PATIENT THROUGHOUT SHIFT.
[2019-03-10 20:00] VITALS: BP 117/75
--- NOTE | 2019-03-10 20:36 | NUR ---
VITAL SIGNS CHECKED AND CHARTED. ADMINISTERED SCHEDULED PO MEDICATIONS ORDERED. PATIENT TOLERATED IT WELL. PATIENT REQUESTED AND GIVEN SANDWICH AND SOME CRACKERS. WILL CONTINUE TO MONITOR PATIENT.
--- NOTE | 2019-03-10 22:47 | NUR ---
PATIENT C/O CHEST PAIN, 02/20. PATIENT LYING DOWN IN BED, AWAKE, WATCHING ON HIS CELL PHONE. ADMINISTERED IV PUSH PAIN MEDICATION ORDERED. PATIENT TOLERATED IT WELL. WILL CONTINUE TO MONITOR PATIENT.
[2019-03-11] VITALS: BP 123/61
--- NOTE | 2019-03-11 00:30 | NUR ---
VITAL SIGNS CHECKED AND CHARTED. PATIENT LYING DOWN, ASLEEP. PATIENT DENIES PAIN. WILL CONTINUE TO MONITOR PATIENT.
[2019-03-11] MEDS: MORPHINE SULFATE 2 MG/ML SYR IVP PRN ×5 (03:19→20:53)
--- NOTE | 2019-03-11 03:19 | NUR ---
PATIENT C/O RIGHT SHOULDER PAIN 02/20. ADMINISTERED IV PUSH PAIN MEDICATION ORDERED. PATIENT TOLERATED IT WELL. REQUESTED FOR SOME SNACKS, GAVE 4 OZ REDUCED FAT MILK, 1 EDGAR CRACKER, 1 PUDDING, AND 2 SALTINE CRACKERS. EDUCATED PATIENT REGARDING CARDIAC DIET, PATIENT VERBALIZED UNDERSTANDING. WILL CONTINUE TO MONITOR PATIENT.
[2019-03-11 04:00] VITALS: BP 136/70
--- NOTE | 2019-03-11 05:13 | NUR ---
MADE ROUNDS. PATIENT LYING DOWN, ASLEEP, WITH NO SIGNS OF DISTRESS. WILL CONTINUE TO MONITOR PATIENT.
--- NOTE | 2019-03-11 05:59 | NUR ---
PATIENT IS LYING DOWN, ASLEEP, WITH NO SIGNS OF DISTRESS OR DISCOMFORT. PATIENT IS STILL ON ROOM AIR, IN STABLE CONDITION, AND VITAL SIGNS ARE WITHIN NORMAL LIMITS ALL THROUGHOUT SHIFT. WILL ENDORSE PATIENT TO AM SHIFT RN FOR CONTINUITY OF CARE. BED IS ON LOW POSITION, SIDE RAILS ARE UP, AND BED IS IN LOW POSITION.
--- NOTE | 2019-03-11 07:15 | NUR ---
Report received from assistant casino shift manager nurse. Pt asleep, easily arousable by verbal stimuli to oriented and appropriate. Pt appears comfortable, call light and personal items within reach, safety and fall precautions in place, no s/s of acute distress noted at this time, will continue to monitor.
[2019-03-11 08:00] VITALS: BP 143/82
[2019-03-11] MEDS: ASPIRIN 81 MG TAB.CHEW PO SCH (08:20)
[2019-03-11] MEDS: CARVEDILOL 6.25 MG TAB PO SCH ×2 (08:20→16:55)
[2019-03-11] MEDS: SPIRONOLACTONE 25 MG TAB PO SCH (08:20)
[2019-03-11] MEDS: FUROSEMIDE 40 MG TAB PO SCH (08:20)
[2019-03-11] MEDS: ATORVASTATIN 80 MG TAB PO SCH (08:21)
[2019-03-11] MEDS: CLOPIDOGREL 75 MG TAB PO SCH (08:21)
[2019-03-11] MEDS: LISINOPRIL 10 MG TAB PO SCH (08:21)
[2019-03-11] MEDS: FAMOTIDINE 20 MG TAB PO SCH ×2 (08:21→20:54)
[2019-03-11] MEDS: ENOXAPARIN 40 MG/0.4 ML SYR SUBQ SCH (08:23)
--- NOTE | 2019-03-11 09:15 | NUR ---
Pt a/o able to communicate needs and appropriate, watching videos on his cell phone. Pt appears comfortable, states pain 3/10 to R shoulder tolerable at this time, call light and personal items within reach, safety and fall precautions in place, no s/s of acute distress noted at this time, will continue to monitor.
[2019-03-11 12:00] VITALS: BP 106/65
--- NOTE | 2019-03-11 12:15 | NUR ---
Pt remains a/o able to communicate needs and appropriate, watching videos on his cell phone, c/o shoulder pain 03/23, will medicate per order. Call light and personal items within reach, safety and fall precautions in place, will continue to monitor.
--- NOTE | 2019-03-11 14:30 | NUR ---
Pt remains a/o appropriate for age age and able to communicate needs. Pt watching tv on phone. Call light and personal items within reach, safety and fall precautions in place,no s/s of acute distress noted, will continue to monitor.
--- NOTE | 2019-03-11 15:11 | NUR ---
CALLED PATIENT'S PCP OFFICE [phone] MADE F/U DINH WITH DR WEST ON 03/18/19 AT 1030 AM. THE ADDRESS [place] [address] [place] [id number] . DINH REMINDER GIVEN TO THE PATIENT.
[2019-03-11 16:00] VITALS: BP 100/58
--- NOTE | 2019-03-11 17:30 | NUR ---
Ptresting in bed at this time, appears comfortable, call light and personal items within reach, safety and fall precautions in place, no n/s of acute distress noted at this time, will continue to monitor.
--- NOTE | 2019-03-11 19:44 | NUR ---
Pt remains a/o appropriate for age age and able to communicate needs. Call light and personal items within reach, safety and fall precautions in place,no s/s of acute distress noted, report endorsed to oncoming nurse.
--- NOTE | 2019-03-11 19:44 | NUR ---
REVCIEVED PT AAOX4 , NID , IV SITE INTACT AND PATENT , PLAN OF CARE DISCUSSED AND VERBALIZE UNDERSTANDING , CALL LIGHT WITHIN REACH ,BED IN LOW POSITION ,SIDERAILS UPX4 ,COMPLAINING OF SHOULDR PAIN BUT NOT RADIATING TO CHEST , V/S WNL ,WILL MEDICATE , AND WILL CONT. TO MONITOR.
[2019-03-11 20:00] VITALS: BP 130/85
--- NOTE | 2019-03-11 22:00 | NUR ---
MADE ROUNDS , RESP . EVEN AND UNLABORED , CALL LIGHT WITHIN REACH , WILL CONT. TO MONITOR.
[2019-03-12] VITALS: BP 121/79
--- NOTE | 2019-03-12 | NUR ---
MADE ROUNDS , RESP. EVEN AND UNLABORED , CALL LIGHT WITHIN REACH , NO FURTHER COMPLAIN MADE AT THIS TIME.
[2019-03-12] MEDS: MORPHINE SULFATE 2 MG/ML SYR IVP PRN ×4 (00:57→14:09)
--- NOTE | 2019-03-12 00:57 | NUR ---
COPLAINING OF PAIN ON SHOULDER - MEDICATED ORDERED. CALL LIGHT WITHIN REACH. WILL CONT. TO MONITOR.
[2019-03-12 04:00] VITALS: BP 121/80
--- NOTE | 2019-03-12 04:02 | NUR ---
COMPLAINING OF SHOULDER PAIN , TYLENOL P.O GIVEN ORDERED. V/S WNL ,RESP. EVEN AND UNLABORED , CALL LIGHT WITHIN REACH ,WILL CONT. TO MONITOR.
--- NOTE | 2019-03-12 05:30 | NUR ---
STILL COMPLAINING OF SHOULDER PAIN , BUT NOT OROGINATING TO CHEST PT"S SAID - V/S WNL - MORPHINE SO4 TIV GIVEN ORDERED ,WILL CONT. TO MONITOR, CALL LIGHT WITHIN REACH.
--- NOTE | 2019-03-12 06:00 | NUR ---
MADE ROUNDS ,RESP. EVEN AND UNLABORED , NO COMPLAIN MADE AT THIS TIME ,CALL LIGHT WITHIN REACH
--- NOTE | 2019-03-12 07:11 | NUR ---
ENDORSED TO AM SHIFT WITH STABLE CONDITION.
--- NOTE | 2019-03-12 07:12 | NUR ---
RECEIVED REPORT FROM MIDDLE STITCHER RN, PATIENT IN STABLE CONDITION RESTING BED, NO SIGNS OF DISTRESS ON RA. SAFETY PRECAUTIONS IN PLACE. WILL CONTINUE TO MONITOR.
[2019-03-12 08:00] VITALS: BP 121/75
[2019-03-12] MEDS: ENOXAPARIN 40 MG/0.4 ML SYR SUBQ SCH (09:00)
[2019-03-12] MEDS: CARVEDILOL 6.25 MG TAB PO SCH (09:06)
[2019-03-12] MEDS: LISINOPRIL 10 MG TAB PO SCH (09:06)
[2019-03-12] MEDS: FAMOTIDINE 20 MG TAB PO SCH (09:07)
[2019-03-12] MEDS: ATORVASTATIN 80 MG TAB PO SCH (09:07)
[2019-03-12] MEDS: FUROSEMIDE 40 MG TAB PO SCH (09:08)
[2019-03-12] MEDS: ASPIRIN 81 MG TAB.CHEW PO SCH (09:08)
[2019-03-12] MEDS: SPIRONOLACTONE 25 MG TAB PO SCH (09:08)
[2019-03-12] MEDS: CLOPIDOGREL 75 MG TAB PO SCH (09:12)
--- NOTE | 2019-03-12 09:13 | NUR ---
ADMINISTERED SCHEDULED MEDICATIONS, HELD LOVENOX. PLATELETS ARE FROM 03/10/19 AND ARE 156. GAVE PLAVIX IT IS A HOME MED. PATIENT TOLERATED ALL MEDS WELL. C/O 8/10 PAIN, UNABLE TO PULL MORPHINE AT THIS TIME, WILL MEDICATION WHEN SCHEDULE ALLOWS.
--- NOTE | 2019-03-12 09:47 | NUR ---
ADMINISTERED 2MG MORPHINE IV FOR 8/10 PAIN IN RIGHT SHOULDER. PATIENT TOLERATEDWELL.
[2019-03-12 12:00] VITALS: BP 121/75
--- NOTE | 2019-03-12 12:15 | NUR ---
VITALS STABLE, NO SIGNS OF DISTRESS ON RA, PATIENT WATCHING TV, PATIENT DOES REPORT PAIN IN HIS RIGHT SHOULDER WHICH IS CHRONIC. WILL MEDICATE PATIENT WITH IV MORPHINE ONCE PRN SCHEDULE ALLOWS. SAFETY PRECAUTIONS IN PLACE.
--- NOTE | 2019-03-12 14:15 | NUR ---
ADMINISTERED 2MG IV MORPHINE FOR PATIENT C/O OF 02/20 PAIN. PATIENT TOLERATED WELL. WILL CONTINUE TO MONITOR.
[2019-03-12 14:53] VITALS: BP 121/72
--- NOTE | 2019-03-12 15:15 | NUR ---
PROVIDED PATIENT DISCHARGE EDUCATION INCLUDING FOLLOW UP APPOINTMENTS, SYMPTOMS FOR WHICH TO SEEK MEDICAL CARE, MEDICATIONS TO CONTINUE. PATIENT DISCHARGED TO HOME FOR SELF CARE, NO NEW PRESCRIPTIONS, REMOVED 22 GAUGE IV CATHETER FROM LEFT FA, TIP INTACT, PATIENT TOLERATED WELL. REMOVED PATIENT WRIST BANDS. ESCORTED PATIENT OUT OF HOSPITAL, PATIENT AMBULATED WELL WITH STEADY GAIT. NO SIGNS OF DISTRESS ON RA. PATIENT LEFT WITH ALL HIS BELONGINGS.
== END 2019-03-12 15:15 | disposition home or self-care (01) ==
LOC: MED 14:42 → MMU 20:42 → MTU 21:29
PROVIDERS: ADMIT Internal Medicine; ATTEND Internal Medicine
DX: R07.2 Precordial pain (principal); E78.5 Hyperlipidemia, unspecified; J44.9 Chronic obstructive pulmonary disease, unspecified; F31.9 Bipolar disorder, unspecified; E11.22 Type 2 diabetes mellitus with diabetic chronic kidney disease; I13.0 Hypertensive heart and chronic kidney disease with heart failure and stage 1 through stage 4 chronic kidney disease, or unspecified chronic kidney disease; I42.9 Cardiomyopathy, unspecified; I48.91 Unspecified atrial fibrillation; I50.22 Chronic systolic (congestive) heart failure; N18.3 Chronic kidney disease, stage 3 (moderate); Z86.73 Personal history of transient ischemic attack (TIA), and cerebral infarction without residual deficits; Z95.5 Presence of coronary angioplasty implant and graft; I25.10 Atherosclerotic heart disease of native coronary artery without angina pectoris; Q60.2 Renal agenesis, unspecified; Z95.0 Presence of cardiac pacemaker; Z79.01 Long term (current) use of anticoagulants
CPT/HCPCS: 36415; 71045; 73030; 74176; 80048; 80053; 81003; 83690; 83880; 84484; 85025; 87081; 93005; 96372; 96374; 96376; 99285; G0378; J1650; J2270; Q0092

== ENCOUNTER 2019-05-08 07:25 | Inpatient (IN) | payer OTHER ==
[~2019-05-08] VITALS: Ht 188 cm; Wt 131.5 kg
[2019-05-08 07:29] VITALS: BP 168/100
[2019-05-08] MEDS ORDERED: NITROGLYCERIN 0.4 MG TAB SL ONE (07:55)
[2019-05-08] MEDS ORDERED: ASPIRIN 325 MG TAB PO ONE (07:55)
[2019-05-08 09:00] LABS: BASOPHILS # (AUTO) 0.1 K/uL (0.00-0.22); BASOPHILS % (AUTO) 1.4 % (0.0-2.0); EOSINOPHILS # (AUTO) 0.2 K/uL (0-0.4); EOSINOPHILS % (AUTO) 3.2 % (0.0-4.0); HEMATOCRIT 42.6 % (36-52); HEMOGLOBIN 13.9 g/dL (12.0-18.0); LYMPHOCYTES # (AUTO) 1.3 K/uL (2.0-11.5); LYMPHOCYTES % (AUTO) 19.2 % (20.5-51.1); MEAN CORPUSCULAR HEMOGLOBIN 29 pg (27-31); MEAN CORPUSCULAR HGB CONC 33 g/dL (33-37); MEAN CORPUSCULAR VOLUME 89.3 fL (80-94); MONOCYTES # (AUTO) 0.5 K/uL (0.8-1.0); MONOCYTES % (AUTO) 6.9 % (1.7-9.3); NEUTROPHILS # (AUTO) 4.6 K/uL (1.8-7.7); NEUTROPHILS % (AUTO) 69.3 % (42.2-75.2); PLATELET COUNT (AUTO) 56 K/uL (140-450); RED BLOOD CELL COUNT(AUTO) 4.77 MIL/uL (4.20-6.10); RED CELL DISTRIBUTION WIDTH 14.7 % (11.6-13.7); WHITE BLOOD COUNT (AUTO) 6.6 K/uL (4.8-10.8)
[2019-05-08 09:05] LABS: ANION GAP 12.4 (8-16); CARBON DIOXIDE 24.2 mmol/L (21-32); CREATININE 1.2 mg/dL (0.7-1.3); POTASSIUM 4.6 mmol/L (3.5-5.1)
[2019-05-08] MEDS ORDERED: MORPHINE SULFATE 10 MG/ML VIAL IVP ONE (09:25)
[2019-05-08] MEDS ORDERED: ACETAMINOPHEN 325 MG TAB PO PRN (10:45)
[2019-05-08] MEDS ORDERED: HYDROcodone/APAP 5/325 MG 1 TAB TAB PO PRN (10:45)
[2019-05-08] MEDS ORDERED: hydrALAZINE 20 MG/ML VIAL IVP PRN (10:45)
[2019-05-08] MEDS ORDERED: ALBUTEROL 0.083% 2.5 MG/3 ML NEBU IH PRN (10:45)
[2019-05-08] MEDS ORDERED: ONDANSETRON 4 MG/2 ML VIAL IVP PRN (10:45)
[2019-05-08] MEDS: MORPHINE SULFATE 4 MG/ML SYR IVP PRN ×3 (14:01→22:30)
[2019-05-08 16:05] VITALS: BP 140/74
[2019-05-08] MEDS: CARVEDILOL 6.25 MG TAB PO SCH (17:22)
[2019-05-08] MEDS ORDERED: LOVENOX 1MG/KG Q12H SUBQ SCH (19:10)
[2019-05-08 20:00] VITALS: BP 145/80
[2019-05-08] MEDS: FAMOTIDINE 20 MG TAB PO SCH (20:44)
[2019-05-09] VITALS: BP 143/81
[2019-05-09] MEDS ORDERED: FUROSEMIDE 40 MG/4 ML VIAL IVP ONE (01:21)
[2019-05-09] MEDS: FUROSEMIDE 40 MG/4 ML VIAL IVP SCH ×2 (01:24→09:04)
[2019-05-09] MEDS: MORPHINE SULFATE 4 MG/ML SYR IVP PRN ×5 (02:41→22:04)
[2019-05-09 04:00] VITALS: BP 121/86
[2019-05-09 08:00] VITALS: BP 130/95
[2019-05-09 08:17] LABS: BASOPHILS # (AUTO) 0.1 K/uL (0.00-0.22); BASOPHILS % (AUTO) 0.8 % (0.0-2.0); EOSINOPHILS # (AUTO) 0.2 K/uL (0-0.4); EOSINOPHILS % (AUTO) 2.7 % (0.0-4.0); HEMATOCRIT 42.4 % (36-52); HEMOGLOBIN 13.9 g/dL (12.0-18.0); LYMPHOCYTES # (AUTO) 1.3 K/uL (2.0-11.5); LYMPHOCYTES % (AUTO) 15.4 % (20.5-51.1); MEAN CORPUSCULAR HEMOGLOBIN 29 pg (27-31); MEAN CORPUSCULAR HGB CONC 33 g/dL (33-37); MEAN CORPUSCULAR VOLUME 88.8 fL (80-94); MONOCYTES # (AUTO) 0.6 K/uL (0.8-1.0); MONOCYTES % (AUTO) 7.4 % (1.7-9.3); NEUTROPHILS # (AUTO) 6.1 K/uL (1.8-7.7); NEUTROPHILS % (AUTO) 73.7 % (42.2-75.2); PLATELET COUNT (AUTO) 159 K/uL (140-450); RED BLOOD CELL COUNT(AUTO) 4.77 MIL/uL (4.20-6.10); RED CELL DISTRIBUTION WIDTH 15.2 % (11.6-13.7); WHITE BLOOD COUNT (AUTO) 8.2 K/uL (4.8-10.8)
[2019-05-09 08:46] LABS: ANION GAP 15.1 (8-16); CARBON DIOXIDE 24.7 mmol/L (21-32); CREATININE 1.2 mg/dL (0.7-1.3); POTASSIUM 3.8 mmol/L (3.5-5.1)
[2019-05-09] MEDS ORDERED: FUROSEMIDE 40 MG TAB PO SCH (09:00)
[2019-05-09] MEDS: FAMOTIDINE 20 MG TAB PO SCH ×2 (09:05→20:24)
[2019-05-09] MEDS: LISINOPRIL 10 MG TAB PO SCH (09:05)
[2019-05-09 09:06] LABS: MAGNESIUM 1.9 mg/dL (1.8-2.4); PHOSPHORUS 2.8 mg/dL (2.5-4.9)
[2019-05-09] MEDS: CARVEDILOL 6.25 MG TAB PO SCH ×2 (09:06→16:47)
[2019-05-09] MEDS: ECOTRIN 81 MG TABEC PO SCH (09:06)
[2019-05-09] MEDS: SPIRONOLACTONE 25 MG TAB PO SCH (09:11)
[2019-05-09] MEDS: ATORVASTATIN 80 MG TAB PO SCH (09:11)
[2019-05-09 09:13] LABS: ALBUMIN 3.6 g/dL (3.4-5.0); BILIRUBIN,DIRECT 0.1 mg/dL (0.0-0.3); TOTAL BILIRUBIN 0.7 mg/dL (0.0-1.0)
[2019-05-09 12:17] VITALS: BP 144/100
[2019-05-09 17:00] VITALS: BP 127/88
[2019-05-09 18:42] LABS: APPEARANCE,URINE CLEAR (CLEAR); BILIRUBIN,URINE NEGATIVE (NEGATIVE); BLOOD, URINE NEGATIVE (NEGATIVE); COLOR,URINE YELLOW (YELLOW); LEUKOCYTE ESTERASE ,URINE NEGATIVE (NEGATIVE); NITRITE, URINE NEGATIVE (NEGATIVE); PH,URINE 6.5 (5.0-9.0); UGLUCOSE NEGATIVE (NEGATIVE)
[2019-05-09 18:47] LABS: BARBITURATE, URINE NEG. ng/ml (NEG <=200); BENZODIAZEPINE, URINE NEG. ng/mL (NEG <=200); CANNABINOID, URINE POS. ng/mL (NEG <=50); COCAINE, URINE NEG. ng/mL (NEG <=300); OPIATE, URINE POS. ng/mL (NEG <=2000); PHENCYCLIDINE SCREEN,URINE NEG. ng/mL (NEG <=25)
[2019-05-09 20:00] VITALS: BP 143/69
[2019-05-10] VITALS: BP 147/69
[2019-05-10] MEDS: MORPHINE SULFATE 4 MG/ML SYR IVP PRN ×2 (02:16→07:47)
[2019-05-10 04:13] VITALS: BP 112/70
[2019-05-10 07:03] LABS: BASOPHILS # (AUTO) 0.1 K/uL (0.00-0.22); EOSINOPHILS # (AUTO) 0.2 K/uL (0-0.4); EOSINOPHILS % (AUTO) 3.1 % (0.0-4.0); HEMOGLOBIN 14.6 g/dL (12.0-18.0); LYMPHOCYTES # (AUTO) 1.3 K/uL (2.0-11.5); LYMPHOCYTES % (AUTO) 17.9 % (20.5-51.1); MEAN CORPUSCULAR HEMOGLOBIN 29 pg (27-31); MEAN CORPUSCULAR HGB CONC 33 g/dL (33-37); MEAN CORPUSCULAR VOLUME 89.6 fL (80-94); MONOCYTES # (AUTO) 0.4 K/uL (0.8-1.0); MONOCYTES % (AUTO) 5.5 % (1.7-9.3); NEUTROPHILS # (AUTO) 5.4 K/uL (1.8-7.7); NEUTROPHILS % (AUTO) 72.5 % (42.2-75.2); PLATELET COUNT (AUTO) 184 K/uL (140-450); RED BLOOD CELL COUNT(AUTO) 5.02 MIL/uL (4.20-6.10); WHITE BLOOD COUNT (AUTO) 7.5 K/uL (4.8-10.8)
[2019-05-10 07:04] LABS: ANION GAP 14.7 (8-16); CARBON DIOXIDE 27.9 mmol/L (21-32); CREATININE 1.4 mg/dL (0.7-1.3); POTASSIUM 3.6 mmol/L (3.5-5.1)
[2019-05-10 07:18] LABS: PHOSPHORUS 3.3 mg/dL (2.5-4.9)
[2019-05-10] MEDS: CARVEDILOL 6.25 MG TAB PO SCH (07:48)
[2019-05-10 08:00] VITALS: BP 104/79
[2019-05-10] MEDS: SPIRONOLACTONE 25 MG TAB PO SCH (08:00)
[2019-05-10] MEDS: FUROSEMIDE 40 MG/4 ML VIAL IVP SCH (08:00)
[2019-05-10] MEDS: ATORVASTATIN 80 MG TAB PO SCH (08:01)
[2019-05-10] MEDS: ECOTRIN 81 MG TABEC PO SCH (08:01)
[2019-05-10] MEDS: FAMOTIDINE 20 MG TAB PO SCH (08:01)
[2019-05-10] MEDS: LISINOPRIL 10 MG TAB PO SCH (08:01)
[2019-05-10] MEDS ORDERED: HYDR-5122 PO (11:13)
[2019-05-10 12:00] VITALS: BP 103/85
== END 2019-05-10 12:05 | disposition home or self-care (01) | DRG 194 ==
LOC: MED 07:25 → MTU 10:49 → OBSVTOIN 05-09 14:07
PROVIDERS: ADMIT Internal Medicine Pulmonary Disease; ATTEND Internal Medicine Pulmonary Disease
PROC: 05HY33Z Insertion of Infusion Device into Upper Vein, Percutaneous Approach (ICD-10-PCS; principal; 2019-05-08)
PROC: B54NZZA Ultrasonography of Left Upper Extremity Veins, Guidance (ICD-10-PCS; 2019-05-08)
DX: I11.0 Hypertensive heart disease with heart failure (principal); I21.A1 Myocardial infarction type 2; I42.0 Dilated cardiomyopathy; I50.43 Acute on chronic combined systolic (congestive) and diastolic (congestive) heart failure; I48.91 Unspecified atrial fibrillation; E78.5 Hyperlipidemia, unspecified; F31.9 Bipolar disorder, unspecified; Z86.73 Personal history of transient ischemic attack (TIA), and cerebral infarction without residual deficits; Z79.899 Other long term (current) drug therapy; Z79.82 Long term (current) use of aspirin; Z88.8 Allergy status to other drugs, medicaments and biological substances
CPT/HCPCS: 99285; G0378; 36415; 71045; 76700; 80048; 80076; 80305; 81003; 83036; 83735; 83880; 84100; 84484; 85025; 87081; C1751; J1940; J2270; Q0092; Q0163

== ENCOUNTER 2019-09-27 05:50 | Inpatient (IN) | payer OTHER ==
--- NOTE | 2019-09-26 01:32 | NUR ---
PATIENT WENT TO BATHROOM, ASKED FOR SOME LIGHT SNACKS WHEN GETTING BACK TO BED, CARDIAC DIET Addendum: 09/28/19 at 0139 by Arlette Amato RN EFREN KRAUSE
[~2019-09-27] VITALS: Ht 188 cm; Wt 124.7 kg
[~2019-09-27 05:50] MED LIST changes: -CLOP75TA26 PO; +HYDR-5122 PO
[2019-09-27 05:55] VITALS: BP 143/110
--- NOTE | 2019-09-27 05:55 | NUR ---
PT TAKEN TO BED 9
--- NOTE | 2019-09-27 06:02 | NUR ---
Dr. Mendez examining patient.
[2019-09-27] MEDS ORDERED: NITROGLYCERIN 0.4 MG TAB SL ONE (06:10)
[2019-09-27] MEDS ORDERED: MORPHINE SULFATE 4 MG/ML SYR IVP ONE ×2 (06:10→07:30)
--- NOTE | 2019-09-27 06:10 | NUR ---
PMH: METH USE ( 2 YEARS SOBER)
--- NOTE | 2019-09-27 06:10 | NUR ---
SKIN SHOWS CIRCULAR SCABS ON BILAT ARMS. COUGH IS MOIST.
--- NOTE | 2019-09-27 06:10 | NUR ---
48 Y/O MALE C/O CHEST PAIN X 45MINS. RATES PAIN 10/10 AND DESCRIBES IT PRESSURE AND RADIATES TO LEFT ARM. PT STATES HE HAS SOB. SPO2 95% RA. NO RESP DISTRESS NOTED. A & O X4. NO EDEMA PRESENT. VSS. LUNG SOUNDS CRACKLES ON RIGHT UPPER LOBE. HEART SOUND S1S2 PRESENT. CAP REFILL < 3. PT DOESNT USE O2 AT HOME. ALLERGIES: TORADOL PMH: HTN,A-FIB,HYPERLIPIDEMIA, CHF,CVA X4, CARDIOMYOPATHY.
--- NOTE | 2019-09-27 06:27 | NUR ---
X-Ray at bedside.
--- NOTE | 2019-09-27 06:43 | NUR ---
Dr. Hall examining patient.
[2019-09-27 06:44] LABS: BASOPHILS # (AUTO) 0.1 K/uL (0.00-0.22); EOSINOPHILS # (AUTO) 0.2 K/uL (0-0.4); EOSINOPHILS % (AUTO) 3.2 % (0.0-4.0); HEMATOCRIT 46.3 % (36-52); LYMPHOCYTES # (AUTO) 1.4 K/uL (2.0-11.5); LYMPHOCYTES % (AUTO) 19.2 % (20.5-51.1); MEAN CORPUSCULAR HEMOGLOBIN 29 pg (27-31); MEAN CORPUSCULAR HGB CONC 32 g/dL (33-37); MEAN CORPUSCULAR VOLUME 88.7 fL (80-94); MONOCYTES # (AUTO) 0.5 K/uL (0.8-1.0); MONOCYTES % (AUTO) 6.9 % (1.7-9.3); NEUTROPHILS % (AUTO) 69.7 % (42.2-75.2); PLATELET COUNT (AUTO) 176 K/uL (140-450); RED BLOOD CELL COUNT(AUTO) 5.22 MIL/uL (4.20-6.10); RED CELL DISTRIBUTION WIDTH 14.3 % (11.6-13.7); WHITE BLOOD COUNT (AUTO) 7.2 K/uL (4.8-10.8)
--- NOTE | 2019-09-27 06:48 | NUR ---
Yolanda linton in [facility] - 09/27/19 at 0651 by MARCOS XRAY AT BEDSIDE.
--- NOTE | 2019-09-27 06:49 | NUR ---
GAVE NITRO SL. TOLD PT IF CHEST PAIN DOESNT SUBSIDE IN 5MINS WILL HAVE TO GIVE ANOTHER DOSE OF NITRO. PT TOLD ME IF THE CP DOESNT GO AWAY STILL HE WAS GOING TO REFUSE THE SECOND DOSE OF NITRO STILL BECAUSE HE DIDNT WANT IT. ERMD AWARE.
--- NOTE | 2019-09-27 06:55 | NUR ---
Note undone in EDM - 09/27/19 at 0710 by [facility] 48 Y/O MALE C/O CHEST PAIN X 45MINS. RATES PAIN 10/10 AND DESCRIBES IT PRESSURE AND RADIATES TO LEFT ARM. PT STATES HE HAS SOB. SPO2 95% RA. NO RESP DISTRESS NOTED. A & O X4. NO EDEMA PRESENT. VSS. LUNG SOUNDS CRACKLES ON RIGHT UPPER LOBE. HEART SOUND S1S2 PRESENT. CAP REFILL < 3. PT DOESNT USE O2 AT HOME. ALLERGIES: TORADOL PMH: HTN,A-FIB,HYPERLIPIDEMIA, CHF,CVA X4, CARDIOMYOPATHY.
--- NOTE | 2019-09-27 07:07 | NUR ---
ATTEMPT 6X TO START AN IV BUT UNSUCCESSFUL. ERMD IS USING US GUIDED FOR IV.
[2019-09-27 07:08] LABS: ANION GAP 16.5 (8-16); CARBON DIOXIDE 23.4 mmol/L (21-32); CREATININE 1.3 mg/dL (0.6-1.3); POTASSIUM 3.9 mmol/L (3.5-5.1); TOTAL BILIRUBIN 0.5 mg/dL (0.0-1.0)
[2019-09-27] MEDS ORDERED: MORPHINE SULFATE 4 MG/ML SYR ONE (07:11)
--- NOTE | 2019-09-27 07:21 | NUR ---
Pt report given to MICHAEL ALEJO. Transfer of care at this time.
[2019-09-27] MEDS ORDERED: diphenhydrAMINE 50 MG/ML VIAL IVP ONE (07:30)
--- NOTE | 2019-09-27 07:35 | NUR ---
Confirmed with MD Hall regarding second dose of Morphine. Vital Signs Stable. Per MD Hall okay to give second dose of Morphine.
[2019-09-27] MEDS ORDERED: HYDROcodone/APAP 7.5/325 MG 1 TAB PO PRN (07:55)
[2019-09-27] MEDS ORDERED: ONDANSETRON 4 MG/2 ML VIAL IM/IVP PRN (07:55)
[2019-09-27] MEDS ORDERED: ACETAMINOPHEN 325 MG TAB PO PRN (07:55)
[2019-09-27] MEDS ORDERED: DOCUSATE SODIUM 100 MG GELCAP PO PRN (07:55)
--- NOTE | 2019-09-27 08:25 | NUR ---
Patient will be admitted to care of [facility]. Admited to Tele. Will go to room 111B. Belongings list completed. Report to MICHAEL Gifford.
--- NOTE | 2019-09-27 08:25 | NUR ---
Transfer of care and report given to MICHAEL Gifford.
--- NOTE | 2019-09-27 08:30 | NUR ---
RECEIVED REPORT FROM ER NURSE FOR CONTINUATION OF CARE. PATIENT IS FREQUENTLY ADMITTED AT [facility] FOR CHEST PAIN. HX OF CHF AND NV.
[2019-09-27 08:43] LABS: CHOL/HDL RATIO 5.6 (1-4.5); FREE T4 (FREE THYROXINE) 1.02 ng/dL (0.76-1.46); MAGNESIUM 1.9 mg/dL (1.8-2.4); THYROID STIMULATING HORMONE 1.73 uIU/mL (0.34-3.74)
[2019-09-27] MEDS ORDERED: NITROGLYCERIN 0.4 MG TAB SL PRN (09:05)
[2019-09-27 09:11] LABS: PROTHROMBIN TIME 9.9 secs (10.8-13.4)
[2019-09-27] MEDS ORDERED: ALBUTEROL SULFATE/IPRATROPIU 3 ML SOL IH PRN (10:30)
--- NOTE | 2019-09-27 11:00 | NUR ---
PATIENT COMPLAINS OF CHEST PAIN, 4 MG OF MORPHINE GIVEN IN ER 3 HOURS AGO, MEDICATION TO BE ADMINISTERED. IV FLUID NS RUNNING AT 20 ML/HR. PATIENT USING URINAL FOR VOIDING. WILL CONTINUE TO MONITOR.
[2019-09-27] MEDS: MORPHINE SULFATE 2 MG/ML SYR IVP PRN ×3 (11:30→19:30)
[2019-09-27 12:00] VITALS: BP 117/53
[2019-09-27] MEDS: NACL 0.9% 1,000 ML IV SCH (12:48)
--- NOTE | 2019-09-27 13:30 | NUR ---
ECHOCARDIOGRAM REVEALED 10% EJECTION FRACTION PER EDITORIAL CARTOONIST. MD AWARE. PATIENT BREATHING LABORED, ON ROOM AIR. TOLERATED FOOD WELL. WILL CONTINUE TO MONITOR.
--- NOTE | 2019-09-27 14:37 | NUR ---
Tire Servicer Note: Patient denied alcohol/substance abuse.
--- NOTE | 2019-09-27 15:03 | NUR ---
PATIENT HAS BEEN SCREENED AND CATEGORIZED MODERATE NUTRITION RISK. PATIENT WILL BE SEEN WITHIN 3-5 DAYS OF ADMISSION. 09/29/19 10/01/[address]
--- NOTE | 2019-09-27 15:58 | NUR ---
PAIN MEDICATION ADMINISTERED. 2 MG MORPHINE GIVEN FOR SEVERE PAIN. PATIENT IS RESTING IN BED, WATCHING TV. CONCERNS ADDRESSED. WILL CONTINUE TO MONITOR.
[2019-09-27 16:00] VITALS: BP 118/84
[2019-09-27] MEDS: CARVEDILOL 6.25 MG TAB PO SCH (16:41)
--- NOTE | 2019-09-27 19:15 | NUR ---
BEDSIDE SHIFT REPORT GIVEN TO PIPE SUPERVISOR NURSE FOR CONTINUATION OF CARE.
--- NOTE | 2019-09-27 19:16 | NUR ---
RECEIVED REPORT FROM FROM ISELA LONG FOR CONTINUATION OF CARE. TELEMONITORING. HX OF CHF AND VA. A,A O X 4. AMBULATORY W/ STEADY GAIT. NO SOB NOTED, ON R.A PT WITH IV ON THE LEFT AC G 22, SOME SWELLING NOTED. C/O OF CHEST PAIN LEFT SIDED 03/23 , WILL MEDICATE. PT ON FALL RISK PRECAUTION,PLACED ON LOW BED.WILL CONTINUE TO MONITOR
[2019-09-27 20:00] VITALS: BP 104/59
--- NOTE | 2019-09-27 20:00 | NUR ---
PT'S IVF SWOLLEN, INFILTRATED. DISCONTINUED IVF ON LEFT AC, CANNULA INTACT. REINSERTED ANOTHER LINE ON THE RIGHT HAND G 22, PT TOLERATED PROCEDURE, PATENT.
--- NOTE | 2019-09-27 20:01 | NUR ---
PT REFUSING IVF TO BE CONTINUED HE SAID HE DOES NOT WANT BECAUSE HIS ARMS ARE SWELLING UP ON THE IV SITE. EXPLAINED THE RISKS AND BENEFITS. WILL INFORM DE. SLAUGHTER.
--- NOTE | 2019-09-27 21:10 | NUR ---
PT SEEN AND ASSESSED. PT IS IN NO APPARENT RESPIRATORY DISTRESS AT THIS TIME; HR 79, RR 18, SPO2 OF 95% ON ROOM AIR, AND A CLEAR BREATH SOUNDS. NO INDICATION FOR HHN PRN TX AT THIS TIME. WILL CONTINUE TO MONITOR PT.
[2019-09-27] MEDS ORDERED: diphenhydrAMINE 50 MG/ML VIAL IVP SCH (22:35)
--- NOTE | 2019-09-27 22:40 | NUR ---
C/O OF ITCHINESS, DR. SLAUGHTER INFORMED. WILL GIVE BENADRYL ORDERED
[2019-09-28] VITALS: BP 127/57
[2019-09-28] MEDS: MORPHINE SULFATE 2 MG/ML SYR IVP PRN ×7 (00:32→23:19)
--- NOTE | 2019-09-28 01:32 | NUR ---
PATIENT WENT TO BATHROOM, ASKED FOR SOME LIGHT SNACKS WHEN GETTING BACK TO BED, CARDIAC DIET
[2019-09-28 04:00] VITALS: BP_SYST 105; BP_SYST 128; BP_DIAS 59; BP_DIAS 90
--- NOTE | 2019-09-28 06:51 | NUR ---
PT A, AO O X 4, AMBULATORY PT IN STABLE CONDITION AT THIS TIME.
[2019-09-28 07:05] LABS: BASOPHILS # (AUTO) 0.1 K/uL (0.00-0.22); BASOPHILS % (AUTO) 0.9 % (0.0-2.0); EOSINOPHILS # (AUTO) 0.2 K/uL (0-0.4); EOSINOPHILS % (AUTO) 2.9 % (0.0-4.0); HEMATOCRIT 43.4 % (36-52); LYMPHOCYTES # (AUTO) 1.8 K/uL (2.0-11.5); MEAN CORPUSCULAR HEMOGLOBIN 29 pg (27-31); MEAN CORPUSCULAR HGB CONC 32 g/dL (33-37); MEAN CORPUSCULAR VOLUME 88.4 fL (80-94); MONOCYTES # (AUTO) 0.6 K/uL (0.8-1.0); MONOCYTES % (AUTO) 7.5 % (1.7-9.3); NEUTROPHILS # (AUTO) 4.7 K/uL (1.8-7.7); NEUTROPHILS % (AUTO) 63.7 % (42.2-75.2); PLATELET COUNT (AUTO) 170 K/uL (140-450); RED BLOOD CELL COUNT(AUTO) 4.91 MIL/uL (4.20-6.10); RED CELL DISTRIBUTION WIDTH 14.1 % (11.6-13.7); WHITE BLOOD COUNT (AUTO) 7.3 K/uL (4.8-10.8)
--- NOTE | 2019-09-28 07:12 | NUR ---
RECEIVED BEDSIDE SHIFT REPORT FROM BREWERY TECHNICIAN NURSE FOR CONTINUATION OF CARE.
[2019-09-28 07:19] LABS: ANION GAP 15.5 (8-16); CARBON DIOXIDE 22.4 mmol/L (21-32); CREATININE 1.3 mg/dL (0.6-1.3); POTASSIUM 3.9 mmol/L (3.5-5.1)
[2019-09-28 07:22] LABS: MAGNESIUM 1.9 mg/dL (1.8-2.4); PHOSPHORUS 2.7 mg/dL (2.5-4.9)
[2019-09-28] MEDS: NACL 0.9% 1,000 ML IV SCH (07:36)
[2019-09-28 07:47] VITALS: BP 110/61
[2019-09-28 08:15] LABS: T4 (THYROXINE) 6.1 ug/dL (4.5-12.0)
[2019-09-28] MEDS: FUROSEMIDE 40 MG TAB PO SCH (08:15)
[2019-09-28] MEDS: ASPIRIN 81 MG TAB.CHEW PO SCH (08:16)
[2019-09-28] MEDS: SPIRONOLACTONE 25 MG TAB PO SCH (08:16)
[2019-09-28] MEDS: LISINOPRIL 10 MG TAB PO SCH (08:17)
[2019-09-28] MEDS: CARVEDILOL 6.25 MG TAB PO SCH ×2 (08:19→16:05)
[2019-09-28] MEDS ORDERED: ATORVASTATIN 80 MG TAB PO SCH (09:00)
--- NOTE | 2019-09-28 10:00 | NUR ---
MORPHINE GIVEN FOR PAIN, PATIENT ASKED FOR BRADLY MCGEE, AWARE. VITALS ARE STABLE. CONCERNS ADDRESSED.
[2019-09-28 12:00] VITALS: BP 122/75
--- NOTE | 2019-09-28 15:00 | NUR ---
PATIENT MEDICATED FOR SEVERE PAIN, CALL LIGHT ON AND WITHIN REACH. PATIENT IS RESTING IN BED WATCHING TV. BED IN LOW POSITION, URINAL USED. WILL CONTINUE TO MONITOR.
[2019-09-28 16:00] VITALS: BP 137/95
--- NOTE | 2019-09-28 19:25 | NUR ---
BEDSIDE SHIFT REPORT GIVEN TO HAND TURNER NURSE FOR CONTINUATION OF CARE.
--- NOTE | 2019-09-28 19:26 | NUR ---
RECEIVED BEDSIDE REPORT FROM DAY RN. PT IS AAOX4 ON ROOM AIR. RESPIRATIONS ARE EQUAL AND UNLABORED. SKIN INTACT. PT IS AMBULATORY WITHOUT ASSIST. PT IS FROM HOME. C/C CHEST PAIN. DX CHEST PAIN CURRENTLY DENIES PAIN. IV ON R HAND REFUSES IVF. POC DISCUSSED WITH PT. CALL LIGHT IS WITHIN REACH. WILL CONTINUE TO MONITOR.
--- NOTE | 2019-09-28 19:52 | NUR ---
ADMINISTERED PRN MORPHINE FOR CHEST DISCOMFORT. PT TOLERATED WELL. CALL LIGHT IS WITHIN REACH.
[2019-09-28 20:00] VITALS: BP 118/67
--- NOTE | 2019-09-28 20:56 | NUR ---
VSS. ANTONELLA MEDICATION GIVEN PER ORDERS. PT TOLERATED WELL. CALL LIGHT IS WITHIN REACH.
--- NOTE | 2019-09-28 22:30 | NUR ---
PT IS SLEEPING COMFORTABLY IN BED. WITH CHEST RISE AND FALL. CALL LIGHT IS WITHIN REACH
[2019-09-29] VITALS: BP 121/85
--- NOTE | 2019-09-29 | NUR ---
VITAL SIGNS ARE WITHIN NORMAL LIMITS. ALL SAFETY MEASURES ARE IN PLACE. CALL LIGHT IS WITHIN REACH. WILL CONTINUE TO MONITOR.
[2019-09-29] MEDS: NACL 0.9% 1,000 ML IV SCH (01:16)
--- NOTE | 2019-09-29 02:17 | NUR ---
PT IS SLEEPING COMFORTABLY IN BED. CHEST RISE AND FALL NOTED. NO S/S OF DISTRESS. CALL LIGHT IS WITHIN REACH. WILL CONTINUE TO MONITOR.
[2019-09-29] MEDS: MORPHINE SULFATE 2 MG/ML SYR IVP PRN ×5 (03:56→20:35)
[2019-09-29 04:00] VITALS: BP 118/85
--- NOTE | 2019-09-29 04:00 | NUR ---
VITAL SIGNS ARE WITHIN NORMAL LIMITS. ALL NEEDS MET AT THIS TIME. CALL LIGHT IS WITHIN REACH.
--- NOTE | 2019-09-29 07:18 | NUR ---
GAVE BEDSIDE REPORT TO DAY RN. PT ENDORSED IN STABLE CONDITION.
--- NOTE | 2019-09-29 07:20 | NUR ---
RECEIVED BEDSIDE REPORT FROM AUTOMATED EQUIPMENT ENGINEER TECHNICIAN NURSE FOR CONTINUITY OF CARE. PT IS RESTING ON BED AT THIS TIME AND AROUSABLE TO VOICE. PT IS AAOX4, SPEAKS LAO. RESPIRATION EVEN AND UNLABORED ON RA. NO SIGNS OF DISTRESS NOTED. IV ON R HAND #22G, CLEAN AND INTACT, NOT INFUSING AT THIS TIME. SKIN CLEAN AND DRY. PT IS CONTINENT AND ABLE TO AMBULATE WITH STEADY GAIT. SAFETY MEASURES IN PLACE. BED IN LOW POSITION AND CALL LIGHT WITHIN REACH. INSTRUCTED PT TO USE THE CALL LIGHT FOR ANY ASSISTANCE AND PT AWARE.
[2019-09-29 08:00] VITALS: BP 128/92
[2019-09-29] MEDS: CARVEDILOL 6.25 MG TAB PO SCH ×2 (09:09→17:00)
[2019-09-29] MEDS: ASPIRIN 81 MG TAB.CHEW PO SCH (09:10)
[2019-09-29] MEDS: LISINOPRIL 10 MG TAB PO SCH (09:10)
[2019-09-29] MEDS: SPIRONOLACTONE 25 MG TAB PO SCH (09:11)
[2019-09-29] MEDS: FUROSEMIDE 40 MG TAB PO SCH (09:12)
[2019-09-29] MEDS: ATORVASTATIN 20 MG TAB PO SCH (09:12)
--- NOTE | 2019-09-29 09:14 | NUR ---
CHECKED BP PRIOR TO MEDS ADMINISTRATION, BP 127/59 PULSE 73. ADMINISTERED SCHEDULED MEDS PER MD ORDER, MEDS ED PROVIDE TO PT AND PT VERBALIZED UNDERSTANDING. PT TOLERATED MEDS WELL. PT AWAKE AND WATCHING TV ON BED. NO SIGNS OF DISTRESS NOTED. EXPLAINED TO PT THAT UA IS NEEDED AND SPECIMEN CUP PROVIDED, PER PT, "OK, WHENEVER I NEED TO GO BATHROOM, I WILL." SAFETY MEASURES IN PLACE. BED IN LOW POSITION AND CALL LIGHT WITHIN REACH. INSTRUCTED PT TO USE THE CALL LIGHT FOR ANY ASSISTANCE AND PT SAID OK.
[2019-09-29 11:17] LABS: BASOPHILS # (AUTO) 0.1 K/uL (0.00-0.22); BASOPHILS % (AUTO) 1.5 % (0.0-2.0); EOSINOPHILS # (AUTO) 0.3 K/uL (0-0.4); EOSINOPHILS % (AUTO) 4.5 % (0.0-4.0); HEMATOCRIT 43.5 % (36-52); HEMOGLOBIN 14.9 g/dL (12.0-18.0); LYMPHOCYTES # (AUTO) 1.3 K/uL (2.0-11.5); LYMPHOCYTES % (AUTO) 18.4 % (20.5-51.1); MEAN CORPUSCULAR HEMOGLOBIN 29 pg (27-31); MEAN CORPUSCULAR HGB CONC 34 g/dL (33-37); MEAN CORPUSCULAR VOLUME 83.9 fL (80-94); MONOCYTES # (AUTO) 0.5 K/uL (0.8-1.0); MONOCYTES % (AUTO) 7.4 % (1.7-9.3); NEUTROPHILS # (AUTO) 4.7 K/uL (1.8-7.7); NEUTROPHILS % (AUTO) 68.2 % (42.2-75.2); PLATELET COUNT (AUTO) 179 K/uL (140-450); RED BLOOD CELL COUNT(AUTO) 5.19 MIL/uL (4.20-6.10)
--- NOTE | 2019-09-29 11:27 | NUR ---
PT COMPLAIN OF CP /. REPOSITIONED PATIENT AND TAUGHT PT RELAXATION TECHNIQUES. PT STATES IT DOES NOT HELP WITH THE PAIN. MEDICATED WITH PRN MORPHINE VIA IVP MEDICATION EDUCATION PROVIDED. PATIENT VERBALIZED UNDERSTANDING. PT IS AWAKE AND WATCHING TV ON BED. NO ACUTE RESPIRATORY DISTRESS NOTED. SAFETY MEASURES IN PLACE.
[2019-09-29 11:32] LABS: ANION GAP 11.7 (8-16); CARBON DIOXIDE 26.2 mmol/L (21-32); CREATININE 1.4 mg/dL (0.6-1.3); POTASSIUM 3.9 mmol/L (3.5-5.1)
[2019-09-29 11:36] LABS: PHOSPHORUS 2.6 mg/dL (2.5-4.9)
--- NOTE | 2019-09-29 13:11 | NUR ---
HOURLY ROUNDING ON PT. PT IS RESTING IN BED WATCHING TV. NO SIGNS OF DISTRESS NOTED. SAFETY MEASURES IN PLACE. PT INSTRUCTED TO USE CALL LIGHT FOR ASSISTANCE. WILL CONTINUE TO MONITOR
--- NOTE | 2019-09-29 15:13 | NUR ---
HOURLY ROUNDING. PT IS LYING IN BED SLEEPING. NO SIGNS OF DISTRESS NOTED. RESPIRATIONS ARE EVEN AN UNLABORED. SAFETY MEASURES IN PLACE. BED IN LOW POSITION AND CALL LIGHT IN REACH. WILL CONTINUE TO MONITOR
--- NOTE | 2019-09-29 15:53 | NUR ---
PT COMPLAINED OF 10/10 CHEST PAIN. EDUCATED PT ON NONPHARMACOLOGIC PAIN INTERVENTIONS OF REPOSITIONING AND DISTRACTION. PT STATES IT DOES NOT HELP. ADMINISTERED MORPHINE PER MD ORDER. BP OBTAINED PRIOR 111/52. RESPIRATIONS 16 UNLABORED. UA COLLECTED AND SENT TO LAB. SAFETY MEASURES IN PLACE. PT INSTRUCTED TO USE CALL LIGHT FOR ASSISTANCE. WILL CONTINUE TO MONITOR.
--- NOTE | 2019-09-29 17:14 | NUR ---
CHECKED BP PRIOR TO MED ADMINISTRATION. BP 106/[address] BRISCOE ON BP AND HR. PER DR BRISCOE HOLD BP MED COREG DUE TO PATIENT BP BEING ON THE LOW SIDE. HOLD MED PER MD ORDER RETURNED MED TO [facility]. PATIENT IS AWAKE IN BED WATCHING TV. SAFETY MEASURES IN PLACE. WILL CONTINUE TO MONITOR
[2019-09-29 18:07] LABS: APPEARANCE,URINE CLEAR (CLEAR); BILIRUBIN,URINE NEGATIVE (NEGATIVE); BLOOD, URINE NEGATIVE (NEGATIVE); COLOR,URINE YELLOW (YELLOW); LEUKOCYTE ESTERASE ,URINE TRACE (NEGATIVE); NITRITE, URINE NEGATIVE (NEGATIVE); PH,URINE 5.5 (5.0-9.0); UGLUCOSE NEGATIVE (NEGATIVE)
[2019-09-29 18:16] LABS: BARBITURATE, URINE NEG. ng/ml (NEG <=200); BENZODIAZEPINE, URINE NEG. ng/mL (NEG <=200); CANNABINOID, URINE POS. ng/mL (NEG <=50); COCAINE, URINE NEG. ng/mL (NEG <=300); OPIATE, URINE NEG. ng/mL (NEG <=2000); PHENCYCLIDINE SCREEN,URINE NEG. ng/mL (NEG <=25)
[2019-09-29 18:34] LABS: RBC,URINE 0-5 /HPF (0-5)
--- NOTE | 2019-09-29 19:55 | NUR ---
RECEIVED REPORT FROM CHARGE NURSE. PATIENT IS AWAKE IN BED, ANOx4, FOLLOWS ALL COMMANDS AND MAKES NEEDS KNOWN. ON ROOM AIR. LUNG SOUNDS ARE CLEAR, DENIES SOB OR CONGESTION/COUGH. PATIENT C/O CHEST PAIN 9/10- DOES NOT RADIATE. RIGHT HAND 22G PERIPHERAL IV. FLUSHED AND PATENT WITHOUT SYMPTOMS, SALINE LOCKED. PATIENT IS CONTINENT, ABLE TO AMBULATE TO RESTROOM. ABDOMEN IS LARGE SOFT AND NONTENDER, ACTIVE BOWEL SOUNDS. S1S2, HR-73BPM. PATIENT UPDATED ON TREATMENT PLAN, ORIENTED TO CALL LIGHT. VERBALIZES UNDERSTANDING, BED LOCKED AND IN LOW POSITION. WILL CONTINUE TO MONITOR.
[2019-09-29 20:00] VITALS: BP 130/78
--- NOTE | 2019-09-29 20:35 | NUR ---
PATIENT COMPLAINING OF CHEST PAIN, RATES 9/10. CHECKED VITAL SIGNS, HR-73, BP-130/78, SATURATIONS 96% ON RA, RR 16. ADMINISTERED IVP MORPHINE. WILL CONTINUE TO MONITOR.
--- NOTE | 2019-09-29 20:54 | NUR ---
RECEIVED PATIENT ON ROOM AIR, PULSE OX SAT 97%. PT DENIES SOB AT THIS TIME. PRN HHN NOT INDICATED/GIVEN. PATIENT MADE AWARE OF MEDICATION FREQUENCY AND INSTRUCTED TO CALL NEEDED FOR SOB. NO ACUTE RESPIRATORY DISTRESS NOTED AT THIS TIME. WILL CONTINUE TO MONITOR.
--- NOTE | 2019-09-29 21:15 | NUR ---
PATIENT AMBULATED TO RESTROOM, STATES HE HAD A BOWEL MOVEMENT EARLIER TODAY AND ONLY VOIDED JUST NOW. SCHEDULED MEDICATIONS GIVEN, PATIENT EDUCATED ON ORDER FOR IV FLUIDS, PATIENT EXPLAINED HE ALREADY TOLD NURSES ETC THAT HE REFUSES THE IV FLUIDS BECAUSE EARLIER IT MADE HIS WHOLE ARM SWELL UP AND IT CAUSED PAIN. RN ORIENTED PATIENT TO NEW IV SITE, BUT PATIENT STILL REFUSES FLUIDS.
--- NOTE | 2019-09-29 22:49 | NUR ---
PT REQUESTING MORE PAIN MEDICATIONS, RATES CHEST PAIN 8/10, IVP MORPHINE WAS GIVEN AT START OF SHIFT, PATIENT SAYS IT WAS EFFECTIVE BUT ONLY LASTS A FEW HOURS. MORPHINE NOT YET DUE, OFFERED NORCO OR NITROGLYCERIN, PATIENT SAYS HE DOES NOT LIKE NITRO AND DOES NOT TAKE NORCO. PATIENT WILL HOLD OFF TIL DUE TIME FOR MORPHINE.
--- NOTE | 2019-09-30 00:33 | NUR ---
COMPLAINING OF CHEST PAIN, STATES ITS NOW 04/23, WHEN ASKED WHAT THE PAIN FEELS LIKE, PATIENT RESPONDS, " LIKE A CAR IS SITTING ON MY CHEST" (CRUSHING) ASKED PATIENT IF HE IS HAVING DIFFICULTY BREATHING, PATIENT SAYS HE ALWAYS HAS DIFFICULTY BREATHING, OFFERED A BREATHING TREATMENT AND HE REFUSED. OFFERED TO HELP POSITION, PATIENT REFUSED. ADMINISTER IVP MORPHINE. WILL REASSESS.
[2019-09-30] MEDS: MORPHINE SULFATE 2 MG/ML SYR IVP PRN ×3 (00:34→08:40)
--- NOTE | 2019-09-30 01:10 | NUR ---
PATIENT IN BED, STILL AWAKE. ASKED ABOUT PAIN RELIEF, HE STATES HE FEELS BETTER. PATIENT IS ABLE TO SELF TURN, INDEPENDENT AND AMBULATES TO RESTROOM. BED LOCKED AND IN LOWEST POSITION. ALL NEEDS MET.
--- NOTE | 2019-09-30 03:10 | NUR ---
PATIENT IN BED, EYES OPEN, WATCHING TV. ABLE TO SELF TURN, SIDERAILS UP x2, PATIENT HAS CALL LIGHT WITHIN REACH. NO COMPLAINTS AT THIS TIME.
[2019-09-30 04:00] VITALS: BP 121/62
--- NOTE | 2019-09-30 04:40 | NUR ---
COMPLAINING OF CHEST PAIN, RATES 9/10. VITALS ARE WITHIN NORMAL LIMITS. AFEBRILE. PACEMAKER IN PLACE TO LEFT SIDE CHEST. HX OF AFIB AND CARDIOMYOPATHY, AND ENLARGED HEART. IVP MORPHINE GIVEN, TOLERATED FAIRLY. WILL REASSESS.
--- NOTE | 2019-09-30 05:10 | NUR ---
PATIENT ASLEEP IN BED, AUDIBLE SNORING, CHEST RISE AND FALL, NO SOB OR DIFFICULTY BREATHING. FLACC 0. ON ROOM AIR.
--- NOTE | 2019-09-30 07:15 | NUR ---
RECEIVED BEDSIDE REPORT FROM HEAD TRANSFER CLERK NURSE FOR CONTINUITY OF CARE. PT IS AWAKE LAYING IN BED WATCHING TV. PT IS AAOX4, SPEAKS HEBREW. RESPIRATION EVEN AND UNLABORED ON RA. NO SIGNS OF DISTRESS NOTED. IV ON R HAND #22G, CLEAN AND INTACT, NOT INFUSING AT THIS TIME. SKIN CLEAN AND DRY. PT IS CONTINENT AND ABLE TO AMBULATE WITH STEADY GAIT. SAFETY MEASURES IN PLACE. BED IN LOW POSITION AND CALL LIGHT WITHIN REACH. INSTRUCTED PT TO USE THE CALL LIGHT FOR ANY ASSISTANCE AND PT AWARE.
[2019-09-30] MEDS: NACL 0.9% 1,000 ML IV SCH (07:55)
[2019-09-30 08:00] VITALS: BP 111/70
[2019-09-30] MEDS: CARVEDILOL 6.25 MG TAB PO SCH (08:00)
--- NOTE | 2019-09-30 08:28 | NUR ---
ENDORSED PT AT BEDSIDE TO AYSE RODRIGUEZ FOR CONTINUITY OF CARE. PT AWAKE AND WATCHING TV ON BED. NO SIGNS OF DISTRESS NOTED. PT IS IN STABLE CONDITION. SAFETY MEASURES IN PLACE.
--- NOTE | 2019-09-30 08:31 | NUR ---
RECEIVED PT FROM MICHAEL STOVALL, FOR CONTINUITY OF CARE.
[2019-09-30] MEDS: FUROSEMIDE 40 MG TAB PO SCH (08:43)
[2019-09-30] MEDS: ATORVASTATIN 20 MG TAB PO SCH (08:43)
[2019-09-30] MEDS: ASPIRIN 81 MG TAB.CHEW PO SCH (08:43)
[2019-09-30] MEDS: SPIRONOLACTONE 25 MG TAB PO SCH (08:43)
[2019-09-30] MEDS: LISINOPRIL 10 MG TAB PO SCH (08:44)
--- NOTE | 2019-09-30 08:52 | NUR ---
AM MEDS ADMINISTERED, HELD THE AM COREG AND LISINOPRIL DUE TO LOW BP (102/75). PT C/O 04/23 CHEST PAIN, ADMINISTERED PRN MORPHINE IVP. WILL REASSESS PAIN WITHIN AN HOUR.
[2019-09-30 09:38] LABS: BASOPHILS # (AUTO) 0.1 K/uL (0.00-0.22); BASOPHILS % (AUTO) 1.9 % (0.0-2.0); EOSINOPHILS # (AUTO) 0.2 K/uL (0-0.4); EOSINOPHILS % (AUTO) 2.1 % (0.0-4.0); HEMATOCRIT 44.7 % (36-52); HEMOGLOBIN 15.1 g/dL (12.0-18.0); LYMPHOCYTES # (AUTO) 1.3 K/uL (2.0-11.5); LYMPHOCYTES % (AUTO) 18.3 % (20.5-51.1); MEAN CORPUSCULAR HEMOGLOBIN 29 pg (27-31); MEAN CORPUSCULAR HGB CONC 34 g/dL (33-37); MEAN CORPUSCULAR VOLUME 84.5 fL (80-94); MONOCYTES # (AUTO) 0.5 K/uL (0.8-1.0); MONOCYTES % (AUTO) 7.4 % (1.7-9.3); NEUTROPHILS # (AUTO) 5.1 K/uL (1.8-7.7); NEUTROPHILS % (AUTO) 70.3 % (42.2-75.2); PLATELET COUNT (AUTO) 177 K/uL (140-450); RED BLOOD CELL COUNT(AUTO) 5.29 MIL/uL (4.20-6.10); RED CELL DISTRIBUTION WIDTH 14.3 % (11.6-13.7); WHITE BLOOD COUNT (AUTO) 7.2 K/uL (4.8-10.8)
[2019-09-30] MEDS ORDERED: CARV6.252 PO (10:42)
[2019-09-30] MEDS ORDERED: LIP80 PO (10:42)
[2019-09-30] MEDS ORDERED: LISI10TA11 PO (10:42)
[2019-09-30] MEDS ORDERED: ASPI81CT95 PO (10:42)
[2019-09-30] MEDS ORDERED: FURO40TA9 PO (10:42)
[2019-09-30] MEDS ORDERED: SPIR25TA PO (10:42)
--- NOTE | 2019-09-30 11:20 | NUR ---
PT DECIDED TO LEAVE AMA, EVEN THOUGH ALREADY DISCHARGED HIM, AND HE WAS JUST WAITING FOR RN TO FINISH UP HIS DC PAPERWORK. PT STATED THAT HE DOES NOT WANT TO WAIT FOR ANY PAPERWORK TO BE FINISHED, AND THAT HE IS LEAVING IMMEDIATELY. PT SIGNED THE AMA FORM, BUT DID NOT WANT TO WAIT FOR DR CALERO TO COME TALK TO HIM REGARDING RISKS OF LEAVING AMA. IV WAS REMOVED. PER MD, WE WILL TREAT THIS AN ELOPEMENT, SINCE DID NOT GET A CHANCE TP SPEAK WITH PT REGARDING THE RISKS.
[2019-09-30 11:33] LABS: ANION GAP 14.2 (8-16); CARBON DIOXIDE 23.5 mmol/L (21-32); CREATININE 1.4 mg/dL (0.6-1.3); POTASSIUM 3.7 mmol/L (3.5-5.1)
--- NOTE | 2019-09-30 12:30 | NUR ---
[facility] ID# [id number]
[2019-09-30 12:47] LABS: MAGNESIUM 2.1 mg/dL (1.8-2.4); PHOSPHORUS 2.2 mg/dL (2.5-4.9)
== END 2019-09-30 11:20 | disposition left against medical advice (07) | DRG 303 ==
LOC: MED 05:50 → MTU 07:55
PROVIDERS: ADMIT General Practice; ATTEND General Practice
DX: I25.10 Atherosclerotic heart disease of native coronary artery without angina pectoris (principal); I50.42 Chronic combined systolic (congestive) and diastolic (congestive) heart failure; Z88.8 Allergy status to other drugs, medicaments and biological substances; I10 Essential (primary) hypertension; E78.5 Hyperlipidemia, unspecified; J44.9 Chronic obstructive pulmonary disease, unspecified; I48.91 Unspecified atrial fibrillation; Z86.73 Personal history of transient ischemic attack (TIA), and cerebral infarction without residual deficits; F31.9 Bipolar disorder, unspecified; E11.9 Type 2 diabetes mellitus without complications; Z95.0 Presence of cardiac pacemaker
CPT/HCPCS: 36415; 71045; 80048; 80053; 80305; 81001; 82140; 82150; 83036; 83605; 83690; 83735; 83880; 84100; 84436; 84439; 84443; 84479; 84484; 85025; 85379; 85610; 85730; 87081; 87086; 93005; 94640; 96374; 96375; 96376; 97161-GP; 99285; J1200; J1644; J2270; J7030; J7620; Q0092; Q0163

== ENCOUNTER 2020-01-23 10:09 | Emergency (ER) | payer OTHER ==
[~2020-01-23] VITALS: Ht 188 cm; Wt 136.1 kg
[~2020-01-23 10:09] MED LIST changes: -FAMO20TA13 PO; -HYDR-5122 PO
[2020-01-23 10:15] VITALS: BP 110/81
--- NOTE | 2020-01-23 10:21 | NUR ---
Patient transferred to bed 2 via wheelchair by triage nurse. RN evaluating patient at bedside.
--- NOTE | 2020-01-23 10:30 | NUR ---
49 Y/O M C/C CHEST PAIN X 1 HOUR. PER PT STERNAL AREA, PRESSURE SENSATION, 9/10, NON RADIATING. ACTIVITY EXARCERBATES THE PAIN; REST ALLEVIATES THE PAIN. HAS NOT TAKEN ANY MEDICATION FOR THE PAIN. ALLERGIES TO TORADOL - PER PT HIVES REACTION. HX AFIB,CHF,CARDIOMYOPATHY. RX DOES NOT RECALL MEDICATIONS AT THIS TIME. PLACED FULL FOWLERS, ON 2L NC. LS CLEAR UPPER; DIMINISHED LOWER. SIDE RAIL X1.
--- NOTE | 2020-01-23 10:39 | NUR ---
Dr. Chan is evaluating the patient at bedside.
[2020-01-23] MEDS ORDERED: ASPIRIN 81 MG TAB.CHEW PO ONE (10:45)
[2020-01-23] MEDS ORDERED: NITROGLYCERIN 0.4 MG TAB SL ONE (10:45)
--- NOTE | 2020-01-23 11:13 | NUR ---
polysomnographic technician at bedside.
[2020-01-23 11:27] LABS: BASOPHILS # (AUTO) 0.2 K/uL (0.00-0.22); BASOPHILS % (AUTO) 2.4 % (0.0-2.0); EOSINOPHILS # (AUTO) 0.3 K/uL (0-0.4); EOSINOPHILS % (AUTO) 3.2 % (0.0-4.0); HEMATOCRIT 47.2 % (36-52); HEMOGLOBIN 15.7 g/dL (12.0-18.0); LYMPHOCYTES # (AUTO) 1.2 K/uL (2.0-11.5); LYMPHOCYTES % (AUTO) 13.9 % (20.5-51.1); MEAN CORPUSCULAR HEMOGLOBIN 29 pg (27-31); MEAN CORPUSCULAR HGB CONC 33 g/dL (33-37); MEAN CORPUSCULAR VOLUME 87.6 fL (80-94); MONOCYTES # (AUTO) 0.6 K/uL (0.8-1.0); MONOCYTES % (AUTO) 7.1 % (1.7-9.3); NEUTROPHILS # (AUTO) 6.1 K/uL (1.8-7.7); NEUTROPHILS % (AUTO) 73.4 % (42.2-75.2); PLATELET COUNT (AUTO) 187 K/uL (140-450); RED BLOOD CELL COUNT(AUTO) 5.38 MIL/uL (4.20-6.10); RED CELL DISTRIBUTION WIDTH 15.1 % (11.6-13.7); WHITE BLOOD COUNT (AUTO) 8.3 K/uL (4.8-10.8)
[2020-01-23 11:53] LABS: ALBUMIN 4.1 g/dL (3.4-5.0); ANION GAP 14.1 (8-16); CARBON DIOXIDE 26.5 mmol/L (21-32); CREATININE 2.1 mg/dL (0.6-1.3); POTASSIUM 4.6 mmol/L (3.5-5.1); TOTAL BILIRUBIN 0.5 mg/dL (0.0-1.0)
[2020-01-23 16:11] VITALS: BP 112/70
== END 2020-01-23 16:11 | disposition home or self-care (01) ==
LOC: MED 10:09
DX: R07.9 Chest pain, unspecified (principal); I13.0 Hypertensive heart and chronic kidney disease with heart failure and stage 1 through stage 4 chronic kidney disease, or unspecified chronic kidney disease; N18.9 Chronic kidney disease, unspecified; Z88.2 Allergy status to sulfonamides; Z79.899 Other long term (current) drug therapy; Z79.82 Long term (current) use of aspirin; F31.89 Other bipolar disorder
CPT/HCPCS: 36415; 71045; 80053; 83880; 84484; 85025; 93005; 99285; Q0092

== ENCOUNTER 2020-02-17 14:00 | Emergency (ER) | payer OTHER ==
[~2020-02-17] VITALS: Ht 188 cm; Wt 141.1 kg
[2020-02-17 14:43] VITALS: BP 146/106
--- NOTE | 2020-02-17 14:55 | NUR ---
STAPLE REMOVAL LEFT CHEST ---S/P PACEMAKER CHANGE SITE CLEAN, NO DRAINAGE NO REDNESS
[2020-02-17 15:43] VITALS: BP 138/94
--- NOTE | 2020-02-17 15:44 | NUR ---
Patient discharged with v/s stable. Written and verbal after care instructions given and explained. Patient alert, oriented and verbalized understanding of instructions. Ambulatory with steady gait. All questions addressed prior to discharge. ID band removed. Patient advised to follow up with PMD. Rx of BACITRACIN 500UNIT/G given. Patient educated on indication of medication including possible reaction and side effects. Opportunity to ask questions provided and answered.
== END 2020-02-17 15:44 | disposition home or self-care (01) ==
LOC: MED 14:00
DX: S41.112D Laceration without foreign body of left upper arm, subsequent encounter (principal); I11.0 Hypertensive heart disease with heart failure; I50.9 Heart failure, unspecified; E11.9 Type 2 diabetes mellitus without complications; J44.9 Chronic obstructive pulmonary disease, unspecified; Z86.73 Personal history of transient ischemic attack (TIA), and cerebral infarction without residual deficits; Z95.0 Presence of cardiac pacemaker; Z79.82 Long term (current) use of aspirin; Z79.899 Other long term (current) drug therapy; Z88.8 Allergy status to other drugs, medicaments and biological substances; X58.XXXD Exposure to other specified factors, subsequent encounter
CPT/HCPCS: 99282

== ENCOUNTER 2020-02-24 18:41 | Emergency (ER) | payer OTHER ==
[~2020-02-24] VITALS: Ht 188 cm; Wt 129.7 kg
[2020-02-24 18:53] VITALS: BP 118/86
--- NOTE | 2020-02-24 19:00 | NUR ---
pt ambulated to lobby with steady gait , kristofer caroilna informed and aware.
--- NOTE | 2020-02-24 19:01 | NUR ---
hiren alberts did ekg on pt.
--- NOTE | 2020-02-24 19:05 | NUR ---
dr lara informed and aware of pt conditioned ,showed ekg reading.
--- NOTE | 2020-02-24 19:12 | NUR ---
GAVE REPORT TO MICHAEL GIBSON PT IN THE LOBBY WITH STABLE VS . AMBULATORY WITH STEADY GAIT.MICHAEL WILY INFORMED AND AWARE.
--- NOTE | 2020-02-24 20:00 | NUR ---
49-year-old Male PRESENTS TO ER WITH 9/10 chest pain with SOB X 2 days ago. non-radiating, also reports having left sided abdominal pain. Pt is requesting Morphine. Pt claims that he was tested negative for COVID several days ago. Denies fevers, chills, nausea, vomiting, diarrhea, trauma, back pain, loss of taste/smell, cough, runny nose. Side rail x1, bed in low position will continue to monitor. PMH: CHF, CAD, A-FIB
[2020-02-24] MEDS ORDERED: ACETAMINOPHEN 325 MG TAB PO ONE (20:10)
[2020-02-24] MEDS ORDERED: MORPHINE SULFATE 4 MG/ML SYR IM ONE (21:25)
[2020-02-24] MEDS ORDERED: ACETAMINOPHEN EXTRA STRENGTH 500 MG TAB ONE (21:26)
[2020-02-24] MEDS ORDERED: ACETAMINOPHEN 325 MG TAB ONE (21:28)
[2020-02-24 22:03] LABS: BASOPHILS # (AUTO) 0.1 K/uL (0.00-0.22); BASOPHILS % (AUTO) 1.3 % (0.0-2.0); EOSINOPHILS # (AUTO) 0.3 K/uL (0-0.4); EOSINOPHILS % (AUTO) 4.4 % (0.0-4.0); HEMATOCRIT 39.8 % (36-52); HEMOGLOBIN 12.8 g/dL (12.0-18.0); LYMPHOCYTES # (AUTO) 1.4 K/uL (2.0-11.5); LYMPHOCYTES % (AUTO) 19.9 % (20.5-51.1); MEAN CORPUSCULAR HEMOGLOBIN 29 pg (27-31); MEAN CORPUSCULAR HGB CONC 32 g/dL (33-37); MEAN CORPUSCULAR VOLUME 90.3 fL (80-94); MONOCYTES # (AUTO) 0.6 K/uL (0.8-1.0); MONOCYTES % (AUTO) 8.9 % (1.7-9.3); NEUTROPHILS # (AUTO) 4.7 K/uL (1.8-7.7); NEUTROPHILS % (AUTO) 65.5 % (42.2-75.2); PLATELET COUNT (AUTO) 166 K/uL (140-450); RED BLOOD CELL COUNT(AUTO) 4.41 MIL/uL (4.20-6.10); RED CELL DISTRIBUTION WIDTH 14.9 % (11.6-13.7); WHITE BLOOD COUNT (AUTO) 7.2 K/uL (4.8-10.8)
[2020-02-24 22:16] LABS: ANION GAP 13.9 (8-16); CARBON DIOXIDE 25.6 mmol/L (21-32); CREATININE 1.6 mg/dL (0.6-1.3); POTASSIUM 4.5 mmol/L (3.5-5.1); TOTAL BILIRUBIN 0.4 mg/dL (0.0-1.0)
[2020-02-25] MEDS ORDERED: MORPHINE SULFATE 4 MG/ML SYR ONE (00:01)
[2020-02-25 01:12] VITALS: BP 118/86
--- NOTE | 2020-02-25 01:12 | NUR ---
PATIENT left FACILITY. DISCHARGE INSTRUCTIONS NOT GIVEN TO PATIENT. NOTIFIED.
== END 2020-02-24 23:55 | disposition home or self-care (01) ==
LOC: MED 18:41
DX: R07.9 Chest pain, unspecified (principal); E11.9 Type 2 diabetes mellitus without complications; I10 Essential (primary) hypertension; I25.10 Atherosclerotic heart disease of native coronary artery without angina pectoris; I50.9 Heart failure, unspecified; J44.9 Chronic obstructive pulmonary disease, unspecified; N28.9 Disorder of kidney and ureter, unspecified; Z88.6 Allergy status to analgesic agent; Z95.0 Presence of cardiac pacemaker; Z79.899 Other long term (current) drug therapy
CPT/HCPCS: 36415; 71045; 80053; 83690; 83880; 84484; 85025; 93005; 99285; Q0092; J2270

== ENCOUNTER 2020-08-06 05:47 | Emergency (ER) | payer OTHER ==
[~2020-08-06] VITALS: Ht 188 cm; Wt 142.9 kg
[2020-08-06 06:07] VITALS: BP 150/82
--- NOTE | 2020-08-06 06:15 | NUR ---
pt w/c assited to bed #7
[2020-08-06 06:19] VITALS: BP 181/104
--- NOTE | 2020-08-06 06:19 | NUR ---
49 Y/O MALE C/O CHEST PAIN X1 HOUR. PT STATES 10/10 PRESSURE PAIN. PMH: CHF, AFIB, L PACEMAKER ALLERGIES: TORADOL
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
--- NOTE | 2020-08-06 06:42 | NUR ---
PATIENT ELOPED FROM FACILITY. DISCHARGE INSTRUCTIONS NOT GIVEN TO PATIENT. DR. DASILVA NOTIFIED.
== END 2020-08-06 06:42 | disposition left against medical advice (07) ==
LOC: MED 05:47
DX: R07.9 Chest pain, unspecified (principal); R06.02 Shortness of breath
CPT/HCPCS: 93005; 99283

== ENCOUNTER 2020-11-29 15:28 | Inpatient (IN) | payer OTHER, SELFPAY ==
[~2020-11-29] VITALS: Ht 188 cm; Wt 144.2 kg
--- NOTE | 2020-11-29 03:00 | NUR ---
THE IV NEEDLE ON RIGHT UPPER ARM ACCIDENTALLY PULLED OUT BY THE PT . PT REFUSED FOR RE INSERTION AT THIS TIME . HE WANTS TO SLEEP W/O INTERRUPTION . IV NEEDLE INTACT AND COMPLETE . MIN BLEEDING WILL CONT. TO MONITOR . Addendum: 11/30/20 at 0621 by Laury Graves RN THE ABOVE NURSE'S NOTES IS DATE ERROR ENTRY , INSTEAD OF 11/30/20 Julisa FENG
[~2020-11-29 15:28] MED LIST changes: -LISI10TA11 PO; +LISI10TA30 PO
--- NOTE | 2020-11-29 15:32 | NUR ---
Patient tranferred to bed 10 via wheelchair by triage nurse. RN evaluating the patient at bedside.
[2020-11-29 15:37] VITALS: BP 133/96
--- NOTE | 2020-11-29 15:40 | NUR ---
50 Y/O MALE BIB SELF C/O MID CHEST PAIN & LLE PAIN AND SWELLING X 2 DAYS. PT ALSO C/O SOB SPO2 97% RA. PT RATES CHEST PAIN 9/10 THAT HE DESCRIBES TIGHTNESS, PRESSURE "LIKE SOMEONE IS SITTING ON ME" X1 HR AGO. PT HAS SCABS ALL OVER BODY. PT SAYS HE IS ITCHY ALL OF THE TIME. LLE IS RED AND SWOLLEN AND TENDER WITH FULL ROM. PT A/O X4 WITH SHALLOW LABORED RESPIRATIONS. PT DENIES N/V/FEVER. PT LAYING IN BED WITH BED IN LOWEST POSITION, BRAKES LOCKED X2 SIDERAILS UP PER PT REQUEST. PMH: CHF, A FIB,CAD, PACE MAKER, KIDNEY DISEASE, ONLY ONE KIDENY, PREDM, 4 STROKES, BIPOLAR, CARDIOMYOPATHY ALLERGIES: TORADOL
--- NOTE | 2020-11-29 15:42 | NUR ---
Dr. Resendez is evaluating the patient at bedside.
--- NOTE | 2020-11-29 16:02 | NUR ---
X-Ray at bedside.
[2020-11-29 16:32] LABS: BASOPHILS # (AUTO) 0.1 K/uL (0.00-0.22); EOSINOPHILS # (AUTO) 0.2 K/uL (0-0.4); EOSINOPHILS % (AUTO) 2.6 % (0.0-4.0); HEMATOCRIT 40.5 % (36-52); HEMOGLOBIN 13.2 g/dL (12.0-18.0); LYMPHOCYTES # (AUTO) 0.9 K/uL (2.0-11.5); LYMPHOCYTES % (AUTO) 12.5 % (20.5-51.1); MEAN CORPUSCULAR HEMOGLOBIN 30 pg (27-31); MEAN CORPUSCULAR HGB CONC 33 g/dL (33-37); MEAN CORPUSCULAR VOLUME 90.8 fL (80-94); MONOCYTES # (AUTO) 0.5 K/uL (0.8-1.0); MONOCYTES % (AUTO) 6.4 % (1.7-9.3); NEUTROPHILS # (AUTO) 5.9 K/uL (1.8-7.7); NEUTROPHILS % (AUTO) 77.5 % (42.2-75.2); PLATELET COUNT (AUTO) 186 K/uL (140-450); RED BLOOD CELL COUNT(AUTO) 4.46 MIL/uL (4.20-6.10); WHITE BLOOD COUNT (AUTO) 7.6 K/uL (4.8-10.8)
[2020-11-29] MEDS ORDERED: MORPHINE SULFATE 4 MG/ML SYR IVP ONE ×2 (16:35→18:25)
[2020-11-29] MEDS ORDERED: ONDANSETRON 4 MG/2 ML VIAL IVP ONE (16:35)
[2020-11-29] MEDS ORDERED: diphenhydrAMINE 50 MG/ML VIAL IVP ONE (16:55)
[2020-11-29 16:57] LABS: ALBUMIN 3.6 g/dL (3.4-5.0); ANION GAP 12.2 (8-16); CARBON DIOXIDE 24.9 mmol/L (21-32); CREATININE 1.5 mg/dL (0.6-1.3); POTASSIUM 4.1 mmol/L (3.5-5.1); TOTAL BILIRUBIN 0.4 mg/dL (0.0-1.0)
--- NOTE | 2020-11-29 17:01 | NUR ---
CRITICAL LAB VALUE: TROPONIN 0.086. DR SANDOVAL MADE AWARE
--- NOTE | 2020-11-29 17:15 | NUR ---
URINE AND COVID DAVI SAMPLES WALKED TO LAB
--- NOTE | 2020-11-29 17:16 | NUR ---
DR SANDOVAL AT BEDSIDE FOR ULTRASOUND IV
[2020-11-29 17:23] LABS: BARBITURATE, URINE NEGATIVE ng/ml (NEG <=200); BENZODIAZEPINE, URINE NEGATIVE ng/mL (NEG <=200); CANNABINOID, URINE POSITIVE ng/mL (NEG <=50); COCAINE, URINE NEGATIVE ng/mL (NEG <=300); OPIATE, URINE NEGATIVE ng/mL (NEG <=2000); PHENCYCLIDINE SCREEN,URINE NEGATIVE ng/mL (NEG <=25)
--- NOTE | 2020-11-29 17:32 | NUR ---
IV ESTABLISHED BY DR SANDOVAL. 20G TO LEFT FOREARM.
[2020-11-29] MEDS ORDERED: PIPERACILLIN/TAZOBACTAM 4.5 GM in DEXTROSE 5% 100 ML IV ONE (17:35)
[2020-11-29] MEDS ORDERED: PIPERACILLIN/TAZOBACTAM 4.5 GM VIAL IV ONE (17:49)
--- NOTE | 2020-11-29 17:54 | NUR ---
PT TAKEN TO CT VIA MINDY
--- NOTE | 2020-11-29 18:05 | NUR ---
RECEIVED REPORT VIA TELEPHONE FROM ER NURSE, KURT. PT IS STILL AT CT AND WILL BE ARRIVING IN 10 MINUTES
--- NOTE | 2020-11-29 18:19 | NUR ---
GAVE REPORT TO HUMBERTO RODRIGUEZ FOR ADMIT TO TELEMETRY 111A. ETA 20 MINS
[2020-11-29] MEDS ORDERED: ONDANSETRON 4 MG/2 ML VIAL IM/IVP PRN (18:25)
[2020-11-29] MEDS ORDERED: NITROGLYCERIN 0.4 MG TAB SL PRN (18:25)
[2020-11-29] MEDS ORDERED: POTASSIUM CHLORIDE 10 MEQ TABER PO PRN (18:25)
[2020-11-29] MEDS ORDERED: DOCUSATE SODIUM 100 MG GELCAP PO PRN (18:25)
[2020-11-29] MEDS ORDERED: ACETAMINOPHEN 325 MG TAB PO PRN (18:25)
[2020-11-29] MEDS ORDERED: HYDROcodone/APAP 7.5/325 MG 1 TAB PO PRN (18:25)
--- NOTE | 2020-11-29 18:30 | NUR ---
PATIENT TRANSFERRED ON TO THE FLOOR FROM ER.
[2020-11-29] MEDS ORDERED: HEPARIN PER PHARMACY MC PRN (18:40)
--- NOTE | 2020-11-29 18:40 | NUR ---
Patient will be admitted to care of DR SHANNAN LEE. Admited to TELEMETRY. Will go to room 111A. Belongings list completed. Report to HUMBERTO RODRIGUEZ.
--- NOTE | 2020-11-29 19:10 | NUR ---
ENDORSED TO SENIOR QA ENGINEER NURSE FOR CONTINUITY OF CARE.
[2020-11-29 19:21] LABS: PROTHROMBIN TIME 9.7 secs (10.8-13.4)
[2020-11-29 19:26] LABS: CHOL/HDL RATIO 5.3 (1-4.5); FREE T4 (FREE THYROXINE) 0.8 ng/dL (0.76-1.46); MAGNESIUM 2.1 mg/dL (1.8-2.4); PHOSPHORUS 2.1 mg/dL (2.5-4.9); THYROID STIMULATING HORMONE 0.78 uIU/mL (0.34-3.74)
[2020-11-29 20:00] VITALS: BP 150/85
[2020-11-29] MEDS: hePARIN / DEXT 5% PREMIX 250 ML IV SCH (20:06)
--- NOTE | 2020-11-29 20:06 | NUR ---
SERUM TROPONIN I - HIGH - START HEP . DRIP ON LEFT FOREARM IV SITE AND WILL REGULATE ACCORDING TO PROTOCOL . WILL INSERT ANOTHER IV ACCESS FOR ANTIBIOTIC AND IVF .
--- NOTE | 2020-11-29 20:20 | NUR ---
HARD STICK CHARGE NURSE TRIED INSERTED IV NEEDLE , BUT FAILED - REFERRED TO [facility] - FOR PICC LINE INSERTION T.O BY DR. LEE .
[2020-11-29] MEDS ORDERED: MORPHINE SULFATE 4 MG/ML SYR ONE (20:25)
--- NOTE | 2020-11-29 21:10 | NUR ---
ANOTHER IV ACCESS - INSERTED BY ER NURSE AT R ARM . PEOCEDURE TOLERATED WELL BY THE PT . MIN. BLEEDING . - ZOSYN TO BE STARTED AND IVF . WILL CONT. TO MONITOR .
[2020-11-29] MEDS ORDERED: PIPERACILLIN/TAZOBACTAM 3.375 GM VIAL IV ONE (21:14)
[2020-11-29] MEDS: NACL 0.9% 1,000 ML IV SCH (21:28)
[2020-11-29] MEDS: PIPERACILLIN/TAZOBACTAM 3.375 GM in DEXTROSE 5% 50 ML IV SCH (21:29)
--- NOTE | 2020-11-29 23:23 | NUR ---
WANTS TO SLEEP W/O INTERRUPTIONS - REQUESTING TO IVF OVERNIGHT , BUT THE ON GOING HEPARIN DRIP IS OK - REFER TO DR. LEE . Addendum: 11/30/20 at 0622 by Laury Graves RN DR LEE - TEXTED BACK - OK
[2020-11-30] VITALS: BP 151/63
--- NOTE | 2020-11-30 | NUR ---
MADE ROUNDS , NO S/SX OF ACUTE DISTRESS NOTED . ON TELE MONITOR .
--- NOTE | 2020-11-30 02:50 | NUR ---
PTT - 56.8 - HEP. DRIP - NO CHANGE - CHARGE NURSE AWARE .
[2020-11-30] MEDS: NACL 0.9% 1,000 ML IV SCH ×3 (03:55→23:44)
[2020-11-30 04:00] VITALS: BP 129/66
--- NOTE | 2020-11-30 04:00 | NUR ---
MADE ROUNDS , NO S/X OF ACUTE DISTRESS NOTED . WILL CONT. TO MONITOR . DENIES PAIN .
[2020-11-30] MEDS: PIPERACILLIN/TAZOBACTAM 3.375 GM in DEXTROSE 5% 50 ML IV SCH ×4 (05:00→23:44)
--- NOTE | 2020-11-30 05:00 | NUR ---
DUE IV ZOSYN NOT GIVEN - W/O IV ACCESS - PT. WANTS TO SLEEP WITHOUT INTERRRUPTION , PT IS TOO SLEEPY - HE GOT 2 DOSES MORPHINE AND 2 DOSES OF BENADRYL EARLIER - NOT PROPER TIME TO GET PICC LINE CONSENT - WILL ENDORSE TO AM NURSE .
--- NOTE | 2020-11-30 07:26 | NUR ---
PATIENT HAS BEEN ENDORSED FROM TRUCKMAN NURSE MARQUEZ. PATIENT IS AMBULATED TO THE BATHROOM BY HIMSELF AND . DISCONTINUED THE IV. PATIENT CAME BACK TO BED AND LYING COMFORTABLY, RECONNECTED PATIENT TO IV PUMP, IV SITE WAS ASSESSED, DRY AND INTACT, SECURED WITH KERLIX, IV ON RFA 22G, AND EDUCATED PATIENT TO USE THE CALL LIGHT FOR ANY ASSISTANCE AND NOT DISCONNECT OR REMOVE IV, PATIENT IS NOT COOPERATIVE AND REINFORCEMENT NEEDED. PATIENT WAS NOT WEARING HIS GOWN, AND REFUSED TO PUT IT ON. EDUCATION PROVIDED ON IMPORTANCE OF WEARING THE HOSPITAL GOWN. PATIENT IS ALERT ORIENTED X4, SPEAKS ALBANIAN, ABLE TO MAKE NEEDS KNOWN. RESPIRATION EVEN, UNLABORED, ON ROOM AIR. NO ACUTE DISTRESS NOTED. DENIED PAIN, SOB AND ANY DISTRESS AT THIS TIME. SKIN WARM TO TOUCH AND DRY. PATIENT IS ABLE TO AMBULATORY WITH STANDBY ASSISTANCE, CONTINENT. SAFETY MEASURES IN PLACE, BED IN LOWEST POSITION AND CALL LIGHT WITHIN REACH.
--- NOTE | 2020-11-30 07:40 | NUR ---
ENDORSED - PT - STABLE .
[2020-11-30 08:00] VITALS: BP 130/89
[2020-11-30 08:31] LABS: BASOPHILS # (AUTO) 0.1 K/uL (0.00-0.22); BASOPHILS % (AUTO) 0.8 % (0.0-2.0); EOSINOPHILS # (AUTO) 0.3 K/uL (0-0.4); EOSINOPHILS % (AUTO) 3.2 % (0.0-4.0); HEMATOCRIT 41.2 % (36-52); HEMOGLOBIN 13.4 g/dL (12.0-18.0); LYMPHOCYTES # (AUTO) 1.4 K/uL (2.0-11.5); LYMPHOCYTES % (AUTO) 15.9 % (20.5-51.1); MEAN CORPUSCULAR HEMOGLOBIN 30 pg (27-31); MEAN CORPUSCULAR HGB CONC 33 g/dL (33-37); MEAN CORPUSCULAR VOLUME 91.1 fL (80-94); MONOCYTES # (AUTO) 0.7 K/uL (0.8-1.0); MONOCYTES % (AUTO) 7.6 % (1.7-9.3); NEUTROPHILS # (AUTO) 6.6 K/uL (1.8-7.7); NEUTROPHILS % (AUTO) 72.5 % (42.2-75.2); PLATELET COUNT (AUTO) 192 K/uL (140-450); RED BLOOD CELL COUNT(AUTO) 4.52 MIL/uL (4.20-6.10); RED CELL DISTRIBUTION WIDTH 17.1 % (11.6-13.7)
[2020-11-30 08:42] LABS: ANION GAP 10.5 (8-16); CARBON DIOXIDE 26.8 mmol/L (21-32); CREATININE 1.5 mg/dL (0.6-1.3); POTASSIUM 4.3 mmol/L (3.5-5.1)
--- NOTE | 2020-11-30 08:55 | NUR ---
PATIENT HAS BEEN SCREENED AND CATEGORIZED MODERATE NUTRITION RISK. PATIENT WILL BE SEEN WITHIN 3-5 DAYS OF ADMISSION. 12/02/20 12/04/[address]
[2020-11-30] MEDS ORDERED: FOLIC ACID 1 MG TAB PO SCH (09:00)
[2020-11-30] MEDS ORDERED: THIAMINE 100 MG TAB PO SCH (09:00)
[2020-11-30] MEDS ORDERED: MULTIVITAMIN 1 TAB PO SCH (09:00)
--- NOTE | 2020-11-30 09:10 | NUR ---
RECEIVED CRITICAL LAB FOR TROPONIN 0.082, TREADING DOWN, NOT REPORTED, PATIENT IS ON HEPARIN DRIP 2,000 UNIT/HR. WILL FOLLOW RX PROTOCOL.
[2020-11-30] MEDS: hePARIN / DEXT 5% PREMIX 250 ML IV SCH (09:21)
--- NOTE | 2020-11-30 09:21 | NUR ---
ADMINISTERED SCHEDULED MEDICATION; FOLIC ACID, THIAMINE, AND A MULTI VITAMIN. EDUCATED THE PATIENT ON WHAT THE MEDICATION WAS, AND PATIENT VERBALIZED UNDERSTANDING. PATIENT REFUSED TO WEAR GOWN, EDUCATED PATIENT THE IMPORTANCE OF WEARING HOSPITAL GOWN, USING THE CALL LIGHT, KEEPING THE TELE MONITOR ON AT TIME, AND DO NOT PULL OUT IV LINE, REINFORCEMENT NEEDED DUE TO PATIENT IS NOT COOPERATIVE AND LACK OF MOTIVATION. SAFETY MEASURES IN PLACE, BED IN LOWEST POSITION AND CALL LIGHT WITHIN REACH. WILL CONTINUE TO MONITOR.
--- NOTE | 2020-11-30 09:23 | NUR ---
STARTED A NEW BAG OF HEPARIN DRIP, CONTINUE RUNNING AT 2,000 UNITS/HR. PATIENT IS RESTING ON BED, NO SIGNS OF ACUTE DISTRESS NOTED. SAFETY MEASURES IN PLACE.
--- NOTE | 2020-11-30 09:55 | NUR ---
RD RECOMMENDATION GIVEN TO DR. LEE AND APPROVED. RECEIVED TORB FOR CCHO 75 GM AND CARDIAC DIET.
--- NOTE | 2020-11-30 09:59 | NUR ---
PTT 46.6 FOR 2ND WITHIN THERAPEUTIC RANGE, NO CHANGE IN RATE, CONTINUE RUNNING AT 2,000 UNIT/HR. NEXT DRAW Q24 AT 11/30/2020 0810. LAB ORDERED.
--- NOTE | 2020-11-30 11:35 | NUR ---
PICC LINE CONSENT OBTAINED FROM PATIENT, PATIENT WAS AWARE AND AGREED TO PICC PLACEMENT. AWAITING FOR PHYSICIAN SIGNATURE PRIOR TO CALL PICC CENTER. PATIENT REQUESTED FOR COOKIES, PROVIDED. PATIENT IS RESTING ON BED AT THIS TIME, NO SIGNS OF ACUTE DISTRESS NOTED. SAFETY MEASURES IN PLACE.
--- NOTE | 2020-11-30 11:51 | NUR ---
CALLED PICC LINE CENTER TO NOTIFY FOR PICC PLACEMENT, PER CUSTOMER ACQUISITION MANAGER, PICC RN IS ANNELIESE AND SHE WILL CALL BACK.
[2020-11-30 12:00] VITALS: BP 132/74
--- NOTE | 2020-11-30 12:33 | NUR ---
ZOSYN GIVEN. PATIENT STATES HE HAS 9/10 BACK PAIN, REPOSITION IS NOT HELPFUL. WILL MEDICATE FOR PAIN SHORTLY. PATIENT IS RESTING ON BED AND SAID, "IT'S TOO PAINFUL AND I WILL EAT AFTER MEDICATION". SAFETY MEASURES IN PLACE.
[2020-11-30] MEDS: MORPHINE SULFATE 2 MG/ML SYR IVP PRN ×2 (12:40→18:44)
--- NOTE | 2020-11-30 12:45 | NUR ---
REASSESSMENT OF PAIN 30 MINUTES AFTER PRN PAIN MEDICATION WAS ADMINISTERED. PATIENT IS TOLERATING HIS PAIN AND RESTING COMFORTABLY IN BED WATCHING TELEVISION. SAFETY MEASURES IN PLACE. WILL CONTINUE TO MONITOR.
--- NOTE | 2020-11-30 12:47 | NUR ---
PRN MORPHINE WAS ADMINISTERED. PATIENT STATED PAIN WAS A 9/10. MEDICATION EDUCATION WAS PROVIDED. PATIENT TOLERATED MEDICATION ADMINISTRATION. PATIENT RESTING COMFORTABLY IN BED. SAFETY MEASURES ARE IN PLACE. WILL CONTINUE TO MONITOR.
[2020-11-30] MEDS ORDERED: PIPERACILLIN/TAZOBACTAM 2.25 GM in DEXTROSE 5% 50 ML IV SCH (13:00)
--- NOTE | 2020-11-30 14:18 | NUR ---
DC PLANNIN YRS OLD MALE PATIENT WAS ADMITTED FROM HOME WITH A DX OF DVT, CHEST PAIN SOB, PRESUMED PE. PT HAS A HX OF CHF, HTN, HLD, A-FIB, METH USE AND MULTIPLE CVA. CXR MILD HAZY PERIPHERAL OPACITY IN THE RT LOWER LUNG. CT CHEST NEGATIVE FOR PE. ADMINISTERED HEPARIN DRIP ZOSYN IV ABX AND CONTINUED HOME MEDS. CONSULTED WITH NEPHRO AND ICE SKATING COACH. DC PLAN TO GO HOME WHEN STABLE CM TO FOLLOW
[2020-11-30] MEDS: diphenhydrAMINE 50 MG/ML VIAL IVP PRN ×2 (15:05→21:42)
[2020-11-30 16:00] VITALS: BP 140/70
[2020-11-30] MEDS: FUROSEMIDE 40 MG/4 ML VIAL IVP SCH (17:56)
[2020-11-30] MEDS: carvediloL 6.25 MG TAB PO SCH (17:56)
--- NOTE | 2020-11-30 17:57 | NUR ---
ADMINISTERED SCHEDULED MEDS PER MD ORDER, MEDS EDUCATION PROVIDED, PATIENT VERBALIZED OK, PATIENT AWAKE AND RESTING ON BED AT THIS TIME. NO SIGNS OF ACUTE DISTRESS NOTED. SAFETY MEASURES IN PLACE.
--- NOTE | 2020-11-30 18:44 | NUR ---
ATTENDED TO CALL LIGHT, PATIENT STATED HE HAS 10/10 PAIN ON HIS BACK, NON-RADIATING, FEELS PRESSURE, ACHING, SHARP. REPOSITIONED PATIENT, PATIENT STATED, " I NEED PAIN MED!" MEDICATED WITH PRN MORPHINE, MED EDUCATION PROVIDED, PATIENT SAID OK. PATIENT IS RESTING ON BED AT THIS TIME. SAFETY MEASURES IN PLACE.
--- NOTE | 2020-11-30 19:30 | NUR ---
ENDORSED PATIENT TO ELECTROMECHANICAL TECHNOLOGIST NURSE FOR CONTINUITY OF CARE. PATIENT IS IN STABLE CONDITION. SAFETY MEASURES IN PLACE.
--- NOTE | 2020-11-30 19:30 | NUR ---
RECEIVED PATIENT FROM AM SHIFT NURSE FOR CONTINUITY OF CARE. PATIENT IS ALERT AND ABLE TO MAKE NEEDS KNOWN. RESPIRATIONS EVEN AND SLIGHTLY TACHYPNEIC UPON EXERTION. S1/S2 AUSCULTATED. CONTINUES ON TELE MONITORING. SKIN WARM, DRY. MIDLINE NOTED TO RIGHT UPPER ARM, INFUSING FLUIDS WELL. NO C/O PAIN. NO S/S ACUTE DISTRESS. ABDOMEN SOFT, ROUND AND NONDISTENDED. BOWEL SOUNDS ACTIVE x4 QUADRANTS. PATIENT IS CONTINENT OF B/B. PLAN OF CARE DISCUSSED. CALL LIGHT WITHIN REACH AT ALL TIMES.
[2020-11-30 20:00] VITALS: BP 138/98
[2020-11-30] MEDS: RIVAROXABAN 15 MG TAB PO SCH (20:19)
[2020-11-30] MEDS: ATORVASTATIN 20 MG TAB PO SCH (20:23)
--- NOTE | 2020-11-30 21:45 | NUR ---
DUE MEDS GIVEN. PATIENT IS RESTING COMFORTABLY IN BED. NO C/O PAIN. NO S/S ACUTE DISTRESS. CALL LIGHT WITHIN REACH AT ALL TIMES.
--- NOTE | 2020-11-30 23:45 | NUR ---
PATIENT SITTING UP IN BED. DUE MEDS GIVEN ORDERED. PATIENT HAS A TOLERABLE PAIN LEVEL AT THIS TIME. CALL LIGHT WITHIN REACH AT ALL TIMES.
[2020-12-01] VITALS: BP 119/68
[2020-12-01] MEDS: MORPHINE SULFATE 2 MG/ML SYR IVP PRN ×4 (00:44→18:50)
--- NOTE | 2020-12-01 01:09 | NUR ---
MADE ROUNDS. PATIENT IS ASLEEP. NO S/S ACUTE DISTRESS. CALL LIGHT WITHIN REACH.
--- NOTE | 2020-12-01 03:08 | NUR ---
PATIENT IS ASLEEP. NO S/S ACUTE DISTRESS. CALL LIGHT WITHIN REACH AT ALL TIMES.
[2020-12-01] MEDS: diphenhydrAMINE 50 MG/ML VIAL IVP PRN ×4 (03:42→21:51)
[2020-12-01 04:00] VITALS: BP 129/69
--- NOTE | 2020-12-01 05:00 | NUR ---
PATIENT RESTING COMFORTABLY IN BED. NO S/S ACUTE DISTRESS. CALL LIGHT WITHIN REACH.
[2020-12-01] MEDS: PIPERACILLIN/TAZOBACTAM 3.375 GM in DEXTROSE 5% 50 ML IV SCH ×2 (05:35→11:46)
[2020-12-01 06:07] LABS: T4 (THYROXINE) 6.4 ug/dL (4.5-12.0)
[2020-12-01 06:56] LABS: ANION GAP 10.7 (8-16); CARBON DIOXIDE 27.9 mmol/L (21-32); CREATININE 1.8 mg/dL (0.6-1.3); POTASSIUM 3.6 mmol/L (3.5-5.1)
[2020-12-01 06:59] LABS: BASOPHILS # (AUTO) 0.1 K/uL (0.00-0.22); BASOPHILS % (AUTO) 0.8 % (0.0-2.0); EOSINOPHILS # (AUTO) 0.3 K/uL (0-0.4); EOSINOPHILS % (AUTO) 3.4 % (0.0-4.0); HEMATOCRIT 41.4 % (36-52); HEMOGLOBIN 13.4 g/dL (12.0-18.0); LYMPHOCYTES # (AUTO) 1.2 K/uL (2.0-11.5); LYMPHOCYTES % (AUTO) 14.6 % (20.5-51.1); MEAN CORPUSCULAR HEMOGLOBIN 29 pg (27-31); MEAN CORPUSCULAR HGB CONC 33 g/dL (33-37); MEAN CORPUSCULAR VOLUME 90.4 fL (80-94); MONOCYTES # (AUTO) 0.6 K/uL (0.8-1.0); MONOCYTES % (AUTO) 7.1 % (1.7-9.3); NEUTROPHILS # (AUTO) 6.2 K/uL (1.8-7.7); NEUTROPHILS % (AUTO) 74.1 % (42.2-75.2); PLATELET COUNT (AUTO) 193 K/uL (140-450); RED BLOOD CELL COUNT(AUTO) 4.58 MIL/uL (4.20-6.10); RED CELL DISTRIBUTION WIDTH 16.8 % (11.6-13.7); WHITE BLOOD COUNT (AUTO) 8.4 K/uL (4.8-10.8)
--- NOTE | 2020-12-01 07:15 | NUR ---
RECEIVED BEDSIDE REPORT FROM NIGHTSHIFT NURSE. PT RESTING IN BED. ABLE TO MAKE NEEDS KNOWN. RESPIRATIONS EVEN AND UNLABORED WITH NO SOB OR RESPIRATORY DISTRESS. SKIN WARM AND DRY TO TOUCH. IV SITE IN JESSE MIDLINE IS CLEAN, DRY, AND INTACT. SAFETY MEASURES IN PLACE. WILL CONTINUE TO MONITOR
[2020-12-01 08:00] VITALS: BP 118/62
[2020-12-01] MEDS: RIVAROXABAN 15 MG TAB PO SCH ×2 (08:29→20:57)
[2020-12-01] MEDS: POTASSIUM CHLORIDE 10 MEQ TABER PO SCH (08:31)
[2020-12-01] MEDS: SPIRONOLACTONE 25 MG TAB PO SCH (08:32)
[2020-12-01] MEDS: carvediloL 6.25 MG TAB PO SCH ×2 (08:32→17:00)
[2020-12-01] MEDS: ASPIRIN 81 MG TAB.CHEW PO SCH (08:32)
[2020-12-01] MEDS: lisinopriL 10 MG TAB PO SCH (08:32)
[2020-12-01] MEDS: FUROSEMIDE 40 MG/4 ML VIAL IVP SCH ×2 (08:33→12:30)
--- NOTE | 2020-12-01 08:37 | NUR ---
ADMINISTERED SCHED MED PRESCRIBED PER MD ORDER. PT TOLERATED WELL. MEDICATION EDUCATION PERFORMED. PT VERBALIZED UNDERSTANDING. SAFETY MEASURES IN PLACE. WILL CONTINUE TO MONITOR
[2020-12-01] MEDS ORDERED: FUROSEMIDE 40 MG TAB PO SCH (09:00)
--- NOTE | 2020-12-01 09:56 | NUR ---
PT COMPLAINING OF ITCHING ON LEGS. ADMINISTERED PRN BENADRYL PRESCRIBED PER MD ORDER. MEDICATION EDUCATION PERFORMED. PT VERBALIZED UNDERSTANDING. PT TOLERATED WELL. SAFETY MEASURES IN PLACE. WILL CONTINUE TO MONITOR
--- NOTE | 2020-12-01 11:15 | NUR ---
PT RESTING IN BED. ABLE TO MAKE NEEDS KNOWN. RESPIRATIONS EVEN AND UNLABORED. NO SIGNS OF DISTRESS AT THIS TIME. WILL CONTINUE TO MONITOR
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
[2020-12-01 12:00] VITALS: BP 118/73
[2020-12-01] MEDS ORDERED: MAG SULF 2000 MG/WATER PREMIX 50 ML IV PRN (12:25)
[2020-12-01] MEDS ORDERED: POTASSIUM CHLORIDE 10 MEQ TABER PO PRN (12:25)
--- NOTE | 2020-12-01 12:46 | NUR ---
PT COMPLAINED OF SEVERE PAIN. PRN MORPHINE ADMINISTERED PRESCRIBED PER MD ORDER. PT TOLERATED WELL. MEDICATION EDUCATION PERFORMED. PT VERBALIZED UNDERSTANDING. SAFETY MEASURES IN PLACE. WILL CONTINUE TO MONITOR
--- NOTE | 2020-12-01 14:15 | NUR ---
PT REFUSED TO WEAR NEW GOWN DESPITE SOILING THE GOWN. GAVE PT NEW GOWN BUT PT SAID THAT HE REFUSES TO WEAR IT. PT KEEPS TAKING OFF TELE MONITOR. EDUCATED PT ON PURPOSE OF TELE MONITORING. PT REFUSED TO VERBALIZE TEACHING AND SAID "YES, I HEARD YOU." SAFETY MEASURES IN PLACE. WILL CONTINUE TO MONITOR
[2020-12-01 16:00] VITALS: BP 114/52
--- NOTE | 2020-12-01 19:15 | NUR ---
RECEIVED BEDSIDE REPORT FROM DAY SHIFT NURSE FOR CONTINUITY OF CARE. PT IS AWAKE AND ALERT, A&OX4. ON RA WITH BREATHING UNLABORED. PACED RHYTHM ON TELE MONITORING. URINAL AT BEDSIDE FOR VOIDING, PT IS CONTINENT. SKIN IS WARM, DRY, AND INTACT. RIGHT UPPER ARM MIDLINE TKO. PT IS FALL AND STANDARD PRECAUTIONS IN PLACE. PT IS STABLE. DENIES PAIN AT THIS TIME. PLAN OF CARE DISCUSSED.
--- NOTE | 2020-12-01 19:24 | NUR ---
ENDORSED AT BEDSIDE FOR CONTINUITY OF CARE. PT IS STABLE
[2020-12-01 20:00] VITALS: BP 121/71
[2020-12-01] MEDS: ATORVASTATIN 20 MG TAB PO SCH (20:56)
--- NOTE | 2020-12-01 21:51 | NUR ---
PT STATES HE HAS A LOT OF ITCHING ON HIS UPPER EXTREMITIES BILATERALLY. PT WAS GIVEN BENADRYL FOR ITCHING. PT IS AWAKE AND ALERT. WILL CONTINUE TO MONITOR FOR ITCHING.
--- NOTE | 2020-12-01 23:30 | NUR ---
PT IS SLEEPING IN SEMI FOWLERS POSITION. RIGHT UPPER ARM MIDLINE IS SALINE LOCKED. BREATHING IS UNLABORED. NO RESPIRATORY DISTRESS NOTED. NO PAIN AT THIS TIME. BEDSIDE TABLE WITHIN REACH AND BED IN THE LOWEST POSITION. BED ALARM ON. PT IS STABLE.
[2020-12-02] VITALS: BP 122/88
[2020-12-02] MEDS: MORPHINE SULFATE 2 MG/ML SYR IVP PRN ×2 (00:51→07:08)
--- NOTE | 2020-12-02 00:51 | NUR ---
PT STATES HE HAS PAIN AT A SCALE OF 9/10 GENERALIZED PAIN. PT WAS GIVEN MORPHINE IVP FOR PAIN. BP WAS 122/88 PRIOR TO ADMINISTRATION. MEDICATION EDUCATION WAS PROVIDED AND PT VERBALIZED UNDERSTANDING. WILL CONTINUE TO MONITOR FOR PAIN.
--- NOTE | 2020-12-02 02:36 | NUR ---
MADE ROUNDS ON PT. HE IS ASLEEP. BREATHING IS UNLABORED. BLANKETS IN PLACE. PT IS STABLE. CALL LIGHT WITHIN REACH.
[2020-12-02 04:00] VITALS: BP 132/89
[2020-12-02] MEDS: diphenhydrAMINE 50 MG/ML VIAL IVP PRN (04:40)
--- NOTE | 2020-12-02 04:40 | NUR ---
PT STATED HE WAS ITCHING ALL OVER AND WANTED BENADRYL TO HELP THE ITCHING. PT WAS GIVEN BENADRYL IVP ORDERED. WILL CONTINUE TO MONITOR.
--- NOTE | 2020-12-02 06:23 | NUR ---
ROUNDED ON PT. HE IS SLEEPING COMFORTABLY IN SEMI FOWLERS POSITION. NO PAIN OR DISTRESS NOTED. BREATHING IS UNLABORED. PT IS STABLE. RIGHT UA PICC LINE IN PLACE, SALINE LOCKED. BED IS IN THE LOWEST POSITION AND CALL LIGHT WITHIN REACH. WILL CONTINUE TO MONITOR.
[2020-12-02 06:59] LABS: BASOPHILS # (AUTO) 0.1 K/uL (0.00-0.22); BASOPHILS % (AUTO) 0.8 % (0.0-2.0); EOSINOPHILS # (AUTO) 0.4 K/uL (0-0.4); EOSINOPHILS % (AUTO) 3.6 % (0.0-4.0); HEMOGLOBIN 15.5 g/dL (12.0-18.0); LYMPHOCYTES # (AUTO) 1.6 K/uL (2.0-11.5); LYMPHOCYTES % (AUTO) 14.8 % (20.5-51.1); MEAN CORPUSCULAR HEMOGLOBIN 30 pg (27-31); MEAN CORPUSCULAR HGB CONC 33 g/dL (33-37); MEAN CORPUSCULAR VOLUME 90.8 fL (80-94); MONOCYTES # (AUTO) 0.9 K/uL (0.8-1.0); MONOCYTES % (AUTO) 8.8 % (1.7-9.3); NEUTROPHILS # (AUTO) 7.6 K/uL (1.8-7.7); PLATELET COUNT (AUTO) 234 K/uL (140-450); RED BLOOD CELL COUNT(AUTO) 5.17 MIL/uL (4.20-6.10); RED CELL DISTRIBUTION WIDTH 17.1 % (11.6-13.7); WHITE BLOOD COUNT (AUTO) 10.5 K/uL (4.8-10.8)
[2020-12-02 07:03] LABS: ANION GAP 8.4 (8-16); CARBON DIOXIDE 30.4 mmol/L (21-32); CREATININE 1.8 mg/dL (0.6-1.3); POTASSIUM 3.8 mmol/L (3.5-5.1)
--- NOTE | 2020-12-02 07:05 | NUR ---
PT COMPLAINS OF PAIN ALL OVER BODY AT A SCALE OF 9/10. PT WAS GIVEN MORPHINE IVP FOR PAIN. BP WAS 133/85 PRIOR TO ADMINISTRATION. PT IS STABLE.
--- NOTE | 2020-12-02 07:15 | NUR ---
ENDORSED PT TO DAY SHIFT NURSE FOR CONTINUITY OF CARE. PT IS STABLE AT THIS TIME. PLAN OF CARE DISCUSSED.
[2020-12-02 08:00] VITALS: BP 130/78
[2020-12-02] MEDS: RIVAROXABAN 15 MG TAB PO SCH (09:07)
[2020-12-02] MEDS: SPIRONOLACTONE 25 MG TAB PO SCH (09:08)
[2020-12-02] MEDS: POTASSIUM CHLORIDE 10 MEQ TABER PO SCH (09:09)
[2020-12-02] MEDS: lisinopriL 10 MG TAB PO SCH (09:09)
[2020-12-02] MEDS: FUROSEMIDE 40 MG/4 ML VIAL IVP SCH (09:10)
[2020-12-02] MEDS: ASPIRIN 81 MG TAB.CHEW PO SCH (09:11)
[2020-12-02] MEDS: carvediloL 6.25 MG TAB PO SCH (09:12)
--- NOTE | 2020-12-02 09:14 | NUR ---
ADMINISTERED SCHED MED PRESCRIBED PER MD ORDER. PT TOLERATED WELL. MEDICATION EDUCATION PERFORMED. PT VERBALIZED UNDERSTANDING. SAFETY MEASURES IN PLACE. WILL CONTINUE TO MONITOR
--- NOTE | 2020-12-02 10:00 | NUR ---
ATTEMPTED TO SEE PATIENT MULTIPLE TIMES FOR PHYSICAL THERAPY EVALUATION HOWEVER PATIENT CONTINUES TO REFUSE. PATIENT STATES " I DON'T WANT TO STAND UP" WHEN ASKED REASONING " I JUST DON'T FEEL LIKE IT". EDUCATED ON IMPORTANCE OF EVALUATION FOR SAFE DISCHARGE; PATIENT STATES " I UNDERSTAND WHY IT IS IMPORTANT BUT IM NOT GOING TO STAND UP. THE ONLY TIME I WILL STAND UP IS WHEN I AM LEAVING HOME." RN AWARE; WILL CONTINUE TO FOLLOW UP IF APPROPRIATE.
[2020-12-02] MEDS ORDERED: RIVA20TA PO (11:05)
[2020-12-02 11:54] VITALS: BP 130/78
--- NOTE | 2020-12-02 12:15 | NUR ---
PT WANTS TO GO HOME BEFORE DINNER. NO SIGNS OF DISTRESS. WILL CONTINUE TO MONITOR
--- NOTE | 2020-12-02 13:04 | NUR ---
WENT OVER DISCHARGE INSTRUCTIONS WITH PT. PT VERBALIZED UNDERSTANDING. EDUCATED PT TO VISIT ED FOR ANY SIGNS OF DISTRESS. PT VERBALIZED UNDERSTANDING. REMOVED INTACT JESSE MIDLINE. NO SIGNS OF BLEEDING PRESENT. WENT OVER MEDICATION WITH PATIENT AND PT VERBALIZED UNDERSTANDING. REMOVED TELE MONITOR, ID BAND, AND ALLERGY BAND. PT CHANGED INTO OWN CLOTHING AND GATHERED HIS BELONGINGS. PT STABLE TO GO HOME
== END 2020-12-02 12:20 | disposition home or self-care (01) | DRG 299 ==
LOC: MED 15:28 → MTU 18:00
PROC: 05HD33Z Insertion of Infusion Device into Right Cephalic Vein, Percutaneous Approach (ICD-10-PCS; principal; 2020-11-30)
PROC: B54MZZA Ultrasonography of Right Upper Extremity Veins, Guidance (ICD-10-PCS; 2020-11-30)
DX: I82.412 Acute embolism and thrombosis of left femoral vein (principal); N17.0 Acute kidney failure with tubular necrosis; I50.41 Acute combined systolic (congestive) and diastolic (congestive) heart failure; J98.11 Atelectasis; I42.9 Cardiomyopathy, unspecified; I13.0 Hypertensive heart and chronic kidney disease with heart failure and stage 1 through stage 4 chronic kidney disease, or unspecified chronic kidney disease; Q60.0 Renal agenesis, unilateral; Z68.41 Body mass index [BMI] 40.0-44.9, adult; I48.91 Unspecified atrial fibrillation; F31.9 Bipolar disorder, unspecified; E78.5 Hyperlipidemia, unspecified; J44.9 Chronic obstructive pulmonary disease, unspecified; E83.39 Other disorders of phosphorus metabolism; N28.1 Cyst of kidney, acquired; R77.8 Other specified abnormalities of plasma proteins; I08.1 Rheumatic disorders of both mitral and tricuspid valves; I44.7 Left bundle-branch block, unspecified; T45.516A Underdosing of anticoagulants, initial encounter; F12.90 Cannabis use, unspecified, uncomplicated; N18.31 Chronic kidney disease, stage 3a; E66.01 Morbid (severe) obesity due to excess calories; Z20.822 Contact with and (suspected) exposure to COVID-19; E11.22 Type 2 diabetes mellitus with diabetic chronic kidney disease; Z88.6 Allergy status to analgesic agent; Z79.899 Other long term (current) drug therapy; Z79.82 Long term (current) use of aspirin; Z86.73 Personal history of transient ischemic attack (TIA), and cerebral infarction without residual deficits; Z91.19 Patient's noncompliance with other medical treatment and regimen; Z95.810 Presence of automatic (implantable) cardiac defibrillator; S22.32XD Fracture of one rib, left side, subsequent encounter for fracture with routine healing; S22.31XD Fracture of one rib, right side, subsequent encounter for fracture with routine healing; Y92.89 Other specified places as the place of occurrence of the external cause
CPT/HCPCS: 36415; 71045; 71275; 80048; 80053; 80305; 83605; 83735; 83880; 84100; 84436; 84439; 84443; 84479; 84484; 85025; 85379; 85610; 85730; 87040; 87081; 93005; 93971; 99285; G0482; J1200; J1644; J1940; J2270; J2405; J2543; J7030; J7060; Q0163; Q9967

== ENCOUNTER 2020-12-16 09:18 | Emergency (ER) | payer OTHER, SELFPAY ==
[~2020-12-16] VITALS: Ht 188 cm; Wt 145.1 kg
[~2020-12-16 09:18] MED LIST changes: -LIP80 PO; +RIVA20TA PO
--- NOTE | 2020-12-16 09:21 | NUR ---
Patient transferred to bed 7 via wheelchair by tech. RN evaluating the patient at bedside.
[2020-12-16 09:25] VITALS: BP 146/114
--- NOTE | 2020-12-16 09:36 | NUR ---
50YO M PRESENTS TO ED WITH CHEST PAIN AND SOB SINCE THIS AM. DENIES NUMBNESS AND EDEMA. DENIES FEVER, FLU-LIKE SYMPTOMS. PT HAS NOT HAD COVID VACCINE AND HAS NO HISTORY OF COVID IN THE PAST. IN ED, PT TACHYCARDIC @ 110 AND TACHYPNEIC @30. BREATHING LABORED. CLEAR BREATH SOUNDS. PT NOTED TO BE IN DISTRESS. PT SITTING ON SIDE OF BED. ERMD MADE AWARE OF PT STATUS. PMH: A FIB, BLOOD CLOT LEFT LEG, CHF ALLERGY: KETOROLAC
--- NOTE | 2020-12-16 09:56 | NUR ---
X-Ray at bedside.
[2020-12-16 10:13] LABS: BASOPHILS # (AUTO) 0.1 K/uL (0.00-0.22); BASOPHILS % (AUTO) 0.9 % (0.0-2.0); EOSINOPHILS # (AUTO) 0.3 K/uL (0-0.4); EOSINOPHILS % (AUTO) 3.7 % (0.0-4.0); HEMATOCRIT 41.4 % (36-52); HEMOGLOBIN 13.8 g/dL (12.0-18.0); LYMPHOCYTES # (AUTO) 1.1 K/uL (2.0-11.5); LYMPHOCYTES % (AUTO) 13.4 % (20.5-51.1); MEAN CORPUSCULAR HEMOGLOBIN 30 pg (27-31); MEAN CORPUSCULAR HGB CONC 33 g/dL (33-37); MEAN CORPUSCULAR VOLUME 89.3 fL (80-94); MONOCYTES # (AUTO) 0.5 K/uL (0.8-1.0); MONOCYTES % (AUTO) 5.7 % (1.7-9.3); NEUTROPHILS # (AUTO) 6.3 K/uL (1.8-7.7); NEUTROPHILS % (AUTO) 76.3 % (42.2-75.2); PLATELET COUNT (AUTO) 91 K/uL (140-450); RED BLOOD CELL COUNT(AUTO) 4.64 MIL/uL (4.20-6.10); RED CELL DISTRIBUTION WIDTH 16.3 % (11.6-13.7); WHITE BLOOD COUNT (AUTO) 8.3 K/uL (4.8-10.8)
[2020-12-16 10:19] LABS: ALBUMIN 3.9 g/dL (3.4-5.0); ANION GAP 12.7 (8-16); CARBON DIOXIDE 26.5 mmol/L (21-32); CREATININE 1.4 mg/dL (0.6-1.3); POTASSIUM 4.2 mmol/L (3.5-5.1); TOTAL BILIRUBIN 0.3 mg/dL (0.0-1.0)
--- NOTE | 2020-12-16 10:35 | NUR ---
DR CANALES AT BEDSIDE EXAMINING PATIENT
[2020-12-16] MEDS ORDERED: ONDANSETRON 4 MG ODT PO ONE (10:45)
[2020-12-16] MEDS ORDERED: NITROGLYCERIN 2% 1 GM PKT TP ONE (10:45)
[2020-12-16] MEDS ORDERED: FUROSEMIDE 40 MG TAB PO ONE ×2 (10:45→12:05)
[2020-12-16] MEDS ORDERED: MORPHINE SULFATE 4 MG/ML SYR IM ONE (10:45)
--- NOTE | 2020-12-16 11:56 | NUR ---
Dr. Chan is reevaluating the patient at bedside.
[2020-12-16] MEDS ORDERED: FURO-570 PO (12:07)
[2020-12-16] MEDS ORDERED: SPIR50TA PO (12:07)
[2020-12-16 14:19] VITALS: BP 133/79
--- NOTE | 2020-12-16 14:19 | NUR ---
Patient discharged with v/s stable. Written and verbal after care instructions given and explained. Patient alert, oriented and verbalized understanding of instructions. Ambulatory with steady gait. All questions addressed prior to discharge. ID band removed. Patient advised to follow up with PMD. Rx of ALDACTONE, LASIX given. Patient educated on indication of medication including possible reaction and side effects. Opportunity to ask questions provided and answered.
== END 2020-12-16 14:15 | disposition home or self-care (01) ==
LOC: MED 09:18
DX: I11.0 Hypertensive heart disease with heart failure (principal); I50.9 Heart failure, unspecified; I42.9 Cardiomyopathy, unspecified; J44.9 Chronic obstructive pulmonary disease, unspecified; I44.7 Left bundle-branch block, unspecified; F12.90 Cannabis use, unspecified, uncomplicated; Z95.0 Presence of cardiac pacemaker; Z86.718 Personal history of other venous thrombosis and embolism; Z88.8 Allergy status to other drugs, medicaments and biological substances; Z79.899 Other long term (current) drug therapy; Z79.82 Long term (current) use of aspirin; Z86.73 Personal history of transient ischemic attack (TIA), and cerebral infarction without residual deficits
CPT/HCPCS: 36415; 71045; 80053; 83880; 84484; 85025; 93005; 96372; 99285; J2270; Q0162; Q0163

== ENCOUNTER 2021-02-04 15:44 | Inpatient (IN) | payer OTHER, SELFPAY ==
[~2021-02-04] VITALS: Ht 188 cm; Wt 145.1 kg
[~2021-02-04 15:44] MED LIST changes: +FURO-570 PO; +SPIR50TA PO
--- NOTE | 2021-02-04 15:44 | NUR ---
PT W/C ASSISTED TO BED 10.
[2021-02-04 15:50] VITALS: BP 168/100
--- NOTE | 2021-02-04 15:50 | NUR ---
50/M presents to ED with c/o chest pain x45 min. Patient states he began having sudden 10/10 sharp pressure pain in the middle of his chest 45 min ago with no relief. Patient states "I smoked some weed to feel better but it did not help." Patient states upon arrival he began having shortness of breath, denies pain raidating from center of chest, denies abdominal pain, nausea vomiting or diarrhea. Patient alert and oriented x4, placed in gown on bedside manager protein. Heart rate 95, oxygen 97% on room air, blood pressure 168/100, respirations 33, temp 97.9.
[2021-02-04] MEDS ORDERED: fentaNYL citrate 0.05 MG/ML VIAL IM ONE (16:00)
[2021-02-04] MEDS ORDERED: diphenhydrAMINE 50 MG/ML VIAL IM ONE (16:00)
[2021-02-04 16:31] LABS: BASOPHILS # (AUTO) 0.1 K/uL (0.00-0.22); BASOPHILS % (AUTO) 1.3 % (0.0-2.0); EOSINOPHILS # (AUTO) 0.3 K/uL (0-0.4); EOSINOPHILS % (AUTO) 2.9 % (0.0-4.0); HEMATOCRIT 45.9 % (36-52); HEMOGLOBIN 15.5 g/dL (12.0-18.0); LYMPHOCYTES # (AUTO) 1.5 K/uL (2.0-11.5); LYMPHOCYTES % (AUTO) 17.2 % (20.5-51.1); MEAN CORPUSCULAR HEMOGLOBIN 30 pg (27-31); MEAN CORPUSCULAR HGB CONC 34 g/dL (33-37); MEAN CORPUSCULAR VOLUME 88.4 fL (80-94); MONOCYTES # (AUTO) 0.6 K/uL (0.8-1.0); MONOCYTES % (AUTO) 7.3 % (1.7-9.3); NEUTROPHILS # (AUTO) 6.2 K/uL (1.8-7.7); NEUTROPHILS % (AUTO) 71.3 % (42.2-75.2); PLATELET COUNT (AUTO) 164 K/uL (140-450); RED BLOOD CELL COUNT(AUTO) 5.19 MIL/uL (4.20-6.10); RED CELL DISTRIBUTION WIDTH 15.6 % (11.6-13.7); WHITE BLOOD COUNT (AUTO) 8.7 K/uL (4.8-10.8)
[2021-02-04] MEDS ORDERED: FUROSEMIDE 40 MG TAB PO ONE (16:35)
[2021-02-04 17:16] LABS: ANION GAP 11.2 (8-16); CARBON DIOXIDE 25.8 mmol/L (21-32); CREATININE 1.5 mg/dL (0.6-1.3); TOTAL BILIRUBIN 0.3 mg/dL (0.0-1.0)
--- NOTE | 2021-02-04 17:22 | NUR ---
Urine collected bedside, lab pack chemist notified
[2021-02-04 17:52] LABS: BARBITURATE, URINE NEGATIVE ng/ml (NEG <=200); BENZODIAZEPINE, URINE NEGATIVE ng/mL (NEG <=200); CANNABINOID, URINE POSITIVE ng/mL (NEG <=50); COCAINE, URINE NEGATIVE ng/mL (NEG <=300); OPIATE, URINE NEGATIVE ng/mL (NEG <=2000); PHENCYCLIDINE SCREEN,URINE NEGATIVE ng/mL (NEG <=25)
[2021-02-04] MEDS ORDERED: ASPIRIN 325 MG TAB PO ONE (18:40)
[2021-02-04] MEDS ORDERED: ONDANSETRON 4 MG/2 ML VIAL IM/IVP PRN (19:10)
[2021-02-04] MEDS ORDERED: ZOLPIDEM 5 MG TAB PO PRN (19:10)
[2021-02-04] MEDS ORDERED: ACETAMINOPHEN 325 MG TAB PO PRN (19:10)
[2021-02-04] MEDS ORDERED: POTASSIUM CHLORIDE 10 MEQ TABER PO PRN (19:10)
[2021-02-04] MEDS ORDERED: guaiFENesin DM 200/20 MG-10 ML 10 ML UDC PO PRN (19:10)
[2021-02-04] MEDS ORDERED: DOCUSATE SODIUM 100 MG GELCAP PO PRN (19:10)
--- NOTE | 2021-02-04 19:12 | NUR ---
Pt report given to Wade. Transfer of care at this time.
[2021-02-04] MEDS: FUROSEMIDE 40 MG TAB PO SCH (19:15)
[2021-02-04] MEDS ORDERED: MORPHINE SULFATE 2 MG/ML SYR IVP PRN (19:15)
--- NOTE | 2021-02-04 19:45 | NUR ---
Patient will be admitted to care of DR. SEAMAN. Admited to TELE. Will go to room 111B. Belongings list completed. Report to MICHAEL GIVENS.
[2021-02-04 20:18] LABS: FREE T4 (FREE THYROXINE) 0.87 ng/dL (0.76-1.46); MAGNESIUM 2.1 mg/dL (1.8-2.4); PHOSPHORUS 2.9 mg/dL (2.5-4.9); THYROID STIMULATING HORMONE 2.18 uIU/mL (0.34-3.74)
--- NOTE | 2021-02-04 20:20 | NUR ---
REPORT GIVEN FROM ER NURSE. PATIENT WAS BROUGHT TO [facility] ON TELE MONITORING. AWAKE, ALERT ORIENTED X4, AMBULATORY. DX: CHEST PAIN , ELEVATED TROPONIN. SKIN ASSESSMENT DONE NOTED SCAR ON THE LEFT CHEST, SCAB ON THE LEFT ARM. PACEMAKER IN THE UPPER LEFT CHEST. MRSA SCREENING DONE. CALL LIGHT WITHIN REACH . WILL CONTINUE TO MONITOR.
[2021-02-04 20:21] LABS: APPEARANCE,URINE CLEAR (CLEAR); BILIRUBIN,URINE NEGATIVE (NEGATIVE); BLOOD, URINE NEGATIVE (NEGATIVE); COLOR,URINE YELLOW (YELLOW); LEUKOCYTE ESTERASE ,URINE NEGATIVE (NEGATIVE); NITRITE, URINE NEGATIVE (NEGATIVE); UGLUCOSE NEGATIVE (NEGATIVE)
[2021-02-04] MEDS: NACL 0.9% 1,000 ML IV SCH (21:01)
[2021-02-04] MEDS: carvediloL 6.25 MG TAB PO SCH (21:08)
[2021-02-04] MEDS: SPIRONOLACTONE 25 MG TAB PO SCH (22:21)
[2021-02-04] MEDS: lisinopriL 10 MG TAB PO SCH (22:21)
[2021-02-05] VITALS: BP 102/56
--- NOTE | 2021-02-05 00:10 | NUR ---
PATIENT REFUSED TO CONTINUE IVF.
--- NOTE | 2021-02-05 03:38 | NUR ---
ENDORSED PT TO RN MJ FOR CONTINUITY OF CARE. PATIENT IS STABLE
--- NOTE | 2021-02-05 03:38 | NUR ---
ASSUMED CARE OF THE PATIENT FROM MICHAEL GIVENS FOR CONTINUITY OF CARE. PATIENT ASLEEP BUT EASY TO AROUSED. NOT IN ANY DISTRESS AT THIS TIME AND NO COMPLAIN. CALL LIGHT WITHIN REACH. WILL CONTINUE POC AND MONITORING.
[2021-02-05 04:00] VITALS: BP 132/51
[2021-02-05] MEDS: HYDROcodone/APAP 7.5/325 MG 1 TAB PO PRN (04:27)
--- NOTE | 2021-02-05 04:44 | NUR ---
PATIENT WOKE UP AND C/O CHEST PAIN AND REQUESTED FOR PAIN MEDICINE. PRN NORCO GIVEN ORDERED. VSS.
[2021-02-05] MEDS: NACL 0.9% 1,000 ML IV SCH ×3 (05:00→22:34)
--- NOTE | 2021-02-05 05:01 | NUR ---
PATIENT STILL REFUSED HIS IVF.
[2021-02-05 06:36] LABS: BASOPHILS # (AUTO) 0.1 K/uL (0.00-0.22); BASOPHILS % (AUTO) 0.7 % (0.0-2.0); EOSINOPHILS # (AUTO) 0.3 K/uL (0-0.4); EOSINOPHILS % (AUTO) 3.3 % (0.0-4.0); HEMATOCRIT 45.3 % (36-52); HEMOGLOBIN 14.9 g/dL (12.0-18.0); LYMPHOCYTES # (AUTO) 1.4 K/uL (2.0-11.5); LYMPHOCYTES % (AUTO) 16.5 % (20.5-51.1); MEAN CORPUSCULAR HEMOGLOBIN 30 pg (27-31); MEAN CORPUSCULAR HGB CONC 33 g/dL (33-37); MEAN CORPUSCULAR VOLUME 90.4 fL (80-94); MONOCYTES # (AUTO) 0.7 K/uL (0.8-1.0); MONOCYTES % (AUTO) 8.5 % (1.7-9.3); NEUTROPHILS # (AUTO) 5.9 K/uL (1.8-7.7); PLATELET COUNT (AUTO) 164 K/uL (140-450); RED BLOOD CELL COUNT(AUTO) 5.01 MIL/uL (4.20-6.10); RED CELL DISTRIBUTION WIDTH 15.4 % (11.6-13.7); WHITE BLOOD COUNT (AUTO) 8.3 K/uL (4.8-10.8)
--- NOTE | 2021-02-05 06:38 | NUR ---
PATIENT STABLE AT THIS TIME. NO ACUTE EVENTS THROUGHOUT THE SHIFT. PT NOT IN ANY DISTRESS AND NO COMPLAIN. ALL NEEDS ATTENDED. CALL LIGHT WITHIN REACH. WILL ENDORSE THE PATIENT TO THE ONCOMING RN FOR CONTINUITY OF CARE.
[2021-02-05] MEDS ORDERED: MORPHINE SULFATE 2 MG/ML SYR IVP PRN (07:10)
[2021-02-05 07:11] LABS: ANION GAP 9.5 (8-16); CARBON DIOXIDE 27.1 mmol/L (21-32); CREATININE 1.4 mg/dL (0.6-1.3); POTASSIUM 3.6 mmol/L (3.5-5.1)
--- NOTE | 2021-02-05 07:28 | NUR ---
PATIENT STABLE. ENDORSED PATIENT TO DAY RN FOR CONTINUITY OF CARE. SIGNING OFF.
--- NOTE | 2021-02-05 07:30 | NUR ---
RECEIVED BEDSIDE REPORT FROM RETIREMENT VILLAGE MANAGER NURSE FOR CONTINUITY OF CARE. PATIENT AOX4, ABLE TO MAKE NEEDS KNOWN. RESPIRATIONS EVEN AND UNLABORED. ON ROOM AIR AND NO RESPIRATORY DISTRESS NOTED. SKIN IS WARM AND DRY. IV SITE ON LAC 20G SALINE LOCKED. INTACT AND PATENT. NOTED +1 NON-PITTING EDEMA BLE. USES URINAL. PACEMAKER IN THE UPPER LEFT CHEST. PLAN OF CARE DISCUSSED. SAFETY PRECAUTIONS IN PLACE. BED IN LOW POSITIONS. CALL LIGHT WITHIN REACH . WILL CONTINUE TO MONITOR.
[2021-02-05 08:00] VITALS: BP 103/55
[2021-02-05] MEDS: carvediloL 6.25 MG TAB PO SCH ×2 (08:00→16:56)
--- NOTE | 2021-02-05 08:44 | NUR ---
PATIENT HAS BEEN SCREENED AND CATEGORIZED MODERATE NUTRITION RISK. PATIENT WILL BE SEEN WITHIN 3-5 DAYS OF ADMISSION. 02/07/21 02/09/[address]
[2021-02-05] MEDS: lisinopriL 10 MG TAB PO SCH (08:47)
[2021-02-05] MEDS: FUROSEMIDE 40 MG TAB PO SCH (09:07)
[2021-02-05] MEDS: PANTOPRAZOLE 40 MG TABEC PO SCH (09:07)
[2021-02-05] MEDS: SPIRONOLACTONE 25 MG TAB PO SCH (09:08)
[2021-02-05] MEDS: ASPIRIN 81 MG TAB.CHEW PO SCH (09:08)
[2021-02-05] MEDS: RIVAROXABAN 10 MG TAB PO SCH (09:08)
--- NOTE | 2021-02-05 09:15 | NUR ---
ALL SCHEDULED MEDS GIVEN. PT IS STABLE. NO DISTRESS NOTED. WILL CONTINUE TO MONITOR.
--- NOTE | 2021-02-05 11:30 | NUR ---
CHECKED ON PATIENT. PATIENT ASLEEP IN BED. NOTED CHEST RISE AND FALL. NO DISTRESS NOTED. WILL CONTINUE TO MONITOR.
[2021-02-05 12:00] VITALS: BP 105/77
[2021-02-05] MEDS: MORPHINE SULFATE 2 MG/ML SYR IVP PRN ×3 (14:00→22:30)
--- NOTE | 2021-02-05 14:00 | NUR ---
PATIENT COMPLAINED OF 9/10 RIGHT FOOT. ADMINISTERED MORPHINE IVP PER MD ORDERED.
[2021-02-05 16:00] VITALS: BP 113/76
--- NOTE | 2021-02-05 17:00 | NUR ---
ALL SCHEDULED MEDS GIVEN. PT IS STABLE. NO DISTRESS NOTED. WILL CONTINUE TO MONITOR.
--- NOTE | 2021-02-05 18:21 | NUR ---
PATIENT COMPLAINED OF 9/10 RIGHT FOOT. ADMINISTERED MORPHINE IVP PER MD ORDERED.
--- NOTE | 2021-02-05 19:10 | NUR ---
ENDORSED TO ENAMEL BURNER NURSE FOR CONTINUITY OF CARE. PT IS STABLE.
--- NOTE | 2021-02-05 19:15 | NUR ---
RECEIVED BEDSIDE REPORT FROM DAY SHIFT NURSE FOR CONTINUITY OF CARE. PT IS AWAKE AND ALERT. A&OX4. ON RA WITH BREATHING UNLABORED. PACEMAKER IN PLACE. ON TELE MONITORING. PT IS CONTINENT AND AMBULATORY. SKIN IS WARM, DRY, AND INTACT. IV IS IN THE LEFT AC 20 GAUGE. PT REFUSED FLUIDS, WILL PROVIDE EDUCATION AND REASSESS FOR FLUIDS. PT IS ON STANDARD AND UNIVERSAL PRECAUTIONS. PT IS STABLE WILL CONTINUE TO MONITOR.
[2021-02-05 20:00] VITALS: BP 109/63
--- NOTE | 2021-02-05 21:00 | NUR ---
ROUNDED ON PT. HE IS AWAKE AND ALERT. LAYING IN SEMI FOWLERS POSITION. NO DISTRESS NOTED AT THIS TIME. BREATHING IS UNLABORED. PT COMPLAINS OF MILD PAIN ON THE RIGHT FOOT BUT STATES IT TOLERABLE. PT REFUSED IV FLUIDS. EDUCATION WAS PROVIDED AND PT STILL REFUSED FLUID. WILL CONTINUE TO MONITOR.
--- NOTE | 2021-02-05 22:30 | NUR ---
PT STATES HE HAS PAIN IN THE RIGHT FOOT AT A SCALE OF 9/10. PT WAS GIVEN MORPHINE ORDERED FOR PAIN. BP WAS 126/78 PRIOR TO ADMINISTRATION OF MEDICATION. MEDICATION EDUCATION WAS PROVIDED AND PT VERBALIZED UNDERSTANDING. IV WAS REINFORCED. WILL MONITOR PAIN.
[2021-02-06] VITALS: BP 124/72
--- NOTE | 2021-02-06 00:30 | NUR ---
MADE ROUNDS ON PT. HE IS ASLEEP. NO DISTRESS NOTED. BREATHING IS UNLABORED. BED IS IN THE LOWEST POSITION AND CALL LIGHT IS WITHIN REACH.
[2021-02-06] MEDS: MORPHINE SULFATE 2 MG/ML SYR IVP PRN ×4 (02:49→14:44)
--- NOTE | 2021-02-06 02:49 | NUR ---
PT STATES PAIN AT A SCALE OF 10/10 IN THE RIGHT FOOT. PT STATES IT ACHING AND SHARP. PT WAS GIVEN MORPHINE FOR PAIN. BP WAS 127/92 PRIOR TO ADMINISTRATION OF MEDICATION. WILL CONTINUE TO MONITOR FOR PAIN.
--- NOTE | 2021-02-06 03:18 | NUR ---
PT DENIES PAIN. MORPHINE HAS HELPED WITH THE PAIN ACCORDING TO THE PT. PT IS IN BED, GOING BACK TO SLEEP.
[2021-02-06 04:00] VITALS: BP 144/65
--- NOTE | 2021-02-06 05:30 | NUR ---
PT IS SLEEPING. NO DISTRESS NOTED. BREATHING IS UNLABORED. NO PAIN AT THIS TIME. WILL CONTINUE TO MONITOR.
--- NOTE | 2021-02-06 06:52 | NUR ---
PT STATES HE HAS PAIN IN HIS RIGHT FOOT AT A SCALE OF 10/10. PT WAS GIVEN MORPHINE FOR PAIN. IV IS PATENT AND FLUSHING WELL. BP WAS 127/81 PRIOR TO ADMINISTRATION OF MEDICATION.
--- NOTE | 2021-02-06 07:11 | NUR ---
ENDORSED PT TO DAY SHIFT NURSE FOR CONTINUITY OF CARE. PT IS STABLE AT THIS TIME. PLAN OF CARE DISCUSSED.
--- NOTE | 2021-02-06 07:12 | NUR ---
RECEIVED BEDSIDE REPORT FROM rail gang supervisor NURSE FOR CONTINUITY OF CARE. PT IS AWAKE AND ALERT. A&OX4. ON RA WITH BREATHING UNLABORED. PACEMAKER IN PLACE. ON TELE MONITORING, PATIENT REFUSING TO PUT ON THE LEADS. PT IS CONTINENT AND AMBULATORY. SKIN IS WARM, DRY, AND INTACT. IV IS IN THE LEFT AC 20 GAUGE, SALINE LOCK. PT REFUSED FLUIDS. PATIENT C/O PAIN, LAST MEDICATED AT 0652, PT AWARE OF NEXT SCHEDULED MED. PT IS ON STANDARD AND UNIVERSAL PRECAUTIONS. CALL LIGHT WITHIN REACH, WILL CONTINUE TO MONITOR PATIENT.
--- NOTE | 2021-02-06 07:38 | NUR ---
RECEIVED A CALL FROM LAB, PT REFUSED AM BLOOD DRAW.
[2021-02-06 07:50] VITALS: BP 135/81
[2021-02-06] MEDS: PANTOPRAZOLE 40 MG TABEC PO SCH (08:49)
[2021-02-06] MEDS: ASPIRIN 81 MG TAB.CHEW PO SCH (08:49)
[2021-02-06] MEDS: carvediloL 6.25 MG TAB PO SCH ×2 (08:49→17:43)
[2021-02-06] MEDS: lisinopriL 10 MG TAB PO SCH (08:49)
[2021-02-06] MEDS: FUROSEMIDE 40 MG TAB PO SCH (08:50)
[2021-02-06] MEDS: SPIRONOLACTONE 25 MG TAB PO SCH (08:50)
[2021-02-06] MEDS: RIVAROXABAN 10 MG TAB PO SCH (08:53)
--- NOTE | 2021-02-06 08:53 | NUR ---
ORDERED MEDICATIONS GIVEN. PATIENT TOLERATED THEM. PT MOANING AND GROANING IN PAIN. AWARE OF NEXT SCHEDULED NEXT. ALL NEEDS MET AT THIS TIME. CALL LIGHT WITHIN REACH, WILL CONTINUE TO MONITOR PATIENT.
[2021-02-06 10:06] LABS: T4 (THYROXINE) 6.6 ug/dL (4.5-12.0)
--- NOTE | 2021-02-06 10:50 | NUR ---
PRN PAIN MEDICATION GIVEN. PATIENT TOLERATED IT. PT C/O 10/10 PAIN ON RT FOOD, REFUSED FOR IT TO BE TOUCHED D/T PAIN. WILL CONTINUE TO MONITOR PATIENT AND INFORM DR. ARIAS WHEN HE COMES IN FOR ROUNDS.
[2021-02-06] MEDS: NACL 0.9% 1,000 ML IV SCH ×2 (11:10→21:10)
[2021-02-06 12:00] VITALS: BP 137/87
--- NOTE | 2021-02-06 14:44 | NUR ---
Patient dislodged iv, wanted it removed and a new one reinserted. scutcher tender Rosalia spoke to Dr. Mora, Dr. Mora said pt ok to discharge, Dr. Mora had already spoken to patient about plan of care. Patient denied seeing Dr. Mora and speaking about discharge. Patient still complaining of pain of right foot 05/23 pain. Addendum: 02/06/21 at 1543 by Fracisco oBurne RN IV REMOVED, IV CANNULA INTACT, MINIMAL BLEEDING NOTED.
[2021-02-06] MEDS ORDERED: HYDR-5080 PO (15:07)
--- NOTE | 2021-02-06 15:09 | NUR ---
DR ARIAS STATED THAT HE SPOKE TO PATIENT. NEW ORDER IN FOR XRAY OF FOOT D/T PAIN. WILL WAIT FOR RESULT.
[2021-02-06 16:00] VITALS: BP 146/97
--- NOTE | 2021-02-06 16:40 | NUR ---
RIGHT FOOT XRAY DONE, PATIENT MOANING AND GROANING IN PAIN. WILL WAIT FOR RESULTS.
[2021-02-06] MEDS ORDERED: MORPHINE SULFATE 2 MG/ML SYR IM PRN (17:20)
[2021-02-06] MEDS ORDERED: MORPHINE SULFATE 4 MG/ML SYR IM ONE ×2 (17:30→17:40)
--- NOTE | 2021-02-06 19:38 | NUR ---
Report given to elementary school teacher's aide nurse.
--- NOTE | 2021-02-06 19:40 | NUR ---
RECEIVED REPORT FROM RICARDO RN DAYSHIFT NURSE AT BEDSIDE FOR CONTINUITY OF CARE, PT IN STABLE CONDITION. PT LYING IN BED AOX4 , TELE IN PLACE , NO IV ACCESS DUE TO UNABLE TO BE OBTAINED AT THIS TIME. ALL UNIVERSAL FALLS PRECAUTIONS IN PLACE.
[2021-02-06 20:00] VITALS: BP 124/80
--- NOTE | 2021-02-06 20:30 | NUR ---
PT UNABLE TO RECEIVE IV FLUIDS DUE TO NO IV ACCESS. PT HAS URINAL AT BEDSIDE, DUE TO PT SAYING THAT HE EXPERIENCES FOOT PAIN AND DOESN'T WANT TO WALK TO TOILET. V/S FOLLOWS: T 98.2 P 96 R 20 B/P 124/80 02 96% ON ROOM AIR. PT HAS NO C/O OF CHEST PAIN AND RESPIRATIONS ARE EVEN AND UNLABORED, HE IS SR ON TELE MONITORING. ALL FALLS UNIVERSAL FALLS PRECAUTIONS IN PLACE.
--- NOTE | 2021-02-06 22:40 | NUR ---
PT C/O OF SEVERE PAIN IN RIGHT LEG, PT HAS NO IV ACCESS FOR IVP MORPHINE, WILL SPEAK TO MD IF OK TO GIVE IM ROUTE.
[2021-02-06] MEDS: HYDROcodone/APAP 7.5/325 MG 1 TAB PO PRN (23:16)
--- NOTE | 2021-02-06 23:30 | NUR ---
SPOKE WITH MD LEE MANAGER [employer]S SALES MD, SHE SAID TO D/C MORPHINE OK TO GIVEN NORCO 7.5/325MG. OFFERED TO PT AND HE SAID "OK" ALL UNIVERSAL FALLS PRECAUTIONS IN PLACE. ALL OTHER REQUESTED NEEDS ATTENDED BY STAFF.
[2021-02-07] VITALS: BP 119/65
--- NOTE | 2021-02-07 00:30 | NUR ---
PT IN BED V/S FOLLOWS: T 98.2 P 96 R 20 B/P 124/80 02 95% ON ROOM AIR. PT IN BED RESTING BUT AROUSABLE TO NAME AND LIGHT TOUCH, POSITIVE EFFECT OF NORCO 7.5/325MG NOTED. ALL UNIVERSAL FALLS PRECAUTIONS IN PLACE.
--- NOTE | 2021-02-07 02:15 | NUR ---
PT IN BED RESTING WITH EYES CLOSED, NO C/O VOICED ALL UNIVERSAL PRECAUTIONS IN PLACE. PT ON ROOM AIR AND ABLE TO TURN SELF IN BED.
[2021-02-07 04:00] VITALS: BP 138/72
--- NOTE | 2021-02-07 06:30 | NUR ---
PT IN BED AROUSABLE TO NAME, C/O 5/10 PAIN IN RIGHT LEG, WAS GIVEN PO/PRN NORCO ALL V/S STABLE ALL UNIVERSAL PRECAUTIONS IN PLACE.
[2021-02-07 06:37] LABS: BASOPHILS # (AUTO) 0.1 K/uL (0.00-0.22); BASOPHILS % (AUTO) 0.5 % (0.0-2.0); EOSINOPHILS # (AUTO) 0.2 K/uL (0-0.4); EOSINOPHILS % (AUTO) 1.4 % (0.0-4.0); HEMATOCRIT 46.8 % (36-52); HEMOGLOBIN 15.5 g/dL (12.0-18.0); LYMPHOCYTES # (AUTO) 1.3 K/uL (2.0-11.5); LYMPHOCYTES % (AUTO) 12.2 % (20.5-51.1); MEAN CORPUSCULAR HEMOGLOBIN 30 pg (27-31); MEAN CORPUSCULAR HGB CONC 33 g/dL (33-37); MEAN CORPUSCULAR VOLUME 90.3 fL (80-94); MONOCYTES # (AUTO) 1.1 K/uL (0.8-1.0); MONOCYTES % (AUTO) 10.4 % (1.7-9.3); NEUTROPHILS # (AUTO) 8.1 K/uL (1.8-7.7); NEUTROPHILS % (AUTO) 75.5 % (42.2-75.2); PLATELET COUNT (AUTO) 163 K/uL (140-450); RED BLOOD CELL COUNT(AUTO) 5.18 MIL/uL (4.20-6.10); RED CELL DISTRIBUTION WIDTH 15.7 % (11.6-13.7); WHITE BLOOD COUNT (AUTO) 10.8 K/uL (4.8-10.8)
[2021-02-07 06:41] LABS: ANION GAP 17.7 (8-16); CARBON DIOXIDE 22.5 mmol/L (21-32); CREATININE 1.4 mg/dL (0.6-1.3); POTASSIUM 4.2 mmol/L (3.5-5.1)
[2021-02-07] MEDS: HYDROcodone/APAP 7.5/325 MG 1 TAB PO PRN ×2 (06:43→16:39)
[2021-02-07] MEDS: NACL 0.9% 1,000 ML IV SCH ×2 (07:00→16:40)
--- NOTE | 2021-02-07 07:45 | NUR ---
RECEIVED REPORT FROM VAMSI RODRIGUEZ, FOR CONTINUITY OF CARE. PATIENT IS RESTING IN BED, LAST PAIN MED GIVEN AT 0630 PER NURSE, NO SIGNS OF DISTRESS OR PAIN. AOX3-4. SR-ST ON MONITOR. ON RA. CARDIAC DIET. AMBULATORY. SKINS INTACT. PIN STICKER AND SAFETY MEASURES IN PLACE. HEAD OF BED AT 30 DEGREES, BED IN LOW POSITION, BED LOCKED. WILL CONTINUE TO MONITOR.
[2021-02-07 08:00] VITALS: BP 113/70
[2021-02-07] MEDS: carvediloL 6.25 MG TAB PO SCH ×2 (08:22→16:39)
[2021-02-07] MEDS: RIVAROXABAN 10 MG TAB PO SCH (08:23)
[2021-02-07] MEDS: PANTOPRAZOLE 40 MG TABEC PO SCH (08:25)
[2021-02-07] MEDS: SPIRONOLACTONE 25 MG TAB PO SCH (08:26)
[2021-02-07] MEDS: FUROSEMIDE 40 MG TAB PO SCH (08:26)
[2021-02-07] MEDS: lisinopriL 10 MG TAB PO SCH (08:26)
[2021-02-07] MEDS: ASPIRIN 81 MG TAB.CHEW PO SCH (08:27)
--- NOTE | 2021-02-07 08:30 | NUR ---
ADMINISTERED SCHEDULED AM MEDICATIONS. ORAL CARE, HYGIENE CARE, CHG BATH PROVIDED. PATIENT IN RESTING POSITION AND ABLE TO MAKE NEEDS KNOWN. NO REPORT OF PAIN OR DISTRESS. WILL CONTINUE TO MONITOR.
--- NOTE | 2021-02-07 11:00 | NUR ---
DR. JESUS DEL REAL. UPDATED ON PATIENT STATUS AND CONDITION. AWARE OF PATIENT IS COMPLAINING ABOUT ANKLE PAIN AND XRAY IS POSITIVE FOR SWELLING. STATED POSSIBLE DC TOMORROW. WILL CONTINUE TO MONITOR.
[2021-02-07 12:00] VITALS: BP 120/74
--- NOTE | 2021-02-07 12:50 | NUR ---
CHECKED ON PATIENT. NO SIGNS OF DISTRESS. PATIENT STATES FOOT STILL IN PAIN, OFFERED PAIN MEDICATION, REFUSED SAYING IT DOESN'T WORK. REMOVED PERINATAL NURSE, PATIENT DOWNGRADED TO MEDSURG. WILL CONTINUE TO MONITOR.
--- NOTE | 2021-02-07 13:43 | NUR ---
PATIENT RESTING. NO SIGNS OF DISTRESS. WILL CONTINUE TO MONITOR.
--- NOTE | 2021-02-07 15:24 | NUR ---
CHECKED ON PATIENT. NO SIGN OF DISTRESS. WILL CONTINUE TO MONITOR.
[2021-02-07 16:00] VITALS: BP 118/69
--- NOTE | 2021-02-07 16:43 | NUR ---
ADMINISTERED SCHEDULED COREG. PATIENT COMPLAINING OF THROBBING FOOT PAIN. STATES PAIN WAS A 6 OUT OF 10. ADMINISTERED NORCO. WILL CONTINUE TO MONITOR.
--- NOTE | 2021-02-07 19:13 | NUR ---
ENDORSED TO CHON RODRIGUEZ, FOR CONTINUITY OF CARE.
--- NOTE | 2021-02-07 19:20 | NUR ---
RECEIVED REPORT FROM AM SHIFT NURSE. PATIENT ON BED RESTING. NO SOB NOTED DENIES PAIN. CALL LIGHT WITHIN REACH. WILL CONTINUE TO MONITOR.
[2021-02-07 20:00] VITALS: BP 100/64
--- NOTE | 2021-02-07 20:44 | NUR ---
ADMINISTERED SCHEDULED MEDS ORDERED.
[2021-02-07] MEDS ORDERED: ATORVASTATIN 20 MG TAB PO SCH (21:00)
--- NOTE | 2021-02-08 | NUR ---
CHECKED PATIENT SLEEPING.
[2021-02-08] MEDS: NACL 0.9% 1,000 ML IV SCH (03:10)
[2021-02-08] MEDS: HYDROcodone/APAP 7.5/325 MG 1 TAB PO PRN (03:21)
--- NOTE | 2021-02-08 03:21 | NUR ---
COMPLAINED OF MODERATE RIGHT LEG PAIN, NORCO 7.5/325 MG GIVEN ORDERED.
[2021-02-08 04:00] VITALS: BP 107/47
[2021-02-08 06:42] LABS: BASOPHILS # (AUTO) 0.1 K/uL (0.00-0.22); BASOPHILS % (AUTO) 0.5 % (0.0-2.0); EOSINOPHILS # (AUTO) 0.2 K/uL (0-0.4); HEMATOCRIT 45.4 % (36-52); HEMOGLOBIN 15.2 g/dL (12.0-18.0); LYMPHOCYTES # (AUTO) 1.3 K/uL (2.0-11.5); LYMPHOCYTES % (AUTO) 13.8 % (20.5-51.1); MEAN CORPUSCULAR HEMOGLOBIN 30 pg (27-31); MEAN CORPUSCULAR HGB CONC 33 g/dL (33-37); MEAN CORPUSCULAR VOLUME 90.1 fL (80-94); MONOCYTES # (AUTO) 0.9 K/uL (0.8-1.0); MONOCYTES % (AUTO) 9.4 % (1.7-9.3); NEUTROPHILS # (AUTO) 7.1 K/uL (1.8-7.7); NEUTROPHILS % (AUTO) 74.3 % (42.2-75.2); PLATELET COUNT (AUTO) 175 K/uL (140-450); RED BLOOD CELL COUNT(AUTO) 5.04 MIL/uL (4.20-6.10); RED CELL DISTRIBUTION WIDTH 15.3 % (11.6-13.7); WHITE BLOOD COUNT (AUTO) 9.6 K/uL (4.8-10.8)
[2021-02-08 06:51] LABS: ANION GAP 12.8 (8-16); CARBON DIOXIDE 25.2 mmol/L (21-32); CREATININE 1.7 mg/dL (0.6-1.3)
--- NOTE | 2021-02-08 07:20 | NUR ---
RECEIVED REPORT FORM HOUSING DEVELOPMENT SPECIALIST NURSE OF CONTINUITY OF CARE. PATIENT AWAKE AND ALERT. PATIENT LAYING IN BED. RESPIRATION EVEN AND UNLABORED. PATIENT DOES NOT HAVE IV ACCESS. PATIENT COMPLAIN OF RIGHT FOOT PAIN. REFUSE PAIN MEDICATION ON THIS TIME. PATIENT ABLE TO MOVE BOTH FEET WHILE IN BED. PT EVALUATION PENDING. POSSIBLE DISCHARGE TODAY. WILL CONTINUE TO MONITOR.
--- NOTE | 2021-02-08 07:35 | NUR ---
ENDORSED TO AM SHIFT NURSE FOR CONTINUITY OF CARE. PATIENT IS STABLE.
[2021-02-08] MEDS: lisinopriL 10 MG TAB PO SCH (09:00)
[2021-02-08] MEDS: carvediloL 6.25 MG TAB PO SCH (09:25)
[2021-02-08] MEDS: ASPIRIN 81 MG TAB.CHEW PO SCH (09:25)
[2021-02-08] MEDS: PANTOPRAZOLE 40 MG TABEC PO SCH (09:25)
[2021-02-08] MEDS: SPIRONOLACTONE 25 MG TAB PO SCH (09:26)
[2021-02-08] MEDS: FUROSEMIDE 40 MG TAB PO SCH (09:26)
--- NOTE | 2021-02-08 09:26 | NUR ---
PATIENT AWAKE AND ALERT. PATIENT REMAINS ON ROOM AIR NO DISTRESS NOTED. PATIENT LAYING I BED. PATIENT ROUTINE MEDICATION GIVEN. EDUCATED ON MEDICATION. PATIENT COMPLIANT WITH MEDICATION. ZESTRIL 10 MG HELD PER PARAMETER BP 112/[address] LEE NOTIFIED. PATIENT COMPLAIN OF LEFT FOOT PAIN MEDICATION OFFER PATIENT REFUSE. WILL CONTINUE TO MONITOR.
[2021-02-08] MEDS: RIVAROXABAN 10 MG TAB PO SCH (09:27)
--- NOTE | 2021-02-08 11:41 | NUR ---
DISCHARGE INSTRUCTIONS PROVIDED, DISCHARGE PAPER SIGNED. VERBALIZED UNDERSTANDING.
--- NOTE | 2021-02-08 11:45 | NUR ---
WHEELED PATIENT OUT OF THE BUILDING. PATIENT CARRY HIS CRUTCHES, ALL BELONGING TAKEN, PATIENT WILL DRIVE BY HIMSELF. PATIENT IS VERY AGITATED. ALL BELONGINGS TAKEN, PATIENT THROW THE DISCHARGE INSTRUCTIONS. PATIENT IN STABLE CONDITION.
== END 2021-02-08 11:45 | disposition home or self-care (01) | DRG 280 ==
LOC: MED 15:44 → MTU 18:56
PROVIDERS: ADMIT Family Medicine; ATTEND Family Medicine
DX: I13.0 Hypertensive heart and chronic kidney disease with heart failure and stage 1 through stage 4 chronic kidney disease, or unspecified chronic kidney disease (principal); N17.0 Acute kidney failure with tubular necrosis; I21.A1 Myocardial infarction type 2; I50.43 Acute on chronic combined systolic (congestive) and diastolic (congestive) heart failure; Z68.41 Body mass index [BMI] 40.0-44.9, adult; I42.9 Cardiomyopathy, unspecified; J44.9 Chronic obstructive pulmonary disease, unspecified; I48.91 Unspecified atrial fibrillation; R77.8 Other specified abnormalities of plasma proteins; E78.5 Hyperlipidemia, unspecified; Z20.822 Contact with and (suspected) exposure to COVID-19; N18.30 Chronic kidney disease, stage 3 unspecified; F15.90 Other stimulant use, unspecified, uncomplicated; E66.9 Obesity, unspecified; N28.1 Cyst of kidney, acquired; R07.89 Other chest pain; Z88.8 Allergy status to other drugs, medicaments and biological substances; Z95.0 Presence of cardiac pacemaker; Z86.73 Personal history of transient ischemic attack (TIA), and cerebral infarction without residual deficits; M94.0 Chondrocostal junction syndrome [Tietze]
CPT/HCPCS: 36415; 71045; 73630; 76770; 80048; 80053; 80305; 81003; 82150; 83036; 83690; 83735; 83880; 84100; 84436; 84439; 84443; 84479; 84484; 85025; 85610; 85730; 87081; 93005; 96372; 97116; 97163-GP; 97530; 99285; G0482; J1200; J1644; J2270; J3010

== ENCOUNTER 2021-03-06 08:20 | Inpatient (IN) | payer OTHER, SELFPAY ==
[~2021-03-06] VITALS: Ht 188 cm; Wt 142.9 kg
[~2021-03-06 08:20] MED LIST changes: +HYDR-5080 PO; -SPIR50TA PO
--- NOTE | 2021-03-06 08:24 | NUR ---
pt ambulated to bed 11.
[2021-03-06 08:25] VITALS: BP 131/96
--- NOTE | 2021-03-06 08:34 | NUR ---
MD BEDSIDE EVALUATING PT
--- NOTE | 2021-03-06 08:36 | NUR ---
50 Y/O MALE C/O CHEST PAIN AND SOB X1 HR. PT STATES HE WAS FEELING ILL LAST NIGHT AND THIS AM HE STARTED TO EXPERIENCE CHEST PAIN/SOB. PT ALSO C/O ITCHINESS WITH VISIBLE SCABS ALL OVER BODY. PT ADMITS TO SMOKING MARIJUANA THIS MORNING BUT DENIES ANY OTHER DRUG USE. DENIES N/V PMH: AFIB, CARDIOMYOPATHY, CHF, HTN, ONLY ONE KIDNEY ALLERGIES:TORADOL Addendum: 03/06/21 at 0847 by [email or web address] PMH:AFIB, CARDIOMYOPATHY, CHF, HTN, ONLY ONE KIDNEY, BLOOD CLOT X 2WEEKS AGO
--- NOTE | 2021-03-06 08:55 | NUR ---
LAB BEDSIDE WITH PT
--- NOTE | 2021-03-06 09:20 | NUR ---
CHEST XRAY BEDSIDE WITH PT
[2021-03-06 09:25] LABS: BASOPHILS # (AUTO) 0.1 K/uL (0.00-0.22); BASOPHILS % (AUTO) 0.8 % (0.0-2.0); EOSINOPHILS # (AUTO) 0.2 K/uL (0-0.4); EOSINOPHILS % (AUTO) 2.8 % (0.0-4.0); HEMATOCRIT 42.6 % (36-52); LYMPHOCYTES # (AUTO) 1.2 K/uL (2.0-11.5); LYMPHOCYTES % (AUTO) 15.3 % (20.5-51.1); MEAN CORPUSCULAR HEMOGLOBIN 29 pg (27-31); MEAN CORPUSCULAR HGB CONC 33 g/dL (33-37); MEAN CORPUSCULAR VOLUME 88.5 fL (80-94); MONOCYTES # (AUTO) 0.5 K/uL (0.8-1.0); MONOCYTES % (AUTO) 6.1 % (1.7-9.3); NEUTROPHILS # (AUTO) 5.7 K/uL (1.8-7.7); PLATELET COUNT (AUTO) 166 K/uL (140-450); RED BLOOD CELL COUNT(AUTO) 4.82 MIL/uL (4.20-6.10); RED CELL DISTRIBUTION WIDTH 15.7 % (11.6-13.7); WHITE BLOOD COUNT (AUTO) 7.6 K/uL (4.8-10.8)
[2021-03-06 09:41] LABS: ALBUMIN 3.4 g/dL (3.4-5.0); ANION GAP 15.5 (8-16); CARBON DIOXIDE 23.3 mmol/L (21-32); CREATININE 1.6 mg/dL (0.6-1.3); POTASSIUM 3.8 mmol/L (3.5-5.1); TOTAL BILIRUBIN 0.3 mg/dL (0.0-1.0)
--- NOTE | 2021-03-06 09:57 | NUR ---
PT SITTING ON EDGE OF BED. PT A&OX4 WITH BREATHING SLIGHTLY LABORED. PT PLACED ONTO 2 L O2. BED IN LOWEST POSITION WITH BEDRAILS X2UP. VITAL SIGNS STABLE. PT STATES HE "FEELS ITCHY AND WANTS BENADRYL." MADE AWARE OF PT REQUEST. WILL CONTINUE TO MONITOR.
--- NOTE | 2021-03-06 10:00 | NUR ---
PT PROVIDED URINAL BEDSIDE
--- NOTE | 2021-03-06 10:44 | NUR ---
LAB BEDSIDE WITH PT
[2021-03-06] MEDS ORDERED: FUROSEMIDE 40 MG/4 ML VIAL IVP SCH (10:50)
[2021-03-06] MEDS ORDERED: DOCUSATE SODIUM 100 MG GELCAP PO PRN (11:20)
[2021-03-06] MEDS ORDERED: guaiFENesin DM 200/20 MG-10 ML 10 ML UDC PO PRN (11:20)
[2021-03-06] MEDS ORDERED: POTASSIUM CHLORIDE 10 MEQ TABER PO PRN (11:20)
[2021-03-06] MEDS ORDERED: ONDANSETRON 4 MG/2 ML VIAL IM/IVP PRN (11:20)
[2021-03-06] MEDS ORDERED: ZOLPIDEM 5 MG TAB PO PRN (11:20)
[2021-03-06] MEDS ORDERED: ACETAMINOPHEN 325 MG TAB PO PRN (11:20)
[2021-03-06] MEDS ORDERED: HYDROcodone/APAP 7.5/325 MG 1 TAB PO PRN (11:25)
--- NOTE | 2021-03-06 11:30 | NUR ---
COVID DAVI SWAB TAKEN BEDSIDE AND UA COLLECTED BEDSIDE. BOTH GIVEN TO GRADUATE RECRUITER [facility]
[2021-03-06] MEDS ORDERED: RIVAROXABAN 10 MG TAB PO SCH (12:00)
--- NOTE | 2021-03-06 12:06 | NUR ---
PT PROVIDED LUNCH BEDSIDE. MD BEDSIDE ATTEMPING US TO OBTAIN IV
--- NOTE | 2021-03-06 12:08 | NUR ---
CALLED PHARMACY IN [place] TO [place] DUE AT 12PM. PER SLIDE FORMING MACHINE OPERATOR IS ON LUNCH AND WILL BRING MEDICATION IN AROUND 30 MIN
[2021-03-06 12:12] LABS: PROTHROMBIN TIME 9.9 secs (10.8-13.4)
[2021-03-06 12:14] LABS: APPEARANCE,URINE CLEAR (CLEAR); BILIRUBIN,URINE NEGATIVE (NEGATIVE); BLOOD, URINE NEGATIVE (NEGATIVE); COLOR,URINE YELLOW (YELLOW); LEUKOCYTE ESTERASE ,URINE NEGATIVE (NEGATIVE); NITRITE, URINE NEGATIVE (NEGATIVE); PH,URINE 6.5 (5.0-9.0); UGLUCOSE NEGATIVE (NEGATIVE)
[2021-03-06 12:28] LABS: CHOL/HDL RATIO 5.1 (1-4.5); FREE T4 (FREE THYROXINE) 0.77 ng/dL (0.76-1.46); MAGNESIUM 2.2 mg/dL (1.8-2.4); PHOSPHORUS 2.4 mg/dL (2.5-4.9); THYROID STIMULATING HORMONE 1.06 uIU/mL (0.34-3.74)
[2021-03-06 12:31] LABS: RBC,URINE 0-5 /HPF (0-5); WBC,URINE 0-5 /HPF (0-5)
[2021-03-06 12:45] LABS: BARBITURATE, URINE NEGATIVE ng/ml (NEG <=200); BENZODIAZEPINE, URINE NEGATIVE ng/mL (NEG <=200); CANNABINOID, URINE POSITIVE ng/mL (NEG <=50); COCAINE, URINE NEGATIVE ng/mL (NEG <=300); OPIATE, URINE NEGATIVE ng/mL (NEG <=2000); PHENCYCLIDINE SCREEN,URINE NEGATIVE ng/mL (NEG <=25)
--- NOTE | 2021-03-06 12:56 | NUR ---
PT RESTING BEDSIDE. VITAL SIGNS STABLE. BED IN LOWEST POSITION. SIDERAIL X2 UP. WILL CONTINUE TO MONITOR
--- NOTE | 2021-03-06 12:57 | NUR ---
ATTENDING PHYSICIAN YON ADVISED TO CALL PICC LINE NURSE FOR MIDLINE INSERTION.
--- NOTE | 2021-03-06 13:02 | NUR ---
PICC LINE CONSENT OBTAINED BEDSIDE. NEED MD SIGNATURE. WILL INFORM MICHAEL SILVA UPON TRANSFER TO TELE UNIT
--- NOTE | 2021-03-06 13:10 | NUR ---
PATIENT ARRIVED ON FLOOR. AMBULATED TO BED ON STEADY GAIT. DX SOB/CP. C/O PAIN, REFUSED IV INSERTION AND IV MEDS. STATES "I'M A HARD STICK", REQUEST FOR PICC LINE. CONSENT SIGNED IN ED. DR. SEAMAN CALLED AND DISCUSSED WITH PATIENT. VERBALIZED PLAN OF CARE. PATIENT VERBALIZED UNDERSTANDING. RESPIRATIONS EVEN AND UNLABORED ON ROOM AIR. MRSA SCREENING DONE. ORIENTED PATIENT TO ROOM, CALL LIGHT, BATHROOM, TV. BED IN LOWEST POSITION WITH BRAKES ON, CALL LIGHT WITHIN REACH, WILL CONTINUE TO MONITOR PATIENT.
--- NOTE | 2021-03-06 13:12 | NUR ---
PICC LINE CONSENT HANDED OVER TO MICHAEL ASHTON IN [facility]. INFORMED ABOUT MD NEEDING TO SIGN
--- NOTE | 2021-03-06 13:13 | NUR ---
Patient will be admitted to care of URSZULA ANDRADE. Admited to TELE. Will go to room 111B. Belongings list completed. Report to MICHAEL SILVA.
[2021-03-06] MEDS: NACL 0.9% 1,000 ML IV SCH (13:20)
[2021-03-06 13:25] VITALS: BP 158/111
--- NOTE | 2021-03-06 13:31 | NUR ---
PRN PAIN MEDICATION GIVEN. NO IV ACCESS AT THIS TIME. WAITING FOR PICC LINE RN TO COME AND INSERT MIDLINE, PT AWARE OF PLAN. WILL CONTINUE TO MONITOR PATIENT.
[2021-03-06] MEDS: HYDROcodone/APAP 7.5/325 MG 1 TAB PO PRN (13:34)
[2021-03-06 16:05] VITALS: BP 107/67
[2021-03-06] MEDS ORDERED: MORPHINE SULFATE 4 MG/ML SYR IVP SCH (17:45)
[2021-03-06] MEDS: carvediloL 6.25 MG TAB PO SCH (18:22)
--- NOTE | 2021-03-06 18:23 | NUR ---
MIDLINE ON RT UA DOUBLE LUMEN INSERTED. PT TOLERATED, PRN PAIN MEDICATION GIVEN. PT TOLERATING IT WELL. PT FINISHED EATING DINNER, WILL CONTINUE TO MONITOR PATIENT.
--- NOTE | 2021-03-06 19:30 | NUR ---
REPORT GIVEN TO QUARTER TRIMMER AT BEDSIDE FOR CONTINUITY OF CARE.
--- NOTE | 2021-03-06 19:30 | NUR ---
RECEIVED REPORT FROM RICARDO RN DAYSHIFT NURSE AT BEDSIDE FOR CONTINUITY OF CARE, PT IN STABLE CONDITION. HE IS LYING IN BED HOB UP 45% HE IS ON ROOM AIR. AND HAS RIGHT UPPER ARM DOUBLE LUMEN MIDLINE INTACT AND SALINE LOCKED. HE HAS NO C/O VOICED AT THIS TIME. ALL UNIVERSAL FALLS PRECAUTIONS IN PLACE.
[2021-03-06 20:00] VITALS: BP 122/88
--- NOTE | 2021-03-06 20:00 | NUR ---
PT IS LYING IN BED RR EVEN AND UNLABORED ON ROOM AIR. PT IS ON TELEMETRY MONITORING AND HAS MIDLINE DOUBLE LUMEN SALINE FLUSHED AND LOCKED. V/S FOLLOWS: T 97 P 62 R 20 B/P 122/88 02 96% ON ROOM AIR. [PT C/O 04/23 CHEST PAIN, PT RECEIVED 4MG IVP X1 2 HRS AGO AND IS AGAIN ASKING FOR MORPHINE FOR 04/23 PAIN. WILL SPEAK TO MD REGARDING PT REQUEST FOR PAIN MEDICATION.
[2021-03-06] MEDS: FUROSEMIDE 40 MG/4 ML VIAL IVP SCH (20:33)
--- NOTE | 2021-03-06 21:00 | NUR ---
PT GIVEN ORDERED LASIX 40 MG, EDUCATION REGARDING MEDICATION PROVIDED AT BEDSIDE. PT VERBALIZED UNDERSTANDING. PT REQUESTED A FEW MORE URINALS AT BEDSIDE. WILL SPEAK TO MD REGARDING PT REQUEST FOR PAIN MEDICATION.
[2021-03-06] MEDS: MORPHINE SULFATE 2 MG/ML SYR IVP PRN (21:50)
--- NOTE | 2021-03-06 22:00 | NUR ---
SPOKE TO PASQUALE MCNULTY TO GIVE IVP PRN MORPHINE 2MG NOW. PT MADE AWARE AND GIVEN PRN MORPHINE REQUESTED. ALL UNIVERSAL FALLS PRECAUTIONS IN PLACE. PT GIVEN REQUESTED SNACK AND DRINK. ALL UNIVERSAL FALLS PRECAUTIONS IN PLACE.
[2021-03-07] VITALS: BP 138/94
--- NOTE | 2021-03-07 | NUR ---
PT IN BED RESTING WITH EYES CLOSED . PT RESTLESS WHEN WOKEN UP FOR V/S , BUT DID NOT C/O OF PAIN . V/S FOLLOWS: T 97.5 P 89 R 20 B/P 138/94 02 90% ON ROOM AIR. PT VOIDED ANOTHER 650 LIGHT COLORED URINE. ALL UNIVERSAL FALLS PRECAUTIONS IN PLACE.
[2021-03-07] MEDS: HYDROcodone/APAP 7.5/325 MG 1 TAB PO PRN ×2 (02:14→13:56)
--- NOTE | 2021-03-07 02:15 | NUR ---
PT AWOKE WITH C/O OF 6/10 MODERATE CHEST PAIN AND WAS GIVEN 1 TAB PO/PRN NORCO 7.5/325MG. WILL MONITOR FOR EFFECT.
[2021-03-07 04:00] VITALS: BP 133/69
[2021-03-07] MEDS: MORPHINE SULFATE 2 MG/ML SYR IVP PRN ×3 (06:00→18:49)
[2021-03-07 06:46] LABS: BASOPHILS # (AUTO) 0.1 K/uL (0.00-0.22); BASOPHILS % (AUTO) 0.9 % (0.0-2.0); EOSINOPHILS # (AUTO) 0.3 K/uL (0-0.4); EOSINOPHILS % (AUTO) 2.8 % (0.0-4.0); HEMATOCRIT 43.5 % (36-52); HEMOGLOBIN 14.3 g/dL (12.0-18.0); LYMPHOCYTES # (AUTO) 1.3 K/uL (2.0-11.5); LYMPHOCYTES % (AUTO) 13.1 % (20.5-51.1); MEAN CORPUSCULAR HEMOGLOBIN 29 pg (27-31); MEAN CORPUSCULAR HGB CONC 33 g/dL (33-37); MEAN CORPUSCULAR VOLUME 89.2 fL (80-94); MONOCYTES # (AUTO) 0.6 K/uL (0.8-1.0); MONOCYTES % (AUTO) 6.1 % (1.7-9.3); NEUTROPHILS # (AUTO) 7.5 K/uL (1.8-7.7); NEUTROPHILS % (AUTO) 77.1 % (42.2-75.2); PLATELET COUNT (AUTO) 175 K/uL (140-450); RED BLOOD CELL COUNT(AUTO) 4.87 MIL/uL (4.20-6.10); RED CELL DISTRIBUTION WIDTH 15.8 % (11.6-13.7); WHITE BLOOD COUNT (AUTO) 9.8 K/uL (4.8-10.8)
[2021-03-07 07:02] LABS: ANION GAP 11.3 (8-16); CARBON DIOXIDE 24.6 mmol/L (21-32); CREATININE 1.5 mg/dL (0.6-1.3); POTASSIUM 3.9 mmol/L (3.5-5.1)
--- NOTE | 2021-03-07 07:30 | NUR ---
RECEIVED BEDSIDE REPORT FROM CLINICAL MANAGER HOME CARE NURSE FOR CONTINUITY OF CARE. PT AOX4, ABLE TO MAKE NEEDS KNOWN. RESPIRATIONS EVEN AND UNLABORED. ON ROOM AIR AND NO RESPIRATORY DISTRESS NOTED. SKIN IS WARM, DRY, AND INTACT. HAS JESSE MIDLINE SALINE LOCKED, INTACT AND PATENT. DENIES PAIN AT THE MOMENT. PLAN OF CARE DISCUSSED. SAFETY PRECAUTIONS IN PLACE. CALL LIGHT WITHIN REACH. WILL CONTINUE TO MONITOR.
[2021-03-07 08:00] VITALS: BP 124/57
[2021-03-07] MEDS: carvediloL 6.25 MG TAB PO SCH ×2 (08:00→17:16)
[2021-03-07 08:06] LABS: T4 (THYROXINE) 5.5 ug/dL (4.5-12.0)
[2021-03-07] MEDS ORDERED: FUROSEMIDE 40 MG TAB PO SCH (09:00)
[2021-03-07] MEDS: FUROSEMIDE 40 MG/4 ML VIAL IVP SCH ×2 (09:10→21:00)
[2021-03-07] MEDS: ASPIRIN 81 MG TAB.CHEW PO SCH (09:10)
[2021-03-07] MEDS: PANTOPRAZOLE 40 MG TABEC PO SCH (09:10)
[2021-03-07] MEDS: SPIRONOLACTONE 25 MG TAB PO SCH (09:11)
[2021-03-07] MEDS: lisinopriL 10 MG TAB PO SCH (09:11)
[2021-03-07] MEDS: RIVAROXABAN 10 MG TAB PO SCH (09:17)
[2021-03-07] MEDS: FUROSEMIDE 40 MG TAB PO SCH (09:17)
--- NOTE | 2021-03-07 09:30 | NUR ---
ALL SCHEDULED MEDICATIONS GIVEN. PT IS STABLE. DENIES PAIN AT THE MOMENT. WILL CONTINUE TO MONITOR.
[2021-03-07] MEDS: NACL 0.9% 1,000 ML IV SCH ×2 (11:20→11:29)
[2021-03-07 12:00] VITALS: BP 121/65
--- NOTE | 2021-03-07 12:46 | NUR ---
PATIENT COMPLAINED OF 9/10 CHEST PAIN. ADMINISTERED PRN PAIN MEDICATIONS PER MD ORDERED.
--- NOTE | 2021-03-07 13:56 | NUR ---
PATIENT STILL COMPLAINING OF 6/10 CHEST PAIN. ADMINISTERED PRN PAIN MEDICATIONS PER MD ORDERED.
--- NOTE | 2021-03-07 15:30 | NUR ---
CHECKED ON PATIENT. PATIENT IS STABLE. NO DISTRESS NOTED. WILL CONTINUE TO MONITOR.
[2021-03-07 16:00] VITALS: BP 127/67
--- NOTE | 2021-03-07 17:37 | NUR ---
ALL SCHEDULED MEDS GIVEN. PT IS STABLE. NO DISTRESS NOTED. WILL CONTINUE TO MONITOR.
--- NOTE | 2021-03-07 18:49 | NUR ---
PATIENT COMPLAINED OF 9/10 CHEST PAIN. ADMINISTERED PRN PAIN MEDICATIONS PER MD ORDERED.
--- NOTE | 2021-03-07 19:30 | NUR ---
RECEIVED REPORT FROM HUMBERTO RODRIGUEZ DAYSHIFT NURSE AT BEDSIDE FOR CONTINUITY OF CARE, PT IN STABLE CONDITION. PT LYING IN BED AOX4 ON ROOM AIR WITH RIGHT ARM DOUBLE LUMEN MIDLINE. ALL UNIVERSAL FALLS PRECAUTIONS IN PLACE.
--- NOTE | 2021-03-07 19:39 | NUR ---
ENDORSED TO DEAD MAIL CHECKER NURSE FOR CONTINUITY OF CARE. PT IS STABLE.
[2021-03-07 20:00] VITALS: BP 98/80
--- NOTE | 2021-03-07 20:00 | NUR ---
PT LYING IN BED AOX4 SOMEWHAT RESTLESS. BOTH PORTS OF DOUBLE LUMEN MIDLINE, FLUSHED PATENT. HE IS ON ROOM AIR, RESPIRATIONS EVEN AND UNLABORED V/S FOLLOWS: T 97.0 P 72 R 20 B/P 98/80 02 96% ON ROOM AIR. ALL UNIVERSAL FALLS PRECAUTIONS IN PLACE.
--- NOTE | 2021-03-07 21:15 | NUR ---
TEXTED PRIMARY MD SEAMAN REGARDING PT LASIX ORDER OF 4OMG/4MLS DUE AT THIS TIME. PT B/P WAS 98/80. PER MD SEAMAN OK TO HOLD LASIX AT THIS TIME.
[2021-03-08] VITALS: BP 119/74
--- NOTE | 2021-03-08 00:20 | NUR ---
PT IN BED SITTING UP WATCHING TV, HE CONTINUES TO BE RESTLESS IN BED V/S FOLLOWS: T 97.2 P 70 R 20 B/P 119/74 02 97% ON ROOM AIR. PT C/O 03/23 PAIN , HE WAS INFORMED THAT HIS MORPHINE WAS NOT DUE YET, HE SAID HE WOULD WAIT UNTIL IT IS DUE. OFFERED TO CHANGE MIDLINE DRESSING DUE TO SOME BLOOD AROUND THE SITE OF MIDLINE INSERTION. BOTH PORTS FLUSH EASILY. PT DECLINED TO HAVE DRESSING CHANGED AT THIS TIME.
[2021-03-08] MEDS: MORPHINE SULFATE 2 MG/ML SYR IVP PRN ×4 (01:09→20:05)
--- NOTE | 2021-03-08 01:10 | NUR ---
PT GIVEN DUE MORPHINE FOR C/O OF 8/10 CHEST PAIN. PT REMAINS RESTLESS BUT ON ROOM AIR. ALL FALLS PRECAUTION SI PLACE.
--- NOTE | 2021-03-08 03:10 | NUR ---
PT ASLEEP IN BED ALL UNIVERSAL PRECAUTIONS IN PLACE.
[2021-03-08 04:00] VITALS: BP 116/78
[2021-03-08 07:09] LABS: BASOPHILS # (AUTO) 0.1 K/uL (0.00-0.22); BASOPHILS % (AUTO) 0.9 % (0.0-2.0); EOSINOPHILS # (AUTO) 0.2 K/uL (0-0.4); EOSINOPHILS % (AUTO) 2.5 % (0.0-4.0); HEMATOCRIT 45.8 % (36-52); LYMPHOCYTES # (AUTO) 1.3 K/uL (2.0-11.5); LYMPHOCYTES % (AUTO) 15.4 % (20.5-51.1); MEAN CORPUSCULAR HEMOGLOBIN 29 pg (27-31); MEAN CORPUSCULAR HGB CONC 33 g/dL (33-37); MEAN CORPUSCULAR VOLUME 88.9 fL (80-94); MONOCYTES # (AUTO) 0.6 K/uL (0.8-1.0); MONOCYTES % (AUTO) 7.3 % (1.7-9.3); NEUTROPHILS # (AUTO) 6.4 K/uL (1.8-7.7); NEUTROPHILS % (AUTO) 73.9 % (42.2-75.2); PLATELET COUNT (AUTO) 177 K/uL (140-450); RED BLOOD CELL COUNT(AUTO) 5.15 MIL/uL (4.20-6.10); RED CELL DISTRIBUTION WIDTH 15.8 % (11.6-13.7); WHITE BLOOD COUNT (AUTO) 8.7 K/uL (4.8-10.8)
[2021-03-08 07:29] LABS: ANION GAP 8.9 (8-16); CARBON DIOXIDE 26.8 mmol/L (21-32); CREATININE 1.4 mg/dL (0.6-1.3); POTASSIUM 3.7 mmol/L (3.5-5.1)
--- NOTE | 2021-03-08 07:45 | NUR ---
RECEIVED BEDSIDE REPORT FROM DAMAGE ADJUSTER NURSE. PATIENT AWAKE, SUPINE IN BED, ALERT, ABLE TO MAKE NEEDS KNOWN. BREATHING EVEN AND UNLABORED, NO SIGNS OF ACUTE DISTRESS NOTED ON RA. JESSE DOUBLE LUMEN MIDLINE, SL. SAFETY MEASURES IN PLACE.
[2021-03-08 08:00] VITALS: BP 120/81
--- NOTE | 2021-03-08 08:48 | NUR ---
PATIENT HAS BEEN SCREENED AND CATEGORIZED MODERATE NUTRITION RISK. PATIENT WILL BE SEEN WITHIN 3-5 DAYS OF ADMISSION. 03/10/21 03/12/[address]
[2021-03-08] MEDS: PANTOPRAZOLE 40 MG TABEC PO SCH (08:51)
[2021-03-08] MEDS: ASPIRIN 81 MG TAB.CHEW PO SCH (08:51)
[2021-03-08] MEDS: lisinopriL 10 MG TAB PO SCH (08:51)
[2021-03-08] MEDS: FUROSEMIDE 40 MG/4 ML VIAL IVP SCH ×2 (08:52→20:05)
[2021-03-08] MEDS: carvediloL 6.25 MG TAB PO SCH ×2 (08:56→17:08)
[2021-03-08] MEDS: SPIRONOLACTONE 25 MG TAB PO SCH (08:56)
--- NOTE | 2021-03-08 08:57 | NUR ---
ADMINISTERED SCHEDULED MEDS PER MD ORDER. LASIX PO HELD PER DR SEAMAN, ONLY PO LASIX TO PREVENT HYPOTENSION. MED EDUCATION PROVIDED, PATIENT VERBALIZES UNDERSTANDING.
[2021-03-08] MEDS: FUROSEMIDE 40 MG TAB PO SCH (09:00)
[2021-03-08] MEDS: RIVAROXABAN 10 MG TAB PO SCH (09:07)
[2021-03-08] MEDS: NACL 0.9% 1,000 ML IV SCH (11:20)
[2021-03-08 12:00] VITALS: BP 115/75
--- NOTE | 2021-03-08 12:09 | NUR ---
PATIENT REFUSING ADMINISTRATION OF PRESCRIBED NS SOLUTION AT 20MML/HR. PATIENT STATES HE DOES NOT WANT THAT IN HIS BODY AND IS DRINKING PO FLUIDS FOR HYDRATION. MED EDUCATION PROVIDED, PATIENT VERBALIZES UNDERSTANDING AND CONTINUES TO DECLINE NS FLUID.
[2021-03-08 16:00] VITALS: BP 130/79
--- NOTE | 2021-03-08 17:08 | NUR ---
ADMINISTERED SCHEDULED MED PER MD ORDER. MED EDUCATION PROVIDED, PATIENT VERBALIZES UNDERSTANDING.
--- NOTE | 2021-03-08 19:10 | NUR ---
ENDORSED TO NIGHTSHIFT NURSE FOR CONTINUITY OF CARE. PATIENT STABLE AT THIS TIME.
--- NOTE | 2021-03-08 19:11 | NUR ---
RECEIVED BEDSIDE REPORT FROM DAY RN. PATIENT IS AAOX4. RESPIRATIONS ARE EQUAL AND UNLABORED ON ROOM AIR. SKIN IS INTACT. PATIENT IS AMBULATORY ABLE TO MAKE NEEDS KNOWN. IV ON JESSE DOUBLE LUMEN MIDLINE SL ON STRICT I&O. DX PULM EDEMA AND CHF EXACERBATION. WAITING FOR CONSULT DR CEVALLOS. POC DISCUSSED WITH PATIENT. SAFETY MEASURES ARE IN PLACE. WILL CONTINUE TO MONITOR.
[2021-03-08 20:00] VITALS: BP 104/52
--- NOTE | 2021-03-08 20:05 | NUR ---
VSS. ANTONELLA LASIX GIVEN AND MEDICATED WITH PRN IVP MORPHINE FOR C/C CHEST PAIN. MED EDUCATION GIVEN. WILL CONTINUE TO MONITOR.
--- NOTE | 2021-03-08 22:12 | NUR ---
PATIENT RESTING IN BED WITH EYES CLOSED, APPEARS TO BE ASLEEP. CHEST RISE AND FALL NOTED. ALL NEEDS MET. CALL LIGHT IS WITHIN REACH.
[2021-03-09] VITALS: BP 102/56
--- NOTE | 2021-03-09 | NUR ---
VITAL SIGNS ARE WITHIN NORMAL LIMITS. GAVE PATIENT SNACK PER REQUEST. CALL LIGHT IS WITHIN REACH. WILL CONTINUE TO MONITOR.
[2021-03-09] MEDS: MORPHINE SULFATE 2 MG/ML SYR IVP PRN (02:00)
--- NOTE | 2021-03-09 02:00 | NUR ---
PATIENT WITH C/C OF CHEST PAIN REQUESTING MORPHINE. PRN MORPHINE IVP GIVEN. SAFETY MEASURES ARE IN PLACE. WILL CONTINUE TO MONITOR.
[2021-03-09 04:00] VITALS: BP 112/67
--- NOTE | 2021-03-09 04:00 | NUR ---
VITAL SIGNS ARE WITHIN NORMAL LIMITS. ALL SAFETY MEASURES ARE IN PLACE. WILL CONTINUE TO MONITOR.
--- NOTE | 2021-03-09 05:45 | NUR ---
ROUNDS MADE. PATIENT RESTING COMFORTABLY IN BED NO S/S OF DISTRESS. CALL LIGHT IS WITHIN REACH. WILL CONTINUE TO MONITOR.
--- NOTE | 2021-03-09 07:26 | NUR ---
GAVE BEDSIDE REPORT TO DAY RN. PT ENDORSED IN STABLE CONDITION.
--- NOTE | 2021-03-09 07:31 | NUR ---
RECEIVED BEDSIDE REPORT FROM NIGHTSHIFT NURSE. PT RESTING IN BED. ABLE TO MAKE NEEDS KNOWN. PT SAID THAT HE DOES NOT WANT TO STAY HERE. AWARE. EDUCATED PT ON RISKS AND BENEFITS OF STAYING IN THE HOSPITAL VS LEAVING AMA. VERBALIZED UNDERSTANDING. PT STILL WANTS TO LEAVE AMA. MD AWARE. RESPIRATIONS EVEN AND UNLABORED WITH NO SOB OR RESPIRATORY DISTRESS. SKIN WARM AND DRY TO TOUCH. SAFETY MEASURES IN PLACE. WILL CONTINUE TO MONITOR
--- NOTE | 2021-03-09 07:50 | NUR ---
PT STILL WANTS TO LEAVE AMA. EDUCATED PT AGAIN ON RISKS AND BENEFITS OF STAYING VS LEAVING AMA. VERBALIZED UNDERSTANDING. PT SIGNED PAPERWORK. AWARE. PT LEFT AMA
== END 2021-03-09 08:11 | disposition home or self-care (01) | DRG 291 ==
LOC: MED 08:20 → MTU 11:15
PROVIDERS: ADMIT Family Medicine; ATTEND Family Medicine
PROC: 05HY33Z Insertion of Infusion Device into Upper Vein, Percutaneous Approach (ICD-10-PCS; principal; 2021-03-06)
PROC: B54BZZA Ultrasonography of Right Lower Extremity Veins, Guidance (ICD-10-PCS; 2021-03-06)
DX: I11.0 Hypertensive heart disease with heart failure (principal); N17.0 Acute kidney failure with tubular necrosis; E87.1 Hypo-osmolality and hyponatremia; Z68.41 Body mass index [BMI] 40.0-44.9, adult; I50.43 Acute on chronic combined systolic (congestive) and diastolic (congestive) heart failure; I42.9 Cardiomyopathy, unspecified; I48.91 Unspecified atrial fibrillation; Z91.19 Patient's noncompliance with other medical treatment and regimen; Z95.0 Presence of cardiac pacemaker; J44.9 Chronic obstructive pulmonary disease, unspecified; F19.10 Other psychoactive substance abuse, uncomplicated; R73.9 Hyperglycemia, unspecified; E66.9 Obesity, unspecified; Z53.29 Procedure and treatment not carried out because of patient's decision for other reasons; Z20.822 Contact with and (suspected) exposure to COVID-19
CPT/HCPCS: 36415; 71045; 80048; 80053; 80305; 81001; 82150; 83036; 83690; 83735; 83880; 84100; 84436; 84439; 84443; 84479; 84484; 85025; 85379; 85610; 85730; 87081; 93005; 93308; 99285; J1940; J2270; Q0163

== ENCOUNTER 2021-04-01 12:54 | Emergency (ER) | payer OTHER ==
[~2021-04-01] VITALS: Ht 188 cm; Wt 145.1 kg
[~2021-04-01 12:54] MED LIST changes: -HYDR-5080 PO; -RIVA20TA PO
[2021-04-01 13:16] VITALS: BP 165/113
--- NOTE | 2021-04-01 14:00 | NUR ---
Pt taken to bed 8
--- NOTE | 2021-04-01 14:14 | NUR ---
PT PRESENTS TO ED FOR FOLLOW UP ON STAPLE PLACEMENT. PT STATES HE HAD ROMMEL PLACED X1 WEEK AGO AND HERE FOR REMOVAL. DENIES PAIN.
== END 2021-04-01 14:23 | disposition home or self-care (01) ==
LOC: MED 12:54
DX: Z48.02 Encounter for removal of sutures (principal); I48.91 Unspecified atrial fibrillation; I11.0 Hypertensive heart disease with heart failure; I50.9 Heart failure, unspecified; J44.9 Chronic obstructive pulmonary disease, unspecified; Z86.73 Personal history of transient ischemic attack (TIA), and cerebral infarction without residual deficits; Z95.0 Presence of cardiac pacemaker; Z87.448 Personal history of other diseases of urinary system; F17.210 Nicotine dependence, cigarettes, uncomplicated; Z79.899 Other long term (current) drug therapy; Z79.82 Long term (current) use of aspirin; Z88.6 Allergy status to analgesic agent
CPT/HCPCS: 99281

== ENCOUNTER 2021-05-04 13:08 | Inpatient (IN) | payer OTHER, SELFPAY ==
[~2021-05-04] VITALS: Ht 188 cm; Wt 157.9 kg
[2021-05-04 13:22] VITALS: BP 149/110
--- NOTE | 2021-05-04 13:38 | NUR ---
AMBULATED TO BED 10
--- NOTE | 2021-05-04 13:57 | NUR ---
50/M PRESENTS TO ED WITH C/O SOB AND CP X1 HOUR. PATIENT STATES HE WAS AT REST AT HOME WHEN HE BEGAN FEELING 9/10 PRESSURE LIKE CHEST PAIN AND SOB WITH NO RELIEF. PATIENT DENIES TAKING ANYTHING FOR PAIN PRIOR TO ARRIVAL TO ED, DENIES N/V/D, DENIES COUGH, FEVER OR CHILLS. EKG PERFORMED BEDSIDE, DR. SANDOVAL AWARE OF PATIENT. PATIENT PLACED ON BEDSIDE CHEMISTRY INSTRUCTOR.
[2021-05-04] MEDS ORDERED: BUMETANIDE 1 MG/4 ML VIAL IM ONE (14:00)
--- NOTE | 2021-05-04 14:08 | NUR ---
DAVI SWAB COLLECTED AND HANDED TO SYRUP FILTERER.
[2021-05-04 14:20] LABS: BASOPHILS # (AUTO) 0.1 K/uL (0.00-0.22); BASOPHILS % (AUTO) 0.9 % (0.0-2.0); EOSINOPHILS # (AUTO) 0.2 K/uL (0-0.4); EOSINOPHILS % (AUTO) 2.6 % (0.0-4.0); HEMATOCRIT 41.8 % (36-52); HEMOGLOBIN 13.7 g/dL (12.0-18.0); LYMPHOCYTES # (AUTO) 1.4 K/uL (2.0-11.5); LYMPHOCYTES % (AUTO) 15.4 % (20.5-51.1); MEAN CORPUSCULAR HEMOGLOBIN 29 pg (27-31); MEAN CORPUSCULAR HGB CONC 33 g/dL (33-37); MEAN CORPUSCULAR VOLUME 87.7 fL (80-94); MONOCYTES # (AUTO) 0.8 K/uL (0.8-1.0); MONOCYTES % (AUTO) 8.4 % (1.7-9.3); NEUTROPHILS # (AUTO) 6.7 K/uL (1.8-7.7); NEUTROPHILS % (AUTO) 72.7 % (42.2-75.2); PLATELET COUNT (AUTO) 204 K/uL (140-450); RED BLOOD CELL COUNT(AUTO) 4.77 MIL/uL (4.20-6.10); RED CELL DISTRIBUTION WIDTH 16.3 % (11.6-13.7); WHITE BLOOD COUNT (AUTO) 9.1 K/uL (4.8-10.8)
[2021-05-04] MEDS ORDERED: MORPHINE SULFATE 4 MG/ML SYR IM ONE (14:25)
[2021-05-04 14:37] LABS: ALBUMIN 3.9 g/dL (3.4-5.0); ANION GAP 12.6 (8-16); CARBON DIOXIDE 28.2 mmol/L (21-32); CREATININE 1.4 mg/dL (0.6-1.3); POTASSIUM 3.8 mmol/L (3.5-5.1); TOTAL BILIRUBIN 0.5 mg/dL (0.0-1.0)
--- NOTE | 2021-05-04 16:00 | NUR ---
PATIENT RESTING IN BED ON BEDSIDE COMMUNITY DEVELOPMENT MANAGER.
--- NOTE | 2021-05-04 18:00 | NUR ---
PATIENT RESTING IN BED ON BEDSIDE ADJUNCT PHILOSOPHY FACULTY.
--- NOTE | 2021-05-04 19:17 | NUR ---
Pt report given to July RODRIGUEZ. Transfer of care at this time.
[2021-05-04] MEDS ORDERED: HYDROcodone/APAP 5/325 MG 1 TAB TAB PO PRN (19:20)
[2021-05-04] MEDS ORDERED: MAGNESIUM OXIDE 400 MG TAB PO PRN (19:20)
[2021-05-04] MEDS ORDERED: POTASSIUM CHLORIDE 10 MEQ TABER PO PRN (19:20)
[2021-05-04] MEDS ORDERED: SODIUM PHOS / POTASSIUM PHOS 1 PKT PDR PO PRN (19:20)
[2021-05-04] MEDS ORDERED: ONDANSETRON 4 MG/2 ML VIAL IM/IVP PRN (19:20)
[2021-05-04] MEDS ORDERED: DOCUSATE SODIUM 100 MG GELCAP PO PRN (19:20)
[2021-05-04] MEDS ORDERED: ALBUTEROL SULFATE/IPRATROPIU 3 ML SOL IH PRN (19:20)
[2021-05-04] MEDS ORDERED: ACETAMINOPHEN 325 MG TAB PO PRN (19:20)
--- NOTE | 2021-05-04 19:45 | NUR ---
pt is sitting up in bed, pt in stable condition. all needs met at this time.
--- NOTE | 2021-05-04 20:50 | NUR ---
pt reported chest pain 03/23, nonrad. no n/v. no sob.
[2021-05-04] MEDS: MORPHINE SULFATE 2 MG/ML SYR IVP PRN (20:56)
[2021-05-04 20:58] LABS: MAGNESIUM 2.1 mg/dL (1.8-2.4); PHOSPHORUS 3.5 mg/dL (2.5-4.9)
--- NOTE | 2021-05-04 21:10 | NUR ---
report given to kristofer johns.
[2021-05-04 21:15] VITALS: BP 139/90
--- NOTE | 2021-05-04 21:55 | NUR ---
Patient will be admitted to care of . Admited to tele. Will go to [id number]. Belongings list completed. Report to kristofer johns.
[2021-05-04 22:08] LABS: BARBITURATE, URINE NEGATIVE ng/ml (NEG <=200); BENZODIAZEPINE, URINE NEGATIVE ng/mL (NEG <=200); CANNABINOID, URINE NEGATIVE ng/mL (NEG <=50); COCAINE, URINE NEGATIVE ng/mL (NEG <=300); PHENCYCLIDINE SCREEN,URINE NEGATIVE ng/mL (NEG <=25)
[2021-05-04 22:09] LABS: OPIATE, URINE POSITIVE ng/mL (NEG <=2000)
[2021-05-05] VITALS (7 sets, daily range): BP systolic 130–153; BP diastolic 84–108
[2021-05-05] MEDS: MORPHINE SULFATE 2 MG/ML SYR IVP PRN (01:17)
--- NOTE | 2021-05-05 01:42 | NUR ---
PATIENT TO FLOOR 2109 FROM E.R WAS IN 128-B MOVED TO 126-A WAS RUDE TO ROOM MATE. PATIENT WITH SOB WHEN AMBULATE WHEN IN BED NO SOB SHOWN SAT 95% ROOM AIR. LUNGS DIMINISH ON MONITOR SINUS. TEMP 98. TROPONIN 0.082. LAB CALLED 2230 TROPONIN 0.092 NOW. PATIENT WT 349 LB HAS A OBESE ABDOMEN MEDICATED WITH MORPHINE DUE TO BACK PAIN. 8 1 OUT OF 10. PATIENT DOESNT SHOW NO SIGNS OF PAIN APPEARS TO BE A PAIN SEEKER. WAS 0117.
[2021-05-05 06:22] LABS: BASOPHILS # (AUTO) 0.1 K/uL (0.00-0.22); EOSINOPHILS # (AUTO) 0.2 K/uL (0-0.4); EOSINOPHILS % (AUTO) 2.4 % (0.0-4.0); HEMATOCRIT 40.3 % (36-52); HEMOGLOBIN 13.2 g/dL (12.0-18.0); LYMPHOCYTES # (AUTO) 1.3 K/uL (2.0-11.5); LYMPHOCYTES % (AUTO) 14.6 % (20.5-51.1); MEAN CORPUSCULAR HEMOGLOBIN 29 pg (27-31); MEAN CORPUSCULAR HGB CONC 33 g/dL (33-37); MEAN CORPUSCULAR VOLUME 89.3 fL (80-94); MONOCYTES # (AUTO) 0.7 K/uL (0.8-1.0); MONOCYTES % (AUTO) 7.3 % (1.7-9.3); NEUTROPHILS # (AUTO) 6.7 K/uL (1.8-7.7); NEUTROPHILS % (AUTO) 74.7 % (42.2-75.2); PLATELET COUNT (AUTO) 180 K/uL (140-450); RED BLOOD CELL COUNT(AUTO) 4.51 MIL/uL (4.20-6.10); RED CELL DISTRIBUTION WIDTH 16.4 % (11.6-13.7)
--- NOTE | 2021-05-05 06:51 | NUR ---
[address] CHASE THOMPSON ABOUT PATIENT TROPONIN THIS A.M 0.092 AND THAT THE PATIENT NEEDS A PICC LINE HE SAID HE WILL ORDER.
[2021-05-05 06:52] LABS: ANION GAP 13.9 (8-16); CARBON DIOXIDE 27.4 mmol/L (21-32); CREATININE 1.6 mg/dL (0.6-1.3); POTASSIUM 4.3 mmol/L (3.5-5.1)
--- NOTE | 2021-05-05 08:04 | NUR ---
RECEIVED BEDSIDE REPORT FROM REGIONAL MAINTENANCE MANAGER NURSE. PATIENT AWAKE, ALERT, ABLE TO MAKE NEEDS KNOWN. SITTING IN BED, WATCHING TV. BREATHING EVEN AND UNLABORED, NO SIGNS OF ACUTE DISTRESS NOTED. NO IV ACCESS IN PLACE. WILL CALL ORDER CLERK IN PLACE, SAFETY MEASURES IN PLACE.
[2021-05-05] MEDS ORDERED: DEXTROSE 50% 50 ML SYR IVP PRN (08:05)
[2021-05-05] MEDS ORDERED: INSULIN LISPRO SLIDING SCALE 100 UNITS/ML VIAL SUBQ PRN (08:05)
--- NOTE | 2021-05-05 08:27 | NUR ---
PATIENT HAS BEEN SCREENED AND CATEGORIZED MODERATE NUTRITION RISK. PATIENT WILL BE SEEN WITHIN 3-5 DAYS OF ADMISSION. 05/07/21 05/09/21 [facility] REFERRAL NOT APPROPRIATE FOR 1 OUT OF 2 TRIGGERS IN THE MALNUTRITION SCREENING TOOL [address]
[2021-05-05] MEDS: carvediloL 6.25 MG TAB PO SCH ×2 (08:47→17:00)
--- NOTE | 2021-05-05 08:50 | NUR ---
ADMINISTERED SCHEDULED MEDS PER MD ORDER. MED EDUCATION PROVIDED, PATIENT VERBALIZES UNDERSTANDING. IVP MEDICATION HELD. UNABLE TO OBTAIN IV ACCESS, DR THOMPSON CALLED REGARDING SIGNING OF PICC LINE, AND CHANGING IVP MEDICATION TO PO ROUTE. WILL CALL AGAIN.
[2021-05-05] MEDS ORDERED: lisinopriL 10 MG TAB PO SCH (09:00)
[2021-05-05] MEDS ORDERED: ASPIRIN 81 MG TAB.CHEW PO SCH (09:00)
[2021-05-05] MEDS ORDERED: SPIRONOLACTONE 25 MG TAB PO SCH (09:00)
[2021-05-05] MEDS ORDERED: FUROSEMIDE 40 MG/4 ML VIAL IVP SCH ×2 (09:00→23:00)
[2021-05-05] MEDS ORDERED: PANTOPRAZOLE 40 MG TABEC PO SCH (09:00)
--- NOTE | 2021-05-05 09:15 | NUR ---
SECOND ATTEMPT AT CONTACTING DR THOMPSON REGARDING PICC LINE AND IVP MEDICATION, BUSY TONE. WILL TRY AGAIN.
[2021-05-05] MEDS: BLOOD GLUCOSE MONITORING 1 DEV DEV FS SCH ×3 (11:42→20:50)
--- NOTE | 2021-05-05 12:57 | NUR ---
DR THOMPSON REACHED REGARDING PICC LINE. PER DR THOMPSON, HE WILL BE HERE TO SIGNS PICC LINE CONSENT AND HOLD IV MEDICATIONS FOR NOW.
--- NOTE | 2021-05-05 15:42 | NUR ---
DC PLANNING: CM SPOKE WITH THE PATIENT AT BEDSIDE. PATIENT HAS A H/O OF MULTIPLE ER VISITS AND ADMISSIONS FOR CHF EXACERBATION. THE PATIENT DID NOT WANT TO ENGAGE AND KEPT HIS ANSWERS VERY BRIEF. HE DOES NOT HAVE A PCP AND SEES HIS GLOVE MAKER DR GARDNER MONTHLY. HE IS INDEPENDENT IN ALL ACTIVITIES INCLUDING AMBULATION AND STATES THAT HE "DOESN'T REALLY DO MUCH". AMBULATES WITH A CANE AND "MANAGES" HIS ADL'S BY HIMSELF. HE RENTS A ROOM AND IS ON DISABILITY. NO H/O HOME HEALTH OR DME ASIDE FROM HIS CANE. PLAN IS FOR THE PATIENT TO DC HOME WHEN CLINICALLY STABLE, CM WILL FOLLOW FOR NEEDS.
[2021-05-05] MEDS: MORPHINE SULFATE 2 MG/ML SYR IM/IVP PRN ×2 (15:59→20:43)
--- NOTE | 2021-05-05 16:39 | NUR ---
PT REQUESTING ICE COLD WATER. PROVIDED. BREATHING EVEN AND UNLABORED NO SIGNS OF ACUTE DISTRESS NOTED ON RA. COMFORTABLE LAYING SUPINE IN BED, HOB 40 DEGREES, SAFETY MEASURES IN PLACE. WILL CONTINUE TO MONITOR.
--- NOTE | 2021-05-05 19:15 | NUR ---
RECEIVED BEDSIDE ENDORSEMENT FROM AM SHIFT RN. PT IS A&O X4, CURRENTLY HAS NO IV SITE, PICC LINE NURSE IS YET TO COME TO INSERT A PICC LINE RIGHT UPPER ARM. PT DID SIGN CONSENT FORM FOR PLACEMENT AND WAS DONE WITH THE AM SHIFT RN. SKIN IS INTACT, ON ROOM AIR, SAFETY MEASURES IN PLACE, CALL LIGHT WITHIN REACH, PT IS STABLE AT THIS MOMENT.
--- NOTE | 2021-05-05 20:15 | NUR ---
PICC LINE NURSE ARRIVED AND INSERTED PICC LINE RIGHT UPPER ARM. PLACEMENT OF PICC LINE IS CONFIRMED. WILL CONTINUE TO MONITOR, PT STABLE AT THIS TIME.
--- NOTE | 2021-05-05 20:43 | NUR ---
PATIENT WAS IN PAIN AND ASKED FOR PAIN MED. STATED CHEST PAIN 8/10, ADMINISTERED MORPHINE, TOLERATED WELL, PICC LINE IS PATENT, PT IS STABLE AT THIS TIME, WILL CONTINUE TO MONITOR.
[2021-05-06] VITALS: BP 132/87
[2021-05-06] MEDS: MORPHINE SULFATE 2 MG/ML SYR IM/IVP PRN ×2 (01:45→06:31)
--- NOTE | 2021-05-06 03:00 | NUR ---
PATIENT IS ASLEEP IN BED, KEPT COMFORTABLE, NO SIGNS OF DISTRESS, PT STABLE AT THIS MOMENT.
[2021-05-06 04:00] VITALS: BP 129/88
--- NOTE | 2021-05-06 05:43 | NUR ---
PT IS AWAKE AND ALERT, FLUSHED 10CC NS PICC LINE, WITHDREW 10CC OF BLOOD, WITHDREW 10CC OF BLOOD AGAIN TO GIVE TO CIELO FROM LABORATORY. AND ONCE AGAIN FLUSHED PICC LINE WITH 10CC NS. PICC LINE IS PATENT.
[2021-05-06 05:55] LABS: BASOPHILS # (AUTO) 0.1 K/uL (0.00-0.22); EOSINOPHILS # (AUTO) 0.2 K/uL (0-0.4); EOSINOPHILS % (AUTO) 2.6 % (0.0-4.0); HEMATOCRIT 39.8 % (36-52); HEMOGLOBIN 13.3 g/dL (12.0-18.0); LYMPHOCYTES # (AUTO) 1.4 K/uL (2.0-11.5); LYMPHOCYTES % (AUTO) 15.2 % (20.5-51.1); MEAN CORPUSCULAR HEMOGLOBIN 29 pg (27-31); MEAN CORPUSCULAR HGB CONC 33 g/dL (33-37); MEAN CORPUSCULAR VOLUME 87.3 fL (80-94); MONOCYTES # (AUTO) 0.7 K/uL (0.8-1.0); NEUTROPHILS # (AUTO) 6.6 K/uL (1.8-7.7); NEUTROPHILS % (AUTO) 73.2 % (42.2-75.2); PLATELET COUNT (AUTO) 186 K/uL (140-450); RED BLOOD CELL COUNT(AUTO) 4.56 MIL/uL (4.20-6.10); RED CELL DISTRIBUTION WIDTH 16.2 % (11.6-13.7); WHITE BLOOD COUNT (AUTO) 9.1 K/uL (4.8-10.8)
[2021-05-06 06:28] LABS: ANION GAP 12.5 (8-16); CREATININE 1.4 mg/dL (0.6-1.3); POTASSIUM 3.5 mmol/L (3.5-5.1)
[2021-05-06] MEDS: BLOOD GLUCOSE MONITORING 1 DEV DEV FS SCH (06:41)
--- NOTE | 2021-05-06 07:30 | NUR ---
PASSED ON BEDSIDE REPORT TO AM SHIFT RN. PT IS STABLE, ALL INTERVENTIONS PERFORMED.
--- NOTE | 2021-05-06 07:36 | NUR ---
RECEIVED BEDSIDE ENDORSEMENT FROM HEAVY EQUIPMENT PLUMBING SUPERVISOR RN. PT IS A&O X4, RESPIRATIONS EVEN AND UNLABORED. NO DISTRESS NOTED. HAS PICC LINE ON RIGHT UPPER ARM. SKIN IS INTACT. DENIES PAIN AT THE MOMENT. SAFETY MEASURES IN PLACE, CALL LIGHT WITHIN REACH, WILL CONTINUE TO MONITOR.
--- NOTE | 2021-05-06 08:50 | NUR ---
PATIENT REQUESTED TO GO AMA. INFORMED PATIENT THE RISKS AND BENEFITS OF LEAVING AMA. PATIENT STILL INSISTED ON LEAVING AMA. PATIENT SIGNED AMA FORM AND INFORMED MD REGARDING THE SITUATION.
[2021-05-06] MEDS ORDERED: APIXABAN 2.5 MG TAB PO SCH (09:00)
--- NOTE | 2021-05-06 09:00 | NUR ---
REMOVED PICC LINE. PT OFF THE UNIT AND WAS STABLE PRIOR TO LEAVING.
== END 2021-05-06 09:00 | disposition left against medical advice (07) | DRG 291 ==
LOC: MED 13:08 → MTU 16:11 → MMU 20:47
PROVIDERS: ADMIT Hospitalist; ATTEND Hospitalist
PROC: 02HV33Z Insertion of Infusion Device into Superior Vena Cava, Percutaneous Approach (ICD-10-PCS; principal; 2021-05-05)
PROC: B548ZZA Ultrasonography of Superior Vena Cava, Guidance (ICD-10-PCS; 2021-05-05)
DX: I11.0 Hypertensive heart disease with heart failure (principal); N17.0 Acute kidney failure with tubular necrosis; I24.9 Acute ischemic heart disease, unspecified; Z68.41 Body mass index [BMI] 40.0-44.9, adult; I50.43 Acute on chronic combined systolic (congestive) and diastolic (congestive) heart failure; I42.9 Cardiomyopathy, unspecified; E66.9 Obesity, unspecified; J44.9 Chronic obstructive pulmonary disease, unspecified; F12.90 Cannabis use, unspecified, uncomplicated; I48.91 Unspecified atrial fibrillation; E78.5 Hyperlipidemia, unspecified; Z20.822 Contact with and (suspected) exposure to COVID-19; Z95.810 Presence of automatic (implantable) cardiac defibrillator; Z88.8 Allergy status to other drugs, medicaments and biological substances; Z79.82 Long term (current) use of aspirin; Z79.899 Other long term (current) drug therapy; Z86.73 Personal history of transient ischemic attack (TIA), and cerebral infarction without residual deficits; Z80.9 Family history of malignant neoplasm, unspecified; Z91.14 Patient's other noncompliance with medication regimen
CPT/HCPCS: 36415; 71045; 80048; 80053; 80305; 82948; 83735; 83880; 84100; 84484; 85025; 93005; 96372; 99285; J1815; J1940; J2270; J3490; Q0092; Q0163